=== PATIENT | male | born 1950 | race Two or more races ===

== ENCOUNTER 2021-02-09 19:12 | Inpatient (IN) | payer MEDICARE ==
[~2021-02-09] VITALS: Ht 182.9 cm; Wt 136.1 kg
[~2021-02-09 19:12] MED LIST: ACET-2605 PO; ALLO100T PO; AMIO200T5 PO; ASPI-1420 PO; ATOR10TA PO; CARV25TA2 PO; ECON15CR2 TP; ERGO500093 PO; FAMO20TA8 PO; FURO40TA5 PO; ICOS1CAP PO; INSU100V27 SQ; INSU200I4 SQ; LATA2.5D15 EACHEYE; METH-647 PO; METO2.5T2 PO; Midodrine Hcl (5MG) PO; POTA20TA83 PO; RIVA15TA PO; SILD100T PO; SPIR25TA6 PO; TRAM50TA2 PO; TRIA80OI TP
--- NOTE | 2021-02-09 19:45 | NUR ---
PATIENT [facility] C/O SOB AND FEVER. SEND BY PMD FOR FURTHER EVALUATION. PATIENT IS A/OX 4, RR EVEN AND UNLABORED, NO SIGNS OF SOB NOTED. PATIENT CONNECTED TO [address] MAN AND POX.
[2021-02-09 20:02] LABS: BASOPHILS % (AUTO) 0.2 % (0.0-2.0); EOSINOPHILS % (AUTO) 0.2 % (0.0-6.0); HEMATOCRIT 33 % (39-51); HEMOGLOBIN 10.6 g/dL (13.5-17.5); LYMPHOCYTES # (AUTO) 0.5 K/uL (0.8-4.8); LYMPHOCYTES % (AUTO) 2.7 % (20.0-44.0); MEAN CORPUSCULAR HGB CONC 32 g/dl (31.0-36.0); MEAN CORPUSCULAR VOLUME 87 fL (80-96); MONOCYTES # (AUTO) 1.9 K/uL (0.1-1.30); MONOCYTES % (AUTO) 9.1 % (2.0-12.0); NEUTROPHILS % (AUTO) 87.8 % (43.0-81.0); PLATELET COUNT (AUTO) 222 K/uL (150-450); RED BLOOD CELL COUNT(AUTO) 3.79 MIL/uL (4.5-6.0); WHITE BLOOD COUNT (AUTO) 20.5 K/uL (4.3-11.0)
--- NOTE | 2021-02-09 20:11 | NUR ---
COVID SWAB COLLECTED AND SENT TO LAB
[2021-02-09 20:17] LABS: CALCIUM, SERUM 8.7 mg/dL (8.5-10.1); CARBON DIOXIDE 26 mmol/L (21-32); CHLORIDE 96 mmol/L (98-107); CREATININE 5.2 mg/dL (0.6-1.3); GLUCOSE 247 mg/dL (74-106); POTASSIUM 4.3 mmol/L (3.5-5.1); SODIUM SERUM 134 mmol/L (136-145); UREA NITROGEN, BLOOD 35 mg/dL (7-18)
--- NOTE | 2021-02-09 20:18 | NUR ---
RAD AT BEDSIDE
[2021-02-09 20:25] LABS: ALANINE AMINOTRANSFERASE 21 U/L (12-78); ALBUMIN 2.9 g/dL (3.4-5.0); ALKALINE PHOSPHATASE 89 U/L (46-116); ASPARTATE AMINOTRANSFERASE 17 U/L (15-37); BILIRUBIN,TOTAL 1.3 mg/dL (0.2-1.0)
[2021-02-09] MEDS ORDERED: VANCOMYCIN 1 GM in IV D5W 250 ML IV ONE ×2 (20:30→22:30)
[2021-02-09] MEDS ORDERED: PIPERACILLIN /TAZOBACTAM 3.375 G in IV D5W 50 ML IV ONE (20:30)
--- NOTE | 2021-02-09 20:45 | NUR ---
PATIENT A/OX4, UNABLE TO PROVIDE URINE AT THIS TIME, MADE AWARE, OK TO START IV ABX.
[2021-02-09] MEDS ORDERED: VANCOMYCIN 1 GM VIAL ONE ×2 (20:48→22:36)
--- NOTE | 2021-02-09 20:57 | NUR ---
URINE COLLECTED AND SENT TO LAB
--- NOTE | 2021-02-09 21:25 | NUR ---
CALLED FOR REPORT. NURSE WILL CALL BACK
[2021-02-09 21:28] LABS: BAND % (MANUAL) 13 % (0.0-5.0); EOSINOPHILS % (MANUAL) 2 % (0-4); LYMPHOCYTES % (MANUAL) 1 % (16-48); MONOCYTES % (MANUAL) 7 % (0-11.0); NEUTROPHILS % (MANUAL) 77 (42-76)
[2021-02-09 21:32] LABS: BILIRUBIN,URINE MODERATE (NEGATIVE); COLOR,URINE YELLOW (YELLOW); LEUKOCYTE ESTERASE ,URINE MODERATE (NEGATIVE); NITRITE, URINE POSITIVE (NEGATIVE); PROTEIN,URINE 100 mg/dl (NEGATIVE); UGLUCOSE 100 MG/DL mg/dL (NEGATIVE)
[2021-02-09 21:37] LABS: BACTERIA,URINE 2+ /HPF (None Seen); SQUAMOUS EPITHELIAL CELL,UR 0-2 /HPF (None Seen); WBC,URINE 21-50 /HPF (0-3)
--- NOTE | 2021-02-09 21:38 | NUR ---
REPORT GIVEN TO KAYLEE PATEL
--- NOTE | 2021-02-09 21:44 | NUR ---
ADMIT NOTE RECEIVED PATIENT FROM ER, TRANSFERRED TO ROOM 119. PATIENT IS ALERT AND ORIENTED X4, ABLE TO MAKE NEEDS KNOWN. ON O2 3L VIA NASAL CANNULA, O2 SAT 98%. NO SIGNS OF SHORTNESS OF BREATH. RESPIRATIONS EVEN AND UNLABORED. DENIES ANY PAIN AT THIS TIME. IV ACCESS ON LEFT WRIST # 20 PATENT AND INTACT, NO SIGNS OF INFILTRATION. SKIN ASSESSMENT DONE, NOTED WITH BILATERAL WOUND/CELLULITIS, GROIN REDNESS, LEFT UNDERARM REDNESS AND SACRAL REDNESS. KEPT CLEAN AND DRY. ORIENTED PATIENT TO ROOM AND CALL LIGHT. BED LOCKED AND IN LOWEST POSITION. CALL LIGHT WITHIN REACH. ALL NEEDS ANTICIPATED.
--- NOTE | 2021-02-09 21:52 | NUR ---
PATIENT TRANSFERRED UNDER ACLS
[2021-02-09] MEDS ORDERED: hydrALAZINE HCL 50 MG TABLET PO PRN (22:00)
[2021-02-09] MEDS ORDERED: Z GUARD REMEDY 2 OZ OINT TP PRN (22:00)
[2021-02-09] MEDS ORDERED: ONDANSETRON HCL/PF 4 MG/2 ML VIAL IVP PRN (22:00)
[2021-02-09] MEDS ORDERED: DEXTROSE 50%-WATER 50 ML DISP.SYRIN IV PRN (22:30)
--- NOTE | 2021-02-09 23:10 | NUR ---
NOTIFIED KALYANI CHOWDHURY PATIENT'S BLOOD PRESSURE 81/44 AND HR 60, NO COMPLAINTS OF DIZZINESS OR HEADACHE. KALYANI CHOWDHURY WITH ORDER FOR 250 NS BOLUS, NOTED AND CARRIED OUT.
[2021-02-09] MEDS ORDERED: IV NS 0.9% 250 ML IV ONE (23:30)
[2021-02-10] VITALS: BP 91/46
[2021-02-10] MEDS ORDERED: MEROPENEM 500 MG in IV NS 0.9% 50 ML IV ONE
[2021-02-10] MEDS ORDERED: MEROPENEM 500 MG VIAL IV ONE
--- NOTE | 2021-02-10 00:23 | NUR ---
INFORMED KALYANI CHOWDHURY PATIENT CRITICAL LAB LACTIC ACID 2.6 WITH NO NEW ORDERS AT THIS TIME.
[2021-02-10] MEDS: IV NS 0.9% 1,000 ML IV PRN ×2 (03:41→15:55)
[2021-02-10 04:00] VITALS: BP 87/51
[2021-02-10 05:16] LABS: BASOPHILS % (AUTO) 0.1 % (0.0-2.0); EOSINOPHILS % (AUTO) 0.1 % (0.0-6.0); HEMATOCRIT 32 % (39-51); LYMPHOCYTES # (AUTO) 1.1 K/uL (0.8-4.8); LYMPHOCYTES % (AUTO) 4.6 % (20.0-44.0); MEAN CORPUSCULAR HGB CONC 31 g/dl (31.0-36.0); MEAN CORPUSCULAR VOLUME 87 fL (80-96); MONOCYTES # (AUTO) 1.7 K/uL (0.1-1.30); MONOCYTES % (AUTO) 7.2 % (2.0-12.0); NEUTROPHILS # (AUTO) 20.5 K/uL (1.8-8.9); PLATELET COUNT (AUTO) 198 K/uL (150-450); RED BLOOD CELL COUNT(AUTO) 3.69 MIL/uL (4.5-6.0); WHITE BLOOD COUNT (AUTO) 23.3 K/uL (4.3-11.0)
[2021-02-10 05:41] LABS: ALANINE AMINOTRANSFERASE 19 U/L (12-78); ALBUMIN 2.5 g/dL (3.4-5.0); ALKALINE PHOSPHATASE 89 U/L (46-116); ASPARTATE AMINOTRANSFERASE 14 U/L (15-37); BILIRUBIN,TOTAL 1.1 mg/dL (0.2-1.0); CALCIUM, SERUM 8.4 mg/dL (8.5-10.1); CARBON DIOXIDE 25 mmol/L (21-32); CHLORIDE 96 mmol/L (98-107); CREATININE 5.6 mg/dL (0.6-1.3); GLUCOSE 316 mg/dL (74-106); MAGNESIUM 1.7 mg/dL (1.8-2.4); PHOSPHORUS 5.8 mg/dL (2.5-4.9); POTASSIUM 4.7 mmol/L (3.5-5.1); SODIUM SERUM 135 mmol/L (136-145); TOTAL PROTEIN, SERUM 6.5 g/dL (6.4-8.2); UREA NITROGEN, BLOOD 43 mg/dL (7-18)
[2021-02-10 06:12] LABS: IRON, SERUM 13 ug/dl (50-175); TOTAL IRON BINDING CAPACITY 175 ug/dl (250-450)
[2021-02-10 06:15] LABS: CHOLESTEROL 108 mg/dL (<200); HDL CHOLESTEROL 36 mg/dL (40-60); LDL 52 mg/dL (0-99); TRIGLYCERIDES 107 mg/dL (30-150)
--- NOTE | 2021-02-10 07:00 | NUR ---
RN NOTE PATIENT IS ALERT AND ORIENTED X4, ABLE TO MAKE NEEDS KNOWN. ON O2 3L VIA NASAL CANNULA, O2 SAT 98%. RESPIRATIONS EVEN AND UNLABORED. IV ACCESS ON LEFT WRIST # 20 PATENT AND INTACT RUNNING NS @ 60ML/HR. NOTIFIED KALYANI CHOWDHURY BLOOD PRESSURE THIS MORNING 87/51 WITH NO NEW ORDERS AT THIS TIME, TO MONITOR ONLY. CALL LIGHT WITHIN REACH. WILL ENDORSE TO AM SHIFT.
--- NOTE | 2021-02-10 08:13 | NUR ---
TELE/RN OPENING NOTE RECEIVED PATIENT ALERT AND ORIENTED X4, ABLE TO MAKE NEEDS KNOWN. ON O2 @ 3L VIA NASAL CANNULA, O2 SAT 98%. RESPIRATIONS EVEN AND UNLABORED. IV ACCESS ON LEFT WRIST # 20 PATENT AND INTACT RUNNING NS @ 60ML/HR. PREVIOUS NURSE NOTIFIED KALYANI CHOWDHURY BLOOD PRESSURE THIS MORNING 87/51 WITH NO NEW ORDERS AT THIS TIME, TO MONITOR ONLY. CALL LIGHT WITHIN REACH. WILL CONTINUE TO MONITOR PATIENT
[2021-02-10] MEDS ORDERED: MAGN400O6 PO (08:16)
[2021-02-10] MEDS ORDERED: ACET-868 PO (08:16)
[2021-02-10] MEDS ORDERED: XEROFORM TD (08:16)
[2021-02-10] MEDS ORDERED: ASCO-495 PO (08:16)
[2021-02-10] MEDS ORDERED: MIDO2.5T PO (08:16)
[2021-02-10] MEDS ORDERED: ZINC56.713 TP (08:16)
[2021-02-10] MEDS ORDERED: TEMA7.5C12 PO (08:16)
[2021-02-10] MEDS ORDERED: ALLO100T PO (08:16)
[2021-02-10] MEDS ORDERED: ASPI-1420 PO (08:16)
[2021-02-10] MEDS ORDERED: AMIO200T5 PO (08:16)
[2021-02-10] MEDS ORDERED: BALS60OI TP (08:16)
[2021-02-10] MEDS ORDERED: ZINC1CAP3 PO (08:16)
[2021-02-10] MEDS ORDERED: LATA7.5D EACHEYE (08:16)
[2021-02-10] MEDS ORDERED: ATOR10TA PO (08:16)
[2021-02-10] MEDS ORDERED: INSU100V27 SQ (08:16)
[2021-02-10] MEDS ORDERED: ZINC220C6 PO (08:16)
[2021-02-10] MEDS ORDERED: PANT40TA2 PO (08:16)
[2021-02-10] MEDS ORDERED: ERGO500093 PO (08:16)
[2021-02-10] MEDS ORDERED: TRAM50TA2 PO (08:16)
[2021-02-10] MEDS ORDERED: CARV25TA2 PO (08:16)
[2021-02-10] MEDS ORDERED: FOLI0.8T23 PO (08:16)
[2021-02-10] MEDS ORDERED: ACET-2605 PO (08:16)
[2021-02-10] MEDS ORDERED: ASCO-352 PO (08:16)
[2021-02-10] MEDS ORDERED: POVI30LI TP (08:16)
[2021-02-10] MEDS: BLOOD SUGAR DIAGNOSTIC 1 EACH STRIP IN SCH ×4 (09:08→22:55)
[2021-02-10] MEDS: MEROPENEM 500 MG in IV NS 0.9% 50 ML IV SCH ×2 (09:11→22:06)
[2021-02-10] MEDS ORDERED: ASCORBIC ACID 250 MG TABLET PO SCH (09:30)
[2021-02-10] MEDS ORDERED: MAGNESIUM HYDROXIDE 30 ML UDC PO PRN (09:30)
[2021-02-10] MEDS ORDERED: ACETAMINOPHEN 325 MG TABLET PO PRN (09:30)
[2021-02-10] MEDS ORDERED: MIDODRINE HCL (5MG) 5 MG TABLET PO PRN (09:30)
[2021-02-10] MEDS: PANTOPRAZOLE 40 MG TABLET.DR PO SCH (09:46)
[2021-02-10] MEDS: ASPIRIN EC 81 MG TABLET.DR PO SCH (09:46)
[2021-02-10] MEDS: AMIODARONE HCL 200 MG TABLET PO SCH (09:46)
[2021-02-10] MEDS: INSULIN REGULAR, HUMAN 100 UNIT/ML 3 ML VIAL SQ PRN ×4 (09:50→23:00)
[2021-02-10] MEDS ORDERED: diphenhydrAMINE HCL 25 MG CAPSULE PO PRN (11:00)
[2021-02-10] MEDS ORDERED: diphenhydrAMINE HCL 25 MG CAPSULE PO ONE (11:00)
[2021-02-10 11:32] VITALS: BP 99/53
--- NOTE | 2021-02-10 12:00 | NUR ---
TELE/RN NOTES- VIT D FOLLOWED UP PHARMACY REGARDING VID D 50,000 UNITS, PER PHARMACIST THEY WILL SEND MEDICATION AT THE UNIT.
[2021-02-10 13:07] VITALS: BP 99/53
--- NOTE | 2021-02-10 13:09 | NUR ---
TELE/RN NOTES- VIT D CALLED AND FOLLOWED UP PHARMACY AGAIN REGARDING VIT D 50,000 UNIT. PER PHARMACY THEY WILL SEND IT.
[2021-02-10] MEDS: ERGOCALCIFEROL (VITAMIN D 2) 50,000 UNIT CAPSULE PO SCH (13:45)
[2021-02-10] MEDS: TRAMADOL HCL 50 MG TABLET PO PRN (15:54)
[2021-02-10 16:16] VITALS: BP 99/55
--- NOTE | 2021-02-10 19:35 | NUR ---
TELE/RN CLOSING NOTE PATIENT ALERT AND ORIENTED X4, ABLE TO MAKE NEEDS KNOWN. ON O2 @ 3L VIA NASAL CANNULA, O2 SAT 96%. RESPIRATIONS EVEN AND UNLABORED. IV ACCESS ON LEFT WRIST # 20 PATENT AND INTACT RUNNING NS @ 60ML/HR. PCALL LIGHT WITHIN REACH. WILL ENDORSE TO THE NEXT SHIFT FOR BREA.
--- NOTE | 2021-02-10 19:45 | NUR ---
RN NOTE PT RECEIVED IN BED. PT IS ON 3L OF O2 VIA NC SHOWING NO S/S OF RESP DISTRESS. PT IS A&OX4. PT IS V PACING IN 60S. PT HAS IV LINE ON LEFT WRIST FLUSHED, PATENT, AND INTACT. RIGHT CHEST PACEMAKER NOTED. ALL SAFETY MEASURES IMPLEMENTED. CALL LIGHT WITHIN REACH. BED ALARM ON. CALL LIGHT WITHIN REACH. WILL CONTINUE TO MONITOR THROUGHOUT THE SHIFT.
[2021-02-10 20:00] VITALS: BP 91/44
[2021-02-10] MEDS: CARVEDILOL 12.5 MG TABLET PO SCH (21:00)
[2021-02-10] MEDS: LATANOPROST EYE DROP 0.005% 2.5 ML BOTTLE EACHEYE SCH (22:00)
[2021-02-10] MEDS: ATORVASTATIN 10 MG TABLET PO SCH (22:00)
[2021-02-10] MEDS: TEMAZEPAM 7.5 MG CAPSULE PO SCH (22:04)
--- NOTE | 2021-02-10 22:55 | NUR ---
RN NOTE PT BLOOD SUGAR WAS 176. WILL ADMINISTER INSULIN PER SLIDING SCALE.
--- NOTE | 2021-02-10 23:02 | NUR ---
RN NOTE PT IS IN PAIN. SPOKE WITH DR. CARO DAS. BRENDAN SORENSON 10 Q4H PIERON. Addendum: 02/10/21 at 2304 by NEFTALI ROBLERO RN SPOKE WITH DR. CARO CHOWDHURY. NOT DR. DAS.
[2021-02-11] VITALS: BP 89/37
[2021-02-11] MEDS: HYDROCODONE/APAP 10/325MG TABLET PO PRN
[2021-02-11] MEDS ORDERED: VANCOMYCIN 500 MG VIAL ONE (00:24)
--- NOTE | 2021-02-11 00:42 | NUR ---
RN NOTE SPOKE WITH [facility]. VANCO TROUGH 15. OKAY TO ADMINISTER VANCO POST HD.
[2021-02-11] MEDS: VANCOMYCIN POST DIALYSIS 500MG IV PRN ×2 (01:20→23:03)
[2021-02-11 04:00] VITALS: BP 101/50
[2021-02-11 06:50] LABS: BASOPHILS # (AUTO) 0.1 K/uL (0.0-0.2); BASOPHILS % (AUTO) 0.5 % (0.0-2.0); EOSINOPHILS % (AUTO) 1.9 % (0.0-6.0); HEMATOCRIT 31 % (39-51); LYMPHOCYTES # (AUTO) 0.8 K/uL (0.8-4.8); LYMPHOCYTES % (AUTO) 6.4 % (20.0-44.0); MEAN CORPUSCULAR HGB CONC 32 g/dl (31.0-36.0); MEAN CORPUSCULAR VOLUME 87 fL (80-96); MONOCYTES # (AUTO) 1.2 K/uL (0.1-1.30); MONOCYTES % (AUTO) 9.1 % (2.0-12.0); NEUTROPHILS # (AUTO) 10.4 K/uL (1.8-8.9); NEUTROPHILS % (AUTO) 82.1 % (43.0-81.0); PLATELET COUNT (AUTO) 188 K/uL (150-450); RED BLOOD CELL COUNT(AUTO) 3.58 MIL/uL (4.5-6.0); WHITE BLOOD COUNT (AUTO) 12.7 K/uL (4.3-11.0)
[2021-02-11 07:03] LABS: CARBON DIOXIDE 29 mmol/L (21-32); CHLORIDE 99 mmol/L (98-107); CREATININE 4.3 mg/dL (0.6-1.3); GLUCOSE 157 mg/dL (74-106); MAGNESIUM 1.9 mg/dL (1.8-2.4); PHOSPHORUS 3.9 mg/dL (2.5-4.9); POTASSIUM 3.9 mmol/L (3.5-5.1); SODIUM SERUM 133 mmol/L (136-145); UREA NITROGEN, BLOOD 38 mg/dL (7-18)
--- NOTE | 2021-02-11 07:20 | NUR ---
RN NOTE NO CHANGES IN PT CONDITION DURING SHIFT. PT IS ON 3L OF O2 VIA NC SHOWING NO S/S OF RESP DISTRESS. PT IS A&OX4. PT IS V PACING IN 60S. PT HAS IV LINE ON LEFT WRIST FLUSHED, PATENT, AND INTACT. RIGHT CHEST PACEMAKER NOTED. ALL MEDS GIVEN ORDERED. PT KEPT CLEAN AND COMFORTABLE. ALL SAFETY MEASURES IMPLEMENTED. CALL LIGHT WITHIN REACH. BED ALARM ON. CALL LIGHT WITHIN REACH. ENDORSED TO MORNING SHIFT RN FOR BREA.
--- NOTE | 2021-02-11 07:30 | NUR ---
RN NOTES PATIENT RECEIVED IN BED ALERT AND ORIENTED X4. ON NASAL CANNULA 3 LITERS, DENIES SOB AT THIS TIME, WITH EVEN NON-LABORED BREATHING. IV ACCESS INTACT AND PATENT. SKIN WARM AND DRY TO TOUCH. PATIENT DENIES ANY PAIN OR DISCOMFORT AT THIS TIME. BILATERAL LOWER EXTREMITIES WRAPPED WITH KERLIX, WILL AWAIT FOR WOUND CARE CONSULT. SAFETY PRECAUTIONS IMPLEMENTED WITH BED LOCKED, BED ALARM ON, BILATERAL SIDE RAILS UP, BED IN THE LOWEST POSITION, AND CALL LIGHT WITHIN EASY REACH. WILL CONTINUE TO MONITOR PATIENT.
[2021-02-11 08:00] VITALS: BP 97/39
[2021-02-11] MEDS: BLOOD SUGAR DIAGNOSTIC 1 EACH STRIP IN SCH ×4 (08:14→22:10)
[2021-02-11] MEDS: PANTOPRAZOLE 40 MG TABLET.DR PO SCH (08:14)
[2021-02-11] MEDS: ASPIRIN EC 81 MG TABLET.DR PO SCH (08:59)
[2021-02-11] MEDS: ASCORBIC ACID 500 MG TABLET PO SCH (08:59)
[2021-02-11] MEDS: ZINC SULFATE 220 MG CAPSULE PO SCH (08:59)
[2021-02-11] MEDS: INSULIN REGULAR, HUMAN 100 UNIT/ML 3 ML VIAL SQ PRN ×4 (08:59→22:24)
[2021-02-11] MEDS: VIT B CMPLX 3/FA/VIT C/BIOTIN 1 TAB TABLET PO SCH (08:59)
[2021-02-11] MEDS: ALLOPURINOL 100 MG TABLET PO SCH (09:00)
[2021-02-11] MEDS ORDERED: ZINC SULFATE 220 MG CAPSULE PO SCH (09:00)
[2021-02-11] MEDS: AMIODARONE HCL 200 MG TABLET PO SCH (09:00)
[2021-02-11] MEDS: CARVEDILOL 12.5 MG TABLET PO SCH ×2 (09:00→20:05)
[2021-02-11] MEDS: MEROPENEM 500 MG in IV NS 0.9% 50 ML IV SCH (09:00)
[2021-02-11] MEDS: MIDODRINE HCL (5MG) 5 MG TABLET PO SCH ×2 (10:12→17:05)
--- NOTE | 2021-02-11 10:17 | NUR ---
WOUND CARE CONSULT: REVIEWED CHART, NURSING DOCUMENTATION AND PHOTOS WHICH INDICATE RASHES/REDNESS TO GROIN FOLDS, PERINEAL AREAS WELL LOWER EXTREMITY WOUNDS, PRESENT ON ADMISSION. DPM CONSULT CALLED TO DR GUILLAUME. RECOMMENDATIONS MADE FOR SKIN PROTECTION. DISCUSSED WITH NURSING STAFF. CURRENT MOY SCORE IS 17. MD IN AGREEMENT WITH PLAN OF CARE.
--- NOTE | 2021-02-11 11:02 | NUR ---
RN NOTES PATIENTS BLOOD PRESSURE IN THE MID 80S MD DR SAWYER AWARE, INFORMED HEMODIALYSIS NURSE WELL, DID NOT GO THRU WITH TREATMENT OF HEMODIALYSIS FOR TODAY. WILL CONTINUE TO MONITOR PATIENT.
[2021-02-11 12:00] VITALS: BP 108/71
[2021-02-11] MEDS: IV NS 0.9% 1,000 ML IV PRN (12:33)
--- NOTE | 2021-02-11 15:15 | NUR ---
RN NOTES PATIENT STATES HE IS ITCHY AND REQUESTING BENADRYL. ADMINISTERED PRN ORDERED, WILL CONTINUE TO MONITOR PATIENT.
[2021-02-11 16:00] VITALS: BP 113/53
[2021-02-11] MEDS: CLOTRIMAZOLE 1% 15 GM TUBE TP SCH (17:05)
[2021-02-11] MEDS: ACETAMINOPHEN 325 MG TABLET PO PRN (17:14)
--- NOTE | 2021-02-11 18:35 | NUR ---
STUDENT SERVICES REP NOTES PATIENT ALERT AND ORIENTED IN BED RESTING COMFORTABLY. MET ALL OF PATIENT'S NEEDS. ON NASAL CANNULA, 3 LITERS WITH NO SIGNS OF SOB NOTED, WITH EVEN NON-LABORED BREATHING. ON MANAGER FINANCIAL PLANNING. PATIENT DENIES ANY PAIN OR DISCOMFORT. BILATERAL LOWER EXTREMITIES DRESSING INTACT AND CHANGE. SAFETY PRECAUTIONS IMPLEMENTED WITH BED LOCKED, BILATERAL SIDE RAILS UP, BED IN THE LOWEST POSITION, AND CALL LIGHT WITHIN EASY REACH. WILL ENDORSE PLAN OF CARE TO UPCOMING RN.
--- NOTE | 2021-02-11 19:20 | NUR ---
RN NOTE RECEIVED PATIENT IN BED RESTING ALERT ORIENTED X4 VERBALLY RESPONSIVE ON 3L OXYGEN VIA NASAL CANNULA O2:97% IV SITE IS ON LEFT WRIST INTACT PATENT AND RIGHT UPPER CHEST PERM CATH FOR HD, ON IV HYDRATION NS 09% 60CC/HR SAFETY MEASURE IMPLEMENT BED IN LOW POSITION AND LOCKED CALL LIGHT WITHIN REACH CONTINUE TO MONITOR
[2021-02-11 20:00] VITALS: BP 101/56
[2021-02-11] MEDS ORDERED: CEFEPIME 1 GM in IV D5W 50 ML IV SCH (20:00)
--- NOTE | 2021-02-11 20:30 | NUR ---
RN NOTE PATIENT START DIALYSIS ON HIS ROOM CONTINUE TO MONITOR.
[2021-02-11] MEDS: ATORVASTATIN 10 MG TABLET PO SCH (22:03)
[2021-02-11] MEDS: TEMAZEPAM 7.5 MG CAPSULE PO SCH (22:04)
[2021-02-11] MEDS: LATANOPROST EYE DROP 0.005% 2.5 ML BOTTLE EACHEYE SCH (22:04)
--- NOTE | 2021-02-11 22:57 | NUR ---
RN NOTE DIALYSIS DONE 2LITER FLUID OUT PUT CONTINUE TO MONITOR
[2021-02-12] VITALS: BP 101/45
[2021-02-12] MEDS: MIDODRINE HCL (5MG) 5 MG TABLET PO SCH ×3 (01:35→18:12)
[2021-02-12 04:00] VITALS: BP 101/45
--- NOTE | 2021-02-12 06:46 | NUR ---
RN NOTE PATIENT REMAINS ON ALERT ORIENTED X4 VERBALLY RESPONSIVE ON 3L OXYGEN VIA NASAL CANNULA O2;99% NO SOB NOT ACUTE DISTRESS NOTED IV SITE IS ON LEFT WRIST ON IV HYDRATION NS 60CC/HR ALL DUE MEDS GIVEN MD ORDERED KEPT CLEAN AND DRY ALL THE TIME,TREATMENT FOR BILATERAL WOUND DONE,ALL NEEDS MET ENDORSE NEXT COMING SHIFT FOR CONTINUATION OF CARE.
[2021-02-12 07:18] LABS: BASOPHILS # (AUTO) 0.1 K/uL (0.0-0.2); BASOPHILS % (AUTO) 0.5 % (0.0-2.0); EOSINOPHILS % (AUTO) 3.1 % (0.0-6.0); HEMATOCRIT 31 % (39-51); HEMOGLOBIN 9.9 g/dL (13.5-17.5); LYMPHOCYTES # (AUTO) 0.7 K/uL (0.8-4.8); LYMPHOCYTES % (AUTO) 6.9 % (20.0-44.0); MEAN CORPUSCULAR HGB CONC 32 g/dl (31.0-36.0); MEAN CORPUSCULAR VOLUME 88 fL (80-96); MONOCYTES # (AUTO) 1.2 K/uL (0.1-1.30); MONOCYTES % (AUTO) 11.2 % (2.0-12.0); NEUTROPHILS # (AUTO) 8.2 K/uL (1.8-8.9); NEUTROPHILS % (AUTO) 78.3 % (43.0-81.0); PLATELET COUNT (AUTO) 182 K/uL (150-450); WHITE BLOOD COUNT (AUTO) 10.5 K/uL (4.3-11.0)
--- NOTE | 2021-02-12 07:20 | NUR ---
CLEANING ASSOCIATE OPENING NOTES PATIENT ALERT AND ORIENTED X3-4, ON CHAIR RESTING COMFORTABLY. PATIENT ON ON NASAL CANNULA, 3 LITERS WITH NO SIGNS OF SOB NOTED, WITH EVEN NON-LABORED BREATHING. ON POST PARTUM NURSE. PATIENT DENIES ANY PAIN OR DISCOMFORT. BILATERAL LOWER EXTREMITIES DRESSING, INTACT AND DRY. SAFETY PRECAUTIONS IMPLEMENTED WITH BED LOCKED, BILATERAL SIDE RAILS UP, BED IN THE LOWEST POSITION, AND CALL LIGHT WITHIN EASY REACH. WILL CONTINUE TO MONITOR PATIENT FOR CONTINUITY OF CARE.
[2021-02-12] MEDS: BLOOD SUGAR DIAGNOSTIC 1 EACH STRIP IN SCH ×4 (07:30→22:55)
[2021-02-12 07:45] LABS: ALANINE AMINOTRANSFERASE 30 U/L (12-78); ALBUMIN 2.3 g/dL (3.4-5.0); ALKALINE PHOSPHATASE 81 U/L (46-116); ASPARTATE AMINOTRANSFERASE 35 U/L (15-37); CALCIUM, SERUM 7.7 mg/dL (8.5-10.1); CARBON DIOXIDE 23 mmol/L (21-32); CHLORIDE 100 mmol/L (98-107); CREATININE 3.9 mg/dL (0.6-1.3); GLUCOSE 222 mg/dL (74-106); PHOSPHORUS 2.8 mg/dL (2.5-4.9); POTASSIUM 4.1 mmol/L (3.5-5.1); SODIUM SERUM 133 mmol/L (136-145); TOTAL PROTEIN, SERUM 6.3 g/dL (6.4-8.2); UREA NITROGEN, BLOOD 38 mg/dL (7-18)
[2021-02-12 08:00] VITALS: BP 100/43
[2021-02-12] MEDS: ASCORBIC ACID 500 MG TABLET PO SCH (08:41)
[2021-02-12] MEDS: ASPIRIN EC 81 MG TABLET.DR PO SCH (08:42)
[2021-02-12] MEDS: PANTOPRAZOLE 40 MG TABLET.DR PO SCH (08:43)
[2021-02-12] MEDS: VIT B CMPLX 3/FA/VIT C/BIOTIN 1 TAB TABLET PO SCH (08:43)
[2021-02-12] MEDS: ALLOPURINOL 100 MG TABLET PO SCH (08:43)
[2021-02-12] MEDS: ZINC SULFATE 220 MG CAPSULE PO SCH (08:43)
[2021-02-12] MEDS: CARVEDILOL 12.5 MG TABLET PO SCH ×2 (09:00→22:02)
[2021-02-12] MEDS: AMIODARONE HCL 200 MG TABLET PO SCH (09:00)
--- NOTE | 2021-02-12 11:50 | NUR ---
RN NOTE PATIENT ASKED FOR ASSISTANCE TO GO TO THE BATHROOM. NOTED WOUND ON THE BUTTOCKS BUT PATIENT REFUSED TO HAVE PICTURE TAKEN AT THIS TIME, BUT AGREED TO PUT MEPILEX. WILL CONTINUE TO FOLLOW UP. NOTIFIED.
[2021-02-12 12:00] VITALS: BP 111/55
[2021-02-12] MEDS: CLOTRIMAZOLE 1% 15 GM TUBE TP SCH ×2 (12:02→18:20)
[2021-02-12] MEDS: INSULIN REGULAR, HUMAN 100 UNIT/ML 3 ML VIAL SQ PRN ×2 (12:05→18:19)
[2021-02-12] MEDS: IV NS 0.9% 1,000 ML IV PRN (15:37)
[2021-02-12 16:00] VITALS: BP 111/54
--- NOTE | 2021-02-12 17:10 | NUR ---
RN NOTE PICTURE TAKEN OF PATIENT'S BUTTOCKS AND ATTACHED TO CHART. PATIENT WENT BACK TO CHAIR. WILL CONTINUE TO MONITOR PATIENT.
--- NOTE | 2021-02-12 19:00 | NUR ---
MEDIA CLERK CLOSING NOTES PATIENT ALERT AND ORIENTED X3-4, ON CHAIR RESTING COMFORTABLY. PATIENT ON ON NASAL CANNULA, 3 LITERS WITH NO SIGNS OF SOB NOTED, WITH EVEN NON-LABORED BREATHING. ON MENSWEAR SALESPERSON. PATIENT DENIES ANY PAIN OR DISCOMFORT. BILATERAL LOWER EXTREMITIES DRESSING, INTACT AND DRY. SAFETY PRECAUTIONS IMPLEMENTED WITH BED LOCKED, BILATERAL SIDE RAILS UP, BED IN THE LOWEST POSITION, AND CALL LIGHT WITHIN EASY REACH. WILL ENDORSE TO LINING IRONER FOR CONTINUITY OF CARE.
--- NOTE | 2021-02-12 19:45 | NUR ---
RN OPENING NOTE PATIENT ALERT AND ORIENTED X3-4, IN BED RESTING COMFORTABLY. PATIENT ON NASAL CANNULA, 3 LITERS WITH NO SIGNS OF SOB NOTED, WITH EVEN NON-LABORED BREATHING. ON PULPER OPERATOR SR 70'S. PATIENT DENIES ANY PAIN OR DISCOMFORT AT THIS TIME. (L) WRIST 20 G FLUSHED AND PATENT. (R) CHEST PERMACATH DRESSING CLEAN AND DRY. BILATERAL LOWER EXTREMITIES DRESSING, INTACT AND DRY. SAFETY PRECAUTIONS IMPLEMENTED: BED LOCKED, SIDE RAILS UP X2, BED IN THE LOWEST POSITION, AND CALL LIGHT WITHIN EASY REACH. NO ACUTE DISTRESS NOTED AT THIS TIME
[2021-02-12 20:00] VITALS: BP 101/43
--- NOTE | 2021-02-12 22:00 | NUR ---
RN NOTE POC GLUCOSE FINGERSTICK TEST COMPLETED, LEVEL OF 174 mg/ dL NOTED. 3 UNITS REGULAR INSULIN TO BE ADMINISTERED PER SLIDING SCALE.
[2021-02-12] MEDS: ATORVASTATIN 10 MG TABLET PO SCH (22:01)
[2021-02-12] MEDS: TEMAZEPAM 7.5 MG CAPSULE PO SCH (22:01)
[2021-02-12] MEDS: LATANOPROST EYE DROP 0.005% 2.5 ML BOTTLE EACHEYE SCH (22:08)
[2021-02-12] MEDS: *INSULIN REGULAR(HUMULIN R)HUM 100 UNIT/ML VIAL SQ PRN (23:00)
[2021-02-12] MEDS: ACETAMINOPHEN 325 MG TABLET PO PRN (23:33)
--- NOTE | 2021-02-12 23:33 | NUR ---
RN NOTE PT. COMPLAINS OF PAIN 3/10 IN BLE WOUNDS. TYLENOL 650 MG PRN DOSE GIVEN
[2021-02-13] VITALS: BP 116/42
[2021-02-13] MEDS: MIDODRINE HCL (5MG) 5 MG TABLET PO SCH ×3 (01:40→16:39)
[2021-02-13 04:00] VITALS: BP 98/43
--- NOTE | 2021-02-13 06:40 | NUR ---
RN CLOSING NOTE PATIENT ALERT AND ORIENTED X3-4, IN CHAIR SITTING COMFORTABLY AND WATCHING TV. PATIENT ON NASAL CANNULA, 3 LITERS WITH NO SIGNS OF SOB NOTED, WITH EVEN NON-LABORED BREATHING. ON BUCKRAM SEWER SR 70'S. PATIENT DENIES ANY PAIN OR DISCOMFORT AT THIS TIME. (L) WRIST 20 G FLUSHED AND PATENT, RUNNING NS AT 60 ML/HR. (R) CHEST PERMACATH DRESSING CLEAN AND DRY. BILATERAL LOWER EXTREMITIES DRESSING CLEAN DRY AND INTACT. ALL ORDERS FOLLOWED THROUGHOUT SHIFT. PT TREATED WITH PRN DOSE OF ACETAMINOPHEN FOR PAIN LEVEL 3/10. PT. ENCOURAGED TO PARTICIPATE IN SELF CARE ACTIVITIES, STAND BY ASSISTANCE WHEN AMBULATING TO RESTROOM. PT. KEPT CLEAN AND DRY. SAFETY PRECAUTIONS IMPLEMENTED: BED LOCKED IN LOWEST POSITION, SIDE RAILS UP X2, CALL LIGHT WITHIN EASY REACH. NO ACUTE DISTRESS NOTED AT THIS TIME. WILL ENDORSE CONTINUITY OF CARE TO MORNING SHIFT RN
[2021-02-13 07:15] LABS: BASOPHILS # (AUTO) 0.1 K/uL (0.0-0.2); BASOPHILS % (AUTO) 1.3 % (0.0-2.0); EOSINOPHILS % (AUTO) 4.9 % (0.0-6.0); HEMATOCRIT 30 % (39-51); HEMOGLOBIN 9.8 g/dL (13.5-17.5); LYMPHOCYTES # (AUTO) 0.9 K/uL (0.8-4.8); LYMPHOCYTES % (AUTO) 9.5 % (20.0-44.0); MEAN CORPUSCULAR HGB CONC 32 g/dl (31.0-36.0); MEAN CORPUSCULAR VOLUME 88 fL (80-96); MONOCYTES # (AUTO) 1.1 K/uL (0.1-1.30); NEUTROPHILS # (AUTO) 7.3 K/uL (1.8-8.9); NEUTROPHILS % (AUTO) 73.3 % (43.0-81.0); PLATELET COUNT (AUTO) 184 K/uL (150-450); RED BLOOD CELL COUNT(AUTO) 3.48 MIL/uL (4.5-6.0); WHITE BLOOD COUNT (AUTO) 9.9 K/uL (4.3-11.0)
--- NOTE | 2021-02-13 07:36 | NUR ---
RN OPENING NOTE PT AWAKE IN BED RESTING. A/O X3 AND VIETNAMESE SPEAKING. NO COMPLAINT OF PAIN OR NAUSEA PRESENT. ON 3L NC WITH NO SOB OR RESPIRATORY DISTRESS PRESENT. ON MASS COMMUNICATIONS PROFESSOR. PACEMAKER PRESENT ON L CW. EDEMA PRESENT ON BLE. SELF AMBULATORY WITH BATHROOM PRIVILEGES. WOUNDS PRESENT ON BLE AND SACRAL AREA, WOUND CARE ORDERED AND TO BE GIVEN. R CW PERMACATH PRESENT FOR HD. IV PRESENT ON L WRIST 20G WITH IV FLUIDS RUNNING. LABS AND ORDERS REVIEWED. SAFETY MEASURES IN PLACE. SIDE RAILS RAISED. BED LOWERED. CALL LIGHT WITHIN REACH. WILL CONTINUE TO MONITOR.
[2021-02-13 08:00] VITALS: BP 105/45
--- NOTE | 2021-02-13 08:11 | NUR ---
WOUND CARE CONSULT: PT SEEN FOR SACRAL DEEP TISSUE INJURY IN EVOLUTION WHICH WAS PRESENT ON ADMISSION PER SENDING FACILITY. RECOMMENDATIONS MADE FOR WOUND CARE AND SKIN PROTECTION. DISCUSSED WITH NURSING STAFF AND FISH MACHINE FEEDER. SURGICAL CONSULT CALLED TO DR KOHANZADEH. SHAIKH IN AGREEMENT WITH PLAN OF CARE. PT FOLLOWED BY PIGMENT PROCESSOR FOR LOWER EXTREMITY WOUNDS. Addendum: 02/13/21 at 0813 by GUANAKITO NIX WNDNU Amended: Links added.
[2021-02-13 08:12] LABS: ALANINE AMINOTRANSFERASE 30 U/L (12-78); ALBUMIN 2.3 g/dL (3.4-5.0); ALKALINE PHOSPHATASE 87 U/L (46-116); ASPARTATE AMINOTRANSFERASE 29 U/L (15-37); BILIRUBIN,TOTAL 1.1 mg/dL (0.2-1.0); CARBON DIOXIDE 22 mmol/L (21-32); CHLORIDE 99 mmol/L (98-107); CREATININE 4.4 mg/dL (0.6-1.3); GLUCOSE 172 mg/dL (74-106); MAGNESIUM 1.8 mg/dL (1.8-2.4); PHOSPHORUS 3.7 mg/dL (2.5-4.9); POTASSIUM 3.8 mmol/L (3.5-5.1); SODIUM SERUM 135 mmol/L (136-145); TOTAL PROTEIN, SERUM 6.2 g/dL (6.4-8.2); UREA NITROGEN, BLOOD 53 mg/dL (7-18)
[2021-02-13] MEDS: PANTOPRAZOLE 40 MG TABLET.DR PO SCH (08:45)
[2021-02-13] MEDS: BLOOD SUGAR DIAGNOSTIC 1 EACH STRIP IN SCH ×4 (08:45→21:47)
[2021-02-13] MEDS: ASPIRIN EC 81 MG TABLET.DR PO SCH (08:45)
[2021-02-13] MEDS: VIT B CMPLX 3/FA/VIT C/BIOTIN 1 TAB TABLET PO SCH (08:46)
[2021-02-13] MEDS: CARVEDILOL 12.5 MG TABLET PO SCH ×2 (08:46→21:39)
[2021-02-13] MEDS: AMIODARONE HCL 200 MG TABLET PO SCH (08:46)
[2021-02-13] MEDS: ZINC SULFATE 220 MG CAPSULE PO SCH (08:47)
[2021-02-13] MEDS: ALLOPURINOL 100 MG TABLET PO SCH (08:47)
[2021-02-13] MEDS: ASCORBIC ACID 500 MG TABLET PO SCH (08:47)
[2021-02-13] MEDS: CLOTRIMAZOLE 1% 15 GM TUBE TP SCH ×2 (08:48→16:39)
[2021-02-13] MEDS: INSULIN REGULAR, HUMAN 100 UNIT/ML 3 ML VIAL SQ PRN ×3 (09:15→17:02)
[2021-02-13 12:00] VITALS: BP 102/42
[2021-02-13] MEDS ORDERED: ALBUMIN 25% 25 GM in PREMIX 1 EA IV PRN (13:00)
[2021-02-13 16:00] VITALS: BP 112/47
--- NOTE | 2021-02-13 19:35 | NUR ---
RN CLOSING NOTE PT ASLEEP IN BED. AROUSES TO LIGHT TOUCH. A/O X3 AND SERBIAN SPEAKING. NO COMPLAINT OF PAIN OR NAUSEA PRESENT. ON 3L NC WITH NO SOB OR RESPIRATORY DISTRESS PRESENT. ON HOUSEHOLD REFRIGERATOR MECHANIC. PACEMAKER PRESENT ON L CW. EDEMA PRESENT ON BLE. SELF AMBULATORY WITH BATHROOM PRIVILEGES. WALKER ASSIST. WOUNDS PRESENT ON BLE AND SACRAL AREA, WOUND CARE ORDERED AND GIVEN. R CW PERMACATH PRESENT FOR HD. IV PRESENT ON L WRIST 20G. FLUSHES WELL. ROUTINE MEDS GIVEN. LABS AND ORDERS REVIEWED. SAFETY MEASURES IN PLACE. SIDE RAILS RAISED. BED LOWERED. CALL LIGHT WITHIN REACH. REPORT GIVEN TO NIGHT NURSE FOR BREA.
--- NOTE | 2021-02-13 19:48 | NUR ---
RN OPENING NOTE PT AWAKE IN BED RESTING. A/O X3 AND KHMER SPEAKING. NO COMPLAINT OF PAIN OR NAUSEA PRESENT. ON 3L NC WITH NO SOB OR RESPIRATORY DISTRESS PRESENT. ON ELECTROLESS PLATER. PACEMAKER PRESENT ON L CW A/V PACING. EDEMA PRESENT ON BLE. SELF AMBULATORY WITH BATHROOM PRIVILEGES. WOUNDS PRESENT ON BLE AND SACRAL AREA, WOUND CARE ORDERED AND TO BE GIVEN. R CW PERMACATH PRESENT FOR HD. IV PRESENT ON L WRIST 20G WITH IV FLUIDS RUNNING 60ML/HR . LABS AND ORDERS REVIEWED. SAFETY MEASURES IN PLACE. SIDE RAILS RAISED. BED LOWERED. CALL LIGHT WITHIN REACH. NO ACUTE DISTRESS NOTED AT THIS TIME
[2021-02-13 20:00] VITALS: BP 108/42
[2021-02-13] MEDS: TEMAZEPAM 7.5 MG CAPSULE PO SCH (21:38)
[2021-02-13] MEDS: LATANOPROST EYE DROP 0.005% 2.5 ML BOTTLE EACHEYE SCH (21:38)
[2021-02-13] MEDS: ATORVASTATIN 10 MG TABLET PO SCH (21:38)
[2021-02-13] MEDS: *INSULIN REGULAR(HUMULIN R)HUM 100 UNIT/ML VIAL SQ PRN (21:53)
--- NOTE | 2021-02-13 22:00 | NUR ---
RN NOTE POC GLUCOSE FINGERSTICK TEST COMPLETED, LEVEL OF 184 mg/ dL NOTED. 3 UNITS REGULAR INSULIN TO BE ADMINISTERED PER SLIDING SCALE.
[2021-02-14] VITALS (8 sets, daily range): BP systolic 95–114; BP diastolic 36–47
[2021-02-14] MEDS: MIDODRINE HCL (5MG) 5 MG TABLET PO SCH ×4 (01:42→17:16)
[2021-02-14] MEDS: IV NS 0.9% 1,000 ML IV PRN (04:59)
--- NOTE | 2021-02-14 06:33 | NUR ---
RN CLOSING NOTE PATIENT ALERT AND ORIENTED X3-4, SITTING IN CHAIR COMFORTABLY AND WATCHING TV. PATIENT ON NASAL CANNULA, 3 LITERS WITH NO SIGNS OF SOB NOTED, WITH EVEN NON-LABORED BREATHING. ON NEWSPAPER STUFFER A/V PACING. PATIENT DENIES ANY PAIN OR DISCOMFORT AT THIS TIME. (L) WRIST 20 G FLUSHED AND PATENT, RUNNING NS AT 60 ML/HR. PT NPO AFTER MIDNIGHT PENDING PROCEDURE TODAY, CONSENTS IN CHART. (R) CHEST PERMACATH DRESSING CLEAN AND DRY. BILATERAL LOWER EXTREMITIES DRESSING CLEAN DRY AND INTACT. ALL ORDERS FOLLOWED THROUGHOUT SHIFT. WOUND CARE COMPLETED ORDERED. PT. ENCOURAGED TO PARTICIPATE IN SELF CARE ACTIVITIES, STAND BY ASSISTANCE WITH WALKER WHEN AMBULATING TO RESTROOM. PT. KEPT CLEAN AND DRY. SAFETY PRECAUTIONS IMPLEMENTED: BED LOCKED IN LOWEST POSITION, SIDE RAILS UP X2, CALL LIGHT WITHIN EASY REACH. NO ACUTE DISTRESS NOTED AT THIS TIME. WILL ENDORSE CONTINUITY OF CARE TO MORNING SHIFT RN
[2021-02-14] MEDS: PANTOPRAZOLE 40 MG TABLET.DR PO SCH ×2 (07:30→10:14)
[2021-02-14] MEDS: INSULIN REGULAR, HUMAN 100 UNIT/ML 3 ML VIAL SQ PRN (07:45)
[2021-02-14] MEDS: BLOOD SUGAR DIAGNOSTIC 1 EACH STRIP IN SCH ×4 (07:46→21:25)
[2021-02-14 07:55] LABS: BASOPHILS # (AUTO) 0.1 K/uL (0.0-0.2); BASOPHILS % (AUTO) 1.2 % (0.0-2.0); EOSINOPHILS % (AUTO) 1.9 % (0.0-6.0); HEMATOCRIT 31 % (39-51); HEMOGLOBIN 9.8 g/dL (13.5-17.5); LYMPHOCYTES # (AUTO) 0.6 K/uL (0.8-4.8); LYMPHOCYTES % (AUTO) 5.5 % (20.0-44.0); MEAN CORPUSCULAR HGB CONC 32 g/dl (31.0-36.0); MEAN CORPUSCULAR VOLUME 87 fL (80-96); MONOCYTES # (AUTO) 1.2 K/uL (0.1-1.30); MONOCYTES % (AUTO) 10.8 % (2.0-12.0); NEUTROPHILS # (AUTO) 9.3 K/uL (1.8-8.9); NEUTROPHILS % (AUTO) 80.6 % (43.0-81.0); PLATELET COUNT (AUTO) 181 K/uL (150-450); RED BLOOD CELL COUNT(AUTO) 3.52 MIL/uL (4.5-6.0); WHITE BLOOD COUNT (AUTO) 11.5 K/uL (4.3-11.0)
--- NOTE | 2021-02-14 08:00 | NUR ---
tele bottomer operator: nephro f/u seen by dr. MENDOZA with new orders. orders acknowledged. pt remains npo, pt to have removal of tunnelled catheter and placement of temporary hd cath today. pt aware, consents in chart. will continue to monitor.l
[2021-02-14 08:13] LABS: ALANINE AMINOTRANSFERASE 36 U/L (12-78); ALBUMIN 2.3 g/dL (3.4-5.0); ALKALINE PHOSPHATASE 100 U/L (46-116); ASPARTATE AMINOTRANSFERASE 43 U/L (15-37); CALCIUM, SERUM 8.4 mg/dL (8.5-10.1); CARBON DIOXIDE 22 mmol/L (21-32); CHLORIDE 97 mmol/L (98-107); CREATININE 3.4 mg/dL (0.6-1.3); GLUCOSE 190 mg/dL (74-106); MAGNESIUM 2.3 mg/dL (1.8-2.4); PHOSPHORUS 3.6 mg/dL (2.5-4.9); POTASSIUM 4.3 mmol/L (3.5-5.1); SODIUM SERUM 131 mmol/L (136-145); TOTAL PROTEIN, SERUM 6.6 g/dL (6.4-8.2); UREA NITROGEN, BLOOD 48 mg/dL (7-18)
[2021-02-14] MEDS: ASPIRIN EC 81 MG TABLET.DR PO SCH (08:32)
[2021-02-14] MEDS: AMIODARONE HCL 200 MG TABLET PO SCH (08:32)
[2021-02-14] MEDS: ASCORBIC ACID 500 MG TABLET PO SCH ×2 (08:33→10:14)
[2021-02-14] MEDS: VIT B CMPLX 3/FA/VIT C/BIOTIN 1 TAB TABLET PO SCH ×2 (08:33→10:13)
[2021-02-14] MEDS: ZINC SULFATE 220 MG CAPSULE PO SCH ×2 (08:33→10:13)
[2021-02-14] MEDS: CARVEDILOL 12.5 MG TABLET PO SCH ×2 (08:33→21:00)
[2021-02-14] MEDS: ALLOPURINOL 100 MG TABLET PO SCH ×2 (08:33→10:14)
[2021-02-14] MEDS: CLOTRIMAZOLE 1% 15 GM TUBE TP SCH ×2 (08:33→17:00)
--- NOTE | 2021-02-14 09:29 | NUR ---
tele cattle producers: notes f/u made to o.r., spoke to kelton and informed me that pt is scheduled at 1630 and may eat breakfast by 1030, then npo. pt made aware. diet ordered and called dietary dept to deliver the food, spoke to nayla.
[2021-02-14 09:52] LABS: EOSINOPHILS % (MANUAL) 1 % (0-4); LYMPHOCYTES % (MANUAL) 7 % (16-48); MONOCYTES % (MANUAL) 9 % (0-11.0); NEUTROPHILS % (MANUAL) 83 (42-76)
--- NOTE | 2021-02-14 11:00 | NUR ---
tele greenhouse staff: notes pt accidently dislodged his iv with no bleeding noted. attempted to insert iv x2, but unsuccessful. cn aware and will order a midline. rn concrete block plant supervisor notified.
--- NOTE | 2021-02-14 13:45 | NUR ---
tele instructional systems designer: notes picc line nurse inserted midline to right upper arm, gauge #18, opal. well. pt remains npo since 1029. instructed to call for assistance. will continue to monitor.
[2021-02-14] MEDS ORDERED: ANESTHESIA TRAY IN PYXIS 1 EA TRAY MC ONE ×2 (14:11→18:26)
[2021-02-14] MEDS ORDERED: BUPIVACAINE MPF 0.5% W/EPI INJ 30 ML VIAL ONE (14:11)
[2021-02-14] MEDS ORDERED: LIDOCAINE 1% INJ 50 ML MDV IJ ONE (14:12)
--- NOTE | 2021-02-14 15:00 | NUR ---
tele graduate school dean: notes pt remains npo. no c/o pain or any discomfort. instructed to call for assistance. will continue to monitor.
--- NOTE | 2021-02-14 16:30 | NUR ---
tele drill foreman: notes f/u made to o.r. and informed me that dr. tapia just arrived. pt made aware.
--- NOTE | 2021-02-14 17:15 | NUR ---
tele sports recruiter: notes pt was picked up by o.r. team via bed at this time. tele removed. will continue to monitor.
[2021-02-14] MEDS ORDERED: HEPARIN SODIUM, PORCINE 1,000 UNIT/ML VIAL ONE (17:36)
--- NOTE | 2021-02-14 18:45 | NUR ---
tele business integration analyst: notes received pt from recovery room with dx: s/p removal right IJ tunnelled cath and placement of right IJ temporary cath to right ij. dressing in place. vss, afebrile. placed pt back on tele. needs attended. assisted back to chair per pt's request. late dinner served. instructed to call for assistance.
--- NOTE | 2021-02-14 19:00 | NUR ---
RN NOTE RECEIVED PATIENT IN BED, AO X 4, IN NO S/SX OF ACUTE DISTRESS AT THIS TIME. BREATHING EVEN AND UNLABORED, SATURATION AT 97% ON 3L VIA NC, AV PACING ON THE MONITOR, HR IS 60. NOTED YUN MIDLINE, BOTH HUBS PATENT AND FLUSHING WELL, NO S/S OF INFECTION. WOUND DRESSING AT SACRUM AND B LEGS/FOOT DRY AND INTACT. SAFETY MEASURES IMPLEMENTED. PATIENT BED ALARM IS ON. HEAD OF BED ELEVATED. BED IS LOCKED, IN LOWEST POSITION AND SIDE RAILS UP. CALL LIGHT WITHIN REACH OF THE PATIENT. WILL CONTINUE TO MONITOR AND REASSESS FOR ANY CHANGES.
[2021-02-14] MEDS ORDERED: VANCOMYCIN 1 GM in IV D5W 250 ML IV ONE (20:00)
--- NOTE | 2021-02-14 20:00 | NUR ---
RN NOTE NOTED VANCOMYCIN SCHEDULED FOR 1999 POST HD, HOWEVER, HD NOT DONE TODAY, PER HD RN SCHEDULE DFOR TOMORROW 02/15. PHARMACY NOTIFIED, WAS TOLD TO NON ADMINISTER VANCOMYCIN 1G.
[2021-02-14] MEDS: ATORVASTATIN 10 MG TABLET PO SCH (21:17)
[2021-02-14] MEDS: LATANOPROST EYE DROP 0.005% 2.5 ML BOTTLE EACHEYE SCH (21:17)
[2021-02-14] MEDS: TEMAZEPAM 7.5 MG CAPSULE PO SCH (21:18)
[2021-02-14] MEDS: *INSULIN REGULAR(HUMULIN R)HUM 100 UNIT/ML VIAL SQ PRN (21:30)
--- NOTE | 2021-02-14 22:00 | NUR ---
RN NOTE UNABLE TO SCAN INSULIN FOR HS, AC BEING SELECTED BY DEFAULT. SLIDING SCALE FOR HS ADMINISTERED MANUALLY, PHARMACEUTICAL ASSISTANTJORGE JOLLEY AND MARIO PATEL WITNESS.
[2021-02-15] VITALS: BP 100/40
[2021-02-15] MEDS: MIDODRINE HCL (5MG) 5 MG TABLET PO SCH ×3 (00:57→16:58)
[2021-02-15 04:00] VITALS: BP 102/42
--- NOTE | 2021-02-15 04:39 | NUR ---
RN NOTES 0420 ASHLEY FROM LAB CALLED FOR BLOOD CULTURE BOTTLE #1 RESULT OF GRAM POSITIVE COCCI IN CLUSTERS; PATIENT ON VANCOMYCIN ON HD DAYS. NESHA VERMA RN MADE AWARE AND NOTIFIED
[2021-02-15] MEDS ORDERED: VANCOMYCIN POST DIALYSIS 500MG IV PRN (06:00)
--- NOTE | 2021-02-15 06:50 | NUR ---
RN NOTE NOTED IV FLUID OF NS AT 60 ML/HR ON EMAR, HOWEVER, VERIFIED ORDER FR DR CHOWDHURY TO CONSUME TOTAL OF [address] MOYER WAS NOTIFIED, ORDERS RECEIVED TO STOP IV FLUID. CHAMBER WALKER SAMREEN MADE AWARE.
--- NOTE | 2021-02-15 07:30 | NUR ---
SPINNING BATH PERSON AM NOTE RECEIVED PATIENT IN BED, AO X 4, IN NO S/SX OF ACUTE DISTRESS AT THIS TIME. BREATHING EVEN AND UNLABORED, SATURATION AT 98% ON 3L VIA NC, AV PACING ON THE MONITOR, HR IS 60. WITH YUN MIDLINE FLUSHES WELL. SITE CLEAR. TEMP HD CATH WITH CDI DRESSING. WOUND DRESSING AT SACRUM AND B LEGS/FOOT DRY AND INTACT. SAFETY MEASURES IMPLEMENTED. PATIENT BED ALARM IS ON. HEAD OF BED ELEVATED. BED IS LOCKED, IN LOWEST POSITION AND SIDE RAILS UP. CALL LIGHT WITHIN REACH OF THE PATIENT. WILL CONTINUE TO MONITOR AND REASSESS FOR ANY CHANGES.
[2021-02-15 07:50] LABS: BASOPHILS # (AUTO) 0.1 K/uL (0.0-0.2); BASOPHILS % (AUTO) 0.5 % (0.0-2.0); EOSINOPHILS % (AUTO) 1.1 % (0.0-6.0); HEMATOCRIT 28 % (39-51); LYMPHOCYTES # (AUTO) 0.7 K/uL (0.8-4.8); LYMPHOCYTES % (AUTO) 6.2 % (20.0-44.0); MEAN CORPUSCULAR HGB CONC 33 g/dl (31.0-36.0); MEAN CORPUSCULAR VOLUME 87 fL (80-96); MONOCYTES % (AUTO) 9.4 % (2.0-12.0); NEUTROPHILS # (AUTO) 8.9 K/uL (1.8-8.9); NEUTROPHILS % (AUTO) 82.8 % (43.0-81.0); PLATELET COUNT (AUTO) 177 K/uL (150-450); RED BLOOD CELL COUNT(AUTO) 3.17 MIL/uL (4.5-6.0); WHITE BLOOD COUNT (AUTO) 10.7 K/uL (4.3-11.0)
[2021-02-15 08:00] VITALS: BP 100/42
[2021-02-15] MEDS: BLOOD SUGAR DIAGNOSTIC 1 EACH STRIP IN SCH ×4 (08:02→22:33)
[2021-02-15] MEDS: PANTOPRAZOLE 40 MG TABLET.DR PO SCH (08:10)
[2021-02-15] MEDS: ASPIRIN EC 81 MG TABLET.DR PO SCH (08:10)
[2021-02-15] MEDS: AMIODARONE HCL 200 MG TABLET PO SCH (08:11)
[2021-02-15] MEDS: ZINC SULFATE 220 MG CAPSULE PO SCH (08:11)
[2021-02-15 08:12] LABS: CALCIUM, SERUM 8.5 mg/dL (8.5-10.1); CARBON DIOXIDE 28 mmol/L (21-32); CHLORIDE 97 mmol/L (98-107); CREATININE 4.4 mg/dL (0.6-1.3); GLUCOSE 196 mg/dL (74-106); POTASSIUM 4.3 mmol/L (3.5-5.1); SODIUM SERUM 135 mmol/L (136-145); UREA NITROGEN, BLOOD 61 mg/dL (7-18)
[2021-02-15] MEDS: ALLOPURINOL 100 MG TABLET PO SCH (08:12)
[2021-02-15] MEDS: ASCORBIC ACID 500 MG TABLET PO SCH (08:12)
[2021-02-15] MEDS: VIT B CMPLX 3/FA/VIT C/BIOTIN 1 TAB TABLET PO SCH (08:12)
[2021-02-15] MEDS: CARVEDILOL 12.5 MG TABLET PO SCH ×2 (08:12→21:16)
[2021-02-15] MEDS: CLOTRIMAZOLE 1% 15 GM TUBE TP SCH ×2 (08:13→17:02)
[2021-02-15] MEDS: INSULIN REGULAR, HUMAN 100 UNIT/ML 3 ML VIAL SQ PRN ×4 (08:30→22:55)
--- NOTE | 2021-02-15 09:30 | NUR ---
RN NOTES DUE MEDS GIVEN
[2021-02-15 12:00] VITALS: BP 105/42
[2021-02-15 16:00] VITALS: BP 96/35
[2021-02-15] MEDS: ALBUMIN 25% 25 GM in PREMIX 1 EA IV PRN (16:58)
[2021-02-15] MEDS ORDERED: VANCOMYCIN 1 GM in IV D5W 250 ML IV ONE (18:00)
--- NOTE | 2021-02-15 18:45 | NUR ---
CONSTRUCTION FIELD ENGINEER CLOSING NOTE PT IN BED, AO X 4, IN NO S/SX OF ACUTE DISTRESS AT THIS TIME. BREATHING EVEN AND UNLABORED, SATURATION AT 95% ON 3L VIA NC, AV PACING ON THE MONITOR, HR IS 60. WITH YUN MIDLINE FLUSHES WELL. SITE CLEAR. TEMP HD CATH WITH CDI DRESSING. WOUND DRESSING AT SACRUM AND B LEGS/FOOT DRY AND INTACT. SAFETY MEASURES IMPLEMENTED. HEAD OF BED ELEVATED. BED IS LOCKED, IN LOWEST POSITION AND SIDE RAILS UP. CALL LIGHT WITHIN REACH OF THE PATIENT. ALL NEEDS MET. ASSISTED IN ALL NEEDS. HD DONE TODAY WITH 2L OUTPUT. PATIENT TRANSFERRED TO ROOM 307. REPORT GIVEN TO CASANDRA PATEL.
--- NOTE | 2021-02-15 19:00 | NUR ---
RN NOTES: RECEIVED LYING ON BED, HE WAS JUST TRANSFERRED FROM [facility] TO [id number] AT 1850. A/OX4, ON O2 AT 3L/MIN VIA NC ON TELE MONITOR -AV PACING WITH ICD , USING URINAL AT BED SIDE TO KEEP O2 >90%, RIJ TUNNELED CATH FOR HD, HE JUST HAD HD IN [facility], OUTPUT WAS 2 LITERS,FALL,SAFETY AND ASPIRATION PRECAUTION OBSERVED, NO SOB OR SIGN OF RESPIRATORY DISTRESS, YUN-ML/ WITH IVF ON KVO,ORIENTED TO UNIT AND STAFF.
[2021-02-15 20:00] VITALS: BP 95/48
--- NOTE | 2021-02-15 20:49 | NUR ---
RN NOTES: AT 1999 CALLED TO SEE THE PATIENT, HE COMPLAINED OF PAIN ON THE SACRAL AREA, PRESSURE ULCER DRESSING WAS SOILED AND NEEDS TO BE CHANGE, EXPLAINED TO PATIENT HE AGREED, DRESSING CHANGE, HE HAD SLIGHT SOB, NASAL CANNULA CHANGE TO SHORTER ONE, SPO2 [id number]% WITH O2 AT 3-4L/MIN. BLE OFF LOADED AND KEPT ELEVATED.
--- NOTE | 2021-02-15 21:09 | NUR ---
RN NOTES: CEHCKING PATIENT AT FREQUENT INSTERVAL HE IS TELLING HE HAS SOB, SPO2 CHECKED AND STAYED AT HIS BED SIDE AND OBSERVED SPO2-94-95%, HE LOOKS RELAX WHEN RN STAYED WITH HIM THEN EXPLAINED TO HIM THAT SPO2 IS WITHIN RANGE, INSTRUCT TO NOTIFY IS HE IS NOT FEELING WELL. CN AWARE.
[2021-02-15] MEDS: ATORVASTATIN 10 MG TABLET PO SCH (22:03)
[2021-02-15] MEDS: TEMAZEPAM 7.5 MG CAPSULE PO SCH (22:04)
[2021-02-15] MEDS: LATANOPROST EYE DROP 0.005% 2.5 ML BOTTLE EACHEYE SCH (22:33)
--- NOTE | 2021-02-15 22:55 | NUR ---
RN NOTES: DESPITE EXPLANATION AT AROUND 2200 HE INSIST TO SIT DOWN IN THE CHAIR,HE SAID HE WILL FEEL MORE BETTER IF HE SITS. -PUT IN THE CHAIR FOR 20 MINUTES THEN HE REQUEST TO GO BACK TO BED. -ASSISTED BY 3 NURSES -BLOOD SUGAR CHECKED AT 2200, 195, INSULIN GIVEN PER SCALE WILL CONTINUE TO MONITOR FOR SIGN OF HYPER/HYPOGLYCEMIA.
[2021-02-16] VITALS: BP 90/40
--- NOTE | 2021-02-16 00:03 | NUR ---
RN NOTES: -AROUND 2344 HE COMPLAINED HE FELT SHORTNESS OF BREATH, SPO2 CHECKED-94% WITH O2 AT 3L/MIN VIA NC, DR. MOYER SURGERY AID NOTIFIED, PATIENT REQUEST FOR NEBULIZATION,WITH NEW ORDER:ALBUTEROL Q 6H PRN FOR SOB. -CALLED RT, SPOKE WITH BLAYNE, REQUEST TO GIVE FIRST DOSE OF ALBUTEROL PRN. -EXPLAINED TO PATIENT DOCTOR WAS NOTIFIED AND WE GOT THE ORDER, WE WILL WAIT FOR RT TO COME AND GIVE NEBULIZATION.
--- NOTE | 2021-02-16 00:18 | NUR ---
RN NOTES: -RT-MARQUITA CAME AND GAVE NEBULIZATION
[2021-02-16] MEDS: ALBUTEROL FS 2.5 MG/0.5 ML VIAL.NEB NEB PRN ×3 (00:22→13:57)
[2021-02-16] MEDS: MIDODRINE HCL (5MG) 5 MG TABLET PO SCH ×3 (01:43→17:36)
--- NOTE | 2021-02-16 01:59 | NUR ---
RN NOTES: -AFTER NEBULIZATION, HE FEEL MORE BETTER AND RELAX, HE WAS ABLE TO SLEEP AT SHORT INTERVALS, LATEST BP 90/40. MIDODRINE GIVEN(ROUTINE DOSE). SPO2-95%, NO LABORED BREATHING, NO SOB RR-17. -KEPT COMFORTABLE IN BED, ASLEEP.KEPT CALL LIGHT WITHIN EASY REACH.
[2021-02-16 04:00] VITALS: BP 105/57
[2021-02-16 05:55] LABS: BASOPHILS % (AUTO) 0.2 % (0.0-2.0); EOSINOPHILS % (AUTO) 0.3 % (0.0-6.0); HEMATOCRIT 26 % (39-51); HEMOGLOBIN 8.4 g/dL (13.5-17.5); LYMPHOCYTES # (AUTO) 0.8 K/uL (0.8-4.8); LYMPHOCYTES % (AUTO) 4.2 % (20.0-44.0); MEAN CORPUSCULAR HGB CONC 32 g/dl (31.0-36.0); MEAN CORPUSCULAR VOLUME 88 fL (80-96); MONOCYTES # (AUTO) 1.6 K/uL (0.1-1.30); MONOCYTES % (AUTO) 8.5 % (2.0-12.0); NEUTROPHILS # (AUTO) 16.1 K/uL (1.8-8.9); NEUTROPHILS % (AUTO) 86.8 % (43.0-81.0); PLATELET COUNT (AUTO) 188 K/uL (150-450); RED BLOOD CELL COUNT(AUTO) 2.98 MIL/uL (4.5-6.0); WHITE BLOOD COUNT (AUTO) 18.6 K/uL (4.3-11.0)
--- NOTE | 2021-02-16 05:58 | NUR ---
RN NOTES: DRESSING DONE ON BILATERAL LOWER EXTREMITY WITH CELLULITIS, AFTER DRESSING DONE, KEEP BOTH LOWER EXTREMITY ELEVATED, THEN HE REQUEST FOR HIS NEBULIZATION, -BLAYNE NOTIFIED, AFTER 10 MINUTES SHE CAME AND GAVE NEBULIZATION, PATIENT REQUEST TO SIT ON THE BED AND ASK PERMISSION TO ALLOW HIM TO DANGLE HIS LEGS ON THE SIDE OF THE BED, HE SAID "I FEEL MORE COMFORTABLE AND ABLE TO BREATH WELL, I WILL NOT GET UP AND GO TO CHAIR" RN EXPLAINED TO HIM HIS SAFETY IS OUR PRIORITY. -KEPT CALL LIGHT WITHIN EASY REACH. -NEBULIZATION IS ON GOING.
[2021-02-16 06:18] LABS: ALANINE AMINOTRANSFERASE 27 U/L (12-78); ALBUMIN 2.4 g/dL (3.4-5.0); ALKALINE PHOSPHATASE 95 U/L (46-116); ASPARTATE AMINOTRANSFERASE 24 U/L (15-37); BILIRUBIN,TOTAL 2.8 mg/dL (0.2-1.0); CALCIUM, SERUM 8.2 mg/dL (8.5-10.1); CARBON DIOXIDE 26 mmol/L (21-32); CHLORIDE 97 mmol/L (98-107); CREATININE 4.1 mg/dL (0.6-1.3); GLUCOSE 226 mg/dL (74-106); MAGNESIUM 1.9 mg/dL (1.8-2.4); PHOSPHORUS 4.2 mg/dL (2.5-4.9); POTASSIUM 4.2 mmol/L (3.5-5.1); SODIUM SERUM 134 mmol/L (136-145); UREA NITROGEN, BLOOD 47 mg/dL (7-18)
--- NOTE | 2021-02-16 07:00 | NUR ---
EQUINE BREEDER OPENING NOTES RECEIVED PATIENT IN BED, ALERT AND ORIENTED X 4. NO SIGNS OR SYMPTOMS OF DISTRESS NOTED AT THIS TIME. BREATHING EVEN AND UNLABORED. ON 3L VIA NC, AV PACING ON THE MONITOR WITH HR 68. WITH [employer]LINE INTACT FLUSHING WELL. TEMP HD CATH WITH CDI DRESSING. SAFETY MEASURES IMPLEMENTED WITH BED LOCKED AT LOW POSITION AND SIDE RAILS UP X2. WILL CONTINUE TO MONITOR THROUGHOUT SHIFT.
--- NOTE | 2021-02-16 07:22 | NUR ---
RN NOTES: LYING COMFORTABLY IN BED, NO SOB, SPO2-96%, YUN-ML REMAINS INTACT, BLOOD TEST DONE IN THE MORNING, POST NEBULIZATION HE FEELS BETTER. ENDORSED FOR CONTINUITY OF CARE. Addendum: 02/16/21 at 0725 by TIFFANIE MIGUEL RN ADDED NOTES: BLOOD SUGAR CHECK, 2O2, ENDORSED INSULIN TO BE GIVEN, HE WANTS IT LATER.
[2021-02-16 08:00] VITALS: BP_SYST 98; BP_DIAS 51; BP_DIAS 57
[2021-02-16] MEDS: INSULIN REGULAR, HUMAN 100 UNIT/ML 3 ML VIAL SQ PRN ×3 (08:19→17:42)
[2021-02-16] MEDS: BLOOD SUGAR DIAGNOSTIC 1 EACH STRIP IN SCH ×4 (08:21→22:15)
[2021-02-16] MEDS: ZINC SULFATE 220 MG CAPSULE PO SCH (08:33)
[2021-02-16] MEDS: PANTOPRAZOLE 40 MG TABLET.DR PO SCH (08:33)
[2021-02-16] MEDS: VIT B CMPLX 3/FA/VIT C/BIOTIN 1 TAB TABLET PO SCH (08:33)
[2021-02-16] MEDS: CARVEDILOL 12.5 MG TABLET PO SCH ×2 (08:34→21:00)
[2021-02-16] MEDS: ASCORBIC ACID 500 MG TABLET PO SCH (08:35)
[2021-02-16] MEDS: ASPIRIN EC 81 MG TABLET.DR PO SCH (08:35)
[2021-02-16] MEDS: ALLOPURINOL 100 MG TABLET PO SCH (08:37)
[2021-02-16] MEDS: AMIODARONE HCL 200 MG TABLET PO SCH (08:38)
[2021-02-16] MEDS: CLOTRIMAZOLE 1% 15 GM TUBE TP SCH ×2 (09:00→17:00)
[2021-02-16] MEDS: CEFEPIME 1 GM in IV D5W 50 ML IV SCH (14:20)
[2021-02-16 16:00] VITALS: BP 100/46
--- NOTE | 2021-02-16 19:30 | NUR ---
RN OPENING NOTE PATIENT IN BED, EYSE CLOSED. EASILY AROUSED. PATIENT IS ABLE TO MAKE NEEDS KNOWN. PATIENT CURRENTLY ON 4 L OF O2 SUPPLEMENTATION. BREATHING EVEN AND UNLABORED. PATIENT HAS A [employer] MIDLINE, PATENT AND INTACT. TELE MONITOR READS V PACING 60 BPM. BLE DRESSING PRESENT. SAFETY MEASURES IN PLACE: BED LOCKED AND IN LOWEST POSITION, CALL LIGHT WITHIN REACH, SIDE RAILS UP, BED ALARM ON. WILL MONITOR PATIENT CLOSELY.
--- NOTE | 2021-02-16 19:44 | NUR ---
UNIFORM MAKER CLOSING NOTES PATIENT IN BED, ALERT AND ORIENTED X 4. NO SIGNS OR SYMPTOMS OF DISTRESS NOTED AT THIS TIME. BREATHING EVEN AND UNLABORED. ON 3L VIA NC, AV PACING ON THE MONITOR WITH HR 68. WITH YUN MIDLINE INTACT FLUSHING WELL. ALL NEEDS MET THROUGHOUT SHIFT. SAFETY MEASURES IMPLEMENTED WITH BED LOCKED AT LOW POSITION AND SIDE RAILS UP X2. WILL ENDORSE CONTINUITY OF CARE TO ONCOMING SHIFT.
[2021-02-16 20:00] VITALS: BP 99/43
--- NOTE | 2021-02-16 21:30 | NUR ---
RN NOTE PATIENT'S BP 99/43, RECHECKED NOW IT WAS 91/44. NOTIFIED DR. MOYER OF LOW BP, PATIENT ALSO HAS MIDODRINE Q8HR. NO NEW ORDERS. WILL MONITOR PATIENT FOR ANY HYPOTENSIVE SYMPTOMS.
[2021-02-16] MEDS: ATORVASTATIN 10 MG TABLET PO SCH (22:15)
[2021-02-16] MEDS: TEMAZEPAM 7.5 MG CAPSULE PO SCH (22:15)
[2021-02-16] MEDS: ACETAMINOPHEN 325 MG TABLET PO PRN (22:15)
[2021-02-16] MEDS: LATANOPROST EYE DROP 0.005% 2.5 ML BOTTLE EACHEYE SCH (22:15)
--- NOTE | 2021-02-16 22:30 | NUR ---
RN NOTE BS 228 MG/DL, PATIENT GIVE 4 UNITS FOR COVERAGE.
[2021-02-16] MEDS: *INSULIN REGULAR(HUMULIN R)HUM 100 UNIT/ML VIAL SQ PRN (22:32)
[2021-02-17] VITALS: BP 82/36
--- NOTE | 2021-02-17 00:30 | NUR ---
RN NOTE PATIENT'S BP 82/36. PATIENT IS ASYMPTOMATIC. CHARGE NURSE AWARE. WILL GIVE MIDODRINE AND RECHECK. HR 60, PATIENT A/O X 4.
[2021-02-17] MEDS: ALBUTEROL FS 2.5 MG/0.5 ML VIAL.NEB NEB PRN ×2 (00:52→18:22)
[2021-02-17] MEDS: MIDODRINE HCL (5MG) 5 MG TABLET PO SCH ×3 (00:58→17:45)
--- NOTE | 2021-02-17 01:45 | NUR ---
RN NOTE PATIENT'S BP HAS NOT GONE UP, 88/42 IS THE BP AFTER RECHECKING. CHARGE NURSE AWARE. RECOMMEND TO MONITOR PATIENT FOR ANY HYPOTENSIVE SYMPTOMS, MD IS ALREADY AWARE AND HIS BASELINE IS ALSO LOW BP.
[2021-02-17 04:00] VITALS: BP 93/48
[2021-02-17] MEDS: BLOOD SUGAR DIAGNOSTIC 1 EACH STRIP IN SCH ×4 (06:46→22:18)
[2021-02-17] MEDS: INSULIN REGULAR, HUMAN 100 UNIT/ML 3 ML VIAL SQ PRN ×3 (06:46→17:40)
--- NOTE | 2021-02-17 07:36 | NUR ---
RN CLOSING NOTE PATIENT SITTING AT THE EDGE OF THE BED, PATIENT NOT IN ANY APPARENT DISTRESS. BREATHING EVEN AND UNLABORED. SAFETY MEASURES IMPLEMENTED. WOUND CARE RENDERED. ALL NEEDS MET AND ATTENDED. ALL ORDERS CARRIED OUT. ENDORSED TO DAY SHIFT NURSE FOR BREA. Addendum: 02/17/21 at 0740 by ARTUR PADILLA RN BS 170 MG/DL. 4 UNITS GIVEN FOR COVERAGE.
[2021-02-17 07:53] LABS: BASOPHILS # (AUTO) 0.1 K/uL (0.0-0.2); BASOPHILS % (AUTO) 0.4 % (0.0-2.0); EOSINOPHILS % (AUTO) 0.6 % (0.0-6.0); HEMATOCRIT 25 % (39-51); LYMPHOCYTES # (AUTO) 0.9 K/uL (0.8-4.8); MEAN CORPUSCULAR HGB CONC 32 g/dl (31.0-36.0); MEAN CORPUSCULAR VOLUME 88 fL (80-96); MONOCYTES # (AUTO) 1.1 K/uL (0.1-1.30); MONOCYTES % (AUTO) 6.2 % (2.0-12.0); NEUTROPHILS # (AUTO) 15.9 K/uL (1.8-8.9); NEUTROPHILS % (AUTO) 87.8 % (43.0-81.0); PLATELET COUNT (AUTO) 209 K/uL (150-450); RED BLOOD CELL COUNT(AUTO) 2.85 MIL/uL (4.5-6.0); WHITE BLOOD COUNT (AUTO) 18.1 K/uL (4.3-11.0)
[2021-02-17 08:00] VITALS: BP 100/46
[2021-02-17 08:08] LABS: ALANINE AMINOTRANSFERASE 30 U/L (12-78); ALBUMIN 2.3 g/dL (3.4-5.0); ALKALINE PHOSPHATASE 99 U/L (46-116); ASPARTATE AMINOTRANSFERASE 29 U/L (15-37); CALCIUM, SERUM 8.2 mg/dL (8.5-10.1); CARBON DIOXIDE 24 mmol/L (21-32); CHLORIDE 96 mmol/L (98-107); CREATININE 5.1 mg/dL (0.6-1.3); GLUCOSE 159 mg/dL (74-106); MAGNESIUM 1.9 mg/dL (1.8-2.4); PHOSPHORUS 4.5 mg/dL (2.5-4.9); POTASSIUM 4.2 mmol/L (3.5-5.1); SODIUM SERUM 133 mmol/L (136-145); UREA NITROGEN, BLOOD 63 mg/dL (7-18)
[2021-02-17] MEDS: PANTOPRAZOLE 40 MG TABLET.DR PO SCH (08:35)
[2021-02-17] MEDS: ALLOPURINOL 100 MG TABLET PO SCH (08:36)
[2021-02-17] MEDS: VIT B CMPLX 3/FA/VIT C/BIOTIN 1 TAB TABLET PO SCH (08:36)
[2021-02-17] MEDS: ERGOCALCIFEROL (VITAMIN D 2) 50,000 UNIT CAPSULE PO SCH (08:36)
[2021-02-17] MEDS: ZINC SULFATE 220 MG CAPSULE PO SCH (08:36)
[2021-02-17] MEDS: ASCORBIC ACID 500 MG TABLET PO SCH (08:36)
[2021-02-17] MEDS: ASPIRIN EC 81 MG TABLET.DR PO SCH (08:36)
[2021-02-17] MEDS: CARVEDILOL 12.5 MG TABLET PO SCH ×2 (08:39→19:53)
[2021-02-17] MEDS: AMIODARONE HCL 200 MG TABLET PO SCH (08:40)
[2021-02-17] MEDS: CLOTRIMAZOLE 1% 15 GM TUBE TP SCH ×2 (08:41→17:25)
[2021-02-17] MEDS: CEFEPIME 1 GM in IV D5W 50 ML IV SCH (14:20)
[2021-02-17 16:00] VITALS: BP 100/46
[2021-02-17] MEDS: EPOETIN ALFA-EPBX 10,000 UNIT/ML VIAL SQ SCH (18:41)
--- NOTE | 2021-02-17 19:07 | NUR ---
MS RN CLOSING NOTES PATIENT CURRENTLY LYING IN BED, RECEIVING DIALYSIS. A/O X4. ON 3L OXYGEN VIA NASAL CANNULA - NO SOB NOTED. NO DISTRESS/DISCOMFORT NOTED. BSC AT BEDSIDE. BLOOD PRESSURE MAINTAINED AT BASELINE THROUGHOUT SHIFT. IV ACCESS TO RIGHT UPPER ARM - MIDLINE - INTACT AND PATENT. RIGHT IJ HD CATH NOTED - DRESSING TO BE CHANGED BY DIALYSIS NURSE. SACRAL DRESSING CHANGED - PATIENT DID NOT WANT BLE DRESSINGS CHANGED UNTIL AFTER DIALYSIS - WILL ENDORSE TO RECORDING CLERK RN. SAFETY MEASURES IN PLACE. CALL LIGHT WITHIN REACH. WILL ENDORSE TO RECORDING CLERK NURSE FOR BREA.
--- NOTE | 2021-02-17 19:43 | NUR ---
RN MED SURGE NOTE; VANCOMYCIN TO BE GIVEN AFTER HD PATIENT IN BED, ALERT AND ORIENTED X 4. NO SIGNS OR SYMPTOMS OF DISTRESS NOTED AT THIS TIME. CURRENTLY RECIEVING DIALYSIS TREATMENT. PHARMACY CALLED AND REVIEWED THAT TROUGH WAS CHECKED YESTERDAY WITH LEVEL OF 15, DID NOT KNOW PATIENT RECIEVING DIALYSIS TONIGHT. STATE THAT PATIENT SHOULD GET VANCOMYCIN IVPB FOR ADMINISTRATION AFER DIALYSIS. BREATHING EVEN AND UNLABORED. ON 4L VIA NC, MED SURGE PATIENT STATUS. YUN MIDLINE INTACT FLUSHING NO S/S OF COMPLICATIONS. SAFETY MEASURES IN PLACE, BED DOWN LOCKED AT LOW POSITION AND SIDE RAILS UP X2. WILL CONT TO MONITOR.
[2021-02-17 19:57] VITALS: BP 90/47
[2021-02-17] MEDS: ATORVASTATIN 10 MG TABLET PO SCH (22:18)
[2021-02-17] MEDS: TEMAZEPAM 7.5 MG CAPSULE PO SCH (22:19)
[2021-02-17] MEDS: *INSULIN REGULAR(HUMULIN R)HUM 100 UNIT/ML VIAL SQ PRN (22:25)
[2021-02-17] MEDS: LATANOPROST EYE DROP 0.005% 2.5 ML BOTTLE EACHEYE SCH (22:28)
[2021-02-17] MEDS: VANCOMYCIN POST DIALYSIS 500MG IV PRN (22:29)
[2021-02-18] MEDS: MIDODRINE HCL (5MG) 5 MG TABLET PO SCH ×3 (00:41→17:32)
--- NOTE | 2021-02-18 06:04 | NUR ---
lab called critical; blood culture has gram positive coccyi in clustders. construction project engineer md not notified will endorse to am shift to follow up with rounding md during the day.
[2021-02-18 06:22] LABS: BASOPHILS # (AUTO) 0.2 K/uL (0.0-0.2); BASOPHILS % (AUTO) 1.4 % (0.0-2.0); EOSINOPHILS % (AUTO) 0.8 % (0.0-6.0); HEMATOCRIT 27 % (39-51); HEMOGLOBIN 8.5 g/dL (13.5-17.5); LYMPHOCYTES # (AUTO) 0.7 K/uL (0.8-4.8); LYMPHOCYTES % (AUTO) 4.6 % (20.0-44.0); MEAN CORPUSCULAR HGB CONC 32 g/dl (31.0-36.0); MEAN CORPUSCULAR VOLUME 88 fL (80-96); MONOCYTES % (AUTO) 6.3 % (2.0-12.0); NEUTROPHILS # (AUTO) 13.1 K/uL (1.8-8.9); NEUTROPHILS % (AUTO) 86.9 % (43.0-81.0); PLATELET COUNT (AUTO) 210 K/uL (150-450); RED BLOOD CELL COUNT(AUTO) 3.04 MIL/uL (4.5-6.0); WHITE BLOOD COUNT (AUTO) 15.1 K/uL (4.3-11.0)
[2021-02-18] MEDS: BLOOD SUGAR DIAGNOSTIC 1 EACH STRIP IN SCH ×4 (06:38→22:10)
[2021-02-18] MEDS: INSULIN REGULAR, HUMAN 100 UNIT/ML 3 ML VIAL SQ PRN ×3 (06:39→17:37)
[2021-02-18 06:43] LABS: ALANINE AMINOTRANSFERASE 53 U/L (12-78); ALBUMIN 2.3 g/dL (3.4-5.0); ALKALINE PHOSPHATASE 107 U/L (46-116); ASPARTATE AMINOTRANSFERASE 54 U/L (15-37); BILIRUBIN,TOTAL 2.6 mg/dL (0.2-1.0); CALCIUM, SERUM 8.1 mg/dL (8.5-10.1); CARBON DIOXIDE 26 mmol/L (21-32); CHLORIDE 99 mmol/L (98-107); CREATININE 4.3 mg/dL (0.6-1.3); GLUCOSE 242 mg/dL (74-106); MAGNESIUM 1.9 mg/dL (1.8-2.4); PHOSPHORUS 3.9 mg/dL (2.5-4.9); POTASSIUM 4.4 mmol/L (3.5-5.1); SODIUM SERUM 137 mmol/L (136-145); TOTAL PROTEIN, SERUM 6.4 g/dL (6.4-8.2); UREA NITROGEN, BLOOD 49 mg/dL (7-18)
--- NOTE | 2021-02-18 07:50 | NUR ---
RN OPENING NOTE PT AWAKE IN BED RESTING. A/O X3 AND PERSIAN SPEAKING. NO COMPLAINT OF PAIN OR NAUSEA PRESENT. ON 3L NC WITH NO SOB OR RESPIRATORY DISTRESS PRESENT. NO SILVERWARE ETCHER. PACEMAKER PRESENT ON L CW. WALKER ASSIST WITH BATHROOM PRIVILEGES. WOUNDS PRESENT ON BLE AND SACRAL AREA, WOUND CARE ORDERED AND TO BE GIVEN. R IJ HDCATH PRESENT FOR HD. YUN MIDLINE PRESENT AND FLUSHES WELL. LABS AND ORDERS REVIEWED. SAFETY MEASURES IN PLACE. SIDE RAILS RAISED. BED LOWERED. CALL LIGHT WITHIN REACH. WILL CONTINUE TO MONITOR.
[2021-02-18 08:00] VITALS: BP 100/41
[2021-02-18] MEDS: AMIODARONE HCL 200 MG TABLET PO SCH (09:00)
[2021-02-18] MEDS: CARVEDILOL 12.5 MG TABLET PO SCH ×2 (09:00→21:00)
[2021-02-18] MEDS: PANTOPRAZOLE 40 MG TABLET.DR PO SCH (09:07)
[2021-02-18] MEDS: ZINC SULFATE 220 MG CAPSULE PO SCH (09:08)
[2021-02-18] MEDS: ASPIRIN EC 81 MG TABLET.DR PO SCH (09:08)
[2021-02-18] MEDS: VIT B CMPLX 3/FA/VIT C/BIOTIN 1 TAB TABLET PO SCH (09:08)
[2021-02-18] MEDS: ASCORBIC ACID 500 MG TABLET PO SCH (09:08)
[2021-02-18] MEDS: ALLOPURINOL 100 MG TABLET PO SCH (09:09)
[2021-02-18] MEDS: CLOTRIMAZOLE 1% 15 GM TUBE TP SCH ×2 (09:12→17:30)
[2021-02-18] MEDS: ALBUTEROL FS 2.5 MG/0.5 ML VIAL.NEB NEB PRN (14:09)
[2021-02-18] MEDS: PROSOURCE / PROSTAT (PYXIS) 30 ML UDC PO SCH ×2 (14:10→17:30)
[2021-02-18] MEDS: CEFEPIME 1 GM in IV D5W 50 ML IV SCH (14:10)
[2021-02-18 16:00] VITALS: BP 98/42
--- NOTE | 2021-02-18 18:18 | NUR ---
RN CLOSING NOTE PT AWAKE IN BED RESTING. A/O X3 AND GRENADIAN SPEAKING. NO COMPLAINT OF PAIN OR NAUSEA PRESENT. ON 3L NC WITH NO SOB OR RESPIRATORY DISTRESS PRESENT. NO RETAIL CENTER RECEPTIONIST. PACEMAKER PRESENT ON L CW. WALKER ASSIST WITH BATHROOM PRIVILEGES. WOUNDS PRESENT ON BLE AND SACRAL AREA, WOUND CARE ORDERED AND GIVEN. R IJ HDCATH PRESENT FOR HD. YUN MIDLINE PRESENT AND FLUSHES WELL. LABS AND ORDERS REVIEWED. SAFETY MEASURES IN PLACE. SIDE RAILS RAISED. BED LOWERED. CALL LIGHT WITHIN REACH. REPORT TO BE GIVEN TO NIGHT NURSE FOR BREA.
--- NOTE | 2021-02-18 20:06 | NUR ---
MS/TELE/RN RECEIVE PATIENT LYING IN BED AWAKE, ALERT, ORIENTED, COMFORTABLE, NO C/O PAIN, NO DISTRESS NOTED, CALL LIGHT IN REACH, FALL PRECAUTIONS PER PROTOCOL, WILL MONITOR.
[2021-02-18 20:25] VITALS: BP 99/45
[2021-02-18] MEDS: ATORVASTATIN 10 MG TABLET PO SCH (22:10)
[2021-02-18] MEDS: TEMAZEPAM 7.5 MG CAPSULE PO SCH (22:10)
[2021-02-18] MEDS: *INSULIN REGULAR(HUMULIN R)HUM 100 UNIT/ML VIAL SQ PRN (22:12)
[2021-02-18] MEDS: LATANOPROST EYE DROP 0.005% 2.5 ML BOTTLE EACHEYE SCH (22:16)
[2021-02-19] MEDS: TRAMADOL HCL 50 MG TABLET PO PRN ×2 (01:55→23:40)
[2021-02-19] MEDS: ALBUTEROL FS 2.5 MG/0.5 ML VIAL.NEB NEB PRN (01:56)
[2021-02-19] MEDS: MIDODRINE HCL (5MG) 5 MG TABLET PO SCH ×3 (01:56→17:56)
[2021-02-19 06:23] LABS: BASOPHILS # (AUTO) 0.1 K/uL (0.0-0.2); BASOPHILS % (AUTO) 0.7 % (0.0-2.0); EOSINOPHILS % (AUTO) 1.5 % (0.0-6.0); HEMATOCRIT 26 % (39-51); HEMOGLOBIN 8.4 g/dL (13.5-17.5); LYMPHOCYTES # (AUTO) 1.1 K/uL (0.8-4.8); LYMPHOCYTES % (AUTO) 8.2 % (20.0-44.0); MEAN CORPUSCULAR HGB CONC 32 g/dl (31.0-36.0); MEAN CORPUSCULAR VOLUME 88 fL (80-96); MONOCYTES # (AUTO) 1.1 K/uL (0.1-1.30); NEUTROPHILS # (AUTO) 11.2 K/uL (1.8-8.9); NEUTROPHILS % (AUTO) 81.6 % (43.0-81.0); PLATELET COUNT (AUTO) 269 K/uL (150-450); RED BLOOD CELL COUNT(AUTO) 2.94 MIL/uL (4.5-6.0); WHITE BLOOD COUNT (AUTO) 13.7 K/uL (4.3-11.0)
[2021-02-19 06:38] LABS: CALCIUM, SERUM 8.3 mg/dL (8.5-10.1); CARBON DIOXIDE 25 mmol/L (21-32); CHLORIDE 99 mmol/L (98-107); CREATININE 4.4 mg/dL (0.6-1.3); GLUCOSE 152 mg/dL (74-106); POTASSIUM 4.3 mmol/L (3.5-5.1); SODIUM SERUM 136 mmol/L (136-145); UREA NITROGEN, BLOOD 60 mg/dL (7-18)
[2021-02-19] MEDS: INSULIN REGULAR, HUMAN 100 UNIT/ML 3 ML VIAL SQ PRN ×2 (07:09→12:50)
--- NOTE | 2021-02-19 07:30 | NUR ---
RN MS NOTES PT AWAKE, ALERT AND ORIENTED, SITTING IN HIS CHAIR, EATING BREAKFAST, DENIES PAIN OR ANY DISCOMFORT, RESPIRATIONS NORMAL, CALL LIGHT WITHIN REACH, NEEDS ATTENDED.
[2021-02-19] MEDS: BLOOD SUGAR DIAGNOSTIC 1 EACH STRIP IN SCH ×4 (07:35→22:58)
--- NOTE | 2021-02-19 07:35 | NUR ---
MS/TELE/RN PATIENT IS SITTING AT BEDSIDE EATING BREAKFAST, AWAKE, ALERT, ORIENTED, COMFORTABLE, NO DISTRESS NOTED, ALL NEEDS ATTENDED AT THIS TIME, ENDORSED TO NEXT RN FOR CONTINUITY OF CARE.
[2021-02-19 08:00] VITALS: BP 95/40
[2021-02-19] MEDS: AMIODARONE HCL 200 MG TABLET PO SCH (09:00)
[2021-02-19] MEDS: CARVEDILOL 12.5 MG TABLET PO SCH ×2 (09:00→21:00)
[2021-02-19] MEDS: PANTOPRAZOLE 40 MG TABLET.DR PO SCH (09:02)
[2021-02-19] MEDS: ASPIRIN EC 81 MG TABLET.DR PO SCH (09:02)
[2021-02-19] MEDS: ALLOPURINOL 100 MG TABLET PO SCH (09:02)
[2021-02-19] MEDS: ASCORBIC ACID 500 MG TABLET PO SCH (09:02)
[2021-02-19] MEDS: VIT B CMPLX 3/FA/VIT C/BIOTIN 1 TAB TABLET PO SCH (09:02)
[2021-02-19] MEDS: CLOTRIMAZOLE 1% 15 GM TUBE TP SCH ×2 (09:02→17:36)
[2021-02-19] MEDS: ZINC SULFATE 220 MG CAPSULE PO SCH (09:02)
[2021-02-19] MEDS: PROSOURCE / PROSTAT (PYXIS) 30 ML UDC PO SCH ×2 (09:04→17:59)
[2021-02-19] MEDS: CEFEPIME 1 GM in IV D5W 50 ML IV SCH (15:06)
[2021-02-19 16:00] VITALS: BP 94/49
[2021-02-19] MEDS: EPOETIN ALFA-EPBX 10,000 UNIT/ML VIAL SQ SCH (17:50)
--- NOTE | 2021-02-19 18:30 | NUR ---
RN MS NOTES PT IN BED, DIALYSIS ONGOING, TOLERATES WELL, WOUND DRESSING DONE, PM MEDS GIVEN ORDERED, ENDORSED TO SOFTWARE DEVELOPER MID LEVEL NURSE FOR BREA.
[2021-02-19 20:00] VITALS: BP 105/47
--- NOTE | 2021-02-19 20:39 | NUR ---
MS/TELE/RN DURING INITIAL SHIFT ROUNDING, PATIENT WAS SLEEPING, APPEAR COMFORTABLE, NO SIGNS OF DISTRESS NOTED, HD IN PROGRESS, WILL MONITOR.
[2021-02-19 20:49] VITALS: BP 105/47
[2021-02-19] MEDS: VANCOMYCIN POST DIALYSIS 500MG IV PRN (22:35)
--- NOTE | 2021-02-19 22:59 | NUR ---
MS/TELE/RN ACCU CHECK BLOOD SUGAR 242, DID NOT GIVE INSULIN PATIENT WILL BE NPO AFTER MIDNIGHT FOR A PROCEDURE TOMORROW. WILL MONITOR.
[2021-02-19] MEDS: LATANOPROST EYE DROP 0.005% 2.5 ML BOTTLE EACHEYE SCH (23:34)
[2021-02-19] MEDS: ATORVASTATIN 10 MG TABLET PO SCH (23:34)
[2021-02-19] MEDS: TEMAZEPAM 7.5 MG CAPSULE PO SCH (23:34)
[2021-02-20] VITALS (14 sets, daily range): BP systolic 85–116; BP diastolic 41–56
[2021-02-20] MEDS: MIDODRINE HCL (5MG) 5 MG TABLET PO SCH ×3 (03:41→17:30)
[2021-02-20] MEDS: ALBUTEROL FS 2.5 MG/0.5 ML VIAL.NEB NEB PRN ×2 (03:49→19:54)
--- NOTE | 2021-02-20 06:20 | NUR ---
MS/TELE/RN PATIENT IS STILL SLEEPING AT THIS TIME, APPEAR COMFORTABLE, NO SIGNS OF DISTRESS NOTED, ALL NEEDS ATTENDED AT THIS TIME, WILL CONTINUE TO MONITOR.
[2021-02-20] MEDS: BLOOD SUGAR DIAGNOSTIC 1 EACH STRIP IN SCH ×4 (06:28→21:12)
[2021-02-20] MEDS: PANTOPRAZOLE 40 MG TABLET.DR PO SCH (07:30)
--- NOTE | 2021-02-20 07:30 | NUR ---
RN MS NOTES Patient seen comfortably lying in bed, breathing even and unlabored, denies any pain or discomfort at this time. Call light left within reach.
[2021-02-20] MEDS: CARVEDILOL 12.5 MG TABLET PO SCH ×2 (09:00→21:05)
[2021-02-20] MEDS: ALLOPURINOL 100 MG TABLET PO SCH (09:00)
[2021-02-20] MEDS: ZINC SULFATE 220 MG CAPSULE PO SCH (09:00)
[2021-02-20] MEDS: ASPIRIN EC 81 MG TABLET.DR PO SCH (09:00)
[2021-02-20] MEDS: PROSOURCE / PROSTAT (PYXIS) 30 ML UDC PO SCH ×2 (09:00→16:16)
[2021-02-20] MEDS: AMIODARONE HCL 200 MG TABLET PO SCH (09:00)
[2021-02-20] MEDS: VIT B CMPLX 3/FA/VIT C/BIOTIN 1 TAB TABLET PO SCH (09:00)
[2021-02-20] MEDS: ASCORBIC ACID 500 MG TABLET PO SCH (09:00)
[2021-02-20] MEDS: CLOTRIMAZOLE 1% 15 GM TUBE TP SCH ×2 (09:06→16:15)
--- NOTE | 2021-02-20 13:16 | NUR ---
RN NOTE 1245: Patient transferred from 3W to ICU for SHIRLEY. Patient A/Ox4. Consents verified. Anesthesiologist at bedside and Dr. Hall. 1254: TIme out. 1256: Started, patient sedated. 1305: Done with procedure, patient tolerated. 1315: Patient awake. No c/o discomfort.
[2021-02-20] MEDS: CEFEPIME 1 GM in IV D5W 50 ML IV SCH (16:13)
[2021-02-20] MEDS: INSULIN REGULAR, HUMAN 100 UNIT/ML 3 ML VIAL SQ PRN (17:49)
--- NOTE | 2021-02-20 18:15 | NUR ---
MS RN CLOSING NOTES Patient in bed, awake, alert, oriented, able to follow commands, can make needs known. No respiratory distress noted, no SOB. No complaints of any pain or discomfort at this time. Abdominal bowel sounds present in all quadrants. No s/s of hypo/hyperglycemia noted during shift, blood sugar checked and covered with standing order sliding scale. All needs attended, call light left within reach, will endorse to incoming shift.
--- NOTE | 2021-02-20 19:42 | NUR ---
MS RN OPENING NOTES Patient is A&Ox4. Up and sitting in chair at this time. Denies any pain or discomfort. No signs of distress. Patient is able to make needs known. Will continue to monitor.
[2021-02-20] MEDS: TEMAZEPAM 7.5 MG CAPSULE PO SCH (21:04)
[2021-02-20] MEDS: ATORVASTATIN 10 MG TABLET PO SCH (21:04)
[2021-02-20] MEDS: LATANOPROST EYE DROP 0.005% 2.5 ML BOTTLE EACHEYE SCH (21:12)
[2021-02-20] MEDS: *INSULIN REGULAR(HUMULIN R)HUM 100 UNIT/ML VIAL SQ PRN (21:22)
[2021-02-21] MEDS: MIDODRINE HCL (5MG) 5 MG TABLET PO SCH ×3 (01:07→17:52)
[2021-02-21] MEDS: HYDROCODONE/APAP 10/325MG TABLET PO PRN (01:08)
[2021-02-21] MEDS: INSULIN REGULAR, HUMAN 100 UNIT/ML 3 ML VIAL SQ PRN ×3 (06:48→17:57)
[2021-02-21] MEDS: BLOOD SUGAR DIAGNOSTIC 1 EACH STRIP IN SCH ×4 (06:49→21:39)
--- NOTE | 2021-02-21 06:52 | NUR ---
Patient is A&Ox4. VSS. Up to chair twice then back to bed -legs elevated in bed. Leg dsg c/d/i. Sacral DTI dressing changed -had minimal drainage. No ohypo or hyperglycemic reactions noted. YUN midline flushed and patent. No overnight events. Tolerating care well.
[2021-02-21] MEDS: PANTOPRAZOLE 40 MG TABLET.DR PO SCH (07:44)
--- NOTE | 2021-02-21 07:47 | NUR ---
MS/RN OPENING NOTES RECEIVED PATIENT AWAKE ALERT AND ORIENTED X3-4, SETTING ON THE CHAIR. PATIENT IS ON 5 L OXYGEN VIA NASAL CANNULA SATURATING WELL. PATIENT IN NO APPARENT RESPIRATORY DISTRESS NOTED. NO COMPLAINED OF PAIN NOTED AT THIS TIME. WILL CONTINUE TO MONITOR.
[2021-02-21 07:57] LABS: BASOPHILS # (AUTO) 0.1 K/uL (0.0-0.2); BASOPHILS % (AUTO) 1.1 % (0.0-2.0); EOSINOPHILS % (AUTO) 1.6 % (0.0-6.0); HEMATOCRIT 25 % (39-51); HEMOGLOBIN 7.7 g/dL (13.5-17.5); LYMPHOCYTES # (AUTO) 0.8 K/uL (0.8-4.8); LYMPHOCYTES % (AUTO) 6.5 % (20.0-44.0); MEAN CORPUSCULAR HGB CONC 31 g/dl (31.0-36.0); MEAN CORPUSCULAR VOLUME 92 fL (80-96); MONOCYTES % (AUTO) 8.4 % (2.0-12.0); NEUTROPHILS # (AUTO) 9.9 K/uL (1.8-8.9); NEUTROPHILS % (AUTO) 82.4 % (43.0-81.0); PLATELET COUNT (AUTO) 259 K/uL (150-450); RED BLOOD CELL COUNT(AUTO) 2.73 MIL/uL (4.5-6.0)
[2021-02-21 08:00] VITALS: BP 94/62
[2021-02-21] MEDS: ZINC SULFATE 220 MG CAPSULE PO SCH (08:32)
[2021-02-21] MEDS: ASPIRIN EC 81 MG TABLET.DR PO SCH (08:32)
[2021-02-21] MEDS: ASCORBIC ACID 500 MG TABLET PO SCH (08:32)
[2021-02-21] MEDS: VIT B CMPLX 3/FA/VIT C/BIOTIN 1 TAB TABLET PO SCH (08:33)
[2021-02-21] MEDS: ALLOPURINOL 100 MG TABLET PO SCH (08:36)
[2021-02-21] MEDS: CLOTRIMAZOLE 1% 15 GM TUBE TP SCH ×2 (08:38→16:41)
[2021-02-21] MEDS: PROSOURCE / PROSTAT (PYXIS) 30 ML UDC PO SCH ×2 (08:40→16:38)
[2021-02-21] MEDS: AMIODARONE HCL 200 MG TABLET PO SCH (08:41)
[2021-02-21] MEDS: CARVEDILOL 12.5 MG TABLET PO SCH ×2 (08:41→21:00)
[2021-02-21 08:43] LABS: CALCIUM, SERUM 8.2 mg/dL (8.5-10.1); CARBON DIOXIDE 24 mmol/L (21-32); GLUCOSE 148 mg/dL (74-106); MAGNESIUM 2.1 mg/dL (1.8-2.4); PHOSPHORUS 4.6 mg/dL (2.5-4.9); UREA NITROGEN, BLOOD 58 mg/dL (7-18)
[2021-02-21 08:48] LABS: CHLORIDE 101 mmol/L (98-107); POTASSIUM 4.4 mmol/L (3.5-5.1); SODIUM SERUM 137 mmol/L (136-145)
--- NOTE | 2021-02-21 10:00 | NUR ---
MS/RN NOTES RECHECKED BP 94/62 PULSE 98 WILL CONTINUE TO MONITOR.
[2021-02-21] MEDS ORDERED: ZINC OXIDE 30 GM TUBE TP PRN (11:30)
[2021-02-21] MEDS: CEFEPIME 1 GM in IV D5W 50 ML IV SCH (15:14)
[2021-02-21 15:59] VITALS: BP 96/50
[2021-02-21] MEDS: EPOETIN ALFA-EPBX 10,000 UNIT/ML VIAL SQ SCH (17:49)
[2021-02-21] MEDS: ACETAMINOPHEN 325 MG TABLET PO PRN (17:54)
--- NOTE | 2021-02-21 19:24 | NUR ---
MS/RN CLOSING PATIENT IS ON BED ALERT AND ORIENTED X4. PATIENT IS O 5 L OXYGEN VIA NASAL CANNULA SATURATION 94%. PATIENT IN NO APPARENT RESPIRATORY DISTRESS NOTED. NO COMPLAINED OF PAIN NOTED AT THIS TIME. SEEN AND EXAMINED BY MD WITH ORDERS MADE AND CARRIED OUT ALL DUE MEDICATIONS WAS GIVEN. IV ACCESS AT RIGHT UPPER ARM MIDLINE PATENT AND INTACT. SAFETY PRECAUTION WAS IN PLACED, BED IN LOWEST POSITION AND LOCKED X2. CALL LIGHT WITHIN REACH. WILL ENDORSED TO DISEASE CASE MANAGER FOR BREA.
[2021-02-21 20:00] VITALS: BP 95/48
[2021-02-21] MEDS ORDERED: VANCOMYCIN 1 GM in IV D5W 250 ML IV ONE (20:00)
[2021-02-21] MEDS: ATORVASTATIN 10 MG TABLET PO SCH (21:37)
[2021-02-21] MEDS: TEMAZEPAM 7.5 MG CAPSULE PO SCH (21:38)
[2021-02-21] MEDS: LATANOPROST EYE DROP 0.005% 2.5 ML BOTTLE EACHEYE SCH (21:38)
[2021-02-21] MEDS: *INSULIN REGULAR(HUMULIN R)HUM 100 UNIT/ML VIAL SQ PRN (21:42)
[2021-02-22] MEDS: ALBUTEROL FS 2.5 MG/0.5 ML VIAL.NEB NEB PRN ×2 (00:25→20:03)
[2021-02-22] MEDS ORDERED: VANCOMYCIN 1 GM VIAL ONE (00:58)
[2021-02-22] MEDS: MIDODRINE HCL (5MG) 5 MG TABLET PO SCH ×3 (01:15→17:18)
[2021-02-22 01:16] VITALS: BP 97/54
[2021-02-22] MEDS: HYDROCODONE/APAP 10/325MG TABLET PO PRN (05:23)
[2021-02-22] MEDS ORDERED: VANCOMYCIN 500 MG in IV D5W 100 ML IV PRN (06:00)
[2021-02-22] MEDS: INSULIN REGULAR, HUMAN 100 UNIT/ML 3 ML VIAL SQ PRN ×3 (06:44→17:16)
[2021-02-22] MEDS: BLOOD SUGAR DIAGNOSTIC 1 EACH STRIP IN SCH ×4 (06:45→22:48)
[2021-02-22 06:59] LABS: BASOPHILS # (AUTO) 0.1 K/uL (0.0-0.2); BASOPHILS % (AUTO) 0.9 % (0.0-2.0); EOSINOPHILS % (AUTO) 1.3 % (0.0-6.0); HEMATOCRIT 24 % (39-51); HEMOGLOBIN 7.7 g/dL (13.5-17.5); LYMPHOCYTES # (AUTO) 0.7 K/uL (0.8-4.8); MEAN CORPUSCULAR HGB CONC 32 g/dl (31.0-36.0); MEAN CORPUSCULAR VOLUME 91 fL (80-96); MONOCYTES % (AUTO) 9.5 % (2.0-12.0); NEUTROPHILS % (AUTO) 82.3 % (43.0-81.0); PLATELET COUNT (AUTO) 294 K/uL (150-450); RED BLOOD CELL COUNT(AUTO) 2.62 MIL/uL (4.5-6.0); WHITE BLOOD COUNT (AUTO) 10.9 K/uL (4.3-11.0)
[2021-02-22 07:53] LABS: CALCIUM, SERUM 8.3 mg/dL (8.5-10.1); CARBON DIOXIDE 26 mmol/L (21-32); CHLORIDE 102 mmol/L (98-107); CREATININE 3.4 mg/dL (0.6-1.3); GLUCOSE 146 mg/dL (74-106); MAGNESIUM 1.9 mg/dL (1.8-2.4); PHOSPHORUS 4.2 mg/dL (2.5-4.9); POTASSIUM 4.4 mmol/L (3.5-5.1); SODIUM SERUM 137 mmol/L (136-145); UREA NITROGEN, BLOOD 47 mg/dL (7-18)
[2021-02-22] MEDS: AMIODARONE HCL 200 MG TABLET PO SCH (08:01)
[2021-02-22] MEDS: CARVEDILOL 12.5 MG TABLET PO SCH ×2 (08:02→21:00)
[2021-02-22] MEDS: PANTOPRAZOLE 40 MG TABLET.DR PO SCH (08:03)
[2021-02-22 08:06] VITALS: BP 84/52
[2021-02-22] MEDS: ALLOPURINOL 100 MG TABLET PO SCH (08:29)
[2021-02-22] MEDS: ASCORBIC ACID 500 MG TABLET PO SCH (08:29)
[2021-02-22] MEDS: ASPIRIN EC 81 MG TABLET.DR PO SCH (08:29)
[2021-02-22] MEDS: ZINC SULFATE 220 MG CAPSULE PO SCH (08:29)
[2021-02-22] MEDS: VIT B CMPLX 3/FA/VIT C/BIOTIN 1 TAB TABLET PO SCH (08:29)
--- NOTE | 2021-02-22 08:30 | NUR ---
MS RN OPENING NOTE: PATIENT IS CURRENTLY SITTING IN CHAIR, AWAKE. A/O X4. ON 5L OXYGEN VIA NASAL CANNULA - SATURATING AT 94%. NO SOB NOTED. NO DISTRESS/DISCOMFORT NOTED. BLE DRESSINGS NOTED - CLEAN AND DRY. IV ACCESS AT RIGHT UPPER ARM - MIDLINE - PATENT AND INTACT. SAFETY PRECAUTIONS IN PLACE. CALL LIGHT WITHIN REACH. WILL CONTINUE TO MONITOR.
[2021-02-22] MEDS: CLOTRIMAZOLE 1% 15 GM TUBE TP SCH ×2 (08:39→16:14)
[2021-02-22] MEDS: PROSOURCE / PROSTAT (PYXIS) 30 ML UDC PO SCH ×2 (08:39→16:14)
[2021-02-22] MEDS ORDERED: COD LIVER OIL/ZINC OXIDE 120 GM TUBE TP SCH (09:00)
--- NOTE | 2021-02-22 14:30 | NUR ---
PRELIMINARY BLOOD CX - GRAM POSITIVE COCCI. AWARE
[2021-02-22] MEDS: CEFEPIME 1 GM in IV D5W 50 ML IV SCH (14:51)
[2021-02-22 15:56] VITALS: BP 100/59
--- NOTE | 2021-02-22 18:42 | NUR ---
MS RN CLOSING NOTE PATIENT IS CURRENTLY SITTING IN CHAIR, AWAKE. A/O X4. ON 5L OXYGEN VIA NASAL CANNULA - SATURATING AT 95%. NO SOB NOTED. NO DISTRESS/DISCOMFORT NOTED. BLE DRESSINGS AND SACRAL DRESSING - CLEAN AND DRY. IV ACCESS TO RIGHT UPPER ARM - MIDLINE - PATENT AND INTACT. SAFETY PRECAUTIONS IN PLACE. CALL LIGHT WITHIN REACH. WILL ENDORSE TO CATSHOVEL DRIVER NURSE FOR BREA.
--- NOTE | 2021-02-22 19:05 | NUR ---
MS RN OPENING NOTES: RECEIVED PATIENT SITTING IN THE CHAIR, A/O X4. NO S/S OF DISTRESS NOTED. CALL LIGHT WITHIN REACH. NO COMPLAIN OF PAIN. WALKER AT THE BEDSIDE.
[2021-02-22 20:00] VITALS: BP 100/67
[2021-02-22] MEDS: TEMAZEPAM 7.5 MG CAPSULE PO SCH (22:00)
[2021-02-22] MEDS: *INSULIN REGULAR(HUMULIN R)HUM 100 UNIT/ML VIAL SQ PRN (22:46)
[2021-02-22] MEDS: ATORVASTATIN 10 MG TABLET PO SCH (22:46)
[2021-02-22] MEDS: LATANOPROST EYE DROP 0.005% 2.5 ML BOTTLE EACHEYE SCH (22:48)
--- NOTE | 2021-02-22 23:00 | NUR ---
PATIENT STILL SITTING IN THE CHAIR. NO S/S OF DISTRESS NOTED. CALL LIGHT WITHIN REACH. URINAL AT THE BEDSIDE. ADVISED PATIENT TO LIE DOWN IN BED BUT PATIENT DECLINED, PATIENT SAID THAT HE WILL CALL IF HE'S READY TO GO TO BED.
--- NOTE | 2021-02-23 00:38 | NUR ---
PATIENT IS STILL IN THE CHAIR, FALLING ASLEEP, ASKED PATIENT IF HE WANTS TO GO TO BED, PATIENT REFUSED.
--- NOTE | 2021-02-23 00:56 | NUR ---
INSTRUCTED TERE SALDIVAR TO CHECK ON THE PATIENT PERIODICALLY AND OFFERED HELP TO GO BACK TO THE BED.
[2021-02-23] MEDS: MIDODRINE HCL (5MG) 5 MG TABLET PO SCH ×3 (01:41→17:21)
--- NOTE | 2021-02-23 02:30 | NUR ---
PRIMARY CARE COORDINATOR'S HELPED PATIENT BACK TO BED. CALL LIGHT WITHIN REACH. BED ALARM ON. BED IN LOWEST AND LOCKED POSITION.
[2021-02-23] MEDS: INSULIN REGULAR, HUMAN 100 UNIT/ML 3 ML VIAL SQ PRN ×3 (06:37→22:02)
[2021-02-23 08:00] VITALS: BP 91/40
[2021-02-23 08:02] LABS: BASOPHILS # (AUTO) 0.1 K/uL (0.0-0.2); BASOPHILS % (AUTO) 1.1 % (0.0-2.0); EOSINOPHILS % (AUTO) 2.1 % (0.0-6.0); HEMATOCRIT 26 % (39-51); HEMOGLOBIN 8.2 g/dL (13.5-17.5); LYMPHOCYTES # (AUTO) 0.6 K/uL (0.8-4.8); LYMPHOCYTES % (AUTO) 5.6 % (20.0-44.0); MEAN CORPUSCULAR HGB CONC 31 g/dl (31.0-36.0); MEAN CORPUSCULAR VOLUME 92 fL (80-96); MONOCYTES % (AUTO) 8.7 % (2.0-12.0); NEUTROPHILS # (AUTO) 9.6 K/uL (1.8-8.9); NEUTROPHILS % (AUTO) 82.5 % (43.0-81.0); PLATELET COUNT (AUTO) 311 K/uL (150-450); RED BLOOD CELL COUNT(AUTO) 2.84 MIL/uL (4.5-6.0); WHITE BLOOD COUNT (AUTO) 11.6 K/uL (4.3-11.0)
[2021-02-23 08:27] LABS: CALCIUM, SERUM 8.6 mg/dL (8.5-10.1); CARBON DIOXIDE 24 mmol/L (21-32); CHLORIDE 99 mmol/L (98-107); CREATININE 4.1 mg/dL (0.6-1.3); GLUCOSE 150 mg/dL (74-106); MAGNESIUM 1.9 mg/dL (1.8-2.4); POTASSIUM 4.3 mmol/L (3.5-5.1); SODIUM SERUM 135 mmol/L (136-145); UREA NITROGEN, BLOOD 53 mg/dL (7-18)
[2021-02-23] MEDS: ASCORBIC ACID 500 MG TABLET PO SCH (08:32)
[2021-02-23] MEDS: VIT B CMPLX 3/FA/VIT C/BIOTIN 1 TAB TABLET PO SCH (08:32)
[2021-02-23] MEDS: BLOOD SUGAR DIAGNOSTIC 1 EACH STRIP IN SCH ×4 (08:32→22:00)
[2021-02-23] MEDS: PANTOPRAZOLE 40 MG TABLET.DR PO SCH (08:32)
[2021-02-23] MEDS: ZINC SULFATE 220 MG CAPSULE PO SCH (08:33)
[2021-02-23] MEDS: ASPIRIN EC 81 MG TABLET.DR PO SCH (08:34)
[2021-02-23] MEDS: ALLOPURINOL 100 MG TABLET PO SCH (08:34)
[2021-02-23] MEDS: CARVEDILOL 12.5 MG TABLET PO SCH ×2 (08:34→21:00)
[2021-02-23] MEDS: AMIODARONE HCL 200 MG TABLET PO SCH (08:35)
[2021-02-23] MEDS: CLOTRIMAZOLE 1% 15 GM TUBE TP SCH ×2 (08:35→16:43)
[2021-02-23] MEDS: PROSOURCE / PROSTAT (PYXIS) 30 ML UDC PO SCH ×2 (08:35→16:43)
[2021-02-23] MEDS: CEFEPIME 1 GM in IV D5W 50 ML IV SCH (15:06)
[2021-02-23 16:00] VITALS: BP 93/40
[2021-02-23] MEDS: ALBUTEROL FS 2.5 MG/0.5 ML VIAL.NEB NEB PRN (18:37)
--- NOTE | 2021-02-23 19:30 | NUR ---
MS RN OPENING NOTES Patient awake, A&Ox4. Denies pain or discomfort. Sitting in chair at this time -but patient states he wants to go to bed soon. No signs of distress. On 5L O2 via NC, denies SOB. Dressings to BLE c/d/i. Will change dressings and take photographs tonight of skin issues with ongoing treatment.
[2021-02-23 20:56] VITALS: BP 91/45
--- NOTE | 2021-02-23 21:00 | NUR ---
coreg held B/P 91/45, HR 60
[2021-02-23] MEDS: ATORVASTATIN 10 MG TABLET PO SCH (21:55)
[2021-02-23] MEDS: TEMAZEPAM 7.5 MG CAPSULE PO SCH (21:55)
[2021-02-23] MEDS: HYDROCODONE/APAP 10/325MG TABLET PO PRN (21:55)
[2021-02-23] MEDS: LATANOPROST EYE DROP 0.005% 2.5 ML BOTTLE EACHEYE SCH (22:06)
--- NOTE | 2021-02-24 | NUR ---
Patient unable to stand up from chair to go to bed even with 2 person assist and walker use. It took 4 staff members to help patient back to bed. Educated patient that it will not be safe tonight to continue to transfer from bed to chair. Patient requests physical therapy eval.
[2021-02-24] MEDS: MIDODRINE HCL (5MG) 5 MG TABLET PO SCH ×3 (01:06→17:35)
[2021-02-24] MEDS: HYDROCODONE/APAP 10/325MG TABLET PO PRN ×2 (04:41→14:05)
[2021-02-24 04:48] VITALS: BP 96/43
--- NOTE | 2021-02-24 06:08 | NUR ---
MS RN CLOSING NOTES Patient is A&Ox4. VSS. Currently sitting up in bed. Leg and sacrum pain managed with PRN [place] and repositioning q1H per patient request. On 5L O2 via NC. NO SOB. YUN midline patent and flushed. Dressings to BLE and sacrum changed pictures taken and in chart. Minimal drainage of brown and red from sacral wound. No hypo or hyperglycemic reactions noted.
[2021-02-24 06:24] LABS: BASOPHILS # (AUTO) 0.1 K/uL (0.0-0.2); HEMATOCRIT 24 % (39-51); HEMOGLOBIN 7.6 g/dL (13.5-17.5); LYMPHOCYTES # (AUTO) 0.7 K/uL (0.8-4.8); LYMPHOCYTES % (AUTO) 7.2 % (20.0-44.0); MEAN CORPUSCULAR HGB CONC 32 g/dl (31.0-36.0); MEAN CORPUSCULAR VOLUME 92 fL (80-96); MONOCYTES # (AUTO) 0.9 K/uL (0.1-1.30); MONOCYTES % (AUTO) 9.3 % (2.0-12.0); NEUTROPHILS # (AUTO) 7.8 K/uL (1.8-8.9); NEUTROPHILS % (AUTO) 80.5 % (43.0-81.0); PLATELET COUNT (AUTO) 296 K/uL (150-450); RED BLOOD CELL COUNT(AUTO) 2.57 MIL/uL (4.5-6.0); WHITE BLOOD COUNT (AUTO) 9.7 K/uL (4.3-11.0)
[2021-02-24] MEDS: BLOOD SUGAR DIAGNOSTIC 1 EACH STRIP IN SCH ×4 (06:42→21:11)
[2021-02-24] MEDS: INSULIN REGULAR, HUMAN 100 UNIT/ML 3 ML VIAL SQ PRN (06:43)
[2021-02-24 07:03] LABS: CALCIUM, SERUM 8.2 mg/dL (8.5-10.1); CARBON DIOXIDE 24 mmol/L (21-32); CHLORIDE 100 mmol/L (98-107); CREATININE 4.7 mg/dL (0.6-1.3); GLUCOSE 145 mg/dL (74-106); MAGNESIUM 1.7 mg/dL (1.8-2.4); PHOSPHORUS 5.8 mg/dL (2.5-4.9); POTASSIUM 4.4 mmol/L (3.5-5.1); SODIUM SERUM 135 mmol/L (136-145); UREA NITROGEN, BLOOD 60 mg/dL (7-18)
[2021-02-24 08:00] VITALS: BP 91/37
[2021-02-24] MEDS: VIT B CMPLX 3/FA/VIT C/BIOTIN 1 TAB TABLET PO SCH (08:46)
[2021-02-24] MEDS: ALLOPURINOL 100 MG TABLET PO SCH (08:46)
[2021-02-24] MEDS: ZINC SULFATE 220 MG CAPSULE PO SCH (08:46)
[2021-02-24] MEDS: ASCORBIC ACID 500 MG TABLET PO SCH (08:46)
[2021-02-24] MEDS: AMIODARONE HCL 200 MG TABLET PO SCH (08:46)
[2021-02-24] MEDS: PROSOURCE / PROSTAT (PYXIS) 30 ML UDC PO SCH ×2 (08:47→17:35)
[2021-02-24] MEDS: PANTOPRAZOLE 40 MG TABLET.DR PO SCH (08:47)
[2021-02-24] MEDS: CARVEDILOL 12.5 MG TABLET PO SCH ×2 (08:47→20:18)
[2021-02-24] MEDS: ASPIRIN EC 81 MG TABLET.DR PO SCH (08:47)
[2021-02-24] MEDS: CLOTRIMAZOLE 1% 15 GM TUBE TP SCH ×2 (08:48→17:36)
[2021-02-24] MEDS: ERGOCALCIFEROL (VITAMIN D 2) 50,000 UNIT CAPSULE PO SCH (08:51)
--- NOTE | 2021-02-24 14:03 | NUR ---
NM: WBC SCAN WAS COMPLETED. TYECH:CHAR
[2021-02-24] MEDS: CEFEPIME 1 GM in IV D5W 50 ML IV SCH (14:05)
[2021-02-24] MEDS: EPOETIN ALFA-EPBX 10,000 UNIT/ML VIAL SQ SCH (17:36)
--- NOTE | 2021-02-24 19:42 | NUR ---
MS RN OPENING NOTES Patient is a&Ox4. Sitting in bed on laptop. Patient denies pain or discomfort at this time. Sacral dressing and BLE dressings c/d/i. No signs of distress. YUN midline flushed and patent.
[2021-02-24 20:00] VITALS: BP 91/49
[2021-02-24] MEDS: ATORVASTATIN 10 MG TABLET PO SCH (21:10)
[2021-02-24] MEDS: TEMAZEPAM 7.5 MG CAPSULE PO SCH (21:10)
[2021-02-24] MEDS: LATANOPROST EYE DROP 0.005% 2.5 ML BOTTLE EACHEYE SCH (21:10)
--- NOTE | 2021-02-24 21:20 | NUR ---
pt refuses insulin. Pt. states "2 units isn't going to do anything or make a difference. and I'm not going to eat overnight." BS 153. Educated patient on risks and benefits.
[2021-02-25] MEDS: MIDODRINE HCL (5MG) 5 MG TABLET PO SCH ×4 (01:37→18:07)
[2021-02-25 06:15] LABS: BASOPHILS # (AUTO) 0.1 K/uL (0.0-0.2); BASOPHILS % (AUTO) 0.6 % (0.0-2.0); EOSINOPHILS % (AUTO) 2.2 % (0.0-6.0); HEMATOCRIT 24 % (39-51); HEMOGLOBIN 7.8 g/dL (13.5-17.5); LYMPHOCYTES # (AUTO) 0.5 K/uL (0.8-4.8); LYMPHOCYTES % (AUTO) 5.9 % (20.0-44.0); MEAN CORPUSCULAR HGB CONC 32 g/dl (31.0-36.0); MEAN CORPUSCULAR VOLUME 93 fL (80-96); MONOCYTES # (AUTO) 0.8 K/uL (0.1-1.30); MONOCYTES % (AUTO) 8.9 % (2.0-12.0); NEUTROPHILS % (AUTO) 82.4 % (43.0-81.0); PLATELET COUNT (AUTO) 250 K/uL (150-450); RED BLOOD CELL COUNT(AUTO) 2.59 MIL/uL (4.5-6.0); WHITE BLOOD COUNT (AUTO) 8.4 K/uL (4.3-11.0)
--- NOTE | 2021-02-25 06:22 | NUR ---
Patient is A&Ox4. VSS. B/P managed with midodrine routine. YUN midline patent and flushed. No BM and no urine overnight. Patient reports only urinating once every 2 or 3 days since starting HD. Sitting up in bed and laying in bed back and forth a couple times through the night. But patient was able to get comfortable and slept well throughout the night though easy to wake. Sacrum dressing soiled , wound cleaned and dressing changed. Minimal serous, bloody output with small amount of black fluid. Daily weight 303lb. No hypo or hyperglycemic reactions. Denies SOB currently on 5L O2 via NC.
[2021-02-25] MEDS: BLOOD SUGAR DIAGNOSTIC 1 EACH STRIP IN SCH ×4 (06:42→21:47)
[2021-02-25] MEDS: INSULIN REGULAR, HUMAN 100 UNIT/ML 3 ML VIAL SQ PRN ×3 (06:45→17:59)
[2021-02-25 07:26] LABS: CALCIUM, SERUM 8.1 mg/dL (8.5-10.1); CARBON DIOXIDE 24 mmol/L (21-32); CHLORIDE 99 mmol/L (98-107); CREATININE 5.5 mg/dL (0.6-1.3); GLUCOSE 135 mg/dL (74-106); MAGNESIUM 1.8 mg/dL (1.8-2.4); PHOSPHORUS 6.8 mg/dL (2.5-4.9); POTASSIUM 4.7 mmol/L (3.5-5.1); SODIUM SERUM 135 mmol/L (136-145); UREA NITROGEN, BLOOD 64 mg/dL (7-18)
--- NOTE | 2021-02-25 07:30 | NUR ---
received pt. this am alert and oriented [id number] at bedside.bulky dressings with mod amt. serous drainage.
[2021-02-25 08:12] VITALS: BP 86/44
[2021-02-25] MEDS: PANTOPRAZOLE 40 MG TABLET.DR PO SCH (08:14)
[2021-02-25] MEDS: PROSOURCE / PROSTAT (PYXIS) 30 ML UDC PO SCH ×2 (08:15→17:00)
[2021-02-25] MEDS: VIT B CMPLX 3/FA/VIT C/BIOTIN 1 TAB TABLET PO SCH (08:15)
[2021-02-25] MEDS: ASPIRIN EC 81 MG TABLET.DR PO SCH (08:16)
[2021-02-25] MEDS: ALLOPURINOL 100 MG TABLET PO SCH (08:16)
[2021-02-25] MEDS: ASCORBIC ACID 500 MG TABLET PO SCH (08:16)
[2021-02-25] MEDS: ZINC SULFATE 220 MG CAPSULE PO SCH (08:16)
[2021-02-25] MEDS: AMIODARONE HCL 200 MG TABLET PO SCH (08:20)
[2021-02-25] MEDS: CARVEDILOL 12.5 MG TABLET PO SCH ×2 (08:21→20:25)
[2021-02-25] MEDS: CLOTRIMAZOLE 1% 15 GM TUBE TP SCH ×2 (08:38→18:09)
--- NOTE | 2021-02-25 10:30 | NUR ---
dr. carcamo in and orders given.
--- NOTE | 2021-02-25 11:30 | NUR ---
dr. carcamo aware gm.positive cocci on blood culture.
[2021-02-25 16:08] VITALS: BP 95/45
--- NOTE | 2021-02-25 16:30 | NUR ---
received orders from dr. tapia for permacath placement tomorrow.
[2021-02-25] MEDS: BUMETANIDE INJ 0.25 MG/ML VIAL IV SCH (19:00)
--- NOTE | 2021-02-25 19:10 | NUR ---
MS/RN OPENING NOTE RECEIVED PATIENT SITTING AT SIDE OF BED. PATIENT IS ALERT AND ORIENTED X 4. ABLE TO MAKE NEEDS KNOWN. DENIES PAIN AT THIS TIME. CONTINUES ON 3L O2 VIA NC WITH NO S/SX OF RESPIRATORY DISTRESS NOTED. IV ACCESS TO RIGHT UPPER ARM MIDLINE INTACT, PATENT AND SALINE LOCKED. CONTINUES ON IV ABX. PERMACATH SURGERY HELD D/T POSITIVE BLOOD CX. PATIENT AWARE. CALL LIGHT WITHIN REACH. ASPIRATION, FALL AND SAFETY PRECAUTIONS MAINTAINED. WILL CONTINUE TO MONITOR.
--- NOTE | 2021-02-25 19:10 | NUR ---
sent text do felipa carcamo fnp regarding elevated coags and copy of ekg.as well informed surg. cancelled for tomorrow,due to blood culture.call to dr. araya that surg. cancelled on02/26.he's operations label clerk for dr. tapia,supervisor laboratory contacted as well.
[2021-02-25 20:00] VITALS: BP 84/44
[2021-02-25] MEDS: SEVELAMER CARBONATE 800 MG POWD.PACK PO SCH (20:26)
[2021-02-25] MEDS: HYDROCODONE/APAP 10/325MG TABLET PO PRN (21:12)
[2021-02-25] MEDS: LATANOPROST EYE DROP 0.005% 2.5 ML BOTTLE EACHEYE SCH (21:47)
[2021-02-25] MEDS: *INSULIN REGULAR(HUMULIN R)HUM 100 UNIT/ML VIAL SQ PRN (21:53)
[2021-02-25] MEDS: ATORVASTATIN 10 MG TABLET PO SCH (22:03)
[2021-02-25] MEDS: TEMAZEPAM 7.5 MG CAPSULE PO SCH (22:03)
[2021-02-26] MEDS: MIDODRINE HCL (5MG) 5 MG TABLET PO SCH ×3 (01:28→17:59)
[2021-02-26] MEDS: HYDROCODONE/APAP 10/325MG TABLET PO PRN ×2 (03:55→23:35)
--- NOTE | 2021-02-26 04:49 | NUR ---
MS/RN NOTE RECEIVED CALL FROM LAB REGARDING POSITIVE BLOOD CULTURE FROM 02/24 GROWING GRAM POSITIVE COCCI IN CLUSTERS. NOTIFIED PANEL LAY UP WORKER MD CARY.
[2021-02-26 06:48] LABS: CALCIUM, SERUM 7.9 mg/dL (8.5-10.1); CARBON DIOXIDE 24 mmol/L (21-32); CHLORIDE 99 mmol/L (98-107); CREATININE 6.1 mg/dL (0.6-1.3); GLUCOSE 125 mg/dL (74-106); POTASSIUM 4.8 mmol/L (3.5-5.1); SODIUM SERUM 134 mmol/L (136-145); UREA NITROGEN, BLOOD 73 mg/dL (7-18)
[2021-02-26 06:51] LABS: BASOPHILS # (AUTO) 0.1 K/uL (0.0-0.2); BASOPHILS % (AUTO) 0.6 % (0.0-2.0); HEMATOCRIT 24 % (39-51); HEMOGLOBIN 7.7 g/dL (13.5-17.5); LYMPHOCYTES # (AUTO) 0.6 K/uL (0.8-4.8); LYMPHOCYTES % (AUTO) 6.8 % (20.0-44.0); MEAN CORPUSCULAR HGB CONC 32 g/dl (31.0-36.0); MEAN CORPUSCULAR VOLUME 92 fL (80-96); MONOCYTES # (AUTO) 0.8 K/uL (0.1-1.30); MONOCYTES % (AUTO) 9.4 % (2.0-12.0); NEUTROPHILS # (AUTO) 7.1 K/uL (1.8-8.9); NEUTROPHILS % (AUTO) 81.2 % (43.0-81.0); PLATELET COUNT (AUTO) 228 K/uL (150-450); RED BLOOD CELL COUNT(AUTO) 2.61 MIL/uL (4.5-6.0); WHITE BLOOD COUNT (AUTO) 8.8 K/uL (4.3-11.0)
[2021-02-26] MEDS: BLOOD SUGAR DIAGNOSTIC 1 EACH STRIP IN SCH ×4 (07:05→22:28)
[2021-02-26] MEDS: INSULIN REGULAR, HUMAN 100 UNIT/ML 3 ML VIAL SQ PRN ×4 (07:05→22:30)
[2021-02-26 07:06] LABS: MAGNESIUM 1.7 mg/dL (1.8-2.4)
[2021-02-26 08:00] VITALS: BP 87/43
[2021-02-26] MEDS: SEVELAMER CARBONATE 800 MG POWD.PACK PO SCH ×4 (08:00→17:54)
[2021-02-26] MEDS: VIT B CMPLX 3/FA/VIT C/BIOTIN 1 TAB TABLET PO SCH ×2 (08:55→09:06)
[2021-02-26] MEDS: ASPIRIN EC 81 MG TABLET.DR PO SCH ×2 (08:55→09:07)
[2021-02-26] MEDS: ASCORBIC ACID 500 MG TABLET PO SCH ×2 (08:56→09:06)
[2021-02-26] MEDS: BUMETANIDE INJ 0.25 MG/ML VIAL IV SCH ×2 (08:57→17:53)
[2021-02-26] MEDS: ZINC SULFATE 220 MG CAPSULE PO SCH (08:57)
[2021-02-26] MEDS: ALLOPURINOL 100 MG TABLET PO SCH ×2 (08:57→09:06)
[2021-02-26] MEDS: CLOTRIMAZOLE 1% 15 GM TUBE TP SCH ×2 (08:59→17:58)
[2021-02-26] MEDS: PROSOURCE / PROSTAT (PYXIS) 30 ML UDC PO SCH ×2 (09:00→17:00)
[2021-02-26] MEDS: CARVEDILOL 12.5 MG TABLET PO SCH ×2 (09:00→21:00)
[2021-02-26] MEDS: AMIODARONE HCL 200 MG TABLET PO SCH (09:00)
[2021-02-26] MEDS: PANTOPRAZOLE 40 MG TABLET.DR PO SCH (09:28)
[2021-02-26] MEDS: Magnesium 1GM/D5W 100ML PREMIX 100 ML IV SCH ×2 (15:33→16:57)
[2021-02-26 16:00] VITALS: BP 101/43
[2021-02-26] MEDS: EPOETIN ALFA-EPBX 10,000 UNIT/ML VIAL SQ SCH (17:54)
--- NOTE | 2021-02-26 18:00 | NUR ---
GIVEN MG REPLACEMENT IV.
[2021-02-26] MEDS: TRAMADOL HCL 50 MG TABLET PO PRN (19:32)
--- NOTE | 2021-02-26 19:55 | NUR ---
MS RN Opening Notes Patient was last seen awake in bed resting. Patient's alert and oriented x4. Patient's stable on room air. Patient has a YUN midline. Patient's in no acute distress at this time. Safety measures in place: Bed locked, bed alarm on, side rails upx3, and call light within reach of the patient. Will continue to monitor the patient.
[2021-02-26 20:00] VITALS: BP 106/41
[2021-02-26] MEDS ORDERED: VANCOMYCIN 500 MG in IV D5W 100ml IV ONE (21:00)
[2021-02-26] MEDS: ATORVASTATIN 10 MG TABLET PO SCH (21:28)
[2021-02-26] MEDS: TEMAZEPAM 7.5 MG CAPSULE PO SCH (21:29)
[2021-02-26] MEDS: LATANOPROST EYE DROP 0.005% 2.5 ML BOTTLE EACHEYE SCH (21:45)
[2021-02-26] MEDS: *INSULIN REGULAR(HUMULIN R)HUM 100 UNIT/ML VIAL SQ PRN (22:34)
--- NOTE | 2021-02-26 22:57 | NUR ---
MS RN Notes Patient's blood sugar at 2226 was 151 mg/dL. Patient was given insulin as ordered. Hand off report was given to Nurse Epstein. Endorsed care to nurse.
--- NOTE | 2021-02-26 23:00 | NUR ---
RN BREA NOTE JAEL PATEL TRANSFERRED CARE AT THIS TIME. PATIENT ON RA SATTING 93%. WILL MONITOR PATIENT CLOSELY.
[2021-02-27] MEDS: MIDODRINE HCL (5MG) 5 MG TABLET PO SCH ×3 (01:48→16:38)
[2021-02-27] MEDS: ALBUTEROL FS 2.5 MG/0.5 ML VIAL.NEB NEB PRN (05:55)
[2021-02-27] MEDS ORDERED: VANCOMYCIN 500 MG in IV D5W 100 ML IV PRN (06:00)
[2021-02-27] MEDS: INSULIN REGULAR, HUMAN 100 UNIT/ML 3 ML VIAL SQ PRN ×2 (06:15→18:10)
[2021-02-27] MEDS: BLOOD SUGAR DIAGNOSTIC 1 EACH STRIP IN SCH ×4 (06:41→21:11)
[2021-02-27 07:12] LABS: BASOPHILS # (AUTO) 0.1 K/uL (0.0-0.2); BASOPHILS % (AUTO) 0.8 % (0.0-2.0); EOSINOPHILS % (AUTO) 2.2 % (0.0-6.0); HEMATOCRIT 24 % (39-51); HEMOGLOBIN 7.9 g/dL (13.5-17.5); LYMPHOCYTES # (AUTO) 0.6 K/uL (0.8-4.8); LYMPHOCYTES % (AUTO) 6.1 % (20.0-44.0); MEAN CORPUSCULAR HGB CONC 33 g/dl (31.0-36.0); MEAN CORPUSCULAR VOLUME 93 fL (80-96); MONOCYTES # (AUTO) 0.9 K/uL (0.1-1.30); MONOCYTES % (AUTO) 9.1 % (2.0-12.0); NEUTROPHILS # (AUTO) 8.2 K/uL (1.8-8.9); NEUTROPHILS % (AUTO) 81.8 % (43.0-81.0); PLATELET COUNT (AUTO) 229 K/uL (150-450); WHITE BLOOD COUNT (AUTO) 10.1 K/uL (4.3-11.0)
--- NOTE | 2021-02-27 07:31 | NUR ---
RN CLOSING NOTE PATIENT SITTING AT THE EDGE OF THE BED, NOT IN ANY APPARENT DISTRESS. LAB CALLED TO REPORT BLOOD CX ARE POSITIVE FOR GRAM POSITIVE COCCI AND CLUSTERS. WOUND CARE RENDERED. BS 173 4 UNITS GIVEN. ENDORSED TO DAY SHIFT NURSE FOR BREA.
--- NOTE | 2021-02-27 07:36 | NUR ---
MS RN OPENING NOTES RECEIVED PT IN BED, SITTING AT BEDSIDE. PT IS AOx4. BREATHING IS EVEN AND UNLABORED. NO S/SX OF RESPIRATORY DISTRESS. PT IS ON NASAL CANNULA AT 4L/MIN AND TOLERATING WELL. NO SOB NOTED. IV ACCESS IS YUN MIDLINE #18. IV IS INTACT, PATENT, AND FLUSHING WELL. SAFETY MEASURES IN PLACE: BED IN LOWEST, LOCKED POSITION, BRAKES ON, SIDERAILS UP x2. WILL CONTINUE TO MONITOR.
[2021-02-27 07:48] LABS: ALANINE AMINOTRANSFERASE 19 U/L (12-78); ALBUMIN 2.2 g/dL (3.4-5.0); ALKALINE PHOSPHATASE 89 U/L (46-116); ASPARTATE AMINOTRANSFERASE 14 U/L (15-37); BILIRUBIN,TOTAL 1.4 mg/dL (0.2-1.0); CALCIUM, SERUM 7.8 mg/dL (8.5-10.1); CARBON DIOXIDE 22 mmol/L (21-32); CHLORIDE 96 mmol/L (98-107); GLUCOSE 183 mg/dL (74-106); PHOSPHORUS 7.2 mg/dL (2.5-4.9); POTASSIUM 5.3 mmol/L (3.5-5.1); SODIUM SERUM 132 mmol/L (136-145); UREA NITROGEN, BLOOD 75 mg/dL (7-18)
[2021-02-27 08:00] VITALS: BP 111/43
[2021-02-27] MEDS: VIT B CMPLX 3/FA/VIT C/BIOTIN 1 TAB TABLET PO SCH (08:39)
[2021-02-27] MEDS: ASPIRIN EC 81 MG TABLET.DR PO SCH (08:39)
[2021-02-27] MEDS: BUMETANIDE INJ 0.25 MG/ML VIAL IV SCH ×2 (08:39→16:33)
[2021-02-27] MEDS: PANTOPRAZOLE 40 MG TABLET.DR PO SCH (08:39)
[2021-02-27] MEDS: ZINC SULFATE 220 MG CAPSULE PO SCH (08:40)
[2021-02-27] MEDS: ASCORBIC ACID 500 MG TABLET PO SCH (08:40)
[2021-02-27] MEDS: ALLOPURINOL 100 MG TABLET PO SCH (08:40)
[2021-02-27] MEDS: CARVEDILOL 12.5 MG TABLET PO SCH ×2 (08:41→23:04)
[2021-02-27] MEDS: AMIODARONE HCL 200 MG TABLET PO SCH (08:41)
[2021-02-27] MEDS: SEVELAMER CARBONATE 800 MG POWD.PACK PO SCH ×3 (08:42→18:07)
[2021-02-27] MEDS: PROSOURCE / PROSTAT (PYXIS) 30 ML UDC PO SCH ×2 (08:59→16:34)
[2021-02-27] MEDS: CLOTRIMAZOLE 1% 15 GM TUBE TP SCH ×2 (08:59→17:38)
[2021-02-27] MEDS: TRAMADOL HCL 50 MG TABLET PO PRN (11:39)
--- NOTE | 2021-02-27 12:00 | NUR ---
RN NOTES BILATERAL HEELS OFFLOADED AND FLOATED W/ PILLOWS WHEN IN BED; EXPLAINED IMPORTANCE OF OFFLOADING HEELS TO PATIENT BUT PATIENT IS A/OX4 AND EXPRESSED INDEPENDENCE W/ BED MOBILITY. ASSISTED W/ BED MOBILITY TOLERATED BY PATIENT.
[2021-02-27] MEDS: HYDROCODONE/APAP 10/325MG TABLET PO PRN ×2 (12:44→16:45)
[2021-02-27] MEDS ORDERED: SODIUM POLYSTYRENE SULFONATE 15 G/60 ML BOTTLE PO ONE (13:00)
[2021-02-27] MEDS: MORPHINE SULFATE INJ 4 MG/ML DISP.SYRIN IV PRN ×2 (14:33→21:21)
[2021-02-27] MEDS: DAPTOMYCIN 500 MG in IV NS 0.9% 50 ML IV SCH (14:40)
--- NOTE | 2021-02-27 15:16 | NUR ---
RN NOTES PATIENT WAS SEEN BY DR. ROMERO W/ ORDERS NOTED: WOUND CARE CONSULT FOR HEEL WOUND PER MD.
[2021-02-27 16:00] VITALS: BP 106/50
--- NOTE | 2021-02-27 18:45 | NUR ---
MS RN OPENING NOTES PT IN BED, SITTING AT BEDSIDE. PT IS AOx4. BREATHING IS EVEN AND UNLABORED. NO S/SX OF RESPIRATORY DISTRESS. PT IS ON NASAL CANNULA AT 4L/MIN AND TOLERATING WELL. NO SOB NOTED. IV ACCESS IS YUN MIDLINE #18. IV IS INTACT, PATENT, AND FLUSHING WELL. ALL NEEDS MET. PT KEPT CLEAN AND DRY. SAFETY MEASURES IN PLACE: BED IN LOWEST, LOCKED POSITION, BRAKES ON, SIDERAILS UP x2. WILL ENDORSE TO ONCOMING SHIFT.
--- NOTE | 2021-02-27 19:30 | NUR ---
RN NOTE RECEIVED PATIENT SITTING AT EDGE OF BED. A/OX4. ON OXYGEN 4L/MIN VIA NASAL CANNULA. RESPIRATIONS ARE EVEN AND UNLABORED. PATIENT STATES HE DOES NOT LIKE WEARING O2 WHILE SITTING BUT WILL USE IT WHEN LAYING IN BED. NO S/S SOB NOTED. C/O PAIN IN RIGHT ANKLE/ FOOT. IN NO APPARENT DISTRESS. IV ACCESS IN YUN MIDLINE PATENT AND SALINE LOCKED. BED IS LOW AND LOCKED, HOB ELEVATED IN SEMI FOWLERS, SIDE RAILS UPX2, CALL LIGHT WITHIN REACH. WILL CONTINUE TO MONITOR THROUGHOUT SHIFT.
[2021-02-27 20:00] VITALS: BP 135/55
[2021-02-27] MEDS: LATANOPROST EYE DROP 0.005% 2.5 ML BOTTLE EACHEYE SCH (21:11)
[2021-02-27] MEDS: *INSULIN REGULAR(HUMULIN R)HUM 100 UNIT/ML VIAL SQ PRN (21:19)
[2021-02-27] MEDS ORDERED: ATORVASTATIN 10 MG TABLET PO SCH (22:00)
[2021-02-27] MEDS: TEMAZEPAM 7.5 MG CAPSULE PO SCH (22:00)
[2021-02-28] MEDS: MIDODRINE HCL (5MG) 5 MG TABLET PO SCH ×3 (02:10→16:37)
[2021-02-28] MEDS: BLOOD SUGAR DIAGNOSTIC 1 EACH STRIP IN SCH ×4 (06:21→22:49)
--- NOTE | 2021-02-28 06:47 | NUR ---
RN NOTE PATIENT RESTING IN BED. A/OX4. ON OXYGEN 4L/MIN VIA NASAL CANNULA. NO RESP DISTRESS. MANAGED PAIN WITH MORPHINE 4MG. NO DISTRESS.YUN MIDLINE . BED REMAINS LOW AND LOCKED, HOB ELEVATED IN SEMI FOWLERS, SIDE RAILS UPX2, CALL LIGHT WITHIN REACH. WILL ENDORSE TO ONCOMING SHIFT.
[2021-02-28 07:14] LABS: BASOPHILS # (AUTO) 0.1 K/uL (0.0-0.2); BASOPHILS % (AUTO) 0.6 % (0.0-2.0); EOSINOPHILS % (AUTO) 2.7 % (0.0-6.0); HEMATOCRIT 23 % (39-51); HEMOGLOBIN 7.4 g/dL (13.5-17.5); LYMPHOCYTES # (AUTO) 0.7 K/uL (0.8-4.8); LYMPHOCYTES % (AUTO) 8.2 % (20.0-44.0); MEAN CORPUSCULAR HGB CONC 32 g/dl (31.0-36.0); MEAN CORPUSCULAR VOLUME 93 fL (80-96); MONOCYTES % (AUTO) 10.6 % (2.0-12.0); NEUTROPHILS # (AUTO) 7.1 K/uL (1.8-8.9); NEUTROPHILS % (AUTO) 77.9 % (43.0-81.0); PLATELET COUNT (AUTO) 223 K/uL (150-450); RED BLOOD CELL COUNT(AUTO) 2.49 MIL/uL (4.5-6.0); WHITE BLOOD COUNT (AUTO) 9.1 K/uL (4.3-11.0)
--- NOTE | 2021-02-28 07:35 | NUR ---
MS RN OPENING NOTES RECEIVED PT IN BED, RESTING WITH EYES CLOSED, AWAKENS TO VERBAL STIMULI. PT IS AOx4. BREATHING IS EVEN AND UNLABORED. NO S/SX OF RESPIRATORY DISTRESS. PT IS ON NASAL CANNULA AT 4L/MIN AND TOLERATING WELL. NO SOB NOTED. IV ACCESS IS YUN MIDLINE #18. IV IS INTACT, PATENT, AND FLUSHING WELL. SAFETY MEASURES IN PLACE: BED IN LOWEST, LOCKED POSITION, BRAKES ON, SIDERAILS UP x2. WILL CONTINUE TO MONITOR.
[2021-02-28 07:38] LABS: ALANINE AMINOTRANSFERASE 19 U/L (12-78); ALBUMIN 2.2 g/dL (3.4-5.0); ALKALINE PHOSPHATASE 73 U/L (46-116); ASPARTATE AMINOTRANSFERASE 18 U/L (15-37); BILIRUBIN,TOTAL 1.3 mg/dL (0.2-1.0); CALCIUM, SERUM 8.1 mg/dL (8.5-10.1); CARBON DIOXIDE 23 mmol/L (21-32); CHLORIDE 97 mmol/L (98-107); CREATININE 7.4 mg/dL (0.6-1.3); GLUCOSE 115 mg/dL (74-106); MAGNESIUM 2.1 mg/dL (1.8-2.4); POTASSIUM 4.6 mmol/L (3.5-5.1); SODIUM SERUM 135 mmol/L (136-145); TOTAL PROTEIN, SERUM 6.7 g/dL (6.4-8.2)
--- NOTE | 2021-02-28 07:53 | NUR ---
RN NOTES PATIENT SEEN BY WOUND CARE NURSE GUANAKITO FOR CONSULT; WILL INFORM DR. GUILLAUME AND ARCHANA LEAL.
--- NOTE | 2021-02-28 07:58 | NUR ---
WOUND CARE CONSULT: PT SEEN FOR RT HEEL OPEN BLISTER WITH PEELING SKIN AND SURROUNDING SCARRING. DR GUILLAUME NOTIFIED. RECOMMENDATIONS MADE FOR SKIN PROTECTION. DISCUSSED WITH NURSING STAFF. PT FOLLOWED BY SURGICAL TEAM FOR SACRAL DEEP TISSUE INJURY IN EVOLUTION. IN AGREEMENT WITH PLAN OF CARE. Addendum: 02/28/21 at 0759 by GUANAKITO NIX WNLIAMU Amended: Links added. Addendum: 02/28/21 at 0841 by GUANAKITO NIX WNLIAMU ORDERS UPDATED FOR SACRAL WOUND. DISCUSSED WITH EVELYNE LEAL CURRENTLY ON CASE.
[2021-02-28] MEDS: ALLOPURINOL 100 MG TABLET PO SCH (08:07)
[2021-02-28] MEDS: ASPIRIN EC 81 MG TABLET.DR PO SCH (08:07)
[2021-02-28] MEDS: ZINC SULFATE 220 MG CAPSULE PO SCH (08:07)
[2021-02-28] MEDS: VIT B CMPLX 3/FA/VIT C/BIOTIN 1 TAB TABLET PO SCH (08:07)
[2021-02-28] MEDS: BUMETANIDE INJ 0.25 MG/ML VIAL IV SCH ×2 (08:07→16:36)
[2021-02-28] MEDS: PANTOPRAZOLE 40 MG TABLET.DR PO SCH (08:07)
[2021-02-28] MEDS: ASCORBIC ACID 500 MG TABLET PO SCH (08:07)
[2021-02-28] MEDS: SEVELAMER CARBONATE 800 MG POWD.PACK PO SCH ×3 (08:07→17:27)
[2021-02-28] MEDS: AMIODARONE HCL 200 MG TABLET PO SCH (08:08)
[2021-02-28] MEDS: CARVEDILOL 12.5 MG TABLET PO SCH ×2 (08:09→21:00)
[2021-02-28 08:21] VITALS: BP 100/40
[2021-02-28] MEDS: PROSOURCE / PROSTAT (PYXIS) 30 ML UDC PO SCH ×2 (08:23→16:36)
[2021-02-28] MEDS: CLOTRIMAZOLE 1% 15 GM TUBE TP SCH ×2 (08:24→17:11)
[2021-02-28] MEDS: MORPHINE SULFATE INJ 4 MG/ML DISP.SYRIN IV PRN ×3 (08:26→16:23)
[2021-02-28 09:14] LABS: PHOSPHORUS 8.5 mg/dL (2.5-4.9); UREA NITROGEN, BLOOD 80 mg/dL (7-18)
[2021-02-28] MEDS: INSULIN REGULAR, HUMAN 100 UNIT/ML 3 ML VIAL SQ PRN ×2 (12:25→19:18)
--- NOTE | 2021-02-28 13:45 | NUR ---
RN NOTES PATIENT WAS SEEN BY DR. GUILLAUME FOR RIGHT HEEL WOUND CONSULT. ASSISTED MD W/ WOUND TX AND PHOTO OF SKIN ISSUE WAS TAKEN AND PLACED IN CHART. UNABLE TO COMPLETELY VISUALIZE IN PHOTO DUE TO ANGLE; MD AWARE AND IS OKAY W/ OBTAINED IMAGE.
[2021-02-28 15:59] VITALS: BP 105/46
[2021-02-28] MEDS: DAKINS QUARTER STRENGTH (0.125%) 480 ML BOTTLE TOP SCH (16:27)
[2021-02-28] MEDS: EPOETIN ALFA-EPBX 10,000 UNIT/ML VIAL SQ SCH (16:37)
--- NOTE | 2021-02-28 17:57 | NUR ---
MS RN CLOSING NOTES PT IN BED, RESTING WITH EYES OPEN. PT IS AOx4. BREATHING IS EVEN AND UNLABORED. NO S/SX OF RESPIRATORY DISTRESS. PT IS ON NASAL CANNULA AT 4L/MIN AND TOLERATING WELL. NO SOB NOTED. IV ACCESS IS YUN MIDLINE #18. IV IS INTACT, PATENT, AND FLUSHING WELL. TREATED PATIENT'S PAIN. ALL NEEDS MET. PT KEPT CLEAN AND DRY. SAFETY MEASURES IN PLACE: BED IN LOWEST, LOCKED POSITION, BRAKES ON, SIDERAILS UP x2. WILL ENDORSE TO ONCOMING SHIFT.
--- NOTE | 2021-02-28 19:34 | NUR ---
MS RN OPENING NOTES: RECEIVED PATIENT AWAKE IN BED , BBED IN LOW POSITION, CALL LIGHTS WITHIN REACH, NO COMPLAIN OF PAIN AND DISCOMFORT AT THIS TIME, WITH YUN MIDLINE, ON NASAL CANULA AT 4LPM, NO SOB WAS OBSERVED, HEMO DIALYSIS CATH WAS REMOVED DUE TO SUSPECTED MRSA SOURCE, WILL BE PLACE WITH TUNNELED CATH ONCE ORDER WAS CLEAR, IN CONTINENT USING URINAL, PATIENT KEPT CLEAN AND DRY, WILL CONTINUE TO MONITOR.
[2021-02-28 20:00] VITALS: BP 103/63
--- NOTE | 2021-02-28 21:36 | NUR ---
RN NOTES: BP- 103/63 P-61 MEDICATION FOR HYPERTENSION NOT GIVEN.
[2021-02-28] MEDS: TEMAZEPAM 7.5 MG CAPSULE PO SCH (22:21)
[2021-02-28] MEDS: LATANOPROST EYE DROP 0.005% 2.5 ML BOTTLE EACHEYE SCH (22:22)
[2021-02-28] MEDS: *INSULIN REGULAR(HUMULIN R)HUM 100 UNIT/ML VIAL SQ PRN ×2 (22:42→22:46)
[2021-03-01] MEDS: MIDODRINE HCL (5MG) 5 MG TABLET PO SCH ×3 (01:44→17:59)
[2021-03-01] MEDS: ALBUTEROL FS 2.5 MG/0.5 ML VIAL.NEB NEB PRN (04:50)
[2021-03-01] MEDS: MORPHINE SULFATE INJ 4 MG/ML DISP.SYRIN IV PRN ×3 (05:48→22:23)
[2021-03-01] MEDS: INSULIN REGULAR, HUMAN 100 UNIT/ML 3 ML VIAL SQ PRN ×3 (06:29→17:40)
[2021-03-01] MEDS: BLOOD SUGAR DIAGNOSTIC 1 EACH STRIP IN SCH ×4 (06:30→22:58)
[2021-03-01 06:38] LABS: BASOPHILS # (AUTO) 0.1 K/uL (0.0-0.2); BASOPHILS % (AUTO) 1.2 % (0.0-2.0); HEMATOCRIT 25 % (39-51); LYMPHOCYTES # (AUTO) 0.5 K/uL (0.8-4.8); LYMPHOCYTES % (AUTO) 4.7 % (20.0-44.0); MEAN CORPUSCULAR HGB CONC 32 g/dl (31.0-36.0); MEAN CORPUSCULAR VOLUME 94 fL (80-96); MONOCYTES % (AUTO) 8.7 % (2.0-12.0); NEUTROPHILS # (AUTO) 9.7 K/uL (1.8-8.9); NEUTROPHILS % (AUTO) 83.4 % (43.0-81.0); PLATELET COUNT (AUTO) 265 K/uL (150-450); RED BLOOD CELL COUNT(AUTO) 2.65 MIL/uL (4.5-6.0); WHITE BLOOD COUNT (AUTO) 11.6 K/uL (4.3-11.0)
--- NOTE | 2021-03-01 06:56 | NUR ---
MS CLOSING NOTES PATIENT AWAKE IN BED, BED IN LOW POSITION, CALL LIGHTS WITHIN REACH, NO COMPLAIN OF PAIN AND DISCOMFORT AT THIS TIME,ON O2 INHALATION AT 3LPM NO SOB NOTED, SACRAL WOUND KEPT CLEAN AND DRY, COVERED AND KEPT CLEAN, PLACED IN BE COMFORTABLY, ALL NEEDS MET, ENDORSE TO INCOMING SHIFT.
[2021-03-01 07:12] LABS: ALANINE AMINOTRANSFERASE 16 U/L (12-78); ALBUMIN 2.3 g/dL (3.4-5.0); ALKALINE PHOSPHATASE 75 U/L (46-116); ASPARTATE AMINOTRANSFERASE 21 U/L (15-37); BILIRUBIN,TOTAL 1.3 mg/dL (0.2-1.0); CALCIUM, SERUM 8.2 mg/dL (8.5-10.1); CARBON DIOXIDE 20 mmol/L (21-32); CHLORIDE 95 mmol/L (98-107); GLUCOSE 141 mg/dL (74-106); MAGNESIUM 2.1 mg/dL (1.8-2.4); POTASSIUM 5.3 mmol/L (3.5-5.1); SODIUM SERUM 134 mmol/L (136-145); TOTAL PROTEIN, SERUM 7.3 g/dL (6.4-8.2)
[2021-03-01 07:16] LABS: CREATININE 8.1 mg/dL (0.6-1.3); PHOSPHORUS 9.5 mg/dL (2.5-4.9); UREA NITROGEN, BLOOD 83 mg/dL (7-18)
--- NOTE | 2021-03-01 07:20 | NUR ---
nasal cannula oxygen flow decreased from 3 lpm to 2 lpm oxygen flow due to 96% saturation. Addendum: 03/01/21 at 0721 by BINH ABBOTT RT Amended: Links added.
--- NOTE | 2021-03-01 07:30 | NUR ---
MS RN OPENING NOTES RECEIVED PT SITTING ON BED, AWAKE. PT IS AOx4. BREATHING IS EVEN AND UNLABORED. NO S/SX OF RESPIRATORY DISTRESS NOTED. PT IS ON NASAL CANNULA AT 2L/MIN AND TOLERATING WELL. NO SOB NOTED. IV ACCESS IS YUN MIDLINE #18. IV IS INTACT, PATENT, AND FLUSHES WELL. SAFETY MEASURES IN PLACE: BED IN LOWEST, LOCKED POSITION, BRAKES ON, SIDE RAILS UP x2, CALL LIGHT WITHIN EASY REACH. WILL CONTINUE TO MONITOR ACCORDINGLY.
[2021-03-01] MEDS: SEVELAMER CARBONATE 800 MG POWD.PACK PO SCH ×3 (07:49→17:37)
[2021-03-01] MEDS: PANTOPRAZOLE 40 MG TABLET.DR PO SCH (07:49)
[2021-03-01 08:00] VITALS: BP_SYST 94; BP_DIAS 52; BP_DIAS 62
[2021-03-01 08:09] LABS: CREATINE KINASE, TOTAL 122 U/L (39-308)
[2021-03-01] MEDS: CLOTRIMAZOLE 1% 15 GM TUBE TP SCH ×2 (08:47→17:57)
[2021-03-01] MEDS: VIT B CMPLX 3/FA/VIT C/BIOTIN 1 TAB TABLET PO SCH (08:47)
[2021-03-01] MEDS: DAKINS QUARTER STRENGTH (0.125%) 480 ML BOTTLE TOP SCH (08:47)
[2021-03-01] MEDS: ASPIRIN EC 81 MG TABLET.DR PO SCH (08:47)
[2021-03-01] MEDS: ALLOPURINOL 100 MG TABLET PO SCH (08:48)
[2021-03-01] MEDS: AMIODARONE HCL 200 MG TABLET PO SCH (08:48)
[2021-03-01] MEDS: ZINC SULFATE 220 MG CAPSULE PO SCH (08:48)
[2021-03-01] MEDS: ASCORBIC ACID 500 MG TABLET PO SCH (08:48)
[2021-03-01] MEDS: BUMETANIDE INJ 0.25 MG/ML VIAL IV SCH ×2 (08:48→17:38)
[2021-03-01] MEDS: CARVEDILOL 12.5 MG TABLET PO SCH ×2 (08:49→21:00)
[2021-03-01] MEDS: PROSOURCE / PROSTAT (PYXIS) 30 ML UDC PO SCH ×2 (08:50→17:37)
--- NOTE | 2021-03-01 11:33 | NUR ---
RN NOTES RECEIVED A PHONE CALL FROM GENARO OF LAB, RELAYING BLOOD CULTURE RESUTL OF GRAM (+) COCCI IN CLUSTER. KALYANI BUCKLEY NP MADE AWARE.
--- NOTE | 2021-03-01 12:00 | NUR ---
RN NOTES BLOOD SUGAR CHECKED, RESULT 162, REGULAR INSULIN GIVEN ORDERED.
--- NOTE | 2021-03-01 12:35 | NUR ---
RN NOTES NON TUNNELED HD CATHETER INSERTION DONE C/O KALYANI BUCKLEY, DR. ROMERO MADE AWARE.
[2021-03-01] MEDS: DAPTOMYCIN 500 MG in IV NS 0.9% 50 ML IV SCH (14:27)
[2021-03-01 16:00] VITALS: BP 105/56
[2021-03-01 16:10] VITALS: BP 105/46
[2021-03-01] MEDS: ACETAMINOPHEN 325 MG TABLET PO PRN (17:58)
--- NOTE | 2021-03-01 18:25 | NUR ---
MS RN CLOSING NOTES PT IN BED, AWAKE. PT IS AOx4. BREATHING IS EVEN AND UNLABORED. NO S/SX OF RESPIRATORY DISTRESS NOTED. PT IS ON NASAL CANNULA AT 2L/MIN AND TOLERATING WELL. NO SOB NOTED. IV ACCESS IS YUN MIDLINE #18. IV IS INTACT, PATENT, AND FLUSHES WELL. SAFETY MEASURES IN PLACE: BED IN LOWEST, LOCKED POSITION, BRAKES ON, SIDE RAILS UP x2, CALL LIGHT WITHIN EASY REACH. ALL NEEDS ATTENDED, WILL ENDORSED TO ONCOMING SHIFT FOR BREA.
--- NOTE | 2021-03-01 19:58 | NUR ---
MS RN NOTES: RECEIVED PATIENT SLEEP IN BED COMFORTABLY, BED IN LOW POSITION, CALL LIGHTS WITHIN REACH, NO COMPLAIN OF PAIN DISCOMFORT AT THIS TIME, PATIENT WITH NONE TUNNEL HD CATH AT RIGHT GROIN FOR DIALYSIS TODAY, WITH IV LINE AT YUN SL PATIENT KEPT CLEAN AND DRY, ALL NEEDS MET, WILL CONTINUE TO MONITOR.
[2021-03-01 20:00] VITALS: BP 106/53
[2021-03-01] MEDS: TEMAZEPAM 7.5 MG CAPSULE PO SCH (22:23)
[2021-03-01] MEDS: LATANOPROST EYE DROP 0.005% 2.5 ML BOTTLE EACHEYE SCH (22:24)
--- NOTE | 2021-03-01 22:45 | NUR ---
RN NOTES: STARTED HEMODIALYSIS AT 2245 VIA RT GROIN NONE TUNNELED CATH, NO CHANGES HAS BEEN OBSERVED V/S REMAINS STABLE, WILL CONTINUE TO MONITOR.
[2021-03-01] MEDS ORDERED: ALBUMIN 25% 12.5 GM/50 ML BOTTLE IV ONE (23:30)
[2021-03-02] MEDS: MIDODRINE HCL (5MG) 5 MG TABLET PO SCH ×3 (01:50→16:48)
--- NOTE | 2021-03-02 06:30 | NUR ---
ms rn closing notes: Patient awake in bed , bed in low position, call lights within reach, no complain of pain and discomfort at this time, dialysis done [id number] output, on 3lpm via nasal cannula no sob noted, patient kept clean and dry all needs met, endorse to incoming shift.
[2021-03-02 06:51] LABS: BASOPHILS # (AUTO) 0.1 K/uL (0.0-0.2); BASOPHILS % (AUTO) 1.2 % (0.0-2.0); HEMATOCRIT 24 % (39-51); HEMOGLOBIN 7.7 g/dL (13.5-17.5); LYMPHOCYTES # (AUTO) 0.7 K/uL (0.8-4.8); LYMPHOCYTES % (AUTO) 7.2 % (20.0-44.0); MEAN CORPUSCULAR HGB CONC 33 g/dl (31.0-36.0); MEAN CORPUSCULAR VOLUME 93 fL (80-96); MONOCYTES % (AUTO) 10.3 % (2.0-12.0); NEUTROPHILS # (AUTO) 7.4 K/uL (1.8-8.9); NEUTROPHILS % (AUTO) 79.3 % (43.0-81.0); PLATELET COUNT (AUTO) 250 K/uL (150-450); RED BLOOD CELL COUNT(AUTO) 2.53 MIL/uL (4.5-6.0); WHITE BLOOD COUNT (AUTO) 9.4 K/uL (4.3-11.0)
[2021-03-02] MEDS: SEVELAMER CARBONATE 800 MG POWD.PACK PO SCH ×3 (07:23→17:23)
[2021-03-02] MEDS: PANTOPRAZOLE 40 MG TABLET.DR PO SCH (07:24)
--- NOTE | 2021-03-02 07:30 | NUR ---
MS RN OPENING NOTES RECEIVED PT SITTING ON BED, AWAKE. PT IS AOx4. BREATHING IS EVEN AND UNLABORED. NO S/SX OF RESPIRATORY DISTRESS NOTED. PT IS ON NASAL CANNULA AT 2L/MIN AND TOLERATING WELL. NO SOB NOTED. IV ACCESS IS YUN MIDLINE #18. IV IS INTACT, PATENT, AND FLUSHES WELL. HD CATHETER ON RIGHT FEMORAL AREA NOTED. SAFETY MEASURES IN PLACE: BED IN LOWEST, LOCKED POSITION, BRAKES ON, SIDE RAILS UP x2, CALL LIGHT WITHIN EASY REACH. WILL CONTINUE TO MONITOR ACCORDINGLY.
[2021-03-02] MEDS: BLOOD SUGAR DIAGNOSTIC 1 EACH STRIP IN SCH ×4 (07:45→21:41)
[2021-03-02 08:00] VITALS: BP 93/50
[2021-03-02] MEDS: BUMETANIDE INJ 0.25 MG/ML VIAL IV SCH ×2 (08:34→16:47)
[2021-03-02] MEDS: PROSOURCE / PROSTAT (PYXIS) 30 ML UDC PO SCH ×2 (08:35→16:47)
[2021-03-02] MEDS: AMIODARONE HCL 200 MG TABLET PO SCH (08:35)
[2021-03-02] MEDS: ASCORBIC ACID 500 MG TABLET PO SCH (08:35)
[2021-03-02] MEDS: ASPIRIN EC 81 MG TABLET.DR PO SCH (08:35)
[2021-03-02] MEDS: ZINC SULFATE 220 MG CAPSULE PO SCH (08:35)
[2021-03-02] MEDS: CARVEDILOL 12.5 MG TABLET PO SCH ×2 (08:36→20:43)
[2021-03-02] MEDS: VIT B CMPLX 3/FA/VIT C/BIOTIN 1 TAB TABLET PO SCH (08:36)
[2021-03-02] MEDS: ALLOPURINOL 100 MG TABLET PO SCH (08:36)
[2021-03-02] MEDS: DAKINS QUARTER STRENGTH (0.125%) 480 ML BOTTLE TOP SCH (08:40)
[2021-03-02] MEDS: CLOTRIMAZOLE 1% 15 GM TUBE TP SCH ×2 (08:40→17:23)
[2021-03-02] MEDS: MORPHINE SULFATE INJ 4 MG/ML DISP.SYRIN IV PRN ×2 (09:35→19:00)
[2021-03-02] MEDS: INSULIN REGULAR, HUMAN 100 UNIT/ML 3 ML VIAL SQ PRN ×2 (11:10→17:12)
--- NOTE | 2021-03-02 12:00 | NUR ---
RN NOTES BLOOD SUGAR CHECKED, 149 MG/DL, REGUALR INSULIN GIVEN ORDERED.
--- NOTE | 2021-03-02 13:00 | NUR ---
RN NOTES DIALYSIS ORDERED FOR TODAY, INFORMED [facility]. ACKNOWLEDGED.
[2021-03-02] MEDS ORDERED: MISCELLANEOUS MED 1 EA EA XX ONE (13:30)
[2021-03-02 16:00] VITALS: BP 97/50
--- NOTE | 2021-03-02 17:32 | NUR ---
RN NOTES BLOOD SUGAR CHECKED, 168 MG/DL, REGULAR INSULIN GIVEN ORDERED.
--- NOTE | 2021-03-02 18:13 | NUR ---
MS RN CLOSING NOTES PT SITTING ON BED, AWAKE. PT IS AOx4. BREATHING IS EVEN AND UNLABORED. NO S/SX OF RESPIRATORY DISTRESS NOTED. PT IS ON NASAL CANNULA AT 2L/MIN AND TOLERATING WELL. NO SOB NOTED. IV ACCESS IS YUN MIDLINE #18. IV IS INTACT, PATENT, AND FLUSHES WELL. HD CATHETER ON RIGHT FEMORAL AREA NOTED. WOUND CARE DONE ORDERED. SAFETY MEASURES IN PLACE: BED IN LOWEST, LOCKED POSITION, BRAKES ON, SIDE RAILS UP x2, CALL LIGHT WITHIN EASY REACH. ALL NEEDS ATTENDED AND MET. WILL ENDORSE TO ONCOMING NURSE FOR BREA.
--- NOTE | 2021-03-02 19:36 | NUR ---
MS RN OPENING NOTE RECEIVED PT SITTING ON BED, AWAKE. A/O x4. NO SOB OR S/S OF RESPIRATORY DISTRESS NOTED. PT IS ON 2LPM O2 VIA NC AND TOLERATING WELL. IV ACCESS IN YUN MIDLINE #18, INTACT AND PATENT. HD CATHETER NOTED IN RIGHT FEMORAL AREA. SAFETY PRECAUTIONS MAINTAINED. BED IN LOWEST LOCKED POSITION, HOB ELEVATED, SIDE RAILS UP X2. CALL LIGHT AND TABLE WITHIN REACH. WILL CONTINUE WITH PLAN OF CARE.
[2021-03-02] MEDS: LATANOPROST EYE DROP 0.005% 2.5 ML BOTTLE EACHEYE SCH (21:27)
[2021-03-02] MEDS: TEMAZEPAM 7.5 MG CAPSULE PO SCH (21:33)
[2021-03-03] MEDS: MIDODRINE HCL (5MG) 5 MG TABLET PO SCH ×3 (01:39→17:11)
[2021-03-03] MEDS: MORPHINE SULFATE INJ 4 MG/ML DISP.SYRIN IV PRN ×3 (02:54→18:09)
--- NOTE | 2021-03-03 02:54 | NUR ---
RN PAIN PT C/O ACHING PAIN IN BILATERAL LOWER LEGS, RATED 9/10 ON PAIN SCALE. VSS. PER PT REQUEST, ADMINISTERED MORPHINE 4MG IV Q6H PRN FOR PAIN. WILL REASSESS PT IN 30 MINS AND CONTINUE TO MONITOR PT.
[2021-03-03 06:10] LABS: BASOPHILS # (AUTO) 0.1 K/uL (0.0-0.2); BASOPHILS % (AUTO) 1.1 % (0.0-2.0); EOSINOPHILS % (AUTO) 2.3 % (0.0-6.0); HEMATOCRIT 23 % (39-51); HEMOGLOBIN 7.3 g/dL (13.5-17.5); LYMPHOCYTES # (AUTO) 0.5 K/uL (0.8-4.8); LYMPHOCYTES % (AUTO) 6.5 % (20.0-44.0); MEAN CORPUSCULAR HGB CONC 32 g/dl (31.0-36.0); MEAN CORPUSCULAR VOLUME 94 fL (80-96); MONOCYTES # (AUTO) 1.1 K/uL (0.1-1.30); MONOCYTES % (AUTO) 12.8 % (2.0-12.0); NEUTROPHILS # (AUTO) 6.5 K/uL (1.8-8.9); NEUTROPHILS % (AUTO) 77.3 % (43.0-81.0); PLATELET COUNT (AUTO) 242 K/uL (150-450); RED BLOOD CELL COUNT(AUTO) 2.42 MIL/uL (4.5-6.0); WHITE BLOOD COUNT (AUTO) 8.4 K/uL (4.3-11.0)
[2021-03-03] MEDS: BLOOD SUGAR DIAGNOSTIC 1 EACH STRIP IN SCH ×4 (06:30→22:13)
--- NOTE | 2021-03-03 06:31 | NUR ---
MS RN CLOSING NOTE PT IS IN BED WITH EYES CLOSED, AROUSABLE TO STIMULATION. A/O x4. NO SOB OR S/S OF RESPIRATORY DISTRESS NOTED. PT IS ON 2LPM O2 VIA NC AND TOLERATING WELL. IV ACCESS IS INTACT, PATENT, AND FLUSHING WELL. HD CATHETER NOTED IN RIGHT FEMORAL AREA. ALL NEEDS HAVE BEEN MET. PAIN MANAGEMENT AND WOUND CARE ADMINISTERED PER ORDER. SAFETY PRECAUTIONS MAINTAINED AT ALL TIMES. BED IN LOWEST LOCKED POSITION, HOB ELEVATED, SIDE RAILS UP X2. CALL LIGHT AND TABLE WITHIN REACH. WILL ENDORSE TO ONCOMING NURSE FOR BREA
[2021-03-03 06:36] LABS: ALANINE AMINOTRANSFERASE 18 U/L (12-78); ALBUMIN 2.3 g/dL (3.4-5.0); ALKALINE PHOSPHATASE 65 U/L (46-116); ASPARTATE AMINOTRANSFERASE 14 U/L (15-37); BILIRUBIN,TOTAL 1.2 mg/dL (0.2-1.0); CALCIUM, SERUM 8.2 mg/dL (8.5-10.1); CARBON DIOXIDE 26 mmol/L (21-32); CHLORIDE 98 mmol/L (98-107); CREATININE 6.7 mg/dL (0.6-1.3); GLUCOSE 129 mg/dL (74-106); MAGNESIUM 1.9 mg/dL (1.8-2.4); PHOSPHORUS 7.1 mg/dL (2.5-4.9); POTASSIUM 4.3 mmol/L (3.5-5.1); SODIUM SERUM 137 mmol/L (136-145); UREA NITROGEN, BLOOD 66 mg/dL (7-18)
[2021-03-03] MEDS: PANTOPRAZOLE 40 MG TABLET.DR PO SCH (07:30)
--- NOTE | 2021-03-03 07:49 | NUR ---
RN OPENING NOTE PT AWAKE IN BED RESTING. A/O X3 AND AZERI SPEAKING. NO COMPLAINT OF PAIN OR NAUSEA PRESENT. ON 3L NC WITH NO SOB OR RESPIRATORY DISTRESS PRESENT. 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 PACEMAKER PRESENT ON L CW. WALKER ASSIST WITH BATHROOM PRIVILEGES. WOUNDS PRESENT ON BLE AND SACRAL AREA, WOUND CARE ORDERED AND TO BE GIVEN. HD CATH PRESENT ON R GROIN FOR HD. NEPHRO TO F/U FOR HD NEEDS. YUN MIDLINE PRESENT AND FLUSHES WELL. LABS AND ORDERS REVIEWED. SAFETY MEASURES IN PLACE. SIDE RAILS RAISED. BED LOWERED. CALL LIGHT WITHIN REACH. WILL CONTINUE TO MONITOR.
[2021-03-03 08:00] VITALS: BP 121/56
[2021-03-03] MEDS: ALBUTEROL FS 2.5 MG/0.5 ML VIAL.NEB NEB PRN (08:10)
[2021-03-03] MEDS: ASPIRIN EC 81 MG TABLET.DR PO SCH (09:24)
[2021-03-03] MEDS: SEVELAMER CARBONATE 800 MG POWD.PACK PO SCH ×3 (09:24→17:11)
[2021-03-03] MEDS: VIT B CMPLX 3/FA/VIT C/BIOTIN 1 TAB TABLET PO SCH (09:24)
[2021-03-03] MEDS: CARVEDILOL 12.5 MG TABLET PO SCH ×2 (09:24→21:00)
[2021-03-03] MEDS: AMIODARONE HCL 200 MG TABLET PO SCH (09:24)
[2021-03-03] MEDS: BUMETANIDE INJ 0.25 MG/ML VIAL IV SCH ×2 (09:24→16:07)
[2021-03-03] MEDS: ALLOPURINOL 100 MG TABLET PO SCH (09:25)
[2021-03-03] MEDS: ASCORBIC ACID 500 MG TABLET PO SCH (09:25)
[2021-03-03] MEDS: PROSOURCE / PROSTAT (PYXIS) 30 ML UDC PO SCH ×2 (09:25→16:08)
[2021-03-03] MEDS: ERGOCALCIFEROL (VITAMIN D 2) 50,000 UNIT CAPSULE PO SCH (09:25)
[2021-03-03] MEDS: ZINC SULFATE 220 MG CAPSULE PO SCH (09:25)
[2021-03-03] MEDS: DAKINS QUARTER STRENGTH (0.125%) 480 ML BOTTLE TOP SCH (09:32)
[2021-03-03] MEDS: CLOTRIMAZOLE 1% 15 GM TUBE TP SCH ×2 (09:32→17:26)
[2021-03-03] MEDS: CEFTAROLINE IV SCH ×2 (11:24→20:43)
[2021-03-03] MEDS: D5W IV SCH ×2 (11:24→20:43)
[2021-03-03] MEDS: NEPRO VAN 237 ML CAN PO SCH (13:15)
[2021-03-03] MEDS: DAPTOMYCIN 500 MG in IV NS 0.9% 50 ML IV SCH (15:25)
[2021-03-03 16:00] VITALS: BP 112/56
[2021-03-03] MEDS: EPOETIN ALFA-EPBX 10,000 UNIT/ML VIAL SQ SCH (17:14)
[2021-03-03] MEDS: INSULIN REGULAR, HUMAN 100 UNIT/ML 3 ML VIAL SQ PRN ×2 (17:19→22:19)
--- NOTE | 2021-03-03 18:37 | NUR ---
RN CLOSING NOTE PT AWAKE IN BED RESTING. A/O X3 AND BELIZEAN SPEAKING. NO COMPLAINT OF PAIN OR NAUSEA PRESENT. ON 3L NC WITH NO SOB OR RESPIRATORY DISTRESS PRESENT. NO CHAINSTITCH HEMMER. PACEMAKER PRESENT ON L CW. WALKER ASSIST WITH COMMODE AT BEDSIDE. WOUNDS PRESENT ON BLE AND SACRAL AREA, WOUND CARE ORDERED AND GIVEN. R GROIN HDCATH PRESENT FOR HD. 2L REMOVED BY HD TODAY. YUN MIDLINE PRESENT AND FLUSHES WELL. ROUTINE MEDS GIVEN. LABS AND ORDERS REVIEWED. SAFETY MEASURES IN PLACE. SIDE RAILS RAISED. BED LOWERED. CALL LIGHT WITHIN REACH. REPORT TO BE GIVEN TO NIGHT NURSE FOR BREA.
--- NOTE | 2021-03-03 19:57 | NUR ---
MS RN OPENING NOTES PATIENT RESTING IN BED, ALERT/ ORIENTED X 4, PT ABLE TO MAKE NEEDS KNOWN. NO COMPLAINTS OF PAIN AT THIS TIME. PATIENT STABLE ON 3 L OF OXYGEN VIA NC, NO S/S OF DISTRESS OR SOB NOTED, BREATHING EVEN AND UNLABORED. RIGHT UPPER ARM MIDLINE INTACT AND FLUSHING WELL, SALINE LOCKED. RIGHT GROIN HD CATH INTACT. ASSISTED PATIENT WITH REPOSITION, RIGHT LATERAL, PT STATES HE HAS NO OTHER NEEDS AT THIS TIME. SAFETY MEASURES IN PLACE: CALL LIGHT WITHIN REACH, BED LOCKED IN LOW POSITION, SIDE RAILS UP X 2, BED ALARM ON. WILL CONTINUE TO MONITOR PATIENT
[2021-03-03 20:00] VITALS: BP 92/74
[2021-03-03] MEDS: TEMAZEPAM 7.5 MG CAPSULE PO SCH (21:57)
[2021-03-03] MEDS: LATANOPROST EYE DROP 0.005% 2.5 ML BOTTLE EACHEYE SCH (22:17)
[2021-03-04] MEDS: ALBUTEROL FS 2.5 MG/0.5 ML VIAL.NEB NEB PRN ×2 (00:07→23:13)
[2021-03-04] MEDS: MIDODRINE HCL (5MG) 5 MG TABLET PO SCH ×3 (00:41→18:54)
[2021-03-04] MEDS: MORPHINE SULFATE INJ 4 MG/ML DISP.SYRIN IV PRN ×2 (05:16→21:33)
[2021-03-04 06:50] LABS: BASOPHILS # (AUTO) 0.1 K/uL (0.0-0.2); BASOPHILS % (AUTO) 0.9 % (0.0-2.0); EOSINOPHILS % (AUTO) 2.9 % (0.0-6.0); HEMATOCRIT 23 % (39-51); HEMOGLOBIN 7.3 g/dL (13.5-17.5); LYMPHOCYTES # (AUTO) 0.7 K/uL (0.8-4.8); LYMPHOCYTES % (AUTO) 8.3 % (20.0-44.0); MEAN CORPUSCULAR HGB CONC 31 g/dl (31.0-36.0); MEAN CORPUSCULAR VOLUME 95 fL (80-96); MONOCYTES % (AUTO) 11.9 % (2.0-12.0); NEUTROPHILS # (AUTO) 6.5 K/uL (1.8-8.9); PLATELET COUNT (AUTO) 264 K/uL (150-450); RED BLOOD CELL COUNT(AUTO) 2.43 MIL/uL (4.5-6.0); WHITE BLOOD COUNT (AUTO) 8.5 K/uL (4.3-11.0)
[2021-03-04 07:42] LABS: ALANINE AMINOTRANSFERASE 14 U/L (12-78); ALBUMIN 2.3 g/dL (3.4-5.0); ALKALINE PHOSPHATASE 66 U/L (46-116); ASPARTATE AMINOTRANSFERASE 15 U/L (15-37); BILIRUBIN,TOTAL 1.2 mg/dL (0.2-1.0); CALCIUM, SERUM 8.1 mg/dL (8.5-10.1); CARBON DIOXIDE 27 mmol/L (21-32); CHLORIDE 99 mmol/L (98-107); CREATININE 5.3 mg/dL (0.6-1.3); GLUCOSE 106 mg/dL (74-106); MAGNESIUM 1.8 mg/dL (1.8-2.4); PHOSPHORUS 5.3 mg/dL (2.5-4.9); POTASSIUM 3.6 mmol/L (3.5-5.1); SODIUM SERUM 137 mmol/L (136-145); UREA NITROGEN, BLOOD 43 mg/dL (7-18)
[2021-03-04] MEDS: BLOOD SUGAR DIAGNOSTIC 1 EACH STRIP IN SCH ×4 (07:56→22:55)
[2021-03-04 08:00] VITALS: BP 95/68
--- NOTE | 2021-03-04 08:02 | NUR ---
MS RN CLOSING NOTES PATIENT SITTING ON SIDE OF BED, NO S/S OF DISTRESS OR SOB NOTED, BREATHING EVEN AND UNLABORED. MEDICATIONS GIVEN ORDERED, PT NEEDS MET THROUGHOUT SHIFT. BILATERAL LEG WOUND CARE DONE. SAFETY MEASURES IN PLACE: CALL LIGHT WITHIN REACH, BED LOCKED IN LOW POSITION, BED ALARM ON, SIDE RAILS UP X 2. ENDORSED TO DAY SHIFT NURSE FOR CONTINUITY OF CARE
[2021-03-04] MEDS: NEPRO VAN 237 ML CAN PO SCH (09:00)
[2021-03-04] MEDS: CARVEDILOL 12.5 MG TABLET PO SCH ×2 (09:00→21:00)
[2021-03-04] MEDS: AMIODARONE HCL 200 MG TABLET PO SCH (09:00)
[2021-03-04] MEDS: SEVELAMER CARBONATE 800 MG POWD.PACK PO SCH ×3 (09:33→18:54)
[2021-03-04] MEDS: ASPIRIN EC 81 MG TABLET.DR PO SCH (09:33)
[2021-03-04] MEDS: VIT B CMPLX 3/FA/VIT C/BIOTIN 1 TAB TABLET PO SCH (09:33)
[2021-03-04] MEDS: BUMETANIDE INJ 0.25 MG/ML VIAL IV SCH ×2 (09:33→18:56)
[2021-03-04] MEDS: ALLOPURINOL 100 MG TABLET PO SCH (09:34)
[2021-03-04] MEDS: ZINC SULFATE 220 MG CAPSULE PO SCH (09:34)
[2021-03-04] MEDS: ASCORBIC ACID 500 MG TABLET PO SCH (09:34)
[2021-03-04] MEDS: PANTOPRAZOLE 40 MG TABLET.DR PO SCH (09:39)
[2021-03-04] MEDS: D5W IV SCH ×2 (09:40→21:01)
[2021-03-04] MEDS: CEFTAROLINE IV SCH ×2 (09:40→21:01)
[2021-03-04] MEDS: PROSOURCE / PROSTAT (PYXIS) 30 ML UDC PO SCH ×2 (10:00→17:00)
[2021-03-04] MEDS: DAKINS QUARTER STRENGTH (0.125%) 480 ML BOTTLE TOP SCH (10:00)
[2021-03-04] MEDS: CLOTRIMAZOLE 1% 15 GM TUBE TP SCH ×2 (10:01→17:00)
[2021-03-04] MEDS: INSULIN REGULAR, HUMAN 100 UNIT/ML 3 ML VIAL SQ PRN ×2 (13:34→18:53)
[2021-03-04] MEDS: HYDROCODONE/APAP 10/325MG TABLET PO PRN (14:43)
[2021-03-04 16:00] VITALS: BP 100/41
--- NOTE | 2021-03-04 18:00 | NUR ---
DEBRIDEMENT OF SACRAL AREA BY ELVIS,MEDICATED WITH NORCO AT END OF PROCEDURE.
--- NOTE | 2021-03-04 19:43 | NUR ---
MS RN OPENING NOTES PATIENT LAYING IN BED, ALERT/ORIENTED X 4, PT ABLE TO MAKE NEEDS KNOWN. PT DENIES PAIN AT THIS TIME. PT STABLE ON 3L OF OXYGEN VIA NC, NO S/S OF DISTRESS OR SOB NOTED, BREATHING EVEN AND UNLABORED. YUN MIDLINE INTACT AND FLUSHING WELL. RIGHT GROIN HD CATH INTACT. PT STATES HE HAS NO NEEDS AT THIS TIME. SAFETY MEASURES IN PLACE: BED LOCKED IN LOW POSITION, SIDE RAILS UP X 2, CALL LIGHT WITHIN REACH, BED ALARM ON. WILL CONTINUE TO MONITOR PATIENT
[2021-03-04 20:00] VITALS: BP 101/46
[2021-03-04] MEDS: TEMAZEPAM 7.5 MG CAPSULE PO SCH (22:55)
[2021-03-04] MEDS: LATANOPROST EYE DROP 0.005% 2.5 ML BOTTLE EACHEYE SCH (22:55)
[2021-03-04] MEDS: *INSULIN REGULAR(HUMULIN R)HUM 100 UNIT/ML VIAL SQ PRN (23:22)
[2021-03-05] MEDS: MIDODRINE HCL (5MG) 5 MG TABLET PO SCH ×3 (00:58→18:38)
[2021-03-05] MEDS: ALBUTEROL FS 2.5 MG/0.5 ML VIAL.NEB NEB PRN (07:09)
--- NOTE | 2021-03-05 07:30 | NUR ---
MS RN CLOSING NOTE PT SITTING ON SIDE OF BED, PT ON 3 LPM OF OXYGEN VIA NASAL CANNULA, NO S/S OF DISTRESS OR SOB NOTED, BREATHING EVEN AND UNLABORED. PT COMPLAINING OF 9/10 PAIN, VITAL SIGNS WNL, MORPHINE 4 MG IV GIVEN ORDERED. ENDORSED TO DAY SHIFT NURSE FOR CONTINUITY OF CARE
[2021-03-05 08:00] VITALS: BP 92/40
--- NOTE | 2021-03-05 08:00 | NUR ---
RECEIVED PT. IN AM ALERT AND ORIENTED X4.NO ACUTE DISTRESS.VS STABLE
[2021-03-05] MEDS: BLOOD SUGAR DIAGNOSTIC 1 EACH STRIP IN SCH ×4 (08:13→21:56)
[2021-03-05] MEDS: AMIODARONE HCL 200 MG TABLET PO SCH (09:00)
[2021-03-05] MEDS: CARVEDILOL 12.5 MG TABLET PO SCH ×2 (09:00→21:00)
[2021-03-05] MEDS: BUMETANIDE INJ 0.25 MG/ML VIAL IV SCH ×2 (09:00→17:00)
[2021-03-05] MEDS: ASCORBIC ACID 500 MG TABLET PO SCH (09:29)
[2021-03-05] MEDS: ZINC SULFATE 220 MG CAPSULE PO SCH (09:29)
[2021-03-05] MEDS: SEVELAMER CARBONATE 800 MG POWD.PACK PO SCH ×3 (09:29→18:38)
[2021-03-05] MEDS: ALLOPURINOL 100 MG TABLET PO SCH (09:29)
[2021-03-05] MEDS: VIT B CMPLX 3/FA/VIT C/BIOTIN 1 TAB TABLET PO SCH (09:29)
[2021-03-05] MEDS: PANTOPRAZOLE 40 MG TABLET.DR PO SCH (09:29)
[2021-03-05] MEDS: ASPIRIN EC 81 MG TABLET.DR PO SCH (09:29)
[2021-03-05] MEDS: D5W IV SCH ×2 (09:30→21:56)
[2021-03-05] MEDS: CEFTAROLINE IV SCH ×2 (09:30→21:56)
[2021-03-05] MEDS: NEPRO VAN 237 ML CAN PO SCH (09:32)
[2021-03-05] MEDS: PROSOURCE / PROSTAT (PYXIS) 30 ML UDC PO SCH ×2 (09:32→18:38)
[2021-03-05] MEDS: CLOTRIMAZOLE 1% 15 GM TUBE TP SCH ×2 (11:30→17:00)
[2021-03-05] MEDS: DAKINS QUARTER STRENGTH (0.125%) 480 ML BOTTLE TOP SCH (11:30)
[2021-03-05] MEDS ORDERED: LIDOCAINE 1%-EPI 1:100,000 50 ML VIAL IJ ONE (13:30)
[2021-03-05] MEDS ORDERED: SILVER NITRATE APPLICATOR 1 EA BOX TP ONE (13:30)
[2021-03-05] MEDS: INSULIN REGULAR, HUMAN 100 UNIT/ML 3 ML VIAL SQ PRN ×2 (13:43→18:58)
[2021-03-05] MEDS: DAPTOMYCIN 500 MG in IV NS 0.9% 50 ML IV SCH (15:45)
[2021-03-05 16:00] VITALS: BP 98/50
--- NOTE | 2021-03-05 17:00 | NUR ---
ASSISTANT DIRECTOR OF PUBLIC WORKS HERE AND TO DIALYZE FOR 3 HRS.PT. APPEARS TO BE IN GOOD SPIRITS.
--- NOTE | 2021-03-05 18:00 | NUR ---
NO C/OF PAIN,MED COMPLIANT.DIALYSIS IN PROGRESS.
[2021-03-05] MEDS: EPOETIN ALFA-EPBX 10,000 UNIT/ML VIAL SQ SCH (18:42)
--- NOTE | 2021-03-05 19:15 | NUR ---
MS/RN OPENING NOTE RECEIVED PATIENT RESTING IN BED. CURRENTLY RECEIVING DIALYSIS. PATIENT IS ALERT AND ORIENTED X 4. ABLE TO MAKE NEEDS KNOWN. DENIES PAIN AT THIS TIME. CONTINUES ON 3L VIA NC WITH NO S/SX OF RESPIRATORY DISTRESS NOTED. IV ACCESS TO RIGHT UPPER ARM MIDLINE INTACT, PATENT AND SALINE LOCKED. CONTINUES ON IV ABX. RIGHT GROIN HD CATH IN PLACE. DRESSINGS TO BLE AND SACRUM CLEAN, DRY AND INTACT. CALL LIGHT WITHIN REACH. ASPIRATION FALL AND SAFETY PRECAUTIONS MAINTAINED. WILL CONTINUE TO MONITOR.
[2021-03-05 20:09] VITALS: BP 108/56
--- NOTE | 2021-03-05 21:00 | NUR ---
MS/RN NOTE PATIENT FINISHED DIALYSIS. 3.5L REMOVED. WILL CONTINUE TO MONITOR.
[2021-03-05] MEDS: MORPHINE SULFATE INJ 4 MG/ML DISP.SYRIN IV PRN (21:23)
--- NOTE | 2021-03-05 21:30 | NUR ---
MS/RN NOTE PATIENT REQUESTING MORPHINE PRIOR TO WOUND DRESSING CHANGES. CURRENT BP 108/58. MORPHINE ADMINISTERED WITH PENDING EFFECT.
[2021-03-05] MEDS: LATANOPROST EYE DROP 0.005% 2.5 ML BOTTLE EACHEYE SCH (21:56)
[2021-03-05] MEDS: TEMAZEPAM 7.5 MG CAPSULE PO SCH (21:58)
--- NOTE | 2021-03-05 22:00 | NUR ---
MS/RN NOTE CHANGED DRESSINGS TO BLE AND SACRUM THIS SHIFT. CONTINUES WITH BLE EDEMA. ENCOURAGED PATIENT TO TURN AND REPOSITION TOLERATED. WILL CONTINUE TO MONITOR.
[2021-03-05] MEDS: *INSULIN REGULAR(HUMULIN R)HUM 100 UNIT/ML VIAL SQ PRN (22:07)
[2021-03-06] MEDS: MIDODRINE HCL (5MG) 5 MG TABLET PO SCH ×3 (01:49→17:09)
--- NOTE | 2021-03-06 06:15 | NUR ---
MS/RN CLOSING NOTE PATIENT CURRENTLY RESTING IN BED. ALERT AND ORIENTED X 4. ABLE TO MAKE NEEDS KNOWN. DENIES PAIN AT THIS TIME. CONTINUES ON 3L VIA NC WITH NO S/SX OF RESPIRATORY DISTRESS NOTED. IV ACCESS TO RIGHT UPPER ARM MIDLINE INTACT, PATENT AND SALINE LOCKED. CONTINUES ON IV ABX. RIGHT GROIN HD CATH IN PLACE. DRESSINGS TO BLE AND SACRUM CLEAN, DRY AND INTACT. CALL LIGHT WITHIN REACH. ASPIRATION FALL AND SAFETY PRECAUTIONS MAINTAINED. WILL ENDORSE PLAN OF CARE TO ONCOMING SHIFT.
[2021-03-06] MEDS: BLOOD SUGAR DIAGNOSTIC 1 EACH STRIP IN SCH ×4 (06:23→21:54)
[2021-03-06] MEDS: INSULIN REGULAR, HUMAN 100 UNIT/ML 3 ML VIAL SQ PRN ×3 (06:28→22:04)
[2021-03-06 08:00] VITALS: BP 99/41
[2021-03-06] MEDS: NEPRO VAN 237 ML CAN PO SCH (09:00)
[2021-03-06] MEDS: D5W IV SCH ×2 (10:00→21:23)
[2021-03-06] MEDS: CEFTAROLINE IV SCH ×2 (10:00→21:23)
[2021-03-06] MEDS: ALLOPURINOL 100 MG TABLET PO SCH (10:00)
[2021-03-06] MEDS: BUMETANIDE INJ 0.25 MG/ML VIAL IV SCH ×2 (10:01→17:08)
[2021-03-06] MEDS: PANTOPRAZOLE 40 MG TABLET.DR PO SCH (10:01)
[2021-03-06] MEDS: ASPIRIN EC 81 MG TABLET.DR PO SCH (10:01)
[2021-03-06] MEDS: ASCORBIC ACID 500 MG TABLET PO SCH (10:01)
[2021-03-06] MEDS: SEVELAMER CARBONATE 800 MG POWD.PACK PO SCH ×3 (11:04→17:08)
[2021-03-06] MEDS: AMIODARONE HCL 200 MG TABLET PO SCH (11:06)
[2021-03-06] MEDS: CARVEDILOL 12.5 MG TABLET PO SCH ×2 (11:06→21:00)
[2021-03-06] MEDS: VIT B CMPLX 3/FA/VIT C/BIOTIN 1 TAB TABLET PO SCH (11:07)
[2021-03-06] MEDS: ZINC SULFATE 220 MG CAPSULE PO SCH (11:07)
[2021-03-06] MEDS: PROSOURCE / PROSTAT (PYXIS) 30 ML UDC PO SCH ×2 (11:08→17:10)
[2021-03-06] MEDS: CLOTRIMAZOLE 1% 15 GM TUBE TP SCH ×2 (11:13→17:10)
[2021-03-06] MEDS: DAKINS QUARTER STRENGTH (0.125%) 480 ML BOTTLE TOP SCH (11:13)
[2021-03-06] MEDS: MORPHINE SULFATE INJ 4 MG/ML DISP.SYRIN IV PRN ×2 (14:52→21:47)
[2021-03-06 16:00] VITALS: BP 113/54
--- NOTE | 2021-03-06 19:00 | NUR ---
MS RN CLOSING NOTE RECEIVED PATIENT RESTING IN BED. CURRENTLY RECEIVING DIALYSIS. PATIENT IS ALERT AND ORIENTED X 4. ABLE TO MAKE NEEDS KNOWN. DENIES PAIN AT THIS TIME. CONTINUES ON 3L VIA NC WITH NO S/SX OF RESPIRATORY DISTRESS NOTED. IV ACCESS TO RIGHT UPPER ARM MIDLINE INTACT, PATENT AND SALINE LOCKED. CONTINUES ON IV ABX. RIGHT GROIN HD CATH IN PLACE. DRESSINGS TO BLE AND SACRUM CLEAN, DRY AND INTACT. CALL LIGHT WITHIN REACH. ASPIRATION FALL AND SAFETY PRECAUTIONS MAINTAINED. WILL ENDORSE TO NEXT SHIFT FOR CONTINUITY OF CARE.
[2021-03-06 20:00] VITALS: BP_SYST 100; BP_DIAS 47; BP_DIAS 48
--- NOTE | 2021-03-06 20:01 | NUR ---
MS RN OPENING NOTES RECEIVED PT SITTING IN BED. PT IS AOx4. NO S/SX OF RESPIRATORY DISTRESS NOTED. PT IS ON 3 L/MIN NASAL CANNULA AND TOLERATING WELL. NO SOB NOTED. IV ACCESS IN YUN MIDLINE AND R FEMORAL GROIN HD CATHETER. IV ACCESS IS PATENT, FLUSHING WELL, INTACT, SALINE LOCKED. SAFETY PRECAUTIONS IN PLACE: BED IN LOWEST, LOCKED POSITION, BRAKES ON, SIDERAILS UP x2. CALL LIGHT AND TABLE WITHIN REACH. WILL CONTINUE TO MONITOR.
[2021-03-06] MEDS: TEMAZEPAM 7.5 MG CAPSULE PO SCH (21:23)
[2021-03-06] MEDS: LATANOPROST EYE DROP 0.005% 2.5 ML BOTTLE EACHEYE SCH (21:24)
--- NOTE | 2021-03-06 21:47 | NUR ---
PT STATED PAIN WAS 8/10. ADMINISTERED MORPHINE PER MD ORDER.
[2021-03-07] MEDS: MIDODRINE HCL (5MG) 5 MG TABLET PO SCH ×3 (00:48→18:27)
--- NOTE | 2021-03-07 05:59 | NUR ---
MS RN CLOSING NOTES PT SLEEPING IN BED, AWAKENS TO VERBAL STIMULI. PT IS AOx4. NO S/SX OF RESPIRATORY DISTRESS NOTED. PT IS ON 3 L/MIN NASAL CANNULA AND TOLERATING WELL. NO SOB NOTED. IV ACCESS IN YUN MIDLINE AND R FEMORAL GROIN HD CATHETER. IV ACCESS IS PATENT, FLUSHING WELL, INTACT, SALINE LOCKED. PAIN TREATED DURING SHIFT. ALL NEEDS MET. PT KEPT CLEAN AND DRY. SAFETY PRECAUTIONS IN PLACE: BED IN LOWEST, LOCKED POSITION, BRAKES ON, SIDERAILS UP x2. CALL LIGHT AND TABLE WITHIN REACH. WILL ENDORSE TO ONCOMING SHIFT.
[2021-03-07] MEDS: BLOOD SUGAR DIAGNOSTIC 1 EACH STRIP IN SCH ×4 (06:42→21:32)
[2021-03-07] MEDS: INSULIN REGULAR, HUMAN 100 UNIT/ML 3 ML VIAL SQ PRN ×2 (06:43→12:33)
--- NOTE | 2021-03-07 07:12 | NUR ---
MS RN OPENING NOTE RECEIVED PATIENT ON BED AWAKE. PATIENT IS ALERT AND ORIENTED X 4 AND ABLE TO MAKE NEEDS KNOWN. PATIENT IS ON OXYGEN AT 3LPM VIA NASAL CANULA WITH NO SIGNS OF RESPIRATORY DISTRESS. PATIENT WITH IV ACCESS ON LEFT CHEST WALL PACEMAKER, WITH RIGHT UPPER ARM MIDLINE ON SALINE LOCK, PATENT AND INTACT. WITH RIGHT GROIN CATHETER FOR HD ACCESS. WITH NON PITTING EDEMA ON BOTH LOWER EXTREMITIES, WITH WOUND DRESSING DRY AN INTACT. COMFOT MEASURES PROVIDED. SAFETY PRECAUTIONS IN PLACE WITH BED IN LOWEST, LOCKED POSITION, BRAKES ON, SIDE RAILS UPx2. CALL LIGHT AND TABLE WITHIN REACH AT ALL TIMES. WILL CONTINUE TO MONITOR PATIENT.
[2021-03-07 08:10] VITALS: BP 96/40
[2021-03-07 08:24] LABS: ALANINE AMINOTRANSFERASE 11 U/L (12-78); ALBUMIN 2.1 g/dL (3.4-5.0); ALKALINE PHOSPHATASE 64 U/L (46-116); ASPARTATE AMINOTRANSFERASE 10 U/L (15-37); CALCIUM, SERUM 8.1 mg/dL (8.5-10.1); CARBON DIOXIDE 24 mmol/L (21-32); CHLORIDE 99 mmol/L (98-107); CREATININE 5.7 mg/dL (0.6-1.3); GLUCOSE 135 mg/dL (74-106); PHOSPHORUS 5.1 mg/dL (2.5-4.9); POTASSIUM 3.5 mmol/L (3.5-5.1); SODIUM SERUM 137 mmol/L (136-145); TOTAL PROTEIN, SERUM 6.8 g/dL (6.4-8.2); UREA NITROGEN, BLOOD 49 mg/dL (7-18)
[2021-03-07] MEDS: ASCORBIC ACID 500 MG TABLET PO SCH (08:37)
[2021-03-07] MEDS: SEVELAMER CARBONATE 800 MG POWD.PACK PO SCH ×3 (08:37→18:24)
[2021-03-07] MEDS: ZINC SULFATE 220 MG CAPSULE PO SCH (08:37)
[2021-03-07] MEDS: ALLOPURINOL 100 MG TABLET PO SCH (08:37)
[2021-03-07] MEDS: PANTOPRAZOLE 40 MG TABLET.DR PO SCH (08:38)
[2021-03-07] MEDS: ASPIRIN EC 81 MG TABLET.DR PO SCH (08:38)
[2021-03-07] MEDS: VIT B CMPLX 3/FA/VIT C/BIOTIN 1 TAB TABLET PO SCH (08:38)
[2021-03-07] MEDS: BUMETANIDE INJ 0.25 MG/ML VIAL IV SCH ×2 (08:38→18:22)
[2021-03-07] MEDS: D5W IV SCH ×2 (09:48→21:00)
[2021-03-07] MEDS: AMIODARONE HCL 200 MG TABLET PO SCH (09:48)
[2021-03-07] MEDS: CEFTAROLINE IV SCH ×2 (09:48→21:00)
[2021-03-07] MEDS: NEPRO VAN 237 ML CAN PO SCH (09:49)
[2021-03-07] MEDS: CARVEDILOL 12.5 MG TABLET PO SCH ×2 (09:49→20:35)
[2021-03-07] MEDS: PROSOURCE / PROSTAT (PYXIS) 30 ML UDC PO SCH ×2 (11:44→18:22)
[2021-03-07] MEDS: DAKINS QUARTER STRENGTH (0.125%) 480 ML BOTTLE TOP SCH (12:29)
[2021-03-07] MEDS: CLOTRIMAZOLE 1% 15 GM TUBE TP SCH ×2 (12:29→18:23)
[2021-03-07] MEDS: ALBUMIN 25% 25 GM in PREMIX 1 EA IV PRN (13:53)
[2021-03-07 15:59] LABS: BASOPHILS # (AUTO) 0.1 K/uL (0.0-0.2); BASOPHILS % (AUTO) 0.7 % (0.0-2.0); EOSINOPHILS % (AUTO) 2.4 % (0.0-6.0); HEMATOCRIT 25 % (39-51); HEMOGLOBIN 7.8 g/dL (13.5-17.5); LYMPHOCYTES # (AUTO) 0.6 K/uL (0.8-4.8); LYMPHOCYTES % (AUTO) 5.5 % (20.0-44.0); MEAN CORPUSCULAR HGB CONC 31 g/dl (31.0-36.0); MEAN CORPUSCULAR VOLUME 96 fL (80-96); MONOCYTES # (AUTO) 1.1 K/uL (0.1-1.30); NEUTROPHILS # (AUTO) 8.5 K/uL (1.8-8.9); NEUTROPHILS % (AUTO) 81.4 % (43.0-81.0); PLATELET COUNT (AUTO) 254 K/uL (150-450); RED BLOOD CELL COUNT(AUTO) 2.59 MIL/uL (4.5-6.0); WHITE BLOOD COUNT (AUTO) 10.5 K/uL (4.3-11.0)
[2021-03-07 16:08] VITALS: BP 107/54
[2021-03-07 17:47] LABS: LYMPHOCYTES % (MANUAL) 6 % (16-48); MONOCYTES % (MANUAL) 3 % (0-11.0); NEUTROPHILS % (MANUAL) 91 (42-76)
[2021-03-07] MEDS: MORPHINE SULFATE INJ 4 MG/ML DISP.SYRIN IV PRN (18:10)
[2021-03-07] MEDS: DAPTOMYCIN 500 MG in IV NS 0.9% 50 ML IV SCH (18:22)
[2021-03-07] MEDS: EPOETIN ALFA-EPBX 10,000 UNIT/ML VIAL SQ SCH (18:59)
--- NOTE | 2021-03-07 19:00 | NUR ---
MS RN CLOSING NOTE PATIENT ON BED AWAKE. PATIENT IS ALERT AND ORIENTED X 4 AND ABLE TO MAKE NEEDS KNOWN. PATIENT IS ON OXYGEN AT 3LPM VIA NASAL CANULA WITH NO SIGNS OF RESPIRATORY DISTRESS. PATIENT WITH IV ACCESS ON LEFT CHEST WALL PACEMAKER, WITH RIGHT UPPER ARM MIDLINE ON SALINE LOCK, PATENT AND INTACT. WITH RIGHT GROIN CATHETER FOR HD ACCESS. WITH NON PITTING EDEMA ON BOTH LOWER EXTREMITIES, WITH WOUND DRESSING DRY AN INTACT. COMFORT MEASURES PROVIDED. SAFETY PRECAUTIONS IN PLACE WITH BED IN LOWEST, LOCKED POSITION, BRAKES ON, SIDE RAILS UPx2. CALL LIGHT AND TABLE WITHIN REACH AT ALL TIMES. WILL ENDORSE TO NEXT SHIFT FOR CONTINUITY OF CARE.
--- NOTE | 2021-03-07 19:41 | NUR ---
MS RN OPENING NOTE RECEIVED PT AWAKE IN BED. A/O X4, ABLE TO MAKE NEEDS KNOWN. PATIENT IS ON O2 AT 3LPM VIA NC TOLERATING WELL. NO SOB OR S/S OF RESPIRATORY DISTRESS NOTED. PT NOTED WITH LEFT CHEST WALL PACEMAKER. IV ACCESS IN RIGHT UPPER ARM MIDLINE SALINE LOCKED, INTACT AND PATNET. PT NOTED WITH RIGHT GROIN CATHETER FOR HD ACCESS. PT HAS NON PITTING EDEMA ON BLE WITH WOUND DRESSING DRY AND INTACT. SAFETY PRECAUTIONS MAINTAINED. BED IN LOWEST LOCKED POSITION, HOB ELEVATED, SIDE RAILS UP X2. CALL LIGHT AND TABLE WITHIN REACH. WILL CONTINUE WITH PLAN OF CARE.
[2021-03-07 20:00] VITALS: BP 96/47
[2021-03-07] MEDS: TEMAZEPAM 7.5 MG CAPSULE PO SCH (21:19)
[2021-03-07] MEDS: LATANOPROST EYE DROP 0.005% 2.5 ML BOTTLE EACHEYE SCH (21:29)
[2021-03-07] MEDS: *INSULIN REGULAR(HUMULIN R)HUM 100 UNIT/ML VIAL SQ PRN (21:37)
[2021-03-08] MEDS: ALBUTEROL FS 2.5 MG/0.5 ML VIAL.NEB NEB PRN (00:04)
[2021-03-08] MEDS: MIDODRINE HCL (5MG) 5 MG TABLET PO SCH ×3 (01:18→18:47)
--- NOTE | 2021-03-08 06:21 | NUR ---
MS RN CLOSING NOTE PT IS IN BED WITH EYES CLOSED, AROUSABLE TO STIMULATION. A/O X4, ABLE TO MAKE NEEDS KNOWN. PATIENT IS ON O2 AT 3LPM VIA NC TOLERATING WELL. NO SOB OR S/S OF RESPIRATORY DISTRESS NOTED. PT NOTED WITH LEFT CHEST WALL PACEMAKER. IV ACCESS IN RIGHT UPPER ARM MIDLINE SALINE LOCKED, INTACT AND PATENT. PT NOTED WITH RIGHT GROIN CATHETER FOR HD ACCESS. PT HAS NON PITTING EDEMA ON BLE WITH WOUND DRESSING DRY AND INTACT. ALL NEEDS HAVE BEEN MET. SAFETY PRECAUTIONS MAINTAINED AT ALL TIMES. BED IN LOWEST LOCKED POSITION, HOB ELEVATED, SIDE RAILS UP X2. CALL LIGHT AND TABLE WITHIN REACH. WILL ENDORSE TO ONCOMING NURSE FOR BREA.
[2021-03-08] MEDS: BLOOD SUGAR DIAGNOSTIC 1 EACH STRIP IN SCH ×4 (06:37→21:11)
--- NOTE | 2021-03-08 07:45 | NUR ---
MS RN OPENING NOTE RECEIVED PATIENT AWAKE IN BED. A/O X4. ON 3L OXYGEN VIA NASAL CANNULA - TOLERATING WELL. NO SOB NOTED. NO DISTRESS/DISCOMFORT NOTED. PATIENT HAS LEFT CHEST WALL PACEMAKER. IV ACCESS TO RIGHT UPPER ARM MIDLINE - SALINE LOCKED. RIGHT GROIN CATHETER FOR HD ACCESS NOTED. BLE WOUND DRESSINGS DRY AND INTACT. SAFETY PRECAUTIONS IN PLACE. CALL LIGHT WITHIN REACH. WILL CONTINUE TO MONITOR.
[2021-03-08 08:00] VITALS: BP 102/43
[2021-03-08] MEDS: ZINC SULFATE 220 MG CAPSULE PO SCH (08:13)
[2021-03-08] MEDS: SEVELAMER CARBONATE 800 MG POWD.PACK PO SCH ×3 (08:13→18:46)
[2021-03-08] MEDS: ALLOPURINOL 100 MG TABLET PO SCH (08:13)
[2021-03-08] MEDS: ASPIRIN EC 81 MG TABLET.DR PO SCH (08:13)
[2021-03-08] MEDS: BUMETANIDE INJ 0.25 MG/ML VIAL IV SCH (08:13)
[2021-03-08] MEDS: ASCORBIC ACID 500 MG TABLET PO SCH (08:14)
[2021-03-08] MEDS: PANTOPRAZOLE 40 MG TABLET.DR PO SCH (08:14)
[2021-03-08] MEDS: MORPHINE SULFATE INJ 4 MG/ML DISP.SYRIN IV PRN ×2 (08:14→17:25)
[2021-03-08] MEDS: DAKINS QUARTER STRENGTH (0.125%) 480 ML BOTTLE TOP SCH (08:17)
[2021-03-08] MEDS: CLOTRIMAZOLE 1% 15 GM TUBE TP SCH ×2 (08:17→16:07)
[2021-03-08] MEDS: AMIODARONE HCL 200 MG TABLET PO SCH (08:26)
[2021-03-08] MEDS: NEPRO VAN 237 ML CAN PO SCH (08:27)
[2021-03-08] MEDS: CARVEDILOL 12.5 MG TABLET PO SCH ×2 (08:27→21:00)
[2021-03-08] MEDS: VIT B CMPLX 3/FA/VIT C/BIOTIN 1 TAB TABLET PO SCH (08:27)
[2021-03-08] MEDS: PROSOURCE / PROSTAT (PYXIS) 30 ML UDC PO SCH ×2 (08:33→16:07)
[2021-03-08] MEDS: D5W IV SCH ×2 (08:52→21:11)
[2021-03-08] MEDS: CEFTAROLINE IV SCH ×2 (08:52→21:11)
[2021-03-08] MEDS: INSULIN REGULAR, HUMAN 100 UNIT/ML 3 ML VIAL SQ PRN ×2 (11:53→17:24)
[2021-03-08 16:00] VITALS: BP 100/60
--- NOTE | 2021-03-08 19:20 | NUR ---
MS RN CLOSING NOTE PATIENT CURRENTLY SITING AT EDGE OF BED, AWAKE. A/O X4. ON 3L OXYGEN VIA NASAL CANNULA - TOLERATING WELL. NO SOB NOTED. NO DISTRESS/DISCOMFORT NOTED. PATIENT HAS LEFT CHEST WALL PACEMAKER. IV ACCESS TO RIGHT UPPER ARM MIDLINE - SALINE LOCKED. RIGHT GROIN CATHETER FOR HD ACCESS NOTED. STATUS POST HD TODAY - 2LITERS OUT. BLE WOUND DRESSINGS DRY AND INTACT. SACRAL DRESSING DRY AND INTACT. SAFETY PRECAUTIONS IN PLACE. CALL LIGHT WITHIN REACH. WILL ENDORSE TO NIGHTSHIFT NURSE FOR BREA.
--- NOTE | 2021-03-08 19:45 | NUR ---
MS RN OPENING NOTES RECEIVED PT SITTING AT EDGE OF BED. PT IS AOx4. NO S/SX OF RESPIRATORY DISTRESS NOTED. PT IS ON 3 L/MIN NASAL CANNULA AND TOLERATING WELL. NO SOB NOTED. IV ACCESS IN YUN MIDLINE AND R FEMORAL GROIN HD CATHETER. IV ACCESS IS PATENT, FLUSHING WELL, INTACT, SALINE LOCKED. SAFETY PRECAUTIONS IN PLACE: BED IN LOWEST, LOCKED POSITION, BRAKES ON, SIDERAILS UP x2. CALL LIGHT AND TABLE WITHIN REACH. WILL CONTINUE TO MONITOR.
[2021-03-08 20:00] VITALS: BP_SYST 104; BP_SYST 109; BP_DIAS 37; BP_DIAS 48
[2021-03-08] MEDS: LATANOPROST EYE DROP 0.005% 2.5 ML BOTTLE EACHEYE SCH (21:12)
[2021-03-08] MEDS: TEMAZEPAM 7.5 MG CAPSULE PO SCH (21:13)
[2021-03-08] MEDS: *INSULIN REGULAR(HUMULIN R)HUM 100 UNIT/ML VIAL SQ PRN (21:22)
[2021-03-09] MEDS: MIDODRINE HCL (5MG) 5 MG TABLET PO SCH ×3 (01:22→17:13)
--- NOTE | 2021-03-09 06:40 | NUR ---
MS RN CLOSING NOTES PT LAYING IN BED, WITH EYES OPEN. PT IS AOx4. NO S/SX OF RESPIRATORY DISTRESS NOTED. PT IS ON 3 L/MIN NASAL CANNULA AND TOLERATING WELL. NO SOB NOTED. IV ACCESS IN YUN MIDLINE AND R FEMORAL GROIN HD CATHETER. IV ACCESS IS PATENT, FLUSHING WELL, INTACT, SALINE LOCKED. NO COMPLAINTS OF PAIN THROUGHOUT SHIFT. ALL NEEDS MET. PT KEPT CLEAN AND DRY. SAFETY PRECAUTIONS IN PLACE: BED IN LOWEST, LOCKED POSITION, BRAKES ON, SIDERAILS UP x2. CALL LIGHT AND TABLE WITHIN REACH. WILL ENDORSE TO ONCOMING SHIFT FOR BREA.
[2021-03-09] MEDS: BLOOD SUGAR DIAGNOSTIC 1 EACH STRIP IN SCH ×4 (06:50→21:49)
[2021-03-09] MEDS: INSULIN REGULAR, HUMAN 100 UNIT/ML 3 ML VIAL SQ PRN ×3 (06:50→16:54)
[2021-03-09] MEDS: SEVELAMER CARBONATE 800 MG POWD.PACK PO SCH ×3 (08:16→17:13)
[2021-03-09] MEDS: ALLOPURINOL 100 MG TABLET PO SCH (08:17)
[2021-03-09] MEDS: PANTOPRAZOLE 40 MG TABLET.DR PO SCH (08:17)
[2021-03-09] MEDS: ASCORBIC ACID 500 MG TABLET PO SCH (08:17)
[2021-03-09] MEDS: ASPIRIN EC 81 MG TABLET.DR PO SCH (08:17)
[2021-03-09] MEDS: ZINC SULFATE 220 MG CAPSULE PO SCH (08:17)
[2021-03-09] MEDS: VIT B CMPLX 3/FA/VIT C/BIOTIN 1 TAB TABLET PO SCH (08:17)
[2021-03-09] MEDS: AMIODARONE HCL 200 MG TABLET PO SCH (08:26)
[2021-03-09] MEDS: NEPRO VAN 237 ML CAN PO SCH (08:26)
[2021-03-09] MEDS: PROSOURCE / PROSTAT (PYXIS) 30 ML UDC PO SCH ×2 (08:26→16:41)
[2021-03-09] MEDS: CARVEDILOL 12.5 MG TABLET PO SCH ×2 (08:27→20:11)
[2021-03-09] MEDS: DAKINS QUARTER STRENGTH (0.125%) 480 ML BOTTLE TOP SCH (08:28)
[2021-03-09] MEDS: CLOTRIMAZOLE 1% 15 GM TUBE TP SCH ×2 (08:28→16:41)
[2021-03-09] MEDS: D5W IV SCH ×2 (09:10→20:47)
[2021-03-09] MEDS: CEFTAROLINE IV SCH ×2 (09:10→20:47)
[2021-03-09] MEDS: DAPTOMYCIN 500 MG in IV NS 0.9% 50 ML IV SCH (14:54)
[2021-03-09] MEDS: MORPHINE SULFATE INJ 4 MG/ML DISP.SYRIN IV PRN (17:43)
--- NOTE | 2021-03-09 18:34 | NUR ---
MS RN CLOSING NOTE PATIENT CURRENTLY LYING IN BED, AWAKE, WATCHING TV. A/O X4. ON 4L OXYGEN VIA NASAL CANNULA - TOLERATING WELL. NO SOB NOTED. NO DISTRESS/DISCOMFORT NOTED. PATIENT HAS LEFT CHEST WALL PACEMAKER. IV ACCESS TO RIGHT UPPER ARM MIDLINE - SALINE LOCKED. RIGHT GROIN CATHETER FOR HD ACCESS REMOVED TODAY. BLE WOUND DRESSINGS CHANGED - DRY AND INTACT. SACRAL DRESSING CHANGED - DRY AND INTACT. SAFETY PRECAUTIONS IN PLACE. CALL LIGHT WITHIN REACH. WILL ENDORSE TO NIGHTSHIFT NURSE FOR BREA.
--- NOTE | 2021-03-09 19:20 | NUR ---
MS RN OPENING NOTE RECEIVED PT RESTING IN BED, LAYING ON HIS L-SIDE. A/OX4, ABLE TO VERBALIZE ALL NEEDS. HE DENIES ANY PAIN OR DISCOMFORT AT THIS TIME. RESPIRATIONS EVEN AND UNLABORED. ON O2 @3LPM VIA NC. IV SITE YUN MIDLINE INTACT, PATENT, FLUSHES WELL. R-FEMORAL NON-TUNNELED CATH REMOVED BY TODAY, AND FOR PLACEMENT OF TUNNELED CATH NEXT WEEK. PT IS AWARE. NO ACUTE DISTRESS NOTED. SAFETY MEASURES IN PLACE, BED IN LOWEST LOCKED POSITION, S/R UP X2, CALL LIGHT AND TABLE WITHIN EASY REACH. WILL CONTINUE TO MONITOR.
[2021-03-09 20:06] VITALS: BP 97/46
--- NOTE | 2021-03-09 21:50 | NUR ---
BS 124
[2021-03-09] MEDS: TEMAZEPAM 7.5 MG CAPSULE PO SCH (22:00)
[2021-03-09] MEDS: LATANOPROST EYE DROP 0.005% 2.5 ML BOTTLE EACHEYE SCH (22:31)
[2021-03-10] MEDS: MORPHINE SULFATE INJ 4 MG/ML DISP.SYRIN IV PRN ×2 (01:23→17:41)
[2021-03-10] MEDS: MIDODRINE HCL (5MG) 5 MG TABLET PO SCH ×3 (01:24→17:40)
[2021-03-10] MEDS: BLOOD SUGAR DIAGNOSTIC 1 EACH STRIP IN SCH ×4 (06:45→22:21)
--- NOTE | 2021-03-10 07:10 | NUR ---
MS RN CLOSING NOTES PT RESTING IN BED, EASILY AROUSABLE TO STIMULI, DENIES ANY PAIN OR DISCOMFORT. USES O2@3LPM VIA NC. RESPIRATIONS EVEN AND UNLABORED. DENIES SOB AT THIS TIME. PT IN NO ACUTE DISTRESS. ENDORSED TO NEXT SHIFT NURSE.
[2021-03-10 07:17] LABS: ALANINE AMINOTRANSFERASE 12 U/L (12-78); ALBUMIN 2.3 g/dL (3.4-5.0); ALKALINE PHOSPHATASE 65 U/L (46-116); ASPARTATE AMINOTRANSFERASE 11 U/L (15-37); BILIRUBIN,TOTAL 1.1 mg/dL (0.2-1.0); CALCIUM, SERUM 8.3 mg/dL (8.5-10.1); CARBON DIOXIDE 27 mmol/L (21-32); CHLORIDE 98 mmol/L (98-107); CREATININE 5.5 mg/dL (0.6-1.3); GLUCOSE 115 mg/dL (74-106); PHOSPHORUS 3.7 mg/dL (2.5-4.9); POTASSIUM 3.7 mmol/L (3.5-5.1); SODIUM SERUM 136 mmol/L (136-145); TOTAL PROTEIN, SERUM 7.1 g/dL (6.4-8.2); UREA NITROGEN, BLOOD 36 mg/dL (7-18)
--- NOTE | 2021-03-10 07:20 | NUR ---
MS RN OPENING NOTE RECEIVED PATIENT ON BED AWAKE SITTING ON THE BED. PATIENT IS ALERT AND ORIENTED X 4 AND ABLE TO MAKE NEEDS KNOWN. PATIENT IS ON OXYGEN AT 3LPM VIA NASAL CANULA WITH NO SIGNS OF RESPIRATORY DISTRESS. PATIENT WITH IV ACCESS ON LEFT CHEST WALL PACEMAKER, WITH RIGHT UPPER ARM MIDLINE ON SALINE LOCK, PATENT AND INTACT. WITH NON PITTING EDEMA ON BOTH LOWER EXTREMITIES, WITH WOUND DRESSING DRY AN INTACT. COMFORT MEASURES PROVIDED. ENCOURAGED TO TURN SISE TO SIDE WHEN ON BED TO OFFLOAD PRESSURE ON THE SACRUM. SAFETY PRECAUTIONS IN PLACE WITH BED IN LOWEST, LOCKED POSITION, BRAKES ON, SIDE RAILS UPx2. CALL LIGHT AND TABLE WITHIN REACH AT ALL TIMES. WILL CONTINUE TO MONITOR PATIENT.
[2021-03-10 08:00] VITALS: BP 107/46
[2021-03-10] MEDS: PANTOPRAZOLE 40 MG TABLET.DR PO SCH (08:11)
[2021-03-10] MEDS: SEVELAMER CARBONATE 800 MG POWD.PACK PO SCH ×3 (08:11→17:39)
[2021-03-10] MEDS: PROSOURCE / PROSTAT (PYXIS) 30 ML UDC PO SCH ×2 (09:31→17:00)
[2021-03-10] MEDS: AMIODARONE HCL 200 MG TABLET PO SCH (09:32)
[2021-03-10] MEDS: ASCORBIC ACID 500 MG TABLET PO SCH (09:32)
[2021-03-10] MEDS: ALLOPURINOL 100 MG TABLET PO SCH (09:32)
[2021-03-10] MEDS: VIT B CMPLX 3/FA/VIT C/BIOTIN 1 TAB TABLET PO SCH (09:33)
[2021-03-10] MEDS: ZINC SULFATE 220 MG CAPSULE PO SCH (09:33)
[2021-03-10] MEDS: CARVEDILOL 12.5 MG TABLET PO SCH ×2 (09:33→20:23)
[2021-03-10] MEDS: ASPIRIN EC 81 MG TABLET.DR PO SCH (09:34)
[2021-03-10] MEDS: ERGOCALCIFEROL (VITAMIN D 2) 50,000 UNIT CAPSULE PO SCH (09:34)
[2021-03-10] MEDS: NEPRO VAN 237 ML CAN PO SCH (09:41)
[2021-03-10] MEDS: CEFTAROLINE IV SCH ×2 (09:41→20:20)
[2021-03-10] MEDS: D5W IV SCH ×2 (09:41→20:20)
[2021-03-10] MEDS: CLOTRIMAZOLE 1% 15 GM TUBE TP SCH ×2 (09:42→17:41)
[2021-03-10] MEDS: DAKINS QUARTER STRENGTH (0.125%) 480 ML BOTTLE TOP SCH (09:42)
--- NOTE | 2021-03-10 12:01 | NUR ---
MS RN NOTE BS 147 MG/DL
[2021-03-10] MEDS: INSULIN REGULAR, HUMAN 100 UNIT/ML 3 ML VIAL SQ PRN ×2 (12:50→18:02)
--- NOTE | 2021-03-10 13:00 | NUR ---
MS RN NOTE PATIENT SEEN BY DR. CARR WITH NO NEW ORDER
--- NOTE | 2021-03-10 14:20 | NUR ---
MS RN NOTE PATIENT SEEN BY DR. ROMERO WITH NO NEW ORDER AT THIS TIME.
[2021-03-10 16:00] VITALS: BP 107/54
[2021-03-10 16:51] LABS: HEMOGLOBIN 8.2 g/dL (13.5-17.5)
[2021-03-10] MEDS: EPOETIN ALFA-EPBX 10,000 UNIT/ML VIAL SQ SCH (17:46)
--- NOTE | 2021-03-10 19:00 | NUR ---
MS RN CLOSING NOTE RECEIVED PATIENT ON BED AWAKE SITTING ON THE BED. PATIENT IS ALERT AND ORIENTED X 4 AND ABLE TO MAKE NEEDS KNOWN. PATIENT IS ON OXYGEN AT 3LPM VIA NASAL CANULA WITH NO SIGNS OF RESPIRATORY DISTRESS. PATIENT WITH IV ACCESS ON LEFT CHEST WALL PACEMAKER, WITH RIGHT UPPER ARM MIDLINE ON SALINE LOCK, PATENT AND INTACT. WITH NON PITTING EDEMA ON BOTH LOWER EXTREMITIES, WITH WOUND DRESSING DRY AN INTACT. COMFORT MEASURES PROVIDED. ENCOURAGED TO TURN SISE TO SIDE WHEN ON BED TO OFFLOAD PRESSURE ON THE SACRUM. SAFETY PRECAUTIONS IN PLACE WITH BED IN LOWEST, LOCKED POSITION, BRAKES ON, SIDE RAILS UPx2. CALL LIGHT AND TABLE WITHIN REACH AT ALL TIMES. WILL ENDORSE PATIENT FOR CONTINUITY OF CARE.
--- NOTE | 2021-03-10 19:46 | NUR ---
MS RN OPENING NOTE RECEIVED PT AWAKE AND SITTING ON BED. A/O X4, ABLE TO MAKE NEEDS KNOWN. PATIENT IS ON O2 AT 3LPM VIA NC TOLERATING WELL. NO SOB OR S/S OF RESPIRATORY DISTRESS NOTED. PT NOTED WITH LEFT CHEST WALL PACEMAKER. IV ACCESS IN RIGHT UPPER ARM MIDLINE SALINE LOCKED, INTACT AND PATENT. PT HAS NON PITTING EDEMA ON BLE WITH WOUND DRESSING DRY AND INTACT. SAFETY PRECAUTIONS MAINTAINED. BED IN LOWEST LOCKED POSITION, HOB ELEVATED, SIDE RAILS UP X2. CALL LIGHT AND TABLE WITHIN REACH. WILL CONTINUE WITH PLAN OF CARE.
[2021-03-10] MEDS: TEMAZEPAM 7.5 MG CAPSULE PO SCH (21:17)
[2021-03-10] MEDS: *INSULIN REGULAR(HUMULIN R)HUM 100 UNIT/ML VIAL SQ PRN (22:30)
[2021-03-10] MEDS: LATANOPROST EYE DROP 0.005% 2.5 ML BOTTLE EACHEYE SCH (22:45)
[2021-03-11] MEDS: MIDODRINE HCL (5MG) 5 MG TABLET PO SCH ×3 (01:06→16:57)
--- NOTE | 2021-03-11 06:06 | NUR ---
MS RN CLOSING NOTE PT IS IN BED WITH EYES CLOSED, AROUSABLE TO STIMULATION. A/O X4. PT IS ON O2 AT 3LPM VIA NC TOLERATING WELL. NO SOB OR S/S OF RESPIRATORY DISTRESS NOTED. PT NOTED WITH LEFT CHEST WALL PACEMAKER. IV ACCESS IS INTACT, PATENT, AND FLUSHING WELL. PT HAS NON PITTING EDEMA ON BLE WITH WOUND DRESSING C/D/I. ALL NEEDS HAVE BEEN MET. SAFETY PRECAUTIONS MAINTAINED AT ALL TIMES. BED IN LOWEST LOCKED POSITION, HOB ELEVATED, SIDE RAILS UP X2. CALL LIGHT AND TABLE WITHIN REACH. WILL ENDORSE TO ONCOMING NURSE FOR BREA.
[2021-03-11] MEDS: BLOOD SUGAR DIAGNOSTIC 1 EACH STRIP IN SCH ×4 (06:33→21:43)
[2021-03-11 06:57] LABS: CALCIUM, SERUM 8.6 mg/dL (8.5-10.1); CARBON DIOXIDE 29 mmol/L (21-32); CHLORIDE 96 mmol/L (98-107); CREATININE 6.2 mg/dL (0.6-1.3); GLUCOSE 130 mg/dL (74-106); PHOSPHORUS 4.2 mg/dL (2.5-4.9); POTASSIUM 3.7 mmol/L (3.5-5.1); SODIUM SERUM 134 mmol/L (136-145); UREA NITROGEN, BLOOD 47 mg/dL (7-18)
--- NOTE | 2021-03-11 07:50 | NUR ---
RN OPENING NOTES Patient seen comfortably lying in bed, AO X 4, denies any pain or discomfort at this time, no SOB, breathing even and unlabored, no apparent distress noted. Call light left within reach, safety measures maintained, brakes locked, side rails up X2, will monitor closely for any changes.
[2021-03-11 08:30] VITALS: BP 102/53
[2021-03-11] MEDS ORDERED: SILVER NITRATE APPLICATOR 1 EA BOX TP ONE (08:30)
[2021-03-11] MEDS ORDERED: LIDOCAINE HCL/PF 1% 30 ML VIAL MC ONE (08:30)
[2021-03-11] MEDS: PROSOURCE / PROSTAT (PYXIS) 30 ML UDC PO SCH ×2 (08:36→16:57)
[2021-03-11] MEDS: ALLOPURINOL 100 MG TABLET PO SCH (08:36)
[2021-03-11] MEDS: ZINC SULFATE 220 MG CAPSULE PO SCH (08:36)
[2021-03-11] MEDS: ASPIRIN EC 81 MG TABLET.DR PO SCH (08:36)
[2021-03-11] MEDS: SEVELAMER CARBONATE 800 MG POWD.PACK PO SCH ×3 (08:36→17:07)
[2021-03-11] MEDS: ASCORBIC ACID 500 MG TABLET PO SCH (08:36)
[2021-03-11] MEDS: PANTOPRAZOLE 40 MG TABLET.DR PO SCH (08:37)
[2021-03-11] MEDS: VIT B CMPLX 3/FA/VIT C/BIOTIN 1 TAB TABLET PO SCH (08:37)
[2021-03-11] MEDS: MORPHINE SULFATE INJ 4 MG/ML DISP.SYRIN IV PRN (08:38)
[2021-03-11] MEDS: AMIODARONE HCL 200 MG TABLET PO SCH (08:39)
[2021-03-11] MEDS: NEPRO VAN 237 ML CAN PO SCH (08:46)
[2021-03-11] MEDS: CARVEDILOL 12.5 MG TABLET PO SCH ×2 (09:00→21:43)
[2021-03-11] MEDS: D5W IV SCH ×2 (09:12→21:07)
[2021-03-11] MEDS: CEFTAROLINE IV SCH ×2 (09:12→21:07)
[2021-03-11] MEDS: DAKINS QUARTER STRENGTH (0.125%) 480 ML BOTTLE TOP SCH (09:19)
[2021-03-11] MEDS: CLOTRIMAZOLE 1% 15 GM TUBE TP SCH ×2 (09:27→16:58)
--- NOTE | 2021-03-11 09:40 | NUR ---
Received an order from Dr. Little that patient will have tunneled catheter placement tomorrow, patient needs to be NPO after midnight except medications, and do BMP in am 03/12/21. Consents obtained and signed by patient, verbalized understanding and gratitude.
--- NOTE | 2021-03-11 10:50 | NUR ---
Patient S/P debridement of sacrum extending to bilateral buttocks, procedure done at bedside, patient had pain medication prior to debridement, tolerated well, no excessive bleeding at site, no unusual odor, no unusual discharge, will monitor closely for any changes.
[2021-03-11] MEDS: INSULIN REGULAR, HUMAN 100 UNIT/ML 3 ML VIAL SQ PRN ×2 (11:25→17:07)
[2021-03-11] MEDS: DAPTOMYCIN 500 MG in IV NS 0.9% 50 ML IV SCH (15:18)
[2021-03-11 16:05] VITALS: BP 100/45
--- NOTE | 2021-03-11 18:42 | NUR ---
Patient seen lying in bed, on oxygen via nasal cannula at 3LPM, tolerating well, no SOB, breathing even and unlabored, no apparent distress noted. Skin warm to touch, no pallor or cyanosis noted. No s/s of pacemaker malfunction, no dizziness, no headache. Due medications given per MD order, tolerating well. Pain medications given when non pharmacological interventions ineffective. No s/s of hypo/hyperglycemia, insulin given per sliding scale tolerated well. All needs attended, kept clean and dry, call light left within reach, safety measures maintained, brakes locked, side rails up X2, will endorse to next shift for continuity of care.
--- NOTE | 2021-03-11 19:35 | NUR ---
JOSE SOUNDLY ASLEEP, PROVIDED QUIET ENVIRONMENT, TO CONTINUE
[2021-03-11 20:00] VITALS: BP 100/56
--- NOTE | 2021-03-11 21:00 | NUR ---
MSRN AWAKENED, V/S STABLE, DUE MEDS ADMINISTERED. BS WAS 125. NO COVERAGE. DECLINED SNACKS.
[2021-03-11] MEDS: LATANOPROST EYE DROP 0.005% 2.5 ML BOTTLE EACHEYE SCH (21:43)
[2021-03-11] MEDS: TEMAZEPAM 7.5 MG CAPSULE PO SCH (22:08)
--- NOTE | 2021-03-11 23:32 | NUR ---
MSRN'' SLEEPING EASILY AROUSABLE. NO NEEDS MADE, CONVERSANT. STATED HAVEN'T HAD HD FOR AWHILE. AWARE NEED FOR PERMACATH PLACEMENT BY DR. PARK IN AM. CONSENTED.
[2021-03-12] MEDS: ALLOPURINOL 100 MG TABLET PO SCH ×2 (03:02→09:48)
[2021-03-12] MEDS: MIDODRINE HCL (5MG) 5 MG TABLET PO SCH ×3 (03:08→17:09)
[2021-03-12] MEDS: HYDROCODONE/APAP 10/325MG TABLET PO PRN ×2 (05:12→19:49)
[2021-03-12] MEDS: ALBUTEROL FS 2.5 MG/0.5 ML VIAL.NEB NEB PRN (06:17)
--- NOTE | 2021-03-12 06:30 | NUR ---
MSRN REQUESTED FOR BREATHING TREATMENT PRIOR TO GOING FOR SURGERY. ANXIOUS TO GO FOR PERM CATH TODAY. BLOOD SUGAR 151, NO COVERAGE AT THIS TIME HAS BEEN NPO.
[2021-03-12 06:58] LABS: BASOPHILS # (AUTO) 0.1 K/uL (0.0-0.2); BASOPHILS % (AUTO) 1.3 % (0.0-2.0); EOSINOPHILS % (AUTO) 4.2 % (0.0-6.0); HEMATOCRIT 23 % (39-51); HEMOGLOBIN 7.5 g/dL (13.5-17.5); LYMPHOCYTES # (AUTO) 0.6 K/uL (0.8-4.8); LYMPHOCYTES % (AUTO) 6.2 % (20.0-44.0); MEAN CORPUSCULAR HGB CONC 33 g/dl (31.0-36.0); MEAN CORPUSCULAR VOLUME 97 fL (80-96); MONOCYTES % (AUTO) 11.4 % (2.0-12.0); NEUTROPHILS # (AUTO) 6.9 K/uL (1.8-8.9); NEUTROPHILS % (AUTO) 76.9 % (43.0-81.0); PLATELET COUNT (AUTO) 186 K/uL (150-450); RED BLOOD CELL COUNT(AUTO) 2.37 MIL/uL (4.5-6.0); WHITE BLOOD COUNT (AUTO) 8.9 K/uL (4.3-11.0)
[2021-03-12 07:19] LABS: CALCIUM, SERUM 8.5 mg/dL (8.5-10.1); CARBON DIOXIDE 24 mmol/L (21-32); CHLORIDE 95 mmol/L (98-107); GLUCOSE 134 mg/dL (74-106); POTASSIUM 4.1 mmol/L (3.5-5.1); SODIUM SERUM 132 mmol/L (136-145); UREA NITROGEN, BLOOD 54 mg/dL (7-18)
--- NOTE | 2021-03-12 07:30 | NUR ---
RN MS NOTES PT PICKED UP BY O.R. STAFF VIA BED FOR HD CATH PLACEMENT, LEFT IN STABLE CONDITION.
[2021-03-12] MEDS ORDERED: FENTANYL PF 100MCG/2ML AMPUL ONE (07:37)
[2021-03-12] MEDS: CARVEDILOL 12.5 MG TABLET PO SCH ×2 (09:00→20:20)
[2021-03-12] MEDS: BLOOD SUGAR DIAGNOSTIC 1 EACH STRIP IN SCH ×4 (09:06→22:06)
[2021-03-12 09:20] VITALS: BP 95/39
--- NOTE | 2021-03-12 09:20 | NUR ---
Patient came back at 9:18am, stable condition, S/P tunneled catheter placement on right IJ, dressings intact, no s/s of bleeding at this time, patient denies any pain or discomfort, vitals as follows: BP95/39 PR60 RR18 T97.8 0295-96% with oxygen via nasal cannula at 3LPM, call light left within reach, safety precautions maintained, will monitor closely for any changes.
[2021-03-12] MEDS: ASCORBIC ACID 500 MG TABLET PO SCH (09:48)
[2021-03-12] MEDS: PANTOPRAZOLE 40 MG TABLET.DR PO SCH (09:48)
[2021-03-12] MEDS: ASPIRIN EC 81 MG TABLET.DR PO SCH (09:48)
[2021-03-12] MEDS: SEVELAMER CARBONATE 800 MG POWD.PACK PO SCH ×3 (09:48→17:10)
[2021-03-12] MEDS: VIT B CMPLX 3/FA/VIT C/BIOTIN 1 TAB TABLET PO SCH (09:48)
[2021-03-12] MEDS: CEFTAROLINE IV SCH (09:49)
[2021-03-12] MEDS: PROSOURCE / PROSTAT (PYXIS) 30 ML UDC PO SCH ×2 (09:49→17:10)
[2021-03-12] MEDS: D5W IV SCH (09:49)
[2021-03-12 09:50] VITALS: BP 95/39
[2021-03-12] MEDS: NEPRO VAN 237 ML CAN PO SCH (09:50)
[2021-03-12] MEDS: AMIODARONE HCL 200 MG TABLET PO SCH (09:50)
[2021-03-12] MEDS: ZINC SULFATE 220 MG CAPSULE PO SCH (10:06)
[2021-03-12] MEDS: CLOTRIMAZOLE 1% 15 GM TUBE TP SCH ×2 (10:37→17:11)
[2021-03-12] MEDS: DAKINS QUARTER STRENGTH (0.125%) 480 ML BOTTLE TOP SCH (10:37)
[2021-03-12] MEDS: INSULIN REGULAR, HUMAN 100 UNIT/ML 3 ML VIAL SQ PRN (11:28)
[2021-03-12] MEDS ORDERED: CEFT600V IV (11:46)
[2021-03-12] MEDS ORDERED: DAPT500V2 IV (11:46)
[2021-03-12] MEDS ORDERED: SODI473S8 TOP (11:46)
[2021-03-12] MEDS: ALBUMIN 25% 25 GM in PREMIX 1 EA IV PRN (12:47)
[2021-03-12 16:00] VITALS: BP 94/48
[2021-03-12] MEDS: EPOETIN ALFA-EPBX 10,000 UNIT/ML VIAL SQ SCH (17:10)
--- NOTE | 2021-03-12 18:41 | NUR ---
Patient for discharge today at 8pm, preferred to sign discharge paper works and inventory lists prior to leaving. No apparent distress noted at this time. Report given to [facility] and [facility] [phone] spoke to Cierra PATEL. All due medications given per MD order, no s/s of hypo/hyperglycemia, insulin given per sliding scale. Patient also had hemodialysis session today, with 4Liters output, tolerated hemodialysis session well, no headache, no dizziness. Respirations even and unlabored, no SOB, on oxygen via nasal cannula at 3LPM. Safety precautions maintained, brakes locked, side rails up X2, will endprse to next shift for continuity of care.
--- NOTE | 2021-03-12 20:00 | NUR ---
Patient A&Ox4. VSS. No signs of distress. Helped to lay sidelying R side. sacrum dressing changed. All belongings accounted for. Medicated for pain to BLE and sacrum. Will follow up for effect. ETA for d/c is now 2100 per [facility].
[2021-03-12 20:20] VITALS: BP 107/53
--- NOTE | 2021-03-12 20:50 | NUR ---
Called [facility] transport. Stated they would be be here in 30 minutes or less. Unable to give ABX d/t infusion time over an hour. will pass on in report to SNF nurse.
[2021-03-12] MEDS: LATANOPROST EYE DROP 0.005% 2.5 ML BOTTLE EACHEYE SCH (22:09)
[2021-03-12] MEDS: *INSULIN REGULAR(HUMULIN R)HUM 100 UNIT/ML VIAL SQ PRN (22:09)
--- NOTE | 2021-03-12 22:32 | NUR ---
[facility] ambulance accompanied by 2 [employer] here to parts picker patient. VS B/P 96/46, HR 60, O2 sat 96% on O2 3L via NC. Temp 97.5, RR 19. Called Cierra PATEL at [facility] updated that BS was 190 and 3 units regular insulin given as well as juice for the ride over. Also RN made aware that B/P was a little low but is baseline for pt and that he has midodrine q8h. [facility] in [facility] condition A&Ox4 at 2230.
[2021-03-13] MEDS ORDERED: FERROUS SULFATE (325 MG) 325 MG/TAB TABLET PO SCH (09:00)
== END 2021-03-12 22:40 | DRG 264 ==
LOC: ER 19:16 → TELE1 21:22 → TELE 02-15 18:47 → MED 02-17 14:44 → ICU 02-20 12:35 → MED 02-20 13:45
PROVIDERS: ADMIT Nurse Practitioner Acute Care; ATTEND Nurse Practitioner Acute Care
PROC: 5A1D70Z Performance of Urinary Filtration, Intermittent, Less than 6 Hours Per Day (ICD-10-PCS; 2021-02-10)
PROC: 0JBQ0ZZ Excision of Right Foot Subcutaneous Tissue and Fascia, Open Approach (ICD-10-PCS; principal; 2021-02-13)
PROC: 0JBN0ZZ Excision of Right Lower Leg Subcutaneous Tissue and Fascia, Open Approach (ICD-10-PCS; 2021-02-13)
PROC: 0JBP0ZZ Excision of Left Lower Leg Subcutaneous Tissue and Fascia, Open Approach (ICD-10-PCS; 2021-02-13)
PROC: 05H533Z Insertion of Infusion Device into Right Subclavian Vein, Percutaneous Approach (ICD-10-PCS; 2021-02-14)
PROC: B546ZZA Ultrasonography of Right Subclavian Vein, Guidance (ICD-10-PCS; 2021-02-14)
PROC: 05PY33Z Removal of Infusion Device from Upper Vein, Percutaneous Approach (ICD-10-PCS; 2021-02-14)
PROC: 02HV33Z Insertion of Infusion Device into Superior Vena Cava, Percutaneous Approach (ICD-10-PCS; 2021-02-14)
PROC: B518YZA Fluoroscopy of Superior Vena Cava using Other Contrast, Guidance (ICD-10-PCS; 2021-02-14)
PROC: 0JBQ0ZZ Excision of Right Foot Subcutaneous Tissue and Fascia, Open Approach (ICD-10-PCS; 2021-02-24)
PROC: 0JBN0ZZ Excision of Right Lower Leg Subcutaneous Tissue and Fascia, Open Approach (ICD-10-PCS; 2021-02-24)
PROC: 0JBP0ZZ Excision of Left Lower Leg Subcutaneous Tissue and Fascia, Open Approach (ICD-10-PCS; 2021-02-24)
PROC: 06HY33Z Insertion of Infusion Device into Lower Vein, Percutaneous Approach (ICD-10-PCS; 2021-03-01)
PROC: 0KBP0ZZ Excision of Left Hip Muscle, Open Approach (ICD-10-PCS; 2021-03-04)
PROC: 0KBN0ZZ Excision of Right Hip Muscle, Open Approach (ICD-10-PCS; 2021-03-04)
PROC: 0KBP0ZZ Excision of Left Hip Muscle, Open Approach (ICD-10-PCS; 2021-03-11)
PROC: 0KBN0ZZ Excision of Right Hip Muscle, Open Approach (ICD-10-PCS; 2021-03-11)
PROC: 02HV33Z Insertion of Infusion Device into Superior Vena Cava, Percutaneous Approach (ICD-10-PCS; 2021-03-12)
PROC: B518YZA Fluoroscopy of Superior Vena Cava using Other Contrast, Guidance (ICD-10-PCS; 2021-03-12)
DX: T80.211A Bloodstream infection due to central venous catheter, initial encounter (principal); A41.02 Sepsis due to Methicillin resistant Staphylococcus aureus; I50.43 Acute on chronic combined systolic (congestive) and diastolic (congestive) heart failure; N18.6 End stage renal disease; L89.154 Pressure ulcer of sacral region, stage 4; I21.A1 Myocardial infarction type 2; J18.9 Pneumonia, unspecified organism; S42.92XA Fracture of left shoulder girdle, part unspecified, initial encounter for closed fracture; I13.2 Hypertensive heart and chronic kidney disease with heart failure and with stage 5 chronic kidney disease, or end stage renal disease; N39.0 Urinary tract infection, site not specified; E87.1 Hypo-osmolality and hyponatremia; I42.9 Cardiomyopathy, unspecified; E66.2 Morbid (severe) obesity with alveolar hypoventilation; E87.2 Acidosis; L03.116 Cellulitis of left lower limb; Z68.41 Body mass index [BMI] 40.0-44.9, adult; L03.115 Cellulitis of right lower limb; I87.313 Chronic venous hypertension (idiopathic) with ulcer of bilateral lower extremity; L97.828 Non-pressure chronic ulcer of other part of left lower leg with other specified severity; L97.818 Non-pressure chronic ulcer of other part of right lower leg with other specified severity; D68.9 Coagulation defect, unspecified; B95.2 Enterococcus as the cause of diseases classified elsewhere; D63.1 Anemia in chronic kidney disease; Z88.2 Allergy status to sulfonamides; Z95.810 Presence of automatic (implantable) cardiac defibrillator; Z99.2 Dependence on renal dialysis; E87.5 Hyperkalemia; G20 Parkinson's disease; I25.10 Atherosclerotic heart disease of native coronary artery without angina pectoris; E80.6 Other disorders of bilirubin metabolism; E11.51 Type 2 diabetes mellitus with diabetic peripheral angiopathy without gangrene; M10.9 Gout, unspecified; I87.2 Venous insufficiency (chronic) (peripheral); D50.9 Iron deficiency anemia, unspecified; L89.156 Pressure-induced deep tissue damage of sacral region; Z20.822 Contact with and (suspected) exposure to COVID-19; Y83.8 Other surgical procedures as the cause of abnormal reaction of the patient, or of later complication, without mention of misadventure at the time of the procedure; Y92.129 Unspecified place in nursing home as the place of occurrence of the external cause; T17.990A Other foreign object in respiratory tract, part unspecified in causing asphyxiation, initial encounter; E83.9 Disorder of mineral metabolism, unspecified; M50.322 Other cervical disc degeneration at C5-C6 level; M51.36 Other intervertebral disc degeneration, lumbar region; Z79.4 Long term (current) use of insulin; M48.14 Ankylosing hyperostosis [Forestier], thoracic region; E11.22 Type 2 diabetes mellitus with diabetic chronic kidney disease; E27.8 Other specified disorders of adrenal gland
CPT/HCPCS: 36410; 36415; 71045-TC; 72125-TC; 72128-TC; 72131-TC; 73030-TC; 78807-TC; 80048-TC; 80053-TC; 80061-TC; 80076-TC; 80202-TC; 81001; 82550-TC; 82962-TC; 83540-TC; 83605-TC; 83735-TC; 83880; 84100-TC; 84443-TC; 84484-TC; 85025-TC; 85027-TC; 85610-TC; 85730-TC; 86704; 87040-TC; 87070-TC; 87075-TC; 87081-TC; 87086-TC; 87186-TC; 87340; 90935-TC; 93307-TC; 93312-TC; 94799-TC; 97110-TC; 97112-TC; 97530-TC; A4216; A6253; A6403; A9570; C1750; C1757; C1769; C1894; C9803; G0378; J0692; J0878; J0885; J1644; J1815; J2001; J2185; J2270; J2405; J2543; J2704; J3010; J3370; J3475; J3490; J7030; J7050; J7060; P9047; Q0163; U0003

== ENCOUNTER 2021-03-18 08:27 | Inpatient (IN) | payer MEDICARE ==
[~2021-03-18] VITALS: Ht 182.9 cm; Wt 112.0 kg
[2021-03-18] VITALS (12 sets, daily range): BP systolic 97–119; BP diastolic 48–63
[~2021-03-18 08:27] MED LIST changes: +ASCO-495 PO; +CEFT600V IV; +DAPT500V2 IV; -ECON15CR2 TP; +FOLI0.8T23 PO; -METH-647 PO; +MIDO2.5T PO; -Midodrine Hcl (5MG) PO; -POTA20TA83 PO; -SILD100T PO; +SODI473S8 TOP; -SPIR25TA6 PO; +ZINC56.713 TP
--- NOTE | 2021-03-18 08:46 | NUR ---
[id number], FROM SNF FOR ALTERED MENTAL STATUS AND DESATURATION X1 DAY ON IV ABX AT THE FACILITY. OXYGEN SATURATION LEVEL IN ROOM AIR IS AT 82%. RESPIRATION REGULAR. DENIES PAIN. THE PATIENT IS PLACED ON OXYGEN AT 15L/MIN VIA NON-REBREATHER MASK AND SATURATION IMPORVED TO 95%. THE PATIENT IS ALERT AND ORIENTED X2. THE PATIENT VERBALLY RESPONSIVE. DENIES PAIN. ATTACHED TO THE MONITOR. WILL CONTINUE TO MONITOR.
--- NOTE | 2021-03-18 08:59 | NUR ---
URINE COLLECTED AND SENT TO LAB
[2021-03-18] MEDS ORDERED: IV LR 1000 ML 1,000 ML BAG IV ONE (09:00)
[2021-03-18] MEDS ORDERED: TDAP [DIPH/PERTUSSIS/TET] 0.5 ML VIAL IM ONE (09:00)
--- NOTE | 2021-03-18 09:08 | NUR ---
Started LAC G 20, blood specimen collected and sent to the lab. The line is saline locked. The patient tolerated IV insertion well.
[2021-03-18 09:14] LABS: BASOPHILS # (AUTO) 0.1 K/uL (0.0-0.2); BASOPHILS % (AUTO) 1.1 % (0.0-2.0); EOSINOPHILS % (AUTO) 0.8 % (0.0-6.0); HEMATOCRIT 31 % (39-51); HEMOGLOBIN 9.3 g/dL (13.5-17.5); LYMPHOCYTES # (AUTO) 0.7 K/uL (0.8-4.8); LYMPHOCYTES % (AUTO) 5.1 % (20.0-44.0); MEAN CORPUSCULAR HGB CONC 30 g/dl (31.0-36.0); MEAN CORPUSCULAR VOLUME 99 fL (80-96); MONOCYTES # (AUTO) 1.2 K/uL (0.1-1.30); MONOCYTES % (AUTO) 9.3 % (2.0-12.0); NEUTROPHILS # (AUTO) 10.7 K/uL (1.8-8.9); NEUTROPHILS % (AUTO) 83.7 % (43.0-81.0); PLATELET COUNT (AUTO) 266 K/uL (150-450); RED BLOOD CELL COUNT(AUTO) 3.09 MIL/uL (4.5-6.0); WHITE BLOOD COUNT (AUTO) 12.8 K/uL (4.3-11.0)
[2021-03-18 09:20] LABS: CALCIUM, SERUM 8.7 mg/dL (8.5-10.1); CARBON DIOXIDE 28 mmol/L (21-32); CHLORIDE 101 mmol/L (98-107); CREATININE 6.1 mg/dL (0.6-1.3); GLUCOSE 168 mg/dL (74-106); SODIUM SERUM 140 mmol/L (136-145); UREA NITROGEN, BLOOD 50 mg/dL (7-18)
[2021-03-18 09:20] LABS: BILIRUBIN,URINE MODERATE (NEGATIVE); COLOR,URINE DARK YELLOW (YELLOW); LEUKOCYTE ESTERASE ,URINE Small (NEGATIVE); NITRITE, URINE Negative (NEGATIVE); PROTEIN,URINE 100 mg/dl (NEGATIVE); UGLUCOSE 100 MG/DL mg/dL (NEGATIVE); UROBILINOGEN,URINE 0.2 EU/dL (0.2)
--- NOTE | 2021-03-18 09:22 | NUR ---
COVID SWAB DONE AND SENT TO THE LAB
--- NOTE | 2021-03-18 09:26 | NUR ---
RT AT THE BEDSIDE FOR ABG THE PATIENT REMAILS ON OXYGEN AT 15L/MIN VIA NON-REBREATHER MASK AND SATURATION IS AT 99%
[2021-03-18 09:30] LABS: ABG BASE EXCESS -2.3 mmol/L; ABG OXYGEN SATURATION 94.8 % (92.0-98.5); ABG PCO2 55.9 mmHg (35.0-45.0); ABG PH 7.268 (7.350-7.450); ABG PO2 89.6 mmHg (75.0-100.0); AaDO2 567.5 mmHg; COHb 0.9 % (0.5-1.5); MetHb 0.3 % (0.0-1.5); O2Hb 93.7 % (94.0-97.0); SITE, ABG Right Radial; VENT MODE, BG NRB
[2021-03-18] MEDS ORDERED: MEROPENEM 500 MG in IV NS 0.9% 50 ML IV ONE (09:30)
[2021-03-18] MEDS ORDERED: DAPTOMYCIN 500 MG in IV NS 0.9% 50 ML IV SCH (09:30)
[2021-03-18 09:33] LABS: ALANINE AMINOTRANSFERASE 8 U/L (12-78); ALBUMIN 2.3 g/dL (3.4-5.0); ALKALINE PHOSPHATASE 78 U/L (46-116); ASPARTATE AMINOTRANSFERASE 13 U/L (15-37); BILIRUBIN,DIRECT 0.7 mg/dL (0.0-0.2); BILIRUBIN,TOTAL 0.9 mg/dL (0.2-1.0); TOTAL PROTEIN, SERUM 7.5 g/dL (6.4-8.2)
[2021-03-18 09:44] LABS: RBC,URINE NONE SEEN /HPF (0-2)
[2021-03-18 09:45] LABS: BACTERIA,URINE Few /HPF (None Seen); SQUAMOUS EPITHELIAL CELL,UR Few /HPF (None Seen); URINE AMORPHOUS URATE Moderate /HPF (None Seen)
[2021-03-18] MEDS ORDERED: ALBU2.5V38 IH (09:45)
[2021-03-18] MEDS ORDERED: ASPI-1169 PO (09:45)
[2021-03-18] MEDS ORDERED: DAPT500V2 IV (09:45)
[2021-03-18] MEDS ORDERED: CEFT400V IV (09:45)
[2021-03-18] MEDS ORDERED: ZINC220C6 PO (09:45)
[2021-03-18] MEDS ORDERED: ACET-868 PO (09:45)
[2021-03-18] MEDS ORDERED: AMMO226L TP (09:45)
[2021-03-18] MEDS ORDERED: HYDR-4303 PO (09:45)
[2021-03-18] MEDS ORDERED: CLOT15CR5 TP (09:45)
[2021-03-18] MEDS ORDERED: COLL30OI TP (09:45)
--- NOTE | 2021-03-18 10:24 | NUR ---
THE PATIENT IS ON BIPAP STARTED ON RT PER ER MD ORDER.
--- NOTE | 2021-03-18 10:25 | NUR ---
[facility] CALLED AWAITING HOSPITALIST CALL BACK.
--- NOTE | 2021-03-18 11:06 | NUR ---
MD JAEL SHAIKH.
--- NOTE | 2021-03-18 11:07 | NUR ---
RADIOLOGY NOTIFIED TO PAGE IR.
--- NOTE | 2021-03-18 11:57 | NUR ---
REPORT GIVEN TO NURSE HEREDIA
--- NOTE | 2021-03-18 12:00 | NUR ---
THE PATIENT IS TAKEN TO CT
--- NOTE | 2021-03-18 12:10 | NUR ---
THE PATIENT IS TAKENT O ROOM 262 PER ACLS POLICY
[2021-03-18 12:23] LABS: ABG BASE EXCESS -1.9 mmol/L; ABG OXYGEN SATURATION 97.3 % (92.0-98.5); ABG PCO2 58.6 mmHg (35.0-45.0); ABG PO2 113.2 mmHg (75.0-100.0); AaDO2 541.2 mmHg; COHb 0.8 % (0.5-1.5); MetHb 0.4 % (0.0-1.5); O2Hb 96.1 % (94.0-97.0); SITE, ABG Right Radial; VENT MODE, BG BIPAP 20/5
--- NOTE | 2021-03-18 12:30 | NUR ---
ICU/RN PT FROM ER.WITH SOB AND ALOC.PLACED ON HIGH FLOW O2.60L-FIO2-60%,SAT O2-95.OPEN EYES ON PAIN STIMULATION.CONFUSED.IV-HL.RIGHT UPPER CHEST HD CATH.ANURIC, ON HD.OBESE.BILATERAL LOWER LEGS HAS WOUNDS-PVD.SACRAL AREA DTI WOUND.SCROTUM WOUNDS.PHOTO TAKEN .LABS REVIEW.CONTINUE MONITORING.
[2021-03-18] MEDS ORDERED: MAGNESIUM HYDROXIDE 30 ML UDC PO PRN (13:00)
[2021-03-18] MEDS ORDERED: ACETAMINOPHEN 325 MG TABLET PO PRN (13:00)
[2021-03-18] MEDS ORDERED: ONDANSETRON HCL/PF 4 MG/2 ML VIAL IVP PRN (13:00)
[2021-03-18] MEDS ORDERED: ZOLPIDEM TARTRATE 5 MG TABLET PO PRN (13:00)
[2021-03-18] MEDS ORDERED: MAG HYDROX/AL HYDROX/SIMETH 30 ML UDC PO PRN (13:00)
[2021-03-18] MEDS ORDERED: EPOETIN ALFA (10,000 UNIT) 10,000 UNIT/ML VIAL IV SCH (14:30)
[2021-03-18 15:25] LABS: ABG OXYGEN SATURATION 99.1 % (92.0-98.5); ABG PCO2 38.4 mmHg (35.0-45.0); ABG PH 7.374 (7.350-7.450); ABG PO2 145.3 mmHg (75.0-100.0); AaDO2 276.4 mmHg; COHb 0.7 % (0.5-1.5); MetHb 0.3 % (0.0-1.5); O2Hb 98.1 % (94.0-97.0); SITE, ABG Left Radial; VENT MODE, BG hfnc 60l 65%
[2021-03-18] MEDS ORDERED: *INSULIN REGULAR(HUMULIN R)HUM 100 UNIT/ML VIAL SQ PRN (16:00)
[2021-03-18] MEDS ORDERED: DEXTROSE 50%-WATER 50 ML DISP.SYRIN IV PRN (16:00)
[2021-03-18] MEDS ORDERED: INSULIN REGULAR, HUMAN 100 UNIT/ML 3 ML VIAL SQ PRN (16:00)
[2021-03-18] MEDS: CARVEDILOL 12.5 MG TABLET PO SCH (16:57)
[2021-03-18] MEDS: FAMOTIDINE (20 MG) 20 MG TABLET PO SCH (16:57)
[2021-03-18] MEDS: SEVELAMER CARBONATE 800 MG TABLET PO SCH (16:58)
[2021-03-18] MEDS ORDERED: Medication Not On Formulary EA (Icosapent Ethyl (Vascepa) 2 GM) PO SCH (17:00)
[2021-03-18] MEDS: BLOOD SUGAR DIAGNOSTIC 1 EACH STRIP VI SCH ×2 (17:03→22:30)
--- NOTE | 2021-03-18 17:30 | NUR ---
RN NOTE WOUND DRESSING DONE. PT IS HIFLO 60L 60% ABG DONE. INSULIN NOT GIVEN, BS IS 145. PT IS NPO W/ NO FLUIDS. PT IS LETHARGIC.
--- NOTE | 2021-03-18 19:20 | NUR ---
RN NOTE PT IS HIFLO 60L 60% PT SPO2 IS 97%. PT IS LETHARGIC. SR ON THE MONITOR. NO OTHER CHANGE IN CONDITION. PT ENDORSED TO SMOKING TOBACCO CUTTER OPERATOR FOR BREA. SBAR GIVEN. CHARTS RED. PT IN STABLE CONDITION.
--- NOTE | 2021-03-18 19:50 | NUR ---
RN NOTES RECEIVED PATIENT ASLEEP ON BED. ON ISOLATION PRECAUTION STRICTLY OBSERVED FOR PENDING PCR RESULT. PATIENT ON HIFLOW O2 60 LPM NC AND FIO2 60% V PACING ON MONITOR HR 60 NO ACUTE RESPIRATORY DISTRESS IV SITE ON LAC G 20 YUN MIDLINE INTACT AND PATENT. DIALYSIS STARTED. PATIENT IS AFEBRILE. ON BILATERAL WRIST RESTRAINT FOR SAFETY. PATIENT IS CLEAN AND DRY. WILL CLOSELY MONITOR.
--- NOTE | 2021-03-18 20:03 | NUR ---
RECEIVED PT ON HFNC 60L, FIO2 60%. PT TOLERATING SETTINGS. O2 SAT 95%. CONTINUE TO MONITOR. Addendum: 03/18/21 at 2004 by JANNA GUZMAN RT Amended: Links added.
[2021-03-18] MEDS ORDERED: CEFTAROLINE FOSAMIL ACETATE IV SCH (21:00)
[2021-03-18] MEDS: MIDODRINE HCL (5MG) 5 MG TABLET PO SCH (21:00)
[2021-03-18] MEDS: LATANOPROST EYE DROP 0.005% 2.5 ML BOTTLE EACHEYE SCH (21:38)
[2021-03-18] MEDS: CLOTRIMAZOLE/BETAMETASONE DIPROPIONATE 15 GM TUBE TP SCH (21:39)
[2021-03-18] MEDS: ATORVASTATIN 10 MG TABLET PO SCH (21:42)
--- NOTE | 2021-03-18 23:00 | NUR ---
RN NOTES DIALYSIS FINISHED REMOVED 3LITERS OF FLUID PER HD NURSE. VSS. WILL GIVE ALL DUE IV MEDS. WILL CONTINUE TO MONITOR.
[2021-03-18] MEDS: D5W IV SCH (23:12)
[2021-03-18] MEDS: CEFTAROLINE IV SCH (23:12)
[2021-03-19] VITALS (36 sets, daily range): BP systolic 91–143; BP diastolic 43–85
--- NOTE | 2021-03-19 00:06 | NUR ---
CANNOT TOLERATE CPT AT THIS TIME.
--- NOTE | 2021-03-19 02:00 | NUR ---
RN NOTES BEDBATH DONE AND TOLERATED WELL SR/SB AND V PACING ON MONITOR. HIFLOW 02 CONTINUE. VSS. WOUND DRESSING CHANGED. TURNED AND REPOSITIONED. REDUCED PRESSURE TO BONY PROMINENCE AREA.
[2021-03-19 04:37] LABS: BASOPHILS # (AUTO) 0.1 K/uL (0.0-0.2); BASOPHILS % (AUTO) 0.7 % (0.0-2.0); EOSINOPHILS % (AUTO) 1.1 % (0.0-6.0); HEMATOCRIT 27 % (39-51); HEMOGLOBIN 8.4 g/dL (13.5-17.5); LYMPHOCYTES # (AUTO) 0.7 K/uL (0.8-4.8); LYMPHOCYTES % (AUTO) 4.9 % (20.0-44.0); MEAN CORPUSCULAR HGB CONC 31 g/dl (31.0-36.0); MEAN CORPUSCULAR VOLUME 99 fL (80-96); MONOCYTES # (AUTO) 1.1 K/uL (0.1-1.30); MONOCYTES % (AUTO) 8.5 % (2.0-12.0); NEUTROPHILS # (AUTO) 11.4 K/uL (1.8-8.9); NEUTROPHILS % (AUTO) 84.8 % (43.0-81.0); PLATELET COUNT (AUTO) 244 K/uL (150-450); RED BLOOD CELL COUNT(AUTO) 2.71 MIL/uL (4.5-6.0); WHITE BLOOD COUNT (AUTO) 13.4 K/uL (4.3-11.0)
[2021-03-19 04:56] LABS: ALANINE AMINOTRANSFERASE 9 U/L (12-78); ALBUMIN 2.1 g/dL (3.4-5.0); ALKALINE PHOSPHATASE 67 U/L (46-116); ASPARTATE AMINOTRANSFERASE 14 U/L (15-37); BILIRUBIN,TOTAL 0.9 mg/dL (0.2-1.0); CALCIUM, SERUM 8.4 mg/dL (8.5-10.1); CARBON DIOXIDE 29 mmol/L (21-32); CHLORIDE 102 mmol/L (98-107); CREATININE 5.5 mg/dL (0.6-1.3); GLUCOSE 123 mg/dL (74-106); MAGNESIUM 2.1 mg/dL (1.8-2.4); PHOSPHORUS 5.5 mg/dL (2.5-4.9); POTASSIUM 3.9 mmol/L (3.5-5.1); SODIUM SERUM 141 mmol/L (136-145); TOTAL PROTEIN, SERUM 6.9 g/dL (6.4-8.2); UREA NITROGEN, BLOOD 46 mg/dL (7-18)
[2021-03-19 05:00] LABS: CHOLESTEROL 125 mg/dL (<200); HDL CHOLESTEROL 25 mg/dL (40-60); LDL 70 mg/dL (0-99); TRIGLYCERIDES 119 mg/dL (30-150)
[2021-03-19] MEDS: MIDODRINE HCL (5MG) 5 MG TABLET PO SCH ×3 (05:00→22:32)
[2021-03-19] MEDS ORDERED: MORPHINE SULFATE INJ 2 MG/ML DISP.SYRIN IV ONE (06:00)
--- NOTE | 2021-03-19 06:01 | NUR ---
RN NOTES PATIENT IS MOANING AND SCREAMING FOR SACRAL WOUND PAIN. INFORMED ROVING WEIGHT GAUGER DR. ZAYDA GALLARDO WITH NEW ORDER OF MORPHINE 1 MG IVP ONETIME AND LET HIM KNOW IF SBP DROPS BELOW 90 MMHG. NOTED AND CARRIED OUT ORDER.
--- NOTE | 2021-03-19 07:27 | NUR ---
WOUND CARE CONSULT: REVIEWED CHART, NURSING DOCUMENTATION AND PHOTOS WHICH INDICATE MULTIPLE WOUNDS, PRESENT ON ADMISSION. DR BROOKE AND DR GUILLAUME TO BE CONSULTED FOR SURGICAL AND DPM CONSULTS THIS AM. RECOMMENDATIONS MADE FOR SKIN PROTECTION. DISCUSSED WITH NURSING STAFF AND COMPLAINT SUPERVISOR. [facility] IS ON ORDER. MD IN AGREEMENT WITH PLAN OF CARE.
[2021-03-19] MEDS: SEVELAMER CARBONATE 800 MG TABLET PO SCH ×3 (08:00→17:12)
--- NOTE | 2021-03-19 08:00 | NUR ---
rn notes received patient on isolation r/o covid, patient on FIO2-50flow, fio2-60%. patient a/ox3 with confusion, total care with lots of wounds, patient npo except meds. patient bp meds held because of low bp 105/56.p-60. checked circulation bilateral wrist soft restrain, side rails up x3. iv access on right ac mid line intact. will follow up.
[2021-03-19] MEDS: BLOOD SUGAR DIAGNOSTIC 1 EACH STRIP VI SCH ×2 (08:52→12:38)
[2021-03-19] MEDS: ALLOPURINOL 100 MG TABLET PO SCH (08:53)
[2021-03-19] MEDS: ASPIRIN 81 MG TAB.CHEW PO SCH (08:53)
[2021-03-19] MEDS: FAMOTIDINE (20 MG) 20 MG TABLET PO SCH ×2 (08:53→17:12)
[2021-03-19] MEDS: AMIODARONE HCL 200 MG TABLET PO SCH (08:53)
[2021-03-19] MEDS: RIVAROXABAN 15 MG TABLET PO SCH (08:56)
[2021-03-19] MEDS ORDERED: ASCORBIC ACID 250 MG TABLET PO SCH (09:00)
[2021-03-19] MEDS ORDERED: INSULIN GLARGINE, 100 UNIT/ML CARTRIDGE SQ SCH (09:00)
[2021-03-19] MEDS: CARVEDILOL 12.5 MG TABLET PO SCH ×2 (09:00→17:00)
[2021-03-19] MEDS: THERAHONEY GEL 1.5 OZ TUBE TP SCH (09:08)
[2021-03-19] MEDS: CLOTRIMAZOLE/BETAMETASONE DIPROPIONATE 15 GM TUBE TP SCH ×2 (09:09→22:43)
[2021-03-19 09:11] LABS: ABG BASE EXCESS -0.5 mmol/L; ABG OXYGEN SATURATION 94.9 % (92.0-98.5); ABG PCO2 53.1 mmHg (35.0-45.0); ABG PO2 84.2 mmHg (75.0-100.0); AaDO2 285.2 mmHg; COHb 0.7 % (0.5-1.5); MetHb 0.2 % (0.0-1.5); SITE, ABG Right Radial; VENT MODE, BG high flow 50 flow/60%fio2
[2021-03-19] MEDS: ZINC SULFATE 220 MG CAPSULE PO SCH (09:15)
[2021-03-19] MEDS: DAKINS QUARTER STRENGTH (0.125%) 480 ML BOTTLE TOP SCH (09:15)
--- NOTE | 2021-03-19 09:20 | NUR ---
decreased fio2 from 60% 50% per dr. lazaro Addendum: 03/19/21 at 0921 by BINH ABBOTT RT Amended: Links added.
[2021-03-19] MEDS: D5W IV SCH ×2 (09:43→22:25)
[2021-03-19] MEDS: CEFTAROLINE IV SCH ×2 (09:43→22:25)
--- NOTE | 2021-03-19 10:26 | NUR ---
INFORMED RN STELLA THORACENTESIS ON HOLD DUE TO ELEVATED INR, MUST BE CORRECTED PRIOR TO PROCEDURE. RN TO ORDER NEW LABS
[2021-03-19] MEDS: METOLAZONE 2.5 MG TABLET PO SCH (12:46)
[2021-03-19] MEDS: VIT B CMPLX 3/FA/VIT C/BIOTIN 1 TAB TABLET PO SCH (13:10)
--- NOTE | 2021-03-19 13:16 | NUR ---
RN NOTES BS-145 MG/DL. PATIENT NPO SLIDING SCALE, DUE MEDICATION ADMINISTERED, HELD BP MEDICATION. ASSIST TURN AND REPOSTION Q 2 HR. THORACENTESIS NOT GOING TO BE DONE BECAUSE OF INR STILL HIGH, 3.O4. WILL FOLLOW UP.
[2021-03-19] MEDS ORDERED: DEXTROSE 50%-WATER 50 ML DISP.SYRIN IV PRN (13:30)
[2021-03-19] MEDS ORDERED: MEROPENEM 500 MG in IV NS 0.9% 50 ML IV SCH (16:00)
[2021-03-19] MEDS ORDERED: NS 0.9% IV SCH (16:30)
[2021-03-19] MEDS ORDERED: DAPTOMYCIN IV SCH (16:30)
[2021-03-19] MEDS: MEROPENEM 500 MG in IV NS 0.9% 50 ML IV SCH ×2 (17:11→22:31)
[2021-03-19] MEDS: BLOOD SUGAR DIAGNOSTIC 1 EACH STRIP IN SCH (17:12)
--- NOTE | 2021-03-19 18:30 | NUR ---
rn notes bs-127mg/fl, due medication administered,patient NPO except meds. infusing Tko @10ml/hr on right mid line intact. assist turn and reposition q 2 hr. patient total care. pm care done. rechecked restrain bilateral wrist q2 hr. endorsed oncoming nurse follow plan of care .
[2021-03-19] MEDS ORDERED: SILVER NITRATE APPLICATOR 1 EA BOX TP SCH (19:00)
[2021-03-19] MEDS ORDERED: LIDOCAINE 1%-EPI 1:100,000 50 ML VIAL IJ ONE (19:00)
--- NOTE | 2021-03-19 19:30 | NUR ---
RN NOTES RECEIVED PATIENT [id number] ON BED. STRICTLY ON DROPLET PRECAUTION FOR PENDING PCR RESULT. PATIENT ON HI FLOW O2 50 LPM NC AND FIO2 50% V PACING ON MONITOR HR 60 NO ACUTE RESPIRATORY DISTRESS IV SITE ON LAC G 20 YUN MIDLINE INTACT AND PATENT. RCW HD CATH WITH CLEAN DRESSING. AFEBRILE. ON BILATERAL WRIST RESTRAINT FOR SAFETY MEASURES DUE TO EPISODE OF PULLING LINES. CHANGED PATIENT ISOFLEX BED TO BARIMAXX BED DUE TO MULTIPLE ULCERS. KEPT PATIENT CLEAN AND DRY AND COMFORTABLE IN BED. WILL CLOSELY MONITOR.
--- NOTE | 2021-03-19 19:56 | NUR ---
PT IS ASLEEP, CPT NOT YET DONE . RN HECTOR NOTIFIED
[2021-03-19] MEDS: ATORVASTATIN 10 MG TABLET PO SCH (22:32)
[2021-03-19] MEDS: LATANOPROST EYE DROP 0.005% 2.5 ML BOTTLE EACHEYE SCH (22:42)
[2021-03-19] MEDS: ACETYLCYSTEINE 10% SOLN 400 MG/4 ML VIAL NEB SCH (23:20)
--- NOTE | 2021-03-19 23:21 | NUR ---
BREATHING TX NOT GIVEN DUE TO PENDING COVID TEST RESULT. JORGE SHELTON NOTIFIED
[2021-03-20] VITALS (69 sets, daily range): BP systolic 82–128; BP diastolic 40–77
[2021-03-20] MEDS: BLOOD SUGAR DIAGNOSTIC 1 EACH STRIP IN SCH ×4 (02:17→17:10)
--- NOTE | 2021-03-20 03:58 | NUR ---
PERFORMED CPT, JORGE SHELTON NOTIFIED
[2021-03-20 04:28] LABS: BASOPHILS # (AUTO) 0.1 K/uL (0.0-0.2); BASOPHILS % (AUTO) 0.9 % (0.0-2.0); EOSINOPHILS % (AUTO) 0.9 % (0.0-6.0); HEMATOCRIT 28 % (39-51); HEMOGLOBIN 8.8 g/dL (13.5-17.5); LYMPHOCYTES # (AUTO) 0.5 K/uL (0.8-4.8); LYMPHOCYTES % (AUTO) 3.6 % (20.0-44.0); MEAN CORPUSCULAR HGB CONC 32 g/dl (31.0-36.0); MEAN CORPUSCULAR VOLUME 98 fL (80-96); MONOCYTES # (AUTO) 1.3 K/uL (0.1-1.30); MONOCYTES % (AUTO) 8.7 % (2.0-12.0); NEUTROPHILS # (AUTO) 13.2 K/uL (1.8-8.9); NEUTROPHILS % (AUTO) 85.9 % (43.0-81.0); PLATELET COUNT (AUTO) 261 K/uL (150-450); RED BLOOD CELL COUNT(AUTO) 2.82 MIL/uL (4.5-6.0); WHITE BLOOD COUNT (AUTO) 15.4 K/uL (4.3-11.0)
[2021-03-20 04:44] LABS: CALCIUM, SERUM 8.2 mg/dL (8.5-10.1); CARBON DIOXIDE 25 mmol/L (21-32); CHLORIDE 102 mmol/L (98-107); CREATININE 6.6 mg/dL (0.6-1.3); GLUCOSE 153 mg/dL (74-106); POTASSIUM 4.2 mmol/L (3.5-5.1); SODIUM SERUM 141 mmol/L (136-145); UREA NITROGEN, BLOOD 58 mg/dL (7-18)
[2021-03-20] MEDS: MIDODRINE HCL (5MG) 5 MG TABLET PO SCH ×3 (06:19→21:00)
--- NOTE | 2021-03-20 07:20 | NUR ---
RN NOTES NO CHANEGS OF CONDITION. CONSENT FOR SERIAL DEBRIDEMENT OF SACRUM DONE SPOKE TO [place]. VERIFIED BY JUAN PABLO PATEL.
[2021-03-20] MEDS: ACETYLCYSTEINE 10% SOLN 400 MG/4 ML VIAL NEB SCH ×3 (07:51→23:31)
[2021-03-20] MEDS: SEVELAMER CARBONATE 800 MG TABLET PO SCH ×3 (08:00→17:10)
--- NOTE | 2021-03-20 08:00 | NUR ---
RN NOTES RECEIVED PATIENT ON HF 50/, . NO ACUTE RESPIRATORY DISTRESS, VSS, PATIENT CONFUSED, NPO EXCEPT MEDS, BUT UNABLE TO ADMINISTER BECAUSE OF ASPIRATION PRECAUTION. PATIENT ON BARIATRIC BED, ASSIST TURN AND REPOSTION Q 2 HR. DRESSING CHANGED ON BILATERAL LOWER EXTREMITIES, AND SACRAL. PATIENT SCHEDULED SACRAL WOUND DEBRIDEMENT TODAY. IV ACCESS ON RIGHT MIDLINE INTACT. CALL LIGHT WITHIN TO REACH, SIDE RAILS UPX4, RESTRAIN CIRCULATION CHECKED Q 2 HR WILL FOLLOW UP. BECAUSE OF INR LEVEL STILL HIGH , UNABLE TO DONE THORACENTESIS PER RADIOLOGIST.
[2021-03-20] MEDS: MEROPENEM 500 MG in IV NS 0.9% 50 ML IV SCH ×2 (08:21→22:05)
[2021-03-20] MEDS: ALLOPURINOL 100 MG TABLET PO SCH (08:22)
[2021-03-20] MEDS: ZINC SULFATE 220 MG CAPSULE PO SCH (08:22)
[2021-03-20] MEDS: FAMOTIDINE (20 MG) 20 MG TABLET PO SCH ×2 (08:22→17:00)
[2021-03-20] MEDS: AMIODARONE HCL 200 MG TABLET PO SCH (08:23)
[2021-03-20] MEDS: CLOTRIMAZOLE/BETAMETASONE DIPROPIONATE 15 GM TUBE TP SCH ×2 (08:25→22:05)
[2021-03-20] MEDS: DAKINS QUARTER STRENGTH (0.125%) 480 ML BOTTLE TOP SCH (08:25)
[2021-03-20] MEDS: THERAHONEY GEL 1.5 OZ TUBE TP SCH (08:26)
[2021-03-20] MEDS: VIT B CMPLX 3/FA/VIT C/BIOTIN 1 TAB TABLET PO SCH (08:32)
[2021-03-20] MEDS: ASCORBIC ACID 500 MG TABLET PO SCH (08:33)
[2021-03-20] MEDS: CARVEDILOL 12.5 MG TABLET PO SCH ×2 (08:33→17:00)
[2021-03-20] MEDS ORDERED: NS 0.9% IV SCH (09:00)
[2021-03-20] MEDS ORDERED: DAPTOMYCIN IV SCH (09:00)
[2021-03-20] MEDS ORDERED: DAPTOMYCIN 500 MG in IV NS 0.9% 50 ML IV SCH (09:00)
[2021-03-20] MEDS ORDERED: DAPTOMYCIN 500 MG/VIAL VIAL IV SCH (09:00)
--- NOTE | 2021-03-20 09:00 | NUR ---
RN NOTES SEEN PATIENT VIA HOSPITALIST Dr GRULLON, AND NEW ORDER IS ABG, ORDER TAKEN AND YA OUT.
[2021-03-20 09:44] LABS: ABG BASE EXCESS -5.5 mmol/L; ABG OXYGEN SATURATION 92.6 % (92.0-98.5); ABG PCO2 45.9 mmHg (35.0-45.0); ABG PH 7.279 (7.350-7.450); AaDO2 224.9 mmHg; COHb 0.4 % (0.5-1.5); MetHb 0.2 % (0.0-1.5); SITE, ABG Right Radial; VENT MODE, BG HFNC 50%
[2021-03-20] MEDS: D5W IV SCH (09:48)
[2021-03-20] MEDS: CEFTAROLINE IV SCH (09:48)
[2021-03-20] MEDS: RIVAROXABAN 15 MG TABLET PO SCH (09:49)
[2021-03-20] MEDS: ASPIRIN 81 MG TAB.CHEW PO SCH (09:49)
--- NOTE | 2021-03-20 09:56 | NUR ---
RN NOTES PER ABG RESULT PATIENT ACIDOTIC, AND GET ORDER TO PUT BIPAP PER Dr VALENTINE ORDER. WILL FOLLOW UP.
[2021-03-20 11:30] LABS: ABG BASE EXCESS -1.3 mmol/L; ABG OXYGEN SATURATION 96.1 % (92.0-98.5); ABG PCO2 46.5 mmHg (35.0-45.0); ABG PO2 93.3 mmHg (75.0-100.0); AaDO2 210.9 mmHg; COHb 0.7 % (0.5-1.5); MetHb 0.1 % (0.0-1.5); O2Hb 95.3 % (94.0-97.0); SITE, ABG Right Radial; VENT MODE, BG BIPAP 20/5
--- NOTE | 2021-03-20 12:45 | NUR ---
RN NOTES PATIENT GETTING HD AT THIS TIME VSS, HOLD DUE MEDICATION BECAUSE ON BIPAP. WILL FOLLOW UP.
--- NOTE | 2021-03-20 13:20 | NUR ---
RN NOTES PATIENT BP 95/50, P-60, DECREASING BP ADMINISTERED ALBUMIN 200 ML VIA HD NURSE. WILL FOLLOW UP.
[2021-03-20] MEDS: ALBUMIN 25% 25 GM in PREMIX 1 EA IV PRN (13:35)
--- NOTE | 2021-03-20 14:39 | NUR ---
RN notes HD finished at this time output was 1000 ml.
--- NOTE | 2021-03-20 17:10 | NUR ---
rn notes BS-109 mg/dl , due medication arable to administer because of bipap. patient aspiration precaution.
--- NOTE | 2021-03-20 18:38 | NUR ---
rn notes bipap 35% flow, no acute respiratory distress, pm care done, assist turn and reposition q 2 hr. endorsed oncoming nurse follow plan of care. rechecked wrist restrain circulation per protocol.
--- NOTE | 2021-03-20 19:47 | NUR ---
CHIEF VENDOR QUALITY OPENING NOTE RECEIVED PATIENT ON BIPAP 50L NO ACUTE RESPIRATORY DISTRESS, VSS, PATIENT CONFUSED, NPO EXCEPT MEDS, BUT UNABLE TO ADMINISTER BECAUSE OF ASPIRATION PRECAUTION. PATIENT ON BARIATRIC BED, ASSIST TURN AND REPOSTION Q 2 HR. DRESSING CHANGED ON BILATERAL LOWER EXTREMITIES, AND SACRAL. PATIENT SCHEDULED SACRAL WOUND DEBRIDEMENT TODAY. IV ACCESS ON RIGHT MIDLINE INTACT. CALL LIGHT WITHIN TO REACH, SIDE RAILS UPX4, RESTRAIN CIRCULATION CHECKED Q 2 HR WILL FOLLOW UP. BECAUSE OF INR LEVEL STILL HIGH , UNABLE TO DONE THORACENTESIS PER RADIOLOGIST. Addendum: 03/20/21 at 2247 by ADELINA CORREIA RN BIPAP FIO2 35% RATE 20. (L) AC #20 FLUSHED AND PATENT WITH CLEAN AND DRY DRESSING. SAFETY MEASURES IMPLEMENTED: BED LOCKED IN LOWEST POSITION, BED ALARM ON, CALL LIGHT WITHIN REACH, SIDE RAILS UP X3. NO ACUTE DISTRESS NOTED AT THIS TIME.
--- NOTE | 2021-03-20 21:00 | NUR ---
PBX REPAIRER NOTE PROAMATINE AND LIPITOR PO BOTH HELD PT. IS CURRENTLY NPO PER MD ORDERS AND VERY LETHARGIC, POSSIBLE RISK OF ASPIRATION. CHARGE NURSE AWARE. WILL ENDORSE TO MORNING SHIFT RN.
[2021-03-20] MEDS: ATORVASTATIN 10 MG TABLET PO SCH (22:00)
[2021-03-20] MEDS: LATANOPROST EYE DROP 0.005% 2.5 ML BOTTLE EACHEYE SCH (22:06)
[2021-03-21] VITALS (24 sets, daily range): BP systolic 97–130; BP diastolic 40–75
[2021-03-21] MEDS: INSULIN REGULAR, HUMAN 100 UNIT/ML 3 ML VIAL SQ PRN ×2 (00:01→05:56)
[2021-03-21] MEDS: BLOOD SUGAR DIAGNOSTIC 1 EACH STRIP IN SCH ×4 (00:01→17:34)
--- NOTE | 2021-03-21 00:02 | NUR ---
WHEEL TUNER NOTE POC GLUCOSE TAKEN, BLOOD SUGAR LEVEL OF 104 MG/DL. NO INSULIN COVERAGE PER SLIDING SCALE
[2021-03-21 04:34] LABS: BASOPHILS % (AUTO) 0.2 % (0.0-2.0); HEMATOCRIT 25 % (39-51); HEMOGLOBIN 7.8 g/dL (13.5-17.5); LYMPHOCYTES # (AUTO) 0.6 K/uL (0.8-4.8); LYMPHOCYTES % (AUTO) 4.6 % (20.0-44.0); MEAN CORPUSCULAR HGB CONC 32 g/dl (31.0-36.0); MEAN CORPUSCULAR VOLUME 98 fL (80-96); MONOCYTES # (AUTO) 1.1 K/uL (0.1-1.30); NEUTROPHILS # (AUTO) 10.5 K/uL (1.8-8.9); NEUTROPHILS % (AUTO) 85.2 % (43.0-81.0); PLATELET COUNT (AUTO) 240 K/uL (150-450); RED BLOOD CELL COUNT(AUTO) 2.55 MIL/uL (4.5-6.0); WHITE BLOOD COUNT (AUTO) 12.4 K/uL (4.3-11.0)
[2021-03-21] MEDS: MIDODRINE HCL (5MG) 5 MG TABLET PO SCH ×3 (05:00→21:35)
[2021-03-21 05:03] LABS: ALANINE AMINOTRANSFERASE 9 U/L (12-78); ALBUMIN 2.1 g/dL (3.4-5.0); ALKALINE PHOSPHATASE 68 U/L (46-116); ASPARTATE AMINOTRANSFERASE 15 U/L (15-37); CARBON DIOXIDE 26 mmol/L (21-32); CHLORIDE 106 mmol/L (98-107); CREATININE 5.2 mg/dL (0.6-1.3); GLUCOSE 111 mg/dL (74-106); MAGNESIUM 2.1 mg/dL (1.8-2.4); PHOSPHORUS 4.5 mg/dL (2.5-4.9); POTASSIUM 3.9 mmol/L (3.5-5.1); SODIUM SERUM 146 mmol/L (136-145); TOTAL PROTEIN, SERUM 6.2 g/dL (6.4-8.2); UREA NITROGEN, BLOOD 44 mg/dL (7-18)
--- NOTE | 2021-03-21 05:56 | NUR ---
FUEL MANAGER NOTE POC GLUCOSE TAKEN, BLOOD SUGAR LEVEL OF 99 MG/DL. NO INSULIN COVERAGE PER SLIDING SCALE
--- NOTE | 2021-03-21 06:44 | NUR ---
CHIROPRACTIC DOCTOR CLOSING NOTE PATIENT REMAINS ON BIPAP RATE 20 FIO2 35% WITH NO S/S OF SOB OR RESPIRATORY DISTRESS NOTED, VSS, PATIENT REMAINS CONFUSED AND LETHARGIC, A/O X1. PT. NPO AND ORAL MEDS HELD R/T TO POSSIBLE ASPIRATION RISK. PATIENT ON BARIATRIC BED, MAX ASSIST TURN AND REPOSTION Q 2 HR COMPLETED THROUGH SHIFT. WOUND CARE COMPLETED ORDERED. PT. KEPT CLEAN AND DRY AND ALL ORDERS AND NEEDS MET. PATIENT SCHEDULED FOR SACRAL WOUND DEBRIDEMENT TODAY, CONSENT IN PT. CHART. IV ACCESS ON (R) UA MIDLINE FLUSHED, PATENT WITH CLEAN AND DRY DRESSING.(L) AC #20 FLUSHED AND PATENT WITH CLEAN AND DRY DRESSING. SOFT BILATERAL WRIST RESTRAINT CIRCULATION CHECKED PER PROTOCOL. SAFETY MEASURES IMPLEMENTED: BED LOCKED IN LOWEST POSITION, BED ALARM ON, CALL LIGHT WITHIN REACH, SIDE RAILS UP X3. NO ACUTE DISTRESS NOTED AT THIS TIME. WILL ENDORSE TO MORNING SHIFT RN
[2021-03-21] MEDS: ACETYLCYSTEINE 10% SOLN 400 MG/4 ML VIAL NEB SCH ×3 (07:31→23:31)
--- NOTE | 2021-03-21 07:38 | NUR ---
RN NOTE PATIENT IS IN BED WITH HOB AT SEMI FOWLERS POSITION. PATIENT HAS BIPAP APPLIED WITH NO SIGNS OF LABORED BREATHING. PATIENT IS AOX1. LAC 20 AND YUN MIDLINE ARE PATENT AND INTACT. BED IS LOCKED IN THE LOWEST POSITION, 3 GUARD RAILS RAISED, CALL HUGHES WITHIN REACH, AND ALL HOSPITAL SAFETY PRECAUTIONS ARE BEING FOLLOWED. WILL CONTINUE TO MONITOR THROUGHOUT SHIFT.
[2021-03-21] MEDS: SEVELAMER CARBONATE 800 MG TABLET PO SCH ×3 (08:00→17:34)
[2021-03-21] MEDS: ALLOPURINOL 100 MG TABLET PO SCH (08:39)
[2021-03-21] MEDS: VIT B CMPLX 3/FA/VIT C/BIOTIN 1 TAB TABLET PO SCH (08:39)
[2021-03-21] MEDS: MEROPENEM 500 MG in IV NS 0.9% 50 ML IV SCH ×2 (08:39→21:35)
[2021-03-21] MEDS: ZINC SULFATE 220 MG CAPSULE PO SCH (08:40)
[2021-03-21] MEDS: ASCORBIC ACID 500 MG TABLET PO SCH (08:40)
[2021-03-21] MEDS: DAKINS QUARTER STRENGTH (0.125%) 480 ML BOTTLE TOP SCH (08:40)
[2021-03-21] MEDS: ASPIRIN 81 MG TAB.CHEW PO SCH (08:40)
[2021-03-21] MEDS: FAMOTIDINE (20 MG) 20 MG TABLET PO SCH ×2 (08:40→16:34)
[2021-03-21] MEDS: THERAHONEY GEL 1.5 OZ TUBE TP SCH (08:40)
[2021-03-21] MEDS: CLOTRIMAZOLE/BETAMETASONE DIPROPIONATE 15 GM TUBE TP SCH ×2 (08:40→21:34)
[2021-03-21] MEDS: AMIODARONE HCL 200 MG TABLET PO SCH (08:44)
[2021-03-21] MEDS: RIVAROXABAN 15 MG TABLET PO SCH (08:44)
[2021-03-21 08:45] LABS: ABG OXYGEN SATURATION 94.4 % (92.0-98.5); ABG PCO2 41.3 mmHg (35.0-45.0); ABG PH 7.397 (7.350-7.450); ABG PO2 79.2 mmHg (75.0-100.0); AaDO2 122.3 mmHg; COHb 1.2 % (0.5-1.5); MetHb 0.3 % (0.0-1.5); SITE, ABG Right Radial
[2021-03-21] MEDS: CARVEDILOL 12.5 MG TABLET PO SCH ×2 (08:45→16:29)
[2021-03-21] MEDS: METOLAZONE 2.5 MG TABLET PO SCH (12:19)
--- NOTE | 2021-03-21 18:51 | NUR ---
RN NOTE PATIENT IS IN BED WITH HOB AT SEMI FOWLERS POSITION. PATIENT HAS BIPAP APPLIED WITH NO SIGNS OF LABORED BREATHING. PATIENT IS AOX1. LAC 20 AND YUN MIDLINE ARE PATENT AND INTACT. BED IS LOCKED IN THE LOWEST POSITION, 3 GUARD RAILS RAISED, CALL HUGHES WITHIN REACH, AND ALL HOSPITAL SAFETY PRECAUTIONS ARE BEING FOLLOWED. PATIENT REMAINED STABLE THROUGHOUT SHIFT. WILL ENDORSE TO BOX PRESS OPERATOR RN.
--- NOTE | 2021-03-21 19:45 | NUR ---
DISABILITY EXAMINER OPENING NOTE RECEIVED PATIENT ON BIPAP RATE 20 FIO2 35% WITH NO S/S OF SOB OR RESPIRATORY DISTRESS NOTED, VSS, PATIENT CONFUSED AND LETHARGIC, A/O X1-2. PT. NPO EXCEPT MEDS. PATIENT ON BARIATRIC BED. IV ACCESS NOTED ON (R) UA MIDLINE FLUSHED, PATENT WITH CLEAN AND DRY DRESSING. (L) AC #20 FLUSHED AND PATENT WITH CLEAN AND DRY DRESSING. SOFT BILATERAL WRIST RESTRAINTS DISCONTINUED. SAFETY MEASURES IMPLEMENTED: BED LOCKED IN LOWEST POSITION, BED ALARM ON, CALL LIGHT WITHIN REACH, SIDE RAILS UP X3. NO ACUTE DISTRESS NOTED AT THIS TIME.
[2021-03-21] MEDS: ATORVASTATIN 10 MG TABLET PO SCH (21:34)
[2021-03-21] MEDS: LATANOPROST EYE DROP 0.005% 2.5 ML BOTTLE EACHEYE SCH (21:34)
[2021-03-22] VITALS (51 sets, daily range): BP systolic 87–134; BP diastolic 35–73
[2021-03-22] MEDS: INSULIN REGULAR, HUMAN 100 UNIT/ML 3 ML VIAL SQ PRN ×5 (00:14→23:05)
[2021-03-22] MEDS: BLOOD SUGAR DIAGNOSTIC 1 EACH STRIP IN SCH ×5 (00:14→21:46)
--- NOTE | 2021-03-22 00:15 | NUR ---
WELDER 2ND SHIFT NOTE POC GLUCOSE TAKEN, BLOOD SUGAR LEVEL OF 108 MG/DL. NO INSULIN COVERAGE PER SLIDING SCALE
[2021-03-22] MEDS: MIDODRINE HCL (5MG) 5 MG TABLET PO SCH ×3 (04:38→20:52)
--- NOTE | 2021-03-22 05:29 | NUR ---
PLANT UTILITY PERSON NOTE POC GLUCOSE TAKEN, BLOOD SUGAR LEVEL OF 128 MG/DL. NO INSULIN COVERAGE PER SLIDING SCALE
--- NOTE | 2021-03-22 06:33 | NUR ---
TASSEL MAKING MACHINE OPERATOR NOTE REPORT GIVEN TO ANDREA PATEL FOR BREA. PT. A/O X2. ON BIPAP RATE 20 FIO2 35%, NO RESP. DISTRESS OR SOB NOTED. IV ACCESS ON (L) AC AND (R) UA MILDINE BOTH PATENT AND INTACT, WITH CLEAN AND DRY DRESSING. NO BOWEL MOVEMENT. WOUND CARE COMPLETED ORDERED. PT KEPT CLEAN AN DRY THROUGHOUT SHIFT. ALL NEEDS AND ORDERS MET. SOFT BILATERAL WRIST RESTRAINTS ON WITH CIRCULATION ASSESSED PER PROTOCOL. SAFETY MEASURES IMPLEMENTED: BED LOCKED IN LOWEST POSITION, CALL LIGHT WITHIN REACH, SIDE RAILS UP X3.
--- NOTE | 2021-03-22 07:30 | NUR ---
SENIOR QUALITY CONTROL INSPECTOR OPENING NOTE PT IN BED SEMIFOWLERS ON BIPAP 20/5, RATE 20, FIO2 35%, TOLERATING WELL, SPO2 95%, NO S/S OF RESP DISTRESS OR SOB. PT BEDSIDE TELE V-PACING HR 60s. PT HAS BILAT SOFT WRIST RESTRAINTS D/T PULLING OFF OF BIPAP AND OTHER TUBING, BILAT CMS INTACT. PT A/Ox2, PERIODS OF CONFUSION. PT HAS LAC #20 AND YUN MIDLINE, BOTH SL, FLUSHED AND PATENT, WITH NO S/S OF INFECTION OR INFILTRATION. PT SACRAL WOUND, PERINEAL AND SCROTAL WOUNDS, AND BLE ULCERS NOTED, WILL CARE FOR ORDERED. ALL PT SAFETY PRECAUTIONS IN PLACE, WILL CONT TO MONITOR
[2021-03-22] MEDS: ALBUTEROL FS 2.5 MG/3 ML VIAL.NEB IH PRN ×2 (07:35→15:06)
[2021-03-22] MEDS: ACETYLCYSTEINE 10% SOLN 400 MG/4 ML VIAL NEB SCH ×3 (07:35→23:53)
--- NOTE | 2021-03-22 08:00 | NUR ---
RN NOTE PT TAKEN OFF OF BIPAP, PLACED ON NC 3L, SPO2 92-93%, NO S/S OF RESP DISTRESS OR SOB. PT RESTRAINTS REMOVED, PT REMINDED TO NOT TAKE OFF OXYGEN AND ANY OTHER MEDICAL TUBING/DEVICES. PT A/Ox2, MY WORK STATION IS RIGHT OUTSIDE PT ROOM TO MONITOR CLOSELY
--- NOTE | 2021-03-22 08:15 | NUR ---
RN BEDSIDE SWALLOW EVAL PASSED Addendum: 03/22/21 at 1050 by ALEJO ROLLINS RN GAG AND COUGH REFLEX PRESENT
[2021-03-22 08:42] LABS: ABG BASE EXCESS 1.4 mmol/L; ABG OXYGEN SATURATION 89.2 % (92.0-98.5); ABG PCO2 42.1 mmHg (35.0-45.0); ABG PH 7.411 (7.350-7.450); ABG PO2 61.6 mmHg (75.0-100.0); AaDO2 117.3 mmHg; COHb 0.8 % (0.5-1.5); MetHb 0.2 % (0.0-1.5); O2Hb 88.3 % (94.0-97.0); SITE, ABG Right Radial; VENT MODE, BG 3LPM NC
--- NOTE | 2021-03-22 09:00 | NUR ---
RN NOTE PER DR CALL, RESCUE AND NOCTURNAL BIPAP, PT OK ON NC. ALSO, NO NEED FOR PT/INR TODAY, PT WILL NOT RECEIVE THORACENTESIS TODAY
[2021-03-22] MEDS: MEROPENEM 500 MG in IV NS 0.9% 50 ML IV SCH ×2 (09:05→20:47)
[2021-03-22] MEDS: DAPTOMYCIN 800 MG in IV NS 0.9% 50 ML IV SCH (09:05)
[2021-03-22] MEDS: SEVELAMER CARBONATE 800 MG TABLET PO SCH (09:05)
[2021-03-22] MEDS: ASPIRIN 81 MG TAB.CHEW PO SCH (09:05)
[2021-03-22] MEDS: FAMOTIDINE (20 MG) 20 MG TABLET PO SCH ×2 (09:07→17:22)
[2021-03-22] MEDS: VIT B CMPLX 3/FA/VIT C/BIOTIN 1 TAB TABLET PO SCH (09:07)
[2021-03-22] MEDS: CARVEDILOL 12.5 MG TABLET PO SCH ×2 (09:07→17:25)
[2021-03-22] MEDS: ASCORBIC ACID 500 MG TABLET PO SCH (09:07)
[2021-03-22] MEDS: ALLOPURINOL 100 MG TABLET PO SCH (09:07)
[2021-03-22] MEDS: ZINC SULFATE 220 MG CAPSULE PO SCH (09:08)
[2021-03-22] MEDS: AMIODARONE HCL 200 MG TABLET PO SCH (09:08)
[2021-03-22] MEDS: DAKINS QUARTER STRENGTH (0.125%) 480 ML BOTTLE TOP SCH (09:08)
[2021-03-22] MEDS: CLOTRIMAZOLE/BETAMETASONE DIPROPIONATE 15 GM TUBE TP SCH ×2 (09:08→20:54)
[2021-03-22] MEDS: THERAHONEY GEL 1.5 OZ TUBE TP SCH (09:08)
[2021-03-22] MEDS: RIVAROXABAN 15 MG TABLET PO SCH (09:10)
--- NOTE | 2021-03-22 09:20 | NUR ---
CALLED JORGE RYDER, AND INFORMED HIM ABOUT HIGH INR, FOR THORACENTESIS , JORGE RYDER WILL FOLLOW UP W ,
[2021-03-22 10:08] LABS: BASOPHILS # (AUTO) 0.1 K/uL (0.0-0.2); BASOPHILS % (AUTO) 0.6 % (0.0-2.0); EOSINOPHILS % (AUTO) 1.8 % (0.0-6.0); HEMATOCRIT 28 % (39-51); HEMOGLOBIN 8.5 g/dL (13.5-17.5); LYMPHOCYTES # (AUTO) 0.6 K/uL (0.8-4.8); LYMPHOCYTES % (AUTO) 4.2 % (20.0-44.0); MEAN CORPUSCULAR HGB CONC 31 g/dl (31.0-36.0); MEAN CORPUSCULAR VOLUME 98 fL (80-96); MONOCYTES # (AUTO) 1.3 K/uL (0.1-1.30); MONOCYTES % (AUTO) 9.8 % (2.0-12.0); NEUTROPHILS # (AUTO) 11.4 K/uL (1.8-8.9); NEUTROPHILS % (AUTO) 83.6 % (43.0-81.0); PLATELET COUNT (AUTO) 288 K/uL (150-450); RED BLOOD CELL COUNT(AUTO) 2.81 MIL/uL (4.5-6.0); WHITE BLOOD COUNT (AUTO) 13.7 K/uL (4.3-11.0)
[2021-03-22 10:22] LABS: CALCIUM, SERUM 8.3 mg/dL (8.5-10.1); CARBON DIOXIDE 25 mmol/L (21-32); CHLORIDE 107 mmol/L (98-107); CREATININE 6.6 mg/dL (0.6-1.3); GLUCOSE 143 mg/dL (74-106); MAGNESIUM 2.3 mg/dL (1.8-2.4); PHOSPHORUS 4.8 mg/dL (2.5-4.9); POTASSIUM 4.3 mmol/L (3.5-5.1); SODIUM SERUM 145 mmol/L (136-145); UREA NITROGEN, BLOOD 64 mg/dL (7-18)
--- NOTE | 2021-03-22 11:49 | NUR ---
RT Pt received on BiPAP and was taken off and placed on 3L nasal cannula per Dr. Maldonado orders. ABG done and results reported to Dr. Maldonado. Pt is now transitioned to BiPAP for nocturnal use and rescue PRN. No SOB or respiratory distress noted at this time.
[2021-03-22] MEDS: TRAMADOL HCL 50 MG TABLET PO PRN (12:34)
[2021-03-22] MEDS: SEVELAMER CARBONATE 800 MG POWD.PACK NG SCH ×2 (13:08→17:22)
--- NOTE | 2021-03-22 13:45 | NUR ---
RN NOTE PER CASE MANAGEMENT TITA, NO BEDS AVAILABLE IN [facility] PER PT REQUEST. PT A/Ox2 W PERIODS OF CONFUSION
--- NOTE | 2021-03-22 16:20 | NUR ---
RN NOTE PT TOLERATED HD WELL. 3L REMOVED. PT VITALS BP 100/53, HR 60, SPO2 92% 3L NC, RR 15. PT STABLE
--- NOTE | 2021-03-22 19:00 | NUR ---
AIRCRAFT MACHINIST HELPER CLOSING NOTE PT STABLE ON NC 3L, SPO2 92-95%, NO RESP DISTRESS OR SOB. PT A/Ox2 WITH PERIODS OF CONFUSION, MORE CONFUSION AFTER HD. NO OTHER CHANGES TO PT DURING SHIFT. ALL PT SAFETY PRECAUTIONS IN PLACE, RESTRAINTS WERE REMOVED AT 0800 TODAY AND STAYED OFF ENTIRE SHIFT. BREA ENDORSED TO LAUNDRY ROOM ATTENDANT NURSE
--- NOTE | 2021-03-22 20:00 | NUR ---
RN opening notes Received patient resting comfortably in bed with no distress noted. On 3 lpm via nasal cannula tolerating well. No physical manifestation of pain or discomfort. Vital signs wnl. Will continue to monitor.
[2021-03-22] MEDS: ATORVASTATIN 10 MG TABLET PO SCH (20:48)
[2021-03-22] MEDS: LATANOPROST EYE DROP 0.005% 2.5 ML BOTTLE EACHEYE SCH (20:54)
[2021-03-23] VITALS (57 sets, daily range): BP systolic 90–129; BP diastolic 40–70
[2021-03-23] MEDS: MIDODRINE HCL (5MG) 5 MG TABLET PO SCH ×3 (05:16→21:41)
[2021-03-23 05:56] LABS: CALCIUM, SERUM 7.9 mg/dL (8.5-10.1); CARBON DIOXIDE 28 mmol/L (21-32); CHLORIDE 103 mmol/L (98-107); GLUCOSE 148 mg/dL (74-106); POTASSIUM 4.3 mmol/L (3.5-5.1); SODIUM SERUM 139 mmol/L (136-145); UREA NITROGEN, BLOOD 43 mg/dL (7-18)
[2021-03-23 05:58] LABS: BASOPHILS # (AUTO) 0.1 K/uL (0.0-0.2); BASOPHILS % (AUTO) 0.4 % (0.0-2.0); EOSINOPHILS % (AUTO) 1.8 % (0.0-6.0); HEMATOCRIT 28 % (39-51); HEMOGLOBIN 8.3 g/dL (13.5-17.5); LYMPHOCYTES # (AUTO) 0.7 K/uL (0.8-4.8); LYMPHOCYTES % (AUTO) 5.1 % (20.0-44.0); MEAN CORPUSCULAR HGB CONC 29 g/dl (31.0-36.0); MEAN CORPUSCULAR VOLUME 104 fL (80-96); MONOCYTES # (AUTO) 1.5 K/uL (0.1-1.30); NEUTROPHILS # (AUTO) 11.3 K/uL (1.8-8.9); NEUTROPHILS % (AUTO) 81.7 % (43.0-81.0); PLATELET COUNT (AUTO) 249 K/uL (150-450); RED BLOOD CELL COUNT(AUTO) 2.71 MIL/uL (4.5-6.0); WHITE BLOOD COUNT (AUTO) 13.9 K/uL (4.3-11.0)
[2021-03-23 06:01] LABS: CREATINE KINASE, TOTAL 21 U/L (39-308)
[2021-03-23] MEDS: BLOOD SUGAR DIAGNOSTIC 1 EACH STRIP IN SCH ×3 (06:04→17:55)
[2021-03-23] MEDS: INSULIN REGULAR, HUMAN 100 UNIT/ML 3 ML VIAL SQ PRN ×3 (06:07→17:56)
--- NOTE | 2021-03-23 06:12 | NUR ---
RN closing notes No significant change of condition. Vital signs remains wnl. No physical manifestation of pain or discomfort. Tolerated BIPAP only for 2 hours and back to 3lpm via nasal cannula. Alert but very confused. Bilateral hand soft wrist restraints in place, removed every two hours for hygiene, repositioning and circulation. Kept clean and dry. Will endorse to next shift for continuity of care.
[2021-03-23] MEDS: ACETYLCYSTEINE 10% SOLN 400 MG/4 ML VIAL NEB SCH ×3 (07:23→23:33)
--- NOTE | 2021-03-23 07:30 | NUR ---
MANAGER WORK OPENING NOTE PT IN BED SEMIFOWLERS SLEEPING, BREATHING NC 3L SPO2 95%, NO S/S OF RESP DISTRESS OR SOB. PT BEDSIDE TELE V-PACING, HR 60. PT HAS BILAT SOFT WRIST RESTRAINTS D/T PULLING OFF OF BIPAP AND OTHER TUBING OVER NIGHT, PER REPORT PT ONLY TOLERATED 2HR ON NOCTURNAL BIPAP, BILAT CMS INTACT. PT HAS LAC #20 AND YUN MIDLINE, BOTH SL, FLUSHED AND PATENT, WITH NO S/S OF INFECTION OR INFILTRATION. PT SACRAL WOUND, PERINEAL AND SCROTAL WOUNDS, AND BLE ULCERS NOTED, WILL CARE FOR ORDERED. ALL PT SAFETY PRECAUTIONS IN PLACE, WILL CONT TO MONITOR
--- NOTE | 2021-03-23 08:00 | NUR ---
RN NOTE PT SLIGHTLY MORE ALTERED NOW THAN THIS TIME YESTERDAY. PT A/Ox2 WITH PERIODS OF CONFUSION. Addendum: 03/23/21 at 0958 by ALEJO ROLLINS RN PT AROUSABLE TO NAME, JUST MORE DIFFICULTY STAYING AWAKE
[2021-03-23] MEDS: ZINC SULFATE 220 MG CAPSULE PO SCH (08:51)
[2021-03-23] MEDS: ASPIRIN 81 MG TAB.CHEW PO SCH (08:51)
[2021-03-23] MEDS: AMIODARONE HCL 200 MG TABLET PO SCH (08:51)
[2021-03-23] MEDS: FAMOTIDINE (20 MG) 20 MG TABLET PO SCH ×2 (08:51→17:00)
[2021-03-23] MEDS: ASCORBIC ACID 500 MG TABLET PO SCH (08:51)
[2021-03-23] MEDS: SEVELAMER CARBONATE 800 MG POWD.PACK NG SCH ×3 (08:51→17:58)
[2021-03-23] MEDS: MEROPENEM 500 MG in IV NS 0.9% 50 ML IV SCH ×2 (08:51→21:25)
[2021-03-23] MEDS: ALLOPURINOL 100 MG TABLET PO SCH (08:51)
[2021-03-23] MEDS: VIT B CMPLX 3/FA/VIT C/BIOTIN 1 TAB TABLET PO SCH (08:51)
[2021-03-23] MEDS: CLOTRIMAZOLE/BETAMETASONE DIPROPIONATE 15 GM TUBE TP SCH ×2 (08:53→21:41)
[2021-03-23] MEDS: RIVAROXABAN 15 MG TABLET PO SCH (08:53)
[2021-03-23] MEDS: DAKINS QUARTER STRENGTH (0.125%) 480 ML BOTTLE TOP SCH (08:53)
[2021-03-23] MEDS: THERAHONEY GEL 1.5 OZ TUBE TP SCH (08:54)
--- NOTE | 2021-03-23 09:30 | NUR ---
RN NOTE PT MORE LETHARGIC TODAY, DR CALLES AND DR CALL BOTH AWARE
[2021-03-23] MEDS: CARVEDILOL 12.5 MG TABLET PO SCH ×2 (09:36→17:00)
--- NOTE | 2021-03-23 17:59 | NUR ---
RN NOTE PT UNABLE TO TOAKE PO MEDS D/T ALTERED MENTAL STATUS. HIGH ASPIRATION RISK
--- NOTE | 2021-03-23 18:45 | NUR ---
REPLENISHMENT ANALYST CLOSING NOTES PT REMAINS CONFUSED, A/Ox1 AND LETHARGIC, ABG CO2 WNL. BILAT SOFT WRIST RESTRAINTS STILL ON, BILAT CMS INTACT. PT HIGH ASPIRATION RISK D/T ALTERED MENTAL STATUS. NO OTHER CHANGES TO PT DURING SHIFT, ALL PT SAFETY PRECAUTIONS IN PLACE. WILL ENDORSE BREA TO ONCOMING NURSE
--- NOTE | 2021-03-23 19:45 | NUR ---
ICU/INFORMATION TECHNOLOGY DIRECTOR RECIEVED REPORT FROM DAY SHIFT NURSE. SEE FLOWSHEET FOR ASSESSMENT, THERE ARE SKIN ISSUES THAT ARE ADDRESSED ON THE FLOWSHEET, ALONG WITH INTERVENTIONS TO EACH. THERE IS NO IV'S WHICH NEEDS TO BE ADDRESSED. PT ASST WITH TURNING AND REPOSITIONS. WILL CONTINUE TO MONITOR THIS PT.
--- NOTE | 2021-03-23 20:45 | NUR ---
ICU/SECRETARY BOOK KEEPER UPON MY ASSESSMENT, PT FOUND WITH NASAL BRIDGE SKIN BREAK DOWN FROM BIPAP.THIS WAS ADDRESSED ON THE FLOWSHEET ALONG WITH AN INTERVENTION. WILL CONTINUE TO MONITOR THIS PT.
[2021-03-23] MEDS: ATORVASTATIN 10 MG TABLET PO SCH (21:40)
[2021-03-23] MEDS: LATANOPROST EYE DROP 0.005% 2.5 ML BOTTLE EACHEYE SCH (21:41)
--- NOTE | 2021-03-23 22:30 | NUR ---
ICU/LOG SNAKER PT WAS GIVEN ORAL CARE ALONG WITH PM CARE. SOME WOUND PICTURES WERE DONE AT THIS TIME. PT TURNED AND REPOSITIONED FOR COMFORT AND CARE. WILL CONTINUE TO MONITOR THIS PT.
[2021-03-24] VITALS (46 sets, daily range): BP systolic 81–140; BP diastolic 40–74
[2021-03-24] MEDS: BLOOD SUGAR DIAGNOSTIC 1 EACH STRIP IN SCH ×5 (00:07→23:41)
[2021-03-24] MEDS: INSULIN REGULAR, HUMAN 100 UNIT/ML 3 ML VIAL SQ PRN ×2 (00:10→12:15)
--- NOTE | 2021-03-24 00:30 | NUR ---
ICU/PRINCIPAL CYBER ENGINEER PT WAS PLACED ON BIPAP AFTER CPT WAS DONE ON THIS PT WHILE HE WAS ON 3 LITERS N/C. BIPAP CURRENT SETTINGS ARE 20/5, RATE 20, FIO2 35%. WILL CONTINUE TO MONITOR THIS PT.
--- NOTE | 2021-03-24 01:42 | NUR ---
RT pt received on 3lnc. cpt performed. placed on noc bipap per md order. continue to monitor
--- NOTE | 2021-03-24 03:30 | NUR ---
ICU/ORNAMENT SETTER PT WAS GIVEN ORAL CARE ALONG WITH AM CARE. THE LAST OF THE WOUND PICTURES WERE DONE AT THIS TIME. PT TURNED AND REPOSITIONED FOR COMFORT AND CARE. WILL CONTINUE TO MONITOR THIS PT.
[2021-03-24 04:23] LABS: BASOPHILS # (AUTO) 0.1 K/uL (0.0-0.2); BASOPHILS % (AUTO) 1.2 % (0.0-2.0); EOSINOPHILS % (AUTO) 2.7 % (0.0-6.0); HEMATOCRIT 26 % (39-51); HEMOGLOBIN 8.1 g/dL (13.5-17.5); LYMPHOCYTES # (AUTO) 0.7 K/uL (0.8-4.8); LYMPHOCYTES % (AUTO) 6.6 % (20.0-44.0); MEAN CORPUSCULAR HGB CONC 31 g/dl (31.0-36.0); MEAN CORPUSCULAR VOLUME 97 fL (80-96); MONOCYTES # (AUTO) 1.3 K/uL (0.1-1.30); MONOCYTES % (AUTO) 11.2 % (2.0-12.0); NEUTROPHILS # (AUTO) 8.8 K/uL (1.8-8.9); NEUTROPHILS % (AUTO) 78.3 % (43.0-81.0); PLATELET COUNT (AUTO) 248 K/uL (150-450); RED BLOOD CELL COUNT(AUTO) 2.66 MIL/uL (4.5-6.0); WHITE BLOOD COUNT (AUTO) 11.3 K/uL (4.3-11.0)
[2021-03-24 04:35] LABS: CALCIUM, SERUM 8.2 mg/dL (8.5-10.1); CARBON DIOXIDE 28 mmol/L (21-32); CHLORIDE 105 mmol/L (98-107); CREATININE 6.6 mg/dL (0.6-1.3); GLUCOSE 131 mg/dL (74-106); MAGNESIUM 2.2 mg/dL (1.8-2.4); PHOSPHORUS 5.3 mg/dL (2.5-4.9); POTASSIUM 4.2 mmol/L (3.5-5.1); SODIUM SERUM 145 mmol/L (136-145); UREA NITROGEN, BLOOD 59 mg/dL (7-18)
[2021-03-24] MEDS: MIDODRINE HCL (5MG) 5 MG TABLET PO SCH ×3 (04:49→23:23)
--- NOTE | 2021-03-24 07:30 | NUR ---
ALIGNMENT TECHNICIAN OPENING NOTE PT IN BED SEMIFOWLERS SLEEPING, A/Ox2-3 WITH PERIODS OF CUNFUSION, MORE EASILY AROUSABLE THAN YESTERDAY. PT BREATHING NC 3L SPO2 93-94%, NO S/S OF RESP DISTRESS OR SOB. PT BEDSIDE TELE V-PACING, HR 60. PT HAS BILAT SOFT WRIST RESTRAINTS D/T PULLING OFF OF BIPAP AND OTHER TUBING OVER NIGHT, PER REPORT PT TOLERATED 5.5 HR ON NOCTURNAL BIPAP, BILAT CMS INTACT. PT HAS LFA #20 AND YUN MIDLINE, BOTH SL, FLUSHED AND PATENT, WITH NO S/S OF INFECTION OR INFILTRATION. PT SACRAL WOUND, PERINEAL AND SCROTAL WOUNDS, AND BLE ULCERS NOTED, WILL CARE FOR ORDERED. ALL PT SAFETY PRECAUTIONS IN PLACE, WILL CONT TO MONITOR
[2021-03-24] MEDS: ALBUTEROL FS 2.5 MG/3 ML VIAL.NEB IH PRN ×2 (07:32→23:42)
[2021-03-24] MEDS: ACETYLCYSTEINE 10% SOLN 400 MG/4 ML VIAL NEB SCH ×3 (07:32→23:42)
[2021-03-24] MEDS: ALLOPURINOL 100 MG TABLET PO SCH (08:40)
[2021-03-24] MEDS: ZINC SULFATE 220 MG CAPSULE PO SCH (08:40)
[2021-03-24] MEDS: AMIODARONE HCL 200 MG TABLET PO SCH (08:41)
[2021-03-24] MEDS: ASPIRIN 81 MG TAB.CHEW PO SCH (08:42)
[2021-03-24] MEDS: ASCORBIC ACID 500 MG TABLET PO SCH (08:42)
[2021-03-24] MEDS: TRAMADOL HCL 50 MG TABLET PO PRN (08:42)
[2021-03-24] MEDS: VIT B CMPLX 3/FA/VIT C/BIOTIN 1 TAB TABLET PO SCH (08:42)
[2021-03-24] MEDS: DAPTOMYCIN 800 MG in IV NS 0.9% 50 ML IV SCH (08:43)
[2021-03-24] MEDS: MEROPENEM 500 MG in IV NS 0.9% 50 ML IV SCH ×2 (08:43→21:57)
[2021-03-24] MEDS: FAMOTIDINE (20 MG) 20 MG TABLET PO SCH ×2 (08:43→17:00)
[2021-03-24] MEDS: CARVEDILOL 12.5 MG TABLET PO SCH ×2 (08:43→17:00)
[2021-03-24] MEDS: THERAHONEY GEL 1.5 OZ TUBE TP SCH (08:45)
[2021-03-24] MEDS: CLOTRIMAZOLE/BETAMETASONE DIPROPIONATE 15 GM TUBE TP SCH ×2 (08:45→23:23)
[2021-03-24] MEDS: DAKINS QUARTER STRENGTH (0.125%) 480 ML BOTTLE TOP SCH (08:45)
[2021-03-24] MEDS: RIVAROXABAN 15 MG TABLET PO SCH (08:52)
[2021-03-24] MEDS: SEVELAMER CARBONATE 800 MG POWD.PACK NG SCH ×3 (08:53→18:00)
--- NOTE | 2021-03-24 09:00 | NUR ---
RN NOTE PT ABLE TO TAKE PO MEDS CRUSHED WITH PUDDING, NECTAR THICKENED LIQUIDS WELL. ST SWALLOW EVAL CONDUCTED
[2021-03-24] MEDS: PROSOURCE / PROSTAT (PYXIS) 30 ML UDC GT SCH ×3 (10:30→17:00)
--- NOTE | 2021-03-24 12:00 | NUR ---
RN NOTE PT INCREASED DROWSINESS/LETHARGY, UNABLE TO GIVE PO MEDS. PLACED ON BIPAP. MONITORING CLOSELY
[2021-03-24] MEDS: ERGOCALCIFEROL (VITAMIN D 2) 50,000 UNIT CAPSULE PO SCH (13:00)
[2021-03-24] MEDS: METOLAZONE 2.5 MG TABLET PO SCH (13:00)
[2021-03-24 14:15] LABS: ABG BASE EXCESS 0.6 mmol/L; ABG OXYGEN SATURATION 94.2 % (92.0-98.5); ABG PCO2 50.7 mmHg (35.0-45.0); ABG PH 7.339 (7.350-7.450); ABG PO2 80.9 mmHg (75.0-100.0); AaDO2 87.9 mmHg; COHb 1.2 % (0.5-1.5); MetHb 0.2 % (0.0-1.5); O2Hb 92.9 % (94.0-97.0); SITE, ABG Left Radial; VENT MODE, BG NASAL CANNULA
--- NOTE | 2021-03-24 16:00 | NUR ---
RN NOTE: PER DR CALL, CONT BIPAP AT CURRENT SETTINGS UNTIL TOMORROW
[2021-03-24 16:12] LABS: ABG BASE EXCESS 0.3 mmol/L; ABG OXYGEN SATURATION 96.4 % (92.0-98.5); ABG PCO2 40.5 mmHg (35.0-45.0); ABG PH 7.408 (7.350-7.450); AaDO2 112.5 mmHg; COHb 0.6 % (0.5-1.5); O2Hb 95.5 % (94.0-97.0); SITE, ABG Right Radial
[2021-03-24 16:13] LABS: MetHb 0.3 % (0.0-1.5); VENT MODE, BG BIPAP 20/5
--- NOTE | 2021-03-24 17:30 | NUR ---
RN NOTE PT UNABLE TO TAKE 1700/1800 PO MEDS D/T LETHARGY; HIGH ASPIRATION RISK. PT ON BIPAP UNTIL TOMORROW
--- NOTE | 2021-03-24 18:56 | NUR ---
FOUNTAIN SERVER CLOSING NOTE PT ON BIPAP 20/5, RATE 20, FIO2 35%, TOLERATING WELL, SPO2 98%, NO S/S OF RESP DISTRESS OR SOB. PT STILL ALTERED AND LETHARGIC. PER DR CALL, PT WILL REMAIN ON BIPAP UNTIL TOMORROW. RESTRAINTS NOT CURRENTLY ON PT PT HAS NOT BEEN PULLING OFF BIPAP OR MEDICAL TUBING/LINES. PT IS NPO EXCEPT MEDS, ALTHOUGH TOO LETHAGIC TO TAKE PO MEDS. NO OTHER CHANGES TO PT, ALL SAFETY PRECAUTIONS IN PLACE, WILL ENDORSE BREA TO ONCOMING NURSE
--- NOTE | 2021-03-24 20:00 | NUR ---
RT NOTE LATE ENTRY: Pt rec'd on Bipap on noted settings as charted. mepilex in place and no scarring or redness noted, Pt shows no signs of resp distress or sob. Bipap plugged into red outlet. Alarms are set and audible. Ambu bag bedside. Will continue to monitor closely. Addendum: 03/25/21 at 0648 by SHAHEED ARORA RT Amended: Links added.
--- NOTE | 2021-03-24 22:45 | NUR ---
ICU/TRAINING PROGRAM MANAGER MEDICATION GIVEN LATE DUE TO PT WAS GETTING HD. THEY WERE ABLE TO PULL OFF 3 LITERS FROM THIS PT.
[2021-03-24] MEDS: ATORVASTATIN 10 MG TABLET PO SCH (23:22)
[2021-03-24] MEDS: LATANOPROST EYE DROP 0.005% 2.5 ML BOTTLE EACHEYE SCH (23:24)
[2021-03-25] VITALS (26 sets, daily range): BP systolic 86–114; BP diastolic 36–50
[2021-03-25] MEDS: TRAMADOL HCL 50 MG TABLET PO PRN (01:44)
--- NOTE | 2021-03-25 01:45 | NUR ---
ICU/VARIETY SAW OPERATOR PAIN PILL GIVEN BEFORE BATH, DUE TO VERY LARGE WOUND DRESSING THAT HAS TO BE DONE. PAIN RATED 7/10. WILL MONITOR THIS PT
[2021-03-25] MEDS: MIDODRINE HCL (5MG) 5 MG TABLET PO SCH ×3 (04:04→21:30)
[2021-03-25 04:35] LABS: BASOPHILS # (AUTO) 0.1 K/uL (0.0-0.2); BASOPHILS % (AUTO) 0.9 % (0.0-2.0); EOSINOPHILS % (AUTO) 3.8 % (0.0-6.0); HEMATOCRIT 26 % (39-51); LYMPHOCYTES # (AUTO) 0.7 K/uL (0.8-4.8); LYMPHOCYTES % (AUTO) 5.9 % (20.0-44.0); MEAN CORPUSCULAR HGB CONC 31 g/dl (31.0-36.0); MEAN CORPUSCULAR VOLUME 97 fL (80-96); MONOCYTES # (AUTO) 1.1 K/uL (0.1-1.30); MONOCYTES % (AUTO) 9.7 % (2.0-12.0); NEUTROPHILS % (AUTO) 79.7 % (43.0-81.0); PLATELET COUNT (AUTO) 256 K/uL (150-450); RED BLOOD CELL COUNT(AUTO) 2.64 MIL/uL (4.5-6.0); WHITE BLOOD COUNT (AUTO) 11.3 K/uL (4.3-11.0)
[2021-03-25 05:03] LABS: CALCIUM, SERUM 7.9 mg/dL (8.5-10.1); CARBON DIOXIDE 29 mmol/L (21-32); CHLORIDE 103 mmol/L (98-107); CREATININE 4.9 mg/dL (0.6-1.3); GLUCOSE 112 mg/dL (74-106); POTASSIUM 3.9 mmol/L (3.5-5.1); SODIUM SERUM 142 mmol/L (136-145); UREA NITROGEN, BLOOD 38 mg/dL (7-18)
[2021-03-25] MEDS: BLOOD SUGAR DIAGNOSTIC 1 EACH STRIP IN SCH ×4 (06:13→23:38)
--- NOTE | 2021-03-25 06:30 | NUR ---
ICU/RECORDS MANAGEMENT ASSISTANT PT TOOK OFF BIPAP THEN PALCED ON NON REBREATHER MASK. WILL CLOSELY MONITOR THIS PT AND HIS SATURATION.
--- NOTE | 2021-03-25 07:30 | NUR ---
ICU/RN PT IS ON BI-PAP.SAT O2-100%.V/S STABLE,AFEBRILE.NO PAIN REPORTED AT THIS TIME.IV-HL.ANURIC ON HD .RIGHT CHEST HD CATH.HAS PVD.BILATERAI LOWER LEGS WOUNDS AND LOWER BACK WOUND COVERED WITH DRY CLEAN DRESSING.LABS REVIEW. PT HAS LEFT CHEST PACEMAKER,HR-60 BPM V-PACING.
[2021-03-25] MEDS: ACETYLCYSTEINE 10% SOLN 400 MG/4 ML VIAL NEB SCH ×3 (07:55→23:13)
--- NOTE | 2021-03-25 08:17 | NUR ---
RT PATIENT REMOVED FROM NOC BIPAP AND PLACED ON 2L N/C. PATIENT AWAKE AND RESPONSIVE. NO SOB NOTED
[2021-03-25] MEDS: ASCORBIC ACID 500 MG TABLET PO SCH (08:30)
[2021-03-25] MEDS: FAMOTIDINE (20 MG) 20 MG TABLET PO SCH ×2 (08:30→17:33)
[2021-03-25] MEDS: ASPIRIN 81 MG TAB.CHEW PO SCH (08:30)
[2021-03-25] MEDS: SEVELAMER CARBONATE 800 MG POWD.PACK NG SCH ×3 (08:30→17:33)
[2021-03-25] MEDS: AMIODARONE HCL 200 MG TABLET PO SCH (08:30)
[2021-03-25] MEDS: ALLOPURINOL 100 MG TABLET PO SCH (08:30)
[2021-03-25] MEDS: PROSOURCE / PROSTAT (PYXIS) 30 ML UDC GT SCH ×3 (08:31→17:34)
[2021-03-25] MEDS: CLOTRIMAZOLE/BETAMETASONE DIPROPIONATE 15 GM TUBE TP SCH ×2 (08:33→21:31)
[2021-03-25] MEDS: THERAHONEY GEL 1.5 OZ TUBE TP SCH (08:33)
[2021-03-25] MEDS: DAKINS QUARTER STRENGTH (0.125%) 480 ML BOTTLE TOP SCH (08:34)
[2021-03-25] MEDS: MEROPENEM 500 MG in IV NS 0.9% 50 ML IV SCH ×2 (09:00→21:29)
--- NOTE | 2021-03-25 09:00 | NUR ---
ICU/RN PT PLACED ON 2L N/C ,SAT O2-95-96%.PASS SWALLOW EVAL,OK TO GIVE PURRED FOOD AND LIQUIDS WITH THIKENER. DUE MEDS ARE GIVEN ORDERED.PT EATS 50% FROM HIS MEAL TRAY.
[2021-03-25] MEDS: ERGOCALCIFEROL (VITAMIN D 2) 50,000 UNIT CAPSULE PO SCH (09:10)
[2021-03-25] MEDS: ZINC SULFATE 220 MG CAPSULE PO SCH (09:10)
[2021-03-25] MEDS: VIT B CMPLX 3/FA/VIT C/BIOTIN 1 TAB TABLET PO SCH (09:10)
[2021-03-25] MEDS: RIVAROXABAN 15 MG TABLET PO SCH (09:12)
[2021-03-25] MEDS: CARVEDILOL 12.5 MG TABLET PO SCH ×2 (09:42→17:00)
--- NOTE | 2021-03-25 18:00 | NUR ---
ICU/RN PM CARE PROVIDED.WOUND DRESSING DONE ORDERED.DUE MEDS ARE GIVEN .PT EATS 75% FROM HIS MEAL TRAY.V/S STABLE,AFEBRILE.NO PAIN REPORTED AT THIS TIME.BS-112.CONTINUE MONITORING
--- NOTE | 2021-03-25 19:51 | NUR ---
RT NOTE PATIENT IS AWAKE AND ORIENTED ON 2LPM NASAL CANNULA. NO RESPIRATORY DISTRESS AT THIS TIME. SPO2 AT 95% ON 2LPM. PATIENT SAYS HE WILL TRY THE BIPAP LATER AT NIGHT. WILL CONTINUE TO MONITOR PATIENT AT THIS TIME.
--- NOTE | 2021-03-25 20:00 | NUR ---
Received patient A/OX3 in no acute distress.VS stable.With O2 2L NC changed to Bipap by RT per patient request.Bipap settings 20/5,rate 20,FIO2 35% saturation 95%-98%. V-paced.YUN and JUNIOR midline intact.RU chest HD cath intact.Safety precaution maintained. Call light at bedside.
[2021-03-25] MEDS: ATORVASTATIN 10 MG TABLET PO SCH (21:30)
[2021-03-25] MEDS: LATANOPROST EYE DROP 0.005% 2.5 ML BOTTLE EACHEYE SCH (21:30)
--- NOTE | 2021-03-25 21:44 | NUR ---
RT NOTE PATIENT REMOVED BIPAP. PATIENT IS CURRENTLY REFUSING TO WEAR BIPAP AT THIS TIME. PATIENT IS AWAKE ON 2LPM N/C. PRIMARY NURSE IS AWARE. WILL CONTINUE TO MONITOR PATIENT.
[2021-03-26] VITALS (39 sets, daily range): BP systolic 76–127; BP diastolic 36–57
[2021-03-26 04:48] LABS: BASOPHILS # (AUTO) 0.1 K/uL (0.0-0.2); BASOPHILS % (AUTO) 1.1 % (0.0-2.0); EOSINOPHILS % (AUTO) 4.3 % (0.0-6.0); HEMATOCRIT 26 % (39-51); HEMOGLOBIN 8.3 g/dL (13.5-17.5); LYMPHOCYTES # (AUTO) 0.7 K/uL (0.8-4.8); LYMPHOCYTES % (AUTO) 7.1 % (20.0-44.0); MEAN CORPUSCULAR HGB CONC 32 g/dl (31.0-36.0); MEAN CORPUSCULAR VOLUME 98 fL (80-96); MONOCYTES # (AUTO) 1.3 K/uL (0.1-1.30); MONOCYTES % (AUTO) 12.2 % (2.0-12.0); NEUTROPHILS # (AUTO) 7.8 K/uL (1.8-8.9); NEUTROPHILS % (AUTO) 75.3 % (43.0-81.0); PLATELET COUNT (AUTO) 255 K/uL (150-450); RED BLOOD CELL COUNT(AUTO) 2.69 MIL/uL (4.5-6.0); WHITE BLOOD COUNT (AUTO) 10.4 K/uL (4.3-11.0)
[2021-03-26 05:14] LABS: ALANINE AMINOTRANSFERASE 12 U/L (12-78); ALBUMIN 1.8 g/dL (3.4-5.0); ALKALINE PHOSPHATASE 78 U/L (46-116); ASPARTATE AMINOTRANSFERASE 39 U/L (15-37); BILIRUBIN,TOTAL 1.3 mg/dL (0.2-1.0); CALCIUM, SERUM 7.8 mg/dL (8.5-10.1); CARBON DIOXIDE 28 mmol/L (21-32); CHLORIDE 103 mmol/L (98-107); CREATININE 6.1 mg/dL (0.6-1.3); GLUCOSE 102 mg/dL (74-106); MAGNESIUM 2.1 mg/dL (1.8-2.4); PHOSPHORUS 4.9 mg/dL (2.5-4.9); POTASSIUM 4.8 mmol/L (3.5-5.1); SODIUM SERUM 142 mmol/L (136-145); TOTAL PROTEIN, SERUM 6.3 g/dL (6.4-8.2); UREA NITROGEN, BLOOD 51 mg/dL (7-18)
[2021-03-26] MEDS: BLOOD SUGAR DIAGNOSTIC 1 EACH STRIP IN SCH ×4 (05:40→23:44)
[2021-03-26] MEDS: MIDODRINE HCL (5MG) 5 MG TABLET PO SCH ×3 (05:40→21:07)
--- NOTE | 2021-03-26 06:20 | NUR ---
Patient resting in no acute distress.VS remains stable.Placed on O2 NC most of the night and well tolerated.Denies pain or SOB.AM care done.Wound care done.Maintained on special bed Gurjit LON 2.Turned and repositioned.No significant changes noted during the night.No bm noted.Needs met.
--- NOTE | 2021-03-26 07:30 | NUR ---
COMMERCIAL OR INSTITUTIONAL CLEANER OPENING NOTE PT IN BED SEMIFOWLERS, A/Ox3 AND DENIES PAIN. PT BREATHING NC 3L SPO2 97%, NO S/S OF RESP DISTRESS OR SOB. PT BEDSIDE TELE V-PACING, HR 60. PT HAS LFA #20, JUNIOR MIDLINE AND YUN MIDLINE, ALL SL, FLUSHED AND PATENT, WITH NO S/S OF INFECTION OR INFILTRATION. PT SACRAL WOUND, PERINEAL AND SCROTAL WOUNDS, AND BLE ULCERS NOTED, WILL CARE FOR ORDERED. ALL PT SAFETY PRECAUTIONS IN PLACE, WILL CONT TO MONITOR.
[2021-03-26] MEDS: ACETYLCYSTEINE 10% SOLN 400 MG/4 ML VIAL NEB SCH ×3 (07:46→23:31)
[2021-03-26] MEDS: SEVELAMER CARBONATE 800 MG POWD.PACK NG SCH ×3 (08:06→17:29)
[2021-03-26] MEDS: PROSOURCE / PROSTAT (PYXIS) 30 ML UDC GT SCH ×3 (08:34→17:28)
[2021-03-26] MEDS: VIT B CMPLX 3/FA/VIT C/BIOTIN 1 TAB TABLET PO SCH (08:35)
[2021-03-26] MEDS: ZINC SULFATE 220 MG CAPSULE PO SCH (08:35)
[2021-03-26] MEDS: ASCORBIC ACID 500 MG TABLET PO SCH (08:35)
[2021-03-26] MEDS: ASPIRIN 81 MG TAB.CHEW PO SCH (08:35)
[2021-03-26] MEDS: MEROPENEM 500 MG in IV NS 0.9% 50 ML IV SCH ×2 (08:35→21:06)
[2021-03-26] MEDS: ALLOPURINOL 100 MG TABLET PO SCH (08:35)
[2021-03-26] MEDS: FAMOTIDINE (20 MG) 20 MG TABLET PO SCH ×2 (08:35→17:29)
[2021-03-26] MEDS: AMIODARONE HCL 200 MG TABLET PO SCH (08:38)
[2021-03-26] MEDS: RIVAROXABAN 15 MG TABLET PO SCH (08:43)
[2021-03-26] MEDS: CLOTRIMAZOLE/BETAMETASONE DIPROPIONATE 15 GM TUBE TP SCH ×2 (08:59→21:07)
[2021-03-26] MEDS: DAKINS QUARTER STRENGTH (0.125%) 480 ML BOTTLE TOP SCH (08:59)
[2021-03-26] MEDS: THERAHONEY GEL 1.5 OZ TUBE TP SCH (08:59)
[2021-03-26] MEDS: CARVEDILOL 12.5 MG TABLET PO SCH ×2 (08:59→17:00)
[2021-03-26] MEDS: DAPTOMYCIN 800 MG in IV NS 0.9% 50 ML IV SCH (09:25)
[2021-03-26] MEDS: METOLAZONE 2.5 MG TABLET PO SCH (12:39)
[2021-03-26] MEDS: ALBUMIN 25% 25 GM in PREMIX 1 EA IV PRN (17:12)
--- NOTE | 2021-03-26 18:20 | NUR ---
RN NOTE PT CURRENTLY BEING DIALYZED, CONSISTENT LOW BP'S, ALBUMIN GIVEN PER ORDER. UF TURNED OFF, BLOOD STILL BEING PROCESSED, DR ROMERO NOTIFIED. PT ASYMPTOMATIC. WILL CONT TO MONITOR
--- NOTE | 2021-03-26 19:30 | NUR ---
MARKET RISK SPECIALIST NOTE PT STILL ON HD, BP STILL LOW. DR ROMERO AWARE. ALL PT SAFETY PRECAUTIONS IN PLACE. PT SEEMS MORE CONFUSED NOW DURING HD, A/Ox1-2 PERIODS OF CONFUSION. PT ON NC 2L, SPO2 94%, NO SOB OR SRESP DISTRESS. ALL PT SAFETY PRECAUTIONS IN PLACE, BREA ENDORSED TO TRAUMA MANAGER RN
--- NOTE | 2021-03-26 20:00 | NUR ---
Received patient A/OX2-3 with periods of confusion.S/P HD 500ml out per HD RN. No acute distress noted.V-paced 60.Respiration even and unlabored.Saturation 85% on 2L NC.Safety precaution implemented.Call light at bedside.
[2021-03-26] MEDS: ATORVASTATIN 10 MG TABLET PO SCH (21:07)
[2021-03-26] MEDS: LATANOPROST EYE DROP 0.005% 2.5 ML BOTTLE EACHEYE SCH (21:07)
--- NOTE | 2021-03-26 22:01 | NUR ---
PT PLACED ON NOC BIPAP. NOTICED SCAB ON THE BRIDGE OF THE NOSE. NO RESPIRATORY DISTRESS NOTED AT THIS TIME. JORGE CHOE NOTIFIED. WILL CONTINUE TO MONITOR PT T/O SHIFT.
--- NOTE | 2021-03-26 22:36 | NUR ---
PT REMOVED BIPAP AND REFUSED TO PLACE BIPAP BACK AT THIS TIME. PLACED PT ON 2L NC. JORGE CHOE AWARE.
--- NOTE | 2021-03-26 23:31 | NUR ---
PT PLACED BACK ON BIPAP. BREATHING TX GIVEN . NO ADVERSE REACTION NOTED. NO RESPIRATORY DISTRESS NOTED AT THIS TIME . JORGE HOLLOWAY.
--- NOTE | 2021-03-26 23:35 | NUR ---
SWIMMING INSTRUCTOR NOTES 2201 Patient awake alert and oriented x3.VS stable.BIPAP applied. 2236 patient removed BIPAP and refused to be applied despite explanation. 2331 Patient awake alert oriented to self only otherwise confused and combative. BIPAP reapplied by RT Margarita.Bilateral soft wrist restraints applied for safety.No acute distress noted.
[2021-03-27] VITALS (34 sets, daily range): BP systolic 88–115; BP diastolic 30–63
[2021-03-27 04:18] LABS: BASOPHILS # (AUTO) 0.1 K/uL (0.0-0.2); BASOPHILS % (AUTO) 0.8 % (0.0-2.0); EOSINOPHILS % (AUTO) 4.9 % (0.0-6.0); HEMATOCRIT 25 % (39-51); HEMOGLOBIN 7.8 g/dL (13.5-17.5); LYMPHOCYTES # (AUTO) 0.6 K/uL (0.8-4.8); LYMPHOCYTES % (AUTO) 5.4 % (20.0-44.0); MEAN CORPUSCULAR HGB CONC 32 g/dl (31.0-36.0); MEAN CORPUSCULAR VOLUME 98 fL (80-96); MONOCYTES # (AUTO) 1.2 K/uL (0.1-1.30); MONOCYTES % (AUTO) 11.5 % (2.0-12.0); NEUTROPHILS # (AUTO) 7.9 K/uL (1.8-8.9); NEUTROPHILS % (AUTO) 77.4 % (43.0-81.0); PLATELET COUNT (AUTO) 243 K/uL (150-450); WHITE BLOOD COUNT (AUTO) 10.3 K/uL (4.3-11.0)
[2021-03-27 04:44] LABS: ALANINE AMINOTRANSFERASE 10 U/L (12-78); ALKALINE PHOSPHATASE 83 U/L (46-116); ASPARTATE AMINOTRANSFERASE 18 U/L (15-37); BILIRUBIN,TOTAL 1.3 mg/dL (0.2-1.0); CALCIUM, SERUM 7.8 mg/dL (8.5-10.1); CARBON DIOXIDE 30 mmol/L (21-32); CHLORIDE 104 mmol/L (98-107); CREATININE 4.5 mg/dL (0.6-1.3); GLUCOSE 106 mg/dL (74-106); PHOSPHORUS 3.5 mg/dL (2.5-4.9); SODIUM SERUM 143 mmol/L (136-145); TOTAL PROTEIN, SERUM 6.1 g/dL (6.4-8.2); UREA NITROGEN, BLOOD 34 mg/dL (7-18)
[2021-03-27] MEDS: MIDODRINE HCL (5MG) 5 MG TABLET PO SCH ×3 (05:17→21:08)
[2021-03-27] MEDS: BLOOD SUGAR DIAGNOSTIC 1 EACH STRIP IN SCH ×3 (05:17→17:55)
--- NOTE | 2021-03-27 05:22 | NUR ---
TOOK OFF BIPAP AT THIS TIME, PLACED PT ON 2L NC. NO RESPIRATORY DISTRESS NOTED AT THIS TIME. JORGE CHOE NOTIFIED.
--- NOTE | 2021-03-27 05:55 | NUR ---
Patient awake more compliant with treatment post BIPAP.Verbalized wants more oxygen increased O2 to 3L NC SPO2 100%Repositioned to comfort high fowlers. Bilateral soft wrist restraints off.VS stable.AM care rendered.All due meds given. No acute distress noted.
--- NOTE | 2021-03-27 07:00 | NUR ---
RN NOTES RECEIVED PT ON BED, ALERT / CONFUSED , ON 3L O2 N/C , O2 SAT WNL, NO DISTRESS NOTED, ON TELE V PACING HR IN 60'S , LEFT UPPER ARM MIDLINE SITE CLEAN,DRY AND INTACT, SR UP x3, CALL LIGHT WITHIN EASY REACH,BED LOCKED AND IN LOWEST POSITION, CONTINUE TO MONITOR .
[2021-03-27] MEDS: ACETYLCYSTEINE 10% SOLN 400 MG/4 ML VIAL NEB SCH ×3 (07:52→23:31)
[2021-03-27] MEDS: VIT B CMPLX 3/FA/VIT C/BIOTIN 1 TAB TABLET PO SCH (08:13)
[2021-03-27] MEDS: ASCORBIC ACID 500 MG TABLET PO SCH (08:13)
[2021-03-27] MEDS: FAMOTIDINE (20 MG) 20 MG TABLET PO SCH ×2 (08:13→16:23)
[2021-03-27] MEDS: CARVEDILOL 12.5 MG TABLET PO SCH ×2 (08:14→16:23)
[2021-03-27] MEDS: AMIODARONE HCL 200 MG TABLET PO SCH (08:15)
[2021-03-27] MEDS: ASPIRIN 81 MG TAB.CHEW PO SCH (08:15)
[2021-03-27] MEDS: SEVELAMER CARBONATE 800 MG POWD.PACK NG SCH ×3 (08:15→17:50)
[2021-03-27] MEDS: ZINC SULFATE 220 MG CAPSULE PO SCH (08:15)
[2021-03-27] MEDS: ALLOPURINOL 100 MG TABLET PO SCH (08:15)
[2021-03-27] MEDS: MEROPENEM 500 MG in IV NS 0.9% 50 ML IV SCH ×2 (08:18→20:48)
[2021-03-27] MEDS: PROSOURCE / PROSTAT (PYXIS) 30 ML UDC GT SCH ×3 (08:18→16:22)
[2021-03-27] MEDS: RIVAROXABAN 15 MG TABLET PO SCH (08:18)
[2021-03-27] MEDS: Z GUARD REMEDY 2 OZ OINT TP PRN (08:19)
[2021-03-27] MEDS: DAKINS QUARTER STRENGTH (0.125%) 480 ML BOTTLE TOP SCH (08:21)
[2021-03-27] MEDS: THERAHONEY GEL 1.5 OZ TUBE TP SCH (08:21)
[2021-03-27] MEDS: CLOTRIMAZOLE/BETAMETASONE DIPROPIONATE 15 GM TUBE TP SCH ×2 (08:21→21:05)
[2021-03-27] MEDS: INSULIN REGULAR, HUMAN 100 UNIT/ML 3 ML VIAL SQ PRN ×2 (11:55→18:00)
--- NOTE | 2021-03-27 12:00 | NUR ---
RN NOTES NO DISTRESS NOTED , CONTINUE TO MONITOR .
--- NOTE | 2021-03-27 17:00 | NUR ---
RN NOTES PT RECEIVED FROM ICU. PT STABLE AND ON 3 L OF O2. PT WILL HAVE DIALYSIS 03/28.
--- NOTE | 2021-03-27 17:15 | NUR ---
RN NOTES PT TRANSFERRED TO ROOM 102 , KAYLEE STATUS , WITH ALL HIS BELONGINGS VIA ACLS PROTOCOL IN STABLE CONDITION . REPORT GIVEN TO RN FOR CONTINUITY OF CARE .
--- NOTE | 2021-03-27 19:36 | NUR ---
TELE-TD/DISPATCHER TOW TRUCK ATTEMPTED TO FEED PT. TOOK A FEW BITES SUCCESSFULLY BUT STATES HE IS NOT HUNGRY AT THIS TIME.
[2021-03-27] MEDS: LATANOPROST EYE DROP 0.005% 2.5 ML BOTTLE EACHEYE SCH (21:05)
[2021-03-27] MEDS: ATORVASTATIN 10 MG TABLET PO SCH (21:08)
--- NOTE | 2021-03-27 23:32 | NUR ---
PT PLACED ON NOC BIPAP, NO RESPIRATORY DISTRESS NOTED AT THIS TIME. JORGE MARTIN NOTIFIED .
[2021-03-28] VITALS: BP 106/48
[2021-03-28] MEDS: BLOOD SUGAR DIAGNOSTIC 1 EACH STRIP IN SCH ×4 (01:18→18:12)
[2021-03-28 04:00] VITALS: BP 106/46
[2021-03-28] MEDS: MIDODRINE HCL (5MG) 5 MG TABLET PO SCH ×3 (05:35→22:08)
[2021-03-28 06:46] LABS: BASOPHILS # (AUTO) 0.1 K/uL (0.0-0.2); BASOPHILS % (AUTO) 1.1 % (0.0-2.0); EOSINOPHILS % (AUTO) 4.6 % (0.0-6.0); HEMATOCRIT 26 % (39-51); LYMPHOCYTES # (AUTO) 0.6 K/uL (0.8-4.8); LYMPHOCYTES % (AUTO) 5.4 % (20.0-44.0); MEAN CORPUSCULAR HGB CONC 31 g/dl (31.0-36.0); MEAN CORPUSCULAR VOLUME 99 fL (80-96); MONOCYTES # (AUTO) 1.2 K/uL (0.1-1.30); MONOCYTES % (AUTO) 10.8 % (2.0-12.0); NEUTROPHILS # (AUTO) 8.8 K/uL (1.8-8.9); NEUTROPHILS % (AUTO) 78.1 % (43.0-81.0); PLATELET COUNT (AUTO) 256 K/uL (150-450); RED BLOOD CELL COUNT(AUTO) 2.63 MIL/uL (4.5-6.0); WHITE BLOOD COUNT (AUTO) 11.2 K/uL (4.3-11.0)
[2021-03-28 07:13] LABS: ALANINE AMINOTRANSFERASE 14 U/L (12-78); ALKALINE PHOSPHATASE 85 U/L (46-116); ASPARTATE AMINOTRANSFERASE 36 U/L (15-37); BILIRUBIN,TOTAL 1.4 mg/dL (0.2-1.0); CALCIUM, SERUM 7.9 mg/dL (8.5-10.1); CARBON DIOXIDE 31 mmol/L (21-32); CHLORIDE 103 mmol/L (98-107); CREATININE 5.8 mg/dL (0.6-1.3); GLUCOSE 97 mg/dL (74-106); MAGNESIUM 2.1 mg/dL (1.8-2.4); PHOSPHORUS 4.1 mg/dL (2.5-4.9); SODIUM SERUM 139 mmol/L (136-145); UREA NITROGEN, BLOOD 47 mg/dL (7-18)
[2021-03-28] MEDS: ACETYLCYSTEINE 10% SOLN 400 MG/4 ML VIAL NEB SCH ×3 (07:39→23:10)
--- NOTE | 2021-03-28 07:42 | NUR ---
KAYLEE RN NOTE PATIENT IN BED ALERT WITH CONFUSION, ON 2L NC NO SOB NOTED AT THIS TIME, ON TELE MONITOR SR HR 60, JUNIOR MID LINE AND LT FA INTACT AND FLUSHED WELL , PLAN OF CARE DISCUSSED WITH PATIENT , BED IN LOWEST AND LOCKED POSITION , CALL LIGHT WITHIN REACH
[2021-03-28 08:00] VITALS: BP 106/42
[2021-03-28] MEDS: ASPIRIN 81 MG TAB.CHEW PO SCH (08:07)
[2021-03-28] MEDS: ASCORBIC ACID 500 MG TABLET PO SCH (08:07)
[2021-03-28] MEDS: VIT B CMPLX 3/FA/VIT C/BIOTIN 1 TAB TABLET PO SCH (08:08)
[2021-03-28] MEDS: SEVELAMER CARBONATE 800 MG POWD.PACK NG SCH ×3 (08:08→18:00)
[2021-03-28] MEDS: ZINC SULFATE 220 MG CAPSULE PO SCH (08:08)
[2021-03-28] MEDS: FAMOTIDINE (20 MG) 20 MG TABLET PO SCH ×2 (08:08→16:28)
[2021-03-28] MEDS: ALLOPURINOL 100 MG TABLET PO SCH (08:08)
[2021-03-28] MEDS: AMIODARONE HCL 200 MG TABLET PO SCH (08:09)
[2021-03-28] MEDS: CARVEDILOL 12.5 MG TABLET PO SCH ×2 (08:09→16:26)
[2021-03-28] MEDS: RIVAROXABAN 15 MG TABLET PO SCH (08:10)
[2021-03-28] MEDS: PROSOURCE / PROSTAT (PYXIS) 30 ML UDC GT SCH ×3 (08:11→16:26)
[2021-03-28] MEDS: MEROPENEM 500 MG in IV NS 0.9% 50 ML IV SCH ×2 (08:17→21:57)
[2021-03-28] MEDS: DAKINS QUARTER STRENGTH (0.125%) 480 ML BOTTLE TOP SCH (08:20)
[2021-03-28] MEDS: CLOTRIMAZOLE/BETAMETASONE DIPROPIONATE 15 GM TUBE TP SCH ×2 (08:20→22:07)
[2021-03-28] MEDS: THERAHONEY GEL 1.5 OZ TUBE TP SCH (08:20)
--- NOTE | 2021-03-28 08:21 | NUR ---
KAYLEE RN NOTE ST AT BEDSIDE, ABLE TO EAT PUREE DIET WITH COUGH
[2021-03-28] MEDS: DAPTOMYCIN 800 MG in IV NS 0.9% 50 ML IV SCH (09:40)
--- NOTE | 2021-03-28 11:00 | NUR ---
maurice rn note rounds made , all needs attended, not in distress
--- NOTE | 2021-03-28 11:21 | NUR ---
maurice dominic josé luis on hd at this time, all needs attended , will cont to monitor
[2021-03-28 12:00] VITALS: BP 113/51
[2021-03-28] MEDS: METOLAZONE 2.5 MG TABLET PO SCH (13:00)
--- NOTE | 2021-03-28 13:00 | NUR ---
maurice rn note Zaroxolyn hold patient on hd also Renagel not alible pharmacist notified
--- NOTE | 2021-03-28 13:51 | NUR ---
maurice rn note hd completed 1l of fluids out ,bp 110/47
--- NOTE | 2021-03-28 14:14 | NUR ---
television service engineer note called to snf spoke with mansoor rn report given , called to audrey aware that patient is going to snf
[2021-03-28] MEDS: ACETAMINOPHEN 325 MG TABLET PO PRN (15:08)
--- NOTE | 2021-03-28 16:00 | NUR ---
tele rnn note hd completed 1l of fluids removed bp 110/47
[2021-03-28 16:19] VITALS: BP 95/37
--- NOTE | 2021-03-28 16:45 | NUR ---
telesales advisor note patient stated that dont feel good, feels nausea Zofran given as ordered also bp 95/37, called to dr wilcox stated still ok to d]c to snf
--- NOTE | 2021-03-28 18:00 | NUR ---
FISH TENDER NOTE CALLED TO DR SAWYER NOTIFIED THAT BP 90/[address] SAWYER STILL OK TO DISCHARGE TO SNF
--- NOTE | 2021-03-28 18:51 | NUR ---
KICK PLATE INSTALLER NOTE AMBULANCE AT BEDSIDE UNABLE TO TAKE PATIENT DUE TO START TO HAVE SLIGHT SOB AND GURNEY DONT FEET , WILL CALL HYSTER DRIVER , AND WILL INFORM SE SAWYER
[2021-03-28 20:00] VITALS: BP 89/37
[2021-03-28] MEDS: ATORVASTATIN 10 MG TABLET PO SCH (22:01)
[2021-03-28] MEDS: LATANOPROST EYE DROP 0.005% 2.5 ML BOTTLE EACHEYE SCH (22:01)
[2021-03-29] VITALS: BP 107/47
[2021-03-29 04:00] VITALS: BP 98/44
[2021-03-29] MEDS: MIDODRINE HCL (5MG) 5 MG TABLET PO SCH ×3 (05:23→21:07)
[2021-03-29] MEDS: INSULIN REGULAR, HUMAN 100 UNIT/ML 3 ML VIAL SQ PRN ×4 (05:59→17:35)
[2021-03-29] MEDS: BLOOD SUGAR DIAGNOSTIC 1 EACH STRIP IN SCH ×4 (05:59→17:35)
--- NOTE | 2021-03-29 07:16 | NUR ---
RN NOTE PATIENT IS IN BED WITH HOB AT SEMI FOWLERS POSITION. PATIENT IS ON BIPAP. PATIENT IS AOX1. JUNIOR MIDLINE IS PATENT AND INTACT. BED IS LOCKED IN THE LOWEST POSITION, 3 GUARD RAILS RAISED, CALL HUGHES WITHIN REACH AND ALL HOSPITAL SAFETY PRECAUTIONS ARE BEING FOLLOWED. WILL CONTINUE TO MONITOR THROUGHOUT SHIFT.
[2021-03-29] MEDS: ACETYLCYSTEINE 10% SOLN 400 MG/4 ML VIAL NEB SCH ×2 (07:35→15:35)
[2021-03-29 08:00] VITALS: BP 105/38
[2021-03-29] MEDS: FAMOTIDINE (20 MG) 20 MG TABLET PO SCH ×2 (08:44→16:12)
[2021-03-29] MEDS: ASCORBIC ACID 500 MG TABLET PO SCH (08:44)
[2021-03-29] MEDS: ALLOPURINOL 100 MG TABLET PO SCH (08:44)
[2021-03-29] MEDS: SEVELAMER CARBONATE 800 MG POWD.PACK NG SCH ×3 (08:44→17:35)
[2021-03-29] MEDS: VIT B CMPLX 3/FA/VIT C/BIOTIN 1 TAB TABLET PO SCH (08:44)
[2021-03-29] MEDS: ASPIRIN 81 MG TAB.CHEW PO SCH (08:44)
[2021-03-29] MEDS: RIVAROXABAN 15 MG TABLET PO SCH (08:46)
[2021-03-29] MEDS: CARVEDILOL 12.5 MG TABLET PO SCH ×2 (08:47→16:11)
[2021-03-29] MEDS: AMIODARONE HCL 200 MG TABLET PO SCH (08:47)
[2021-03-29] MEDS: ZINC SULFATE 220 MG CAPSULE PO SCH (08:48)
[2021-03-29] MEDS: CLOTRIMAZOLE/BETAMETASONE DIPROPIONATE 15 GM TUBE TP SCH ×2 (08:49→21:08)
[2021-03-29] MEDS: THERAHONEY GEL 1.5 OZ TUBE TP SCH (08:49)
[2021-03-29] MEDS: MEROPENEM 500 MG in IV NS 0.9% 50 ML IV SCH ×2 (08:49→20:36)
[2021-03-29] MEDS: PROSOURCE / PROSTAT (PYXIS) 30 ML UDC GT SCH ×3 (08:49→16:12)
[2021-03-29] MEDS: DAKINS QUARTER STRENGTH (0.125%) 480 ML BOTTLE TOP SCH (08:49)
[2021-03-29 16:00] VITALS: BP 99/43
--- NOTE | 2021-03-29 18:41 | NUR ---
RN NOTE PATIENT IS IN BED WITH HOB AT SEMI FOWLERS POSITION. PATIENT IS ON 2L NC WITH NO SIGNS OF LABORED BREATHING. PATIENT IS AOX1. JUNIOR MIDLINE IS PATENT AND INTACT. BED IS LOCKED IN THE LOWEST POSITION, 3 GUARD RAILS RAISED, CALL HUGHES WITHIN REACH AND ALL HOSPITAL SAFETY PRECAUTIONS ARE BEING FOLLOWED. ALL DUE MEDS GIVEN AND PATIENT REMAINED STABLE THROUGHOUT SHIFT. WILL ENDORSE TO APPLICATION SYSTEMS ADMINISTRATOR RN.
--- NOTE | 2021-03-29 19:05 | NUR ---
RN NOTES: RECEIVED AWAKE ON BED, A/OX1,WITH PERIODS OF CONFUSION, CONVERSANT, ABLE TO MAKE NEEDS KNOWN, ORIENTED TO UNIT AND STAFF, ON O2 AT 2L/MIN,JUNIOR-ML, RIGHT CHEST--HD PORT, ORIENTED TO UNIT AND STAFF, FALL,SAFETY AND ASPIRATION PRECAUTION OBSERVED, STABLE, NO SIGN OF RESPIRATORY DEPRESSION.
[2021-03-29 20:00] VITALS: BP 100/43
[2021-03-29] MEDS: ATORVASTATIN 10 MG TABLET PO SCH (21:20)
[2021-03-29] MEDS: LATANOPROST EYE DROP 0.005% 2.5 ML BOTTLE EACHEYE SCH (21:20)
--- NOTE | 2021-03-29 21:54 | NUR ---
RT NOTE PLACED PT ON NOC BIPAP AT THIS TIME. MEPILEX APPLIED TO FACE. A SMALL DRY SCAB NOTED ON BRIDGE OF NOSE PRIOR TO PLACEMENT. BIPAP PLUGGED TO RED OUTLET. ALARMS ON AND AUDIBLE. NO RESPIRATORY DISTRESS NOTED. CHARGE NURSE TITUS AND RN TIFFANIE NOTIFIED.
--- NOTE | 2021-03-29 22:13 | NUR ---
RN NOTES: -PATIENT VERBALIZED HE WANTS TO SLEEP, DUE MEDICATION GIVEN.. -RT CAME AND PUT ON HIS BIPAP. -KEPT CALL LIGHT WITHIN EASY REACH.
--- NOTE | 2021-03-29 23:36 | NUR ---
RN NOTES: -KEEP ON CLOSE WATCH, AWAKE IN BETWEEN TRYING TO REMOVE HIS BPAP EXPLAINED TO HIM HE NEEDS IT FOR SLEEPING.
[2021-03-30] VITALS: BP 110/47
[2021-03-30] MEDS: BLOOD SUGAR DIAGNOSTIC 1 EACH STRIP IN SCH ×4 (00:05→18:10)
--- NOTE | 2021-03-30 00:07 | NUR ---
RN NOTES: BLOOD SUGAR CHECKED-119, NO INSULIN PER SCALE.WILL CONTINUE TO MONITOR FOR SIGN OF HYPER/HYPOGLYCEMIA.
[2021-03-30] MEDS: INSULIN REGULAR, HUMAN 100 UNIT/ML 3 ML VIAL SQ PRN ×4 (00:09→17:31)
[2021-03-30] MEDS: ACETYLCYSTEINE 10% SOLN 400 MG/4 ML VIAL NEB SCH ×4 (00:25→22:57)
--- NOTE | 2021-03-30 03:30 | NUR ---
RN NOTES: -SPONGE BATH RENDERED, DRESSING DONE ON THE RLE, LLE AND PRESSURE SORE ON THE BUTTOCKS AREA, ALL DRESSING CHANGE.NO BM, COOPERATIVE DURING REPOSITIONING HELPING THE NURSES A LOT. -HE DID NOT REMOVE HIS BIPAP, HE WENT BACK TO SLEEP AFTER MORNING CARE.
[2021-03-30 04:00] VITALS: BP 112/53
[2021-03-30] MEDS: MIDODRINE HCL (5MG) 5 MG TABLET PO SCH ×3 (05:20→20:58)
--- NOTE | 2021-03-30 05:43 | NUR ---
RT NOTE BIPAP REMOVED AT THIS TIME. PLACED PT ON 4LPM NASAL CANNULA. PT TOLERATING WELL. NO RESPIRATORY DISTRESS NOTED. CHARGE NURSE TITUS AND RN TIFFANIE NOTIFIED.
--- NOTE | 2021-03-30 06:31 | NUR ---
RN NOTES: BLOOD SUGAR CHECKED 110, NO INSULIN OER SCALE, CONTINUE TO MONITOR FOR SIGN OF HYPER/HYPOGLYCEMIA.
--- NOTE | 2021-03-30 06:42 | NUR ---
RN NOTES: BIPAP REMOVED AT 0543,REMAIN STABLE, NO PAIN OR DISCOMFORT, PLEASANT MOOD, COOPERATIVE,AWAITING FOR HIS BREAKFAST TO BE SERVE, REPOSITIONING DONE, BLE ELEVATED,FOR POSSIBLE DISCHARGE THIS AFTERNOON.ENDORSED FOR CONTINUITY OF CARE.
--- NOTE | 2021-03-30 07:11 | NUR ---
LABOR COMMISSIONER OPENING NOTE PATIENT IN BED, A&OX1, NC AT 2L WITH NO SIGNS OF LABORED BREATHING. LEFT UPPER ARM MIDLINE, INTACT. BED LOCKED IN LOW POSITION, 3 SIDE RAILS UP, CALL LIGHT WITHIN REACH, ALL SAFETY PROTOCOL FOLLOWED. WILL CONTINUE TO MONITOR DURING SHIFT.
[2021-03-30 08:00] VITALS: BP 100/49
[2021-03-30] MEDS: DAPTOMYCIN 800 MG in IV NS 0.9% 50 ML IV SCH (08:32)
[2021-03-30] MEDS: SEVELAMER CARBONATE 800 MG POWD.PACK NG SCH ×3 (08:32→18:00)
[2021-03-30] MEDS: ASCORBIC ACID 500 MG TABLET PO SCH (08:32)
[2021-03-30] MEDS: ASPIRIN 81 MG TAB.CHEW PO SCH (08:32)
[2021-03-30] MEDS: ALLOPURINOL 100 MG TABLET PO SCH (08:33)
[2021-03-30] MEDS: VIT B CMPLX 3/FA/VIT C/BIOTIN 1 TAB TABLET PO SCH (08:33)
[2021-03-30] MEDS: ZINC SULFATE 220 MG CAPSULE PO SCH (08:33)
[2021-03-30] MEDS: AMIODARONE HCL 200 MG TABLET PO SCH (08:33)
[2021-03-30] MEDS: CARVEDILOL 12.5 MG TABLET PO SCH ×2 (08:33→16:41)
[2021-03-30] MEDS: FAMOTIDINE (20 MG) 20 MG TABLET PO SCH ×2 (08:33→16:34)
[2021-03-30] MEDS: CLOTRIMAZOLE/BETAMETASONE DIPROPIONATE 15 GM TUBE TP SCH ×2 (08:34→20:59)
[2021-03-30] MEDS: DAKINS QUARTER STRENGTH (0.125%) 480 ML BOTTLE TOP SCH (08:34)
[2021-03-30] MEDS: THERAHONEY GEL 1.5 OZ TUBE TP SCH (08:34)
[2021-03-30] MEDS: MEROPENEM 500 MG in IV NS 0.9% 50 ML IV SCH ×2 (08:35→20:58)
[2021-03-30] MEDS: PROSOURCE / PROSTAT (PYXIS) 30 ML UDC GT SCH ×3 (08:35→16:40)
[2021-03-30] MEDS: RIVAROXABAN 15 MG TABLET PO SCH (08:41)
[2021-03-30 10:04] LABS: BASOPHILS # (AUTO) 0.1 K/uL (0.0-0.2); BASOPHILS % (AUTO) 1.2 % (0.0-2.0); EOSINOPHILS % (AUTO) 4.7 % (0.0-6.0); HEMATOCRIT 25 % (39-51); HEMOGLOBIN 7.8 g/dL (13.5-17.5); LYMPHOCYTES # (AUTO) 0.6 K/uL (0.8-4.8); LYMPHOCYTES % (AUTO) 4.9 % (20.0-44.0); MEAN CORPUSCULAR HGB CONC 31 g/dl (31.0-36.0); MEAN CORPUSCULAR VOLUME 99 fL (80-96); MONOCYTES % (AUTO) 8.9 % (2.0-12.0); NEUTROPHILS # (AUTO) 9.5 K/uL (1.8-8.9); NEUTROPHILS % (AUTO) 80.3 % (43.0-81.0); PLATELET COUNT (AUTO) 233 K/uL (150-450); WHITE BLOOD COUNT (AUTO) 11.8 K/uL (4.3-11.0)
[2021-03-30 10:41] LABS: CARBON DIOXIDE 28 mmol/L (21-32); CHLORIDE 101 mmol/L (98-107); CREATININE 6.9 mg/dL (0.6-1.3); GLUCOSE 163 mg/dL (74-106); POTASSIUM 5.3 mmol/L (3.5-5.1); SODIUM SERUM 137 mmol/L (136-145); UREA NITROGEN, BLOOD 60 mg/dL (7-18)
[2021-03-30 12:01] VITALS: BP 104/50
[2021-03-30 16:00] VITALS: BP 106/53
[2021-03-30 16:19] LABS: HEMOGLOBIN 8.2 g/dL (13.5-17.5)
--- NOTE | 2021-03-30 16:20 | NUR ---
RN NOTE HEMATURIA NOTED. DR. SAWYER NOTIFIED. APPROPRIATE ORDERS PLACED. WILL CONTINUE TO MONITOR.
[2021-03-30 16:28] LABS: ABG BASE EXCESS -1.3 mmol/L; ABG OXYGEN SATURATION 95.8 % (92.0-98.5); ABG PCO2 47.1 mmHg (35.0-45.0); ABG PH 7.336 (7.350-7.450); ABG PO2 89.5 mmHg (75.0-100.0); AaDO2 141.5 mmHg; MetHb 0.1 % (0.0-1.5); O2Hb 94.7 % (94.0-97.0); SITE, ABG Right Radial; VENT MODE, BG NASAL CANNULA
--- NOTE | 2021-03-30 18:37 | NUR ---
RN CLOSING NOTE PATIENT IS AWAKE IN BED, A&O X1, COOPERATIVE. PATIENT IS ON 2L NC WITH SO SIGNS OF LABORED BREATHING AT THIS TIME. LEFT UA MIDLINE IN PLACE AND PATENT. BED LOCKED AND IN LOWEST POSITION, 3 SIDE RAILS UP, CALL LIGHT WITHIN REACH. ALL SAFETY PRECAUTIONS IMPLEMENTED. WILL ENDORSED TO ORNAMENTER HAND NURSE.
[2021-03-30 20:00] VITALS: BP 103/52
[2021-03-30] MEDS: ATORVASTATIN 10 MG TABLET PO SCH (21:00)
[2021-03-30] MEDS: LATANOPROST EYE DROP 0.005% 2.5 ML BOTTLE EACHEYE SCH (21:00)
[2021-03-31] VITALS: BP 112/48
[2021-03-31] MEDS: BLOOD SUGAR DIAGNOSTIC 1 EACH STRIP IN SCH ×4 (01:01→17:32)
[2021-03-31] MEDS: INSULIN REGULAR, HUMAN 100 UNIT/ML 3 ML VIAL SQ PRN ×4 (01:04→17:34)
[2021-03-31 04:00] VITALS: BP 121/48
[2021-03-31] MEDS: MIDODRINE HCL (5MG) 5 MG TABLET PO SCH ×3 (06:12→20:34)
[2021-03-31 07:19] LABS: CALCIUM, SERUM 8.1 mg/dL (8.5-10.1); CARBON DIOXIDE 28 mmol/L (21-32); CHLORIDE 100 mmol/L (98-107); GLUCOSE 141 mg/dL (74-106); POTASSIUM 5.6 mmol/L (3.5-5.1); SODIUM SERUM 139 mmol/L (136-145); UREA NITROGEN, BLOOD 68 mg/dL (7-18)
--- NOTE | 2021-03-31 07:34 | NUR ---
RN OPENING NOTES RECEIVED PT AWAKE, 0X1-2. PT ON 2L NC SAT @100%. NO SOB NOTED, 0 DISTRESS. YUN MIDLINE NOTED, PATENT WITH NO SIGNS INFILTRATION. ALL SAFETY MEASURES RENDERED, BED IN LOWEST POSITION, LOCKED, WITH CALL LIGHT WITHIN REACH. WILL CONTINUE TO MONITOR.
--- NOTE | 2021-03-31 07:36 | NUR ---
RN NOTES, NO SIGNIFICANT CHANGE IN CONDITION DURING THE NIGHT, NO SOB/ACUTE DISTRESS NOTED, CONT ON BIPAP AT NIGHT, ON 2LPM VIA NC, ON STRICT ASPIRATION PRECAUTION, ENDORSED TO DAY SHIFT NURSE FOR CONTINUATION OF CARE.
[2021-03-31 08:00] VITALS: BP 101/50
[2021-03-31] MEDS: MEROPENEM 500 MG in IV NS 0.9% 50 ML IV SCH ×2 (08:30→20:35)
[2021-03-31] MEDS: ZINC SULFATE 220 MG CAPSULE PO SCH (08:31)
[2021-03-31] MEDS: SEVELAMER CARBONATE 800 MG POWD.PACK NG SCH ×3 (08:31→17:36)
[2021-03-31] MEDS: ASPIRIN 81 MG TAB.CHEW PO SCH (08:31)
[2021-03-31] MEDS: VIT B CMPLX 3/FA/VIT C/BIOTIN 1 TAB TABLET PO SCH (08:31)
[2021-03-31] MEDS: ASCORBIC ACID 500 MG TABLET PO SCH (08:32)
[2021-03-31] MEDS: PROSOURCE / PROSTAT (PYXIS) 30 ML UDC GT SCH ×3 (08:33→16:27)
[2021-03-31] MEDS: AMIODARONE HCL 200 MG TABLET PO SCH (08:33)
[2021-03-31] MEDS: CARVEDILOL 12.5 MG TABLET PO SCH ×2 (08:34→16:27)
[2021-03-31] MEDS: ALLOPURINOL 100 MG TABLET PO SCH (08:35)
[2021-03-31] MEDS: FAMOTIDINE (20 MG) 20 MG TABLET PO SCH ×2 (08:40→16:30)
[2021-03-31] MEDS: RIVAROXABAN 15 MG TABLET PO SCH (08:42)
[2021-03-31] MEDS: DAKINS QUARTER STRENGTH (0.125%) 480 ML BOTTLE TOP SCH (08:55)
[2021-03-31] MEDS: CLOTRIMAZOLE/BETAMETASONE DIPROPIONATE 15 GM TUBE TP SCH ×2 (08:55→20:34)
[2021-03-31] MEDS: THERAHONEY GEL 1.5 OZ TUBE TP SCH (08:56)
--- NOTE | 2021-03-31 08:56 | NUR ---
RN NOTES; BP MEDICATION HELD DUE TO LOW BP OF 101/50. MANUALLY CHECKED TO CONFIRM ACCURACY. NO ACTIVE BLEEDING ON SHIFT BUT IT WAS REPORTED PT HAD HEMATURIA YESTERDAY. FRANCESCO HELD. AWARE. WILL CONTINUE TO MONITOR.
[2021-03-31 08:57] LABS: CREATININE 7.8 mg/dL (0.6-1.3)
[2021-03-31 09:26] LABS: BASOPHILS # (AUTO) 0.1 K/uL (0.0-0.2); BASOPHILS % (AUTO) 0.7 % (0.0-2.0); EOSINOPHILS % (AUTO) 4.1 % (0.0-6.0); HEMATOCRIT 27 % (39-51); HEMOGLOBIN 8.2 g/dL (13.5-17.5); LYMPHOCYTES # (AUTO) 0.7 K/uL (0.8-4.8); LYMPHOCYTES % (AUTO) 5.2 % (20.0-44.0); MEAN CORPUSCULAR HGB CONC 30 g/dl (31.0-36.0); MEAN CORPUSCULAR VOLUME 101 fL (80-96); MONOCYTES # (AUTO) 1.3 K/uL (0.1-1.30); NEUTROPHILS # (AUTO) 10.8 K/uL (1.8-8.9); PLATELET COUNT (AUTO) 230 K/uL (150-450); RED BLOOD CELL COUNT(AUTO) 2.68 MIL/uL (4.5-6.0); WHITE BLOOD COUNT (AUTO) 13.5 K/uL (4.3-11.0)
[2021-03-31] MEDS: ACETYLCYSTEINE 10% SOLN 400 MG/4 ML VIAL NEB SCH ×2 (09:48→15:30)
[2021-03-31 12:00] VITALS: BP 100/44
[2021-03-31] MEDS: ERGOCALCIFEROL (VITAMIN D 2) 50,000 UNIT CAPSULE PO SCH (12:06)
[2021-03-31] MEDS: METOLAZONE 2.5 MG TABLET PO SCH (12:06)
[2021-03-31 16:00] VITALS: BP 110/66
--- NOTE | 2021-03-31 18:09 | NUR ---
RN CLOSING NOTES; PT TO BE D/C TO [facility]. REPORT GIVEN TO SARINA. INSTRUCTIONS GIVEN AND EXPLAINED TO RN. RN STATES UNDERSTANDING. ALL PAPER WORK SIGNED AND COMPLETED. PT IN STABLE CONDITION.
--- NOTE | 2021-03-31 19:45 | NUR ---
RN NOTES, AMBULANCE HERE TO PARADI TENDER PATIENT BP 97/38, INFORMED SNF BECAUSE CAPACITOR TESTER INSISTED TO CALL THE PLACE THAT THEY MAY NOT ACCEPT PATIENT, CALL FACILITY AND NURSE STATED THAT THEY WILL NOT ACCEPT PATIENT WITH THIS BP, EXPLAINED THAT PATIENT IS ON MIDODRINE TO MAINTAIN BP, AND THEY KNOW EXACTLY THAT PATIENT MOSTLY IN THE LOW SIDE, PER HER THE DIASTOLIC IS TOO LOW, AND WILL CALL DON, THEN SHE CALL AND PER DON THEY WILL NOT ACCEPT THE PATIENT MATT TEMPLETON DOOR GLASS INSTALLER AWARE.
[2021-03-31 20:00] VITALS: BP 105/38
--- NOTE | 2021-03-31 22:10 | NUR ---
RN NOTES, REPORT GIVEN TO JOSUE FOR CONTINUATION OF CARE, PATIENT PLACED ON BIPAP AT THIS TIME, RT AT BEDSIDE, PATIENT IN STABLE CONDITION, NO SOB/ACUTE DISTRESS NOTED.
--- NOTE | 2021-03-31 22:11 | NUR ---
RN NOTE REPORT RECEIVED BY JORGE MARTIN FOR BREA.
[2021-03-31] MEDS: LATANOPROST EYE DROP 0.005% 2.5 ML BOTTLE EACHEYE SCH (22:18)
[2021-03-31] MEDS: ATORVASTATIN 10 MG TABLET PO SCH (22:18)
[2021-04-01] VITALS: BP 96/65
[2021-04-01] MEDS: ALBUTEROL FS 2.5 MG/3 ML VIAL.NEB IH PRN ×2 (00:08→10:57)
[2021-04-01] MEDS: ACETYLCYSTEINE 10% SOLN 400 MG/4 ML VIAL NEB SCH ×3 (00:08→14:49)
[2021-04-01] MEDS: BLOOD SUGAR DIAGNOSTIC 1 EACH STRIP IN SCH ×4 (00:27→17:25)
[2021-04-01] MEDS: INSULIN REGULAR, HUMAN 100 UNIT/ML 3 ML VIAL SQ PRN ×3 (00:38→17:27)
[2021-04-01 04:00] VITALS: BP 104/58
[2021-04-01] MEDS: MIDODRINE HCL (5MG) 5 MG TABLET PO SCH ×3 (06:02→21:08)
--- NOTE | 2021-04-01 07:23 | NUR ---
RN NOTE NO CHANGES IN PT CONDITION DURING SHIFT. PT IS A/OX2, LETHARGIC. PT ON 4L OF O2 VIA NC SHOWING NO S/S OF RESP DISTRESS/SOB. OXYGEN SATURATION >95%. IV ACCESS ON LEFT UPPER ARM MIDLINE AND RIGHT IJ PERMACATH NOTED. IV LINES FLUSHED, PATENT, AND INTACT WITH NO INFILTRATION. ALL DUE MEDS GIVEN ORDERED. PT KEPT CLEAN AND COMFORTABLE. ALL SAFETY MEASURES IMPLEMENTED. CALL LIGHT WITHIN REACH. BED ALARM ON. BED LOCKED AND IN LOWEST POSITION. WILL ENDORSE TO MORNING SHIFT RN FOR BREA.
--- NOTE | 2021-04-01 07:31 | NUR ---
RN OPENING NOTES RECEIVED PT AWAKE, 0X1/2 IN SUPINE POS. PT ON 2L NC SAT @96%. NO SOB NOTED, 0 DISTRESS. YUN MIDLINE NOTED, PATENT WITH NO SIGNS INFILTRATION. PT TO BE D/C TO SNF BUT DID NOT GO DUE TO LOW BLOOD PRESSURE. ALL SAFETY MEASURES RENDERED, BED IN LOWEST POSITION, LOCKED, WITH CALL LIGHT WITHIN REACH. WILL CONTINUE TO MONITOR.
[2021-04-01 08:00] VITALS: BP 103/41
[2021-04-01] MEDS: SEVELAMER CARBONATE 800 MG POWD.PACK NG SCH ×3 (08:32→17:13)
[2021-04-01] MEDS: ASCORBIC ACID 500 MG TABLET PO SCH (08:32)
[2021-04-01] MEDS: MEROPENEM 500 MG in IV NS 0.9% 50 ML IV SCH ×2 (08:32→20:10)
[2021-04-01] MEDS: VIT B CMPLX 3/FA/VIT C/BIOTIN 1 TAB TABLET PO SCH (08:32)
[2021-04-01] MEDS: ZINC SULFATE 220 MG CAPSULE PO SCH (08:32)
[2021-04-01] MEDS: FAMOTIDINE (20 MG) 20 MG TABLET PO SCH ×2 (08:32→17:13)
[2021-04-01] MEDS: ASPIRIN 81 MG TAB.CHEW PO SCH (08:32)
[2021-04-01] MEDS: ALLOPURINOL 100 MG TABLET PO SCH (08:32)
[2021-04-01] MEDS: RIVAROXABAN 15 MG TABLET PO SCH (08:33)
[2021-04-01] MEDS: PROSOURCE / PROSTAT (PYXIS) 30 ML UDC GT SCH ×3 (08:43→17:13)
[2021-04-01] MEDS: AMIODARONE HCL 200 MG TABLET PO SCH (08:44)
[2021-04-01] MEDS: CARVEDILOL 12.5 MG TABLET PO SCH ×2 (08:45→16:08)
[2021-04-01] MEDS: DAKINS QUARTER STRENGTH (0.125%) 480 ML BOTTLE TOP SCH (08:46)
[2021-04-01] MEDS: THERAHONEY GEL 1.5 OZ TUBE TP SCH (08:46)
[2021-04-01] MEDS: CLOTRIMAZOLE/BETAMETASONE DIPROPIONATE 15 GM TUBE TP SCH ×2 (08:46→21:04)
[2021-04-01] MEDS: DAPTOMYCIN 800 MG in IV NS 0.9% 50 ML IV SCH (09:45)
[2021-04-01 10:32] LABS: ABG BASE EXCESS -3.5 mmol/L; ABG OXYGEN SATURATION 90.7 % (92.0-98.5); ABG PCO2 53.3 mmHg (35.0-45.0); ABG PH 7.263 (7.350-7.450); ABG PO2 72.6 mmHg (75.0-100.0); AaDO2 122.3 mmHg; COHb 1.2 % (0.5-1.5); MetHb 0.3 % (0.0-1.5); O2Hb 89.3 % (94.0-97.0); SITE, ABG Right Radial
--- NOTE | 2021-04-01 10:52 | NUR ---
CM NOTIFIED DISCHARGE CANCELED.
--- NOTE | 2021-04-01 10:52 | NUR ---
PATIENT C/O SOB ALTERED ABG DONE AND PER DR. CALL HOLD DISCHARGE ,PLACED ON BIPAP AND WILL REPEAT ABG IN 3HOURS PER MD.
[2021-04-01 10:59] LABS: BASOPHILS # (AUTO) 0.1 K/uL (0.0-0.2); BASOPHILS % (AUTO) 0.4 % (0.0-2.0); EOSINOPHILS % (AUTO) 3.4 % (0.0-6.0); HEMATOCRIT 25 % (39-51); HEMOGLOBIN 7.5 g/dL (13.5-17.5); LYMPHOCYTES # (AUTO) 0.6 K/uL (0.8-4.8); LYMPHOCYTES % (AUTO) 4.7 % (20.0-44.0); MEAN CORPUSCULAR HGB CONC 31 g/dl (31.0-36.0); MEAN CORPUSCULAR VOLUME 100 fL (80-96); MONOCYTES # (AUTO) 1.3 K/uL (0.1-1.30); MONOCYTES % (AUTO) 9.4 % (2.0-12.0); NEUTROPHILS # (AUTO) 11.2 K/uL (1.8-8.9); NEUTROPHILS % (AUTO) 82.1 % (43.0-81.0); PLATELET COUNT (AUTO) 245 K/uL (150-450); RED BLOOD CELL COUNT(AUTO) 2.45 MIL/uL (4.5-6.0); WHITE BLOOD COUNT (AUTO) 13.6 K/uL (4.3-11.0)
--- NOTE | 2021-04-01 11:05 | NUR ---
RT PT PLACED ON BIPAP WITH PROTECTIVE DRESSING OVER NOSE, PER MD AFTER ABG RESULTS, ABG ORDERED AFTER 2 HR KEPT IN KAYLEE WILL CONT TO MONITOR
[2021-04-01 12:00] VITALS: BP 104/41
--- NOTE | 2021-04-01 12:57 | NUR ---
RN NOTES; MORNING BP MEDICATION NOT GIVEN DUE TO LOW BP.
--- NOTE | 2021-04-01 13:27 | NUR ---
RN NOTES; AFTERNOON MEDICATION ON HOLD DUE TO PT ON BIPAP TREATMENT.
[2021-04-01 14:15] LABS: ABG BASE EXCESS 3.3 mmol/L; ABG OXYGEN SATURATION 89.1 % (92.0-98.5); ABG PCO2 48.9 mmHg (35.0-45.0); ABG PH 7.387 (7.350-7.450); ABG PO2 60.6 mmHg (75.0-100.0); AaDO2 81.3 mmHg; MetHb 0.4 % (0.0-1.5); O2Hb 87.9 % (94.0-97.0); SITE, ABG Right Radial; VENT MODE, BG 2l NC post bipap
[2021-04-01 16:00] VITALS: BP 110/56
--- NOTE | 2021-04-01 16:09 | NUR ---
RN NOTES; EVENING BP MEDICATION HELD DUE TO LOW BP OF 110/56. WILL CONTINUE TO MONITOR.
--- NOTE | 2021-04-01 18:31 | NUR ---
RN CLOSING NOTES; PT DC'D CANCELLED. PT WAS ALTERED. BP LOW. PT HAD BIPAP TREATMENT, TOLERATED WELL AND WAS MORE ALERT. CONTINUE BIPAP TREATMENT TONIGHT. PT A/OX2-3. JUNIOR ML FLUSHED, PATENT, WITH NO SIGNS OF INFILTRATION. SAFETY MEASURES RENDERED, BED LOCKED IN LOWEST POS. CALL LIGHT WITHIN REACH. ENDORSED TO IMMIGRATION COORDINATOR RN IN STABLE CONDITION.
[2021-04-01 20:00] VITALS: BP 101/37
[2021-04-01] MEDS: LATANOPROST EYE DROP 0.005% 2.5 ML BOTTLE EACHEYE SCH (21:05)
[2021-04-01] MEDS: ATORVASTATIN 10 MG TABLET PO SCH (21:08)
--- NOTE | 2021-04-01 22:34 | NUR ---
RT NOTE Pt rec'd on 3lnc. Pt shows no signs of resp distress or sob. Pt placed on bipap on noted settings as charted. Redness and slight scarring noted on pt's nose. Under the nose bipap mask in place, Rn aware. Bipap plugged into red outlet. Ambu bag is bedside. Will continue to monitor closely. Addendum: 04/01/21 at 2238 by SHAHEED ARORA RT Amended: Links added.
[2021-04-02] VITALS: BP 103/24
[2021-04-02] MEDS: ACETYLCYSTEINE 10% SOLN 400 MG/4 ML VIAL NEB SCH ×4 (00:29→23:23)
[2021-04-02] MEDS: ALBUTEROL FS 2.5 MG/3 ML VIAL.NEB IH PRN (00:29)
[2021-04-02] MEDS: BLOOD SUGAR DIAGNOSTIC 1 EACH STRIP IN SCH ×4 (00:42→17:54)
[2021-04-02] MEDS: INSULIN REGULAR, HUMAN 100 UNIT/ML 3 ML VIAL SQ PRN ×3 (00:46→17:58)
[2021-04-02 04:00] VITALS: BP 108/48
[2021-04-02] MEDS: MIDODRINE HCL (5MG) 5 MG TABLET PO SCH ×3 (05:54→21:54)
[2021-04-02 06:47] LABS: ABG BASE EXCESS 1.4 mmol/L; ABG OXYGEN SATURATION 84.8 % (92.0-98.5); ABG PCO2 53.9 mmHg (35.0-45.0); ABG PO2 57.1 mmHg (75.0-100.0); AaDO2 78.9 mmHg; COHb 0.4 % (0.5-1.5); MetHb 0.6 % (0.0-1.5); SITE, ABG Left Radial; VENT MODE, BG Nasal Cannula
--- NOTE | 2021-04-02 07:30 | NUR ---
RN NOTES PT FOUND IN BARIMAXX BED DISPLAYING NO S/S OF DISTRESS, PT ENDORSES NO PAIN AND IS BREATHING EVEN AND UNLABORED ON 2L O2 NC. PT IS A&O2-3, SOME ELEMENTS OF CONFUSION BUT ABLE TO MAKE NEEDS KNOWN. R CHEST WALL PERMACATH ASSESSED, DRESSING INTACT, CLEAN AND DRY. L UA MIDLINE ALSO INTACT, CLEAN AND DRY. RN WILL MONITOR AND TREAT THROUGHOUT SHIFT. SAFETY MEASURES IN PLACE, BED LOCKED AND IN LOWEST POSITION, SIDE RAILS UPX2, CALL LIGHT WITHIN REACH, PT INSTRUCTED TO CALL FOR ASSISTANCE.
[2021-04-02] MEDS: SEVELAMER CARBONATE 800 MG POWD.PACK NG SCH ×3 (07:59→17:28)
[2021-04-02 08:00] VITALS: BP 108/48
--- NOTE | 2021-04-02 08:13 | NUR ---
abg result relayed to dr. lazaro no new orders.
[2021-04-02] MEDS: ZINC SULFATE 220 MG CAPSULE PO SCH (09:00)
[2021-04-02] MEDS: ASPIRIN 81 MG TAB.CHEW PO SCH (09:00)
[2021-04-02] MEDS: MEROPENEM 500 MG in IV NS 0.9% 50 ML IV SCH ×3 (09:00→21:54)
[2021-04-02] MEDS: VIT B CMPLX 3/FA/VIT C/BIOTIN 1 TAB TABLET PO SCH (09:00)
[2021-04-02] MEDS: PROSOURCE / PROSTAT (PYXIS) 30 ML UDC GT SCH ×3 (09:00→17:00)
[2021-04-02] MEDS: ASCORBIC ACID 500 MG TABLET PO SCH (09:00)
[2021-04-02] MEDS: FAMOTIDINE (20 MG) 20 MG TABLET PO SCH ×2 (09:00→17:00)
[2021-04-02] MEDS: ALLOPURINOL 100 MG TABLET PO SCH (09:06)
[2021-04-02] MEDS: CARVEDILOL 12.5 MG TABLET PO SCH ×2 (09:07→17:00)
[2021-04-02] MEDS: AMIODARONE HCL 200 MG TABLET PO SCH (09:07)
[2021-04-02] MEDS: RIVAROXABAN 15 MG TABLET PO SCH (09:10)
--- NOTE | 2021-04-02 09:13 | NUR ---
RN NOTE RN SPOKE TO PT ABOUT ORDERED MEDS. PT REFUSED ALL.. RN ENCOURAGED TAKING BP AND CARDIAC RX. PT AND RN WENT MEDICATION BY MEDICATION ACCEPTING OR REFUSING MEDICATION. RN TAUGHT BENEFIT OF DENIED RX AND ADVISED PT TO EAT WELL BALANCED DIET AFTER DISCHARGE TO INCREASE NUTRITIONAL STATUS.
[2021-04-02] MEDS: DAKINS QUARTER STRENGTH (0.125%) 480 ML BOTTLE TOP SCH (09:26)
[2021-04-02] MEDS: CLOTRIMAZOLE/BETAMETASONE DIPROPIONATE 15 GM TUBE TP SCH ×2 (09:26→21:56)
[2021-04-02] MEDS: THERAHONEY GEL 1.5 OZ TUBE TP SCH (09:26)
[2021-04-02 12:00] VITALS: BP 95/44
[2021-04-02] MEDS: METOLAZONE 2.5 MG TABLET PO SCH (13:00)
--- NOTE | 2021-04-02 13:30 | NUR ---
RN NOTE HD STARTED
[2021-04-02] MEDS ORDERED: ALBUMIN 25% 25 GM in PREMIX 1 EA IV PRN (14:00)
[2021-04-02] MEDS: ALBUMIN 25% 25 GM in PREMIX 1 EA IV PRN (14:27)
[2021-04-02 15:29] LABS: BASOPHILS # (AUTO) 0.2 K/uL (0.0-0.2); BASOPHILS % (AUTO) 1.3 % (0.0-2.0); EOSINOPHILS % (AUTO) 3.3 % (0.0-6.0); HEMATOCRIT 24 % (39-51); HEMOGLOBIN 7.2 g/dL (13.5-17.5); LYMPHOCYTES # (AUTO) 0.7 K/uL (0.8-4.8); LYMPHOCYTES % (AUTO) 5.7 % (20.0-44.0); MEAN CORPUSCULAR HGB CONC 30 g/dl (31.0-36.0); MEAN CORPUSCULAR VOLUME 100 fL (80-96); MONOCYTES # (AUTO) 1.2 K/uL (0.1-1.30); MONOCYTES % (AUTO) 9.4 % (2.0-12.0); NEUTROPHILS # (AUTO) 10.2 K/uL (1.8-8.9); NEUTROPHILS % (AUTO) 80.3 % (43.0-81.0); PLATELET COUNT (AUTO) 253 K/uL (150-450); RED BLOOD CELL COUNT(AUTO) 2.41 MIL/uL (4.5-6.0); WHITE BLOOD COUNT (AUTO) 12.7 K/uL (4.3-11.0)
[2021-04-02 16:00] VITALS: BP 97/52
--- NOTE | 2021-04-02 16:29 | NUR ---
RN NOTE HD FINISHED, 500 ML OUT
--- NOTE | 2021-04-02 18:32 | NUR ---
ff. up bmp result with lab still pending per lab have issue with machine ,will release result once its ready.will endorse to night charge to ff. up.
--- NOTE | 2021-04-02 19:10 | NUR ---
RN NOTES PT FOUND IN BARIMAXX BED LAYING SEMI FOWLERS POSITION, FLACC = 0 AND BREATHING IS EVEN AND UNLABORED ON 2L O2 NC. PT SLEEPING AND HAS BEEN SO INTERMITTENTLY THROUGHOUT SHIFT. L UA MID LINE DRESSING CHANGED. WOUND CARE COMPLETED. PT PROVIDED WITH CLEAN LINENS. VSS, SAFETY MEASURES IN PLACE, BED LOCKED AND IN LOWEST POSITION, SIDE RAILS UPX3, CALL LIGHT WITHIN REACH, PT INSTRUCTED TO CALL FOR ASSISTANCE. SBAR AND REPORT GIVEN TO INSOLE TACK PULLER HAND RN, ALL QUESTIONS ANSWERED. PT ENDORSED IN STABLE CONDITION FOR BREA.
--- NOTE | 2021-04-02 19:40 | NUR ---
RN NOTE PT RECEIVED IN BED. PT IS A/OX1-2, PERIODS OF CONFUSION. PT ON 2L OF O2 VIA NC SHOWING NO S/S OF RESP DISTRESS. OXYGEN SATURATION >95%. IV ACCESS ON LEFT UPPER ARM MIDLINE AND RIGHT IJ PERMACATH NOTED. IV LINES FLUSHED, PATENT, AND INTACT WITH NO INFILTRATION. ALL SAFETY MEASURES IMPLEMENTED. CALL LIGHT WITHIN REACH. BED ALARM ON. BED LOCKED AND IN LOWEST POSITION. WILL CONTINUE TO MONITOR AND ASSESS FOR ANY CHANGES THROUGHOUT SHIFT.
[2021-04-02 19:41] LABS: CALCIUM, SERUM 7.6 mg/dL (8.5-10.1); CARBON DIOXIDE 26 mmol/L (21-32); CHLORIDE 99 mmol/L (98-107); CREATININE 7.4 mg/dL (0.6-1.3); GLUCOSE 183 mg/dL (74-106); MAGNESIUM 1.9 mg/dL (1.8-2.4); PHOSPHORUS 5.6 mg/dL (2.5-4.9); POTASSIUM 5.6 mmol/L (3.5-5.1); SODIUM SERUM 137 mmol/L (136-145); UREA NITROGEN, BLOOD 60 mg/dL (7-18)
[2021-04-02 20:00] VITALS: BP 96/43
[2021-04-02] MEDS: ATORVASTATIN 10 MG TABLET PO SCH (21:54)
[2021-04-02] MEDS: LATANOPROST EYE DROP 0.005% 2.5 ML BOTTLE EACHEYE SCH (21:54)
[2021-04-03] VITALS: BP 96/38
[2021-04-03] MEDS: BLOOD SUGAR DIAGNOSTIC 1 EACH STRIP IN SCH ×4 (00:09→17:47)
[2021-04-03] MEDS: INSULIN REGULAR, HUMAN 100 UNIT/ML 3 ML VIAL SQ PRN ×4 (00:10→17:50)
[2021-04-03 04:00] VITALS: BP 101/42
[2021-04-03] MEDS: MIDODRINE HCL (5MG) 5 MG TABLET PO SCH ×3 (05:41→21:21)
--- NOTE | 2021-04-03 06:48 | NUR ---
RN NOTE NO CHANGES IN PT CONDITION DURING SHIFT. PT IS A/OX1-2, PERIODS OF CONFUSION. PT SEEMS TO BE A/OX3 AFTER RECEIVING BIPAP TREATMENT. PT ON 2L OF O2 VIA NC SHOWING NO S/S OF RESP DISTRESS. OXYGEN SATURATION >95. IV ACCESS ON LEFT UPPER ARM MIDLINE AND RIGHT IJ PERMACATH NOTED. IV LINES FLUSHED, PATENT, AND INTACT WITH NO INFILTRATION. ALL DUE MEDS GIVEN ORDERED. PT KEPT CLEAN AND COMFORTABLE. ALL SAFETY MEASURES IMPLEMENTED. CALL LIGHT WITHIN REACH. BED ALARM ON. BED LOCKED AND IN LOWEST POSITION. WILL ENDORSE TO MORNING SHIFT RN FOR BREA.
--- NOTE | 2021-04-03 07:48 | NUR ---
TELE NURSE OPENING NOTE. RECEIVE REPORT FROM LIFE SPECIALIST NURSE. PATIENT A/O X2 WITH PERIOD OF CONFUSION. PATIENT HAVE MULTIPLE WOUNDS. WILL ASSESS DRESSING AND CHANGE IF NECESSARY. WILL MONITOR BLOOD PRESSURE AND VITAL SIGHS AND OVERALL CONDITION THROUGHOUT SHIFT.
[2021-04-03 08:00] VITALS: BP 89/37
[2021-04-03] MEDS: ACETYLCYSTEINE 10% SOLN 400 MG/4 ML VIAL NEB SCH ×3 (08:06→23:19)
[2021-04-03] MEDS: FAMOTIDINE (20 MG) 20 MG TABLET PO SCH ×2 (08:31→17:20)
[2021-04-03] MEDS: ASPIRIN 81 MG TAB.CHEW PO SCH (08:31)
[2021-04-03] MEDS: VIT B CMPLX 3/FA/VIT C/BIOTIN 1 TAB TABLET PO SCH (08:31)
[2021-04-03] MEDS: SEVELAMER CARBONATE 800 MG POWD.PACK NG SCH ×3 (08:31→17:20)
[2021-04-03] MEDS: ALLOPURINOL 100 MG TABLET PO SCH (08:32)
[2021-04-03] MEDS: ZINC SULFATE 220 MG CAPSULE PO SCH (08:32)
[2021-04-03] MEDS: ASCORBIC ACID 500 MG TABLET PO SCH (08:32)
[2021-04-03] MEDS: MEROPENEM 500 MG in IV NS 0.9% 50 ML IV SCH ×2 (08:34→21:20)
[2021-04-03] MEDS: RIVAROXABAN 15 MG TABLET PO SCH (08:35)
[2021-04-03] MEDS: Z GUARD REMEDY 2 OZ OINT TP PRN (08:49)
[2021-04-03] MEDS: CLOTRIMAZOLE/BETAMETASONE DIPROPIONATE 15 GM TUBE TP SCH ×2 (08:49→21:22)
[2021-04-03] MEDS: CARVEDILOL 12.5 MG TABLET PO SCH ×2 (09:00→17:00)
[2021-04-03] MEDS: AMIODARONE HCL 200 MG TABLET PO SCH (09:00)
[2021-04-03] MEDS: PROSOURCE / PROSTAT (PYXIS) 30 ML UDC GT SCH ×3 (09:01→17:20)
--- NOTE | 2021-04-03 09:06 | NUR ---
TELE NURSE NOTE DID NOT ADMINISTER BLOOD PRESSURE MEDICATIONS: AMIODARONE AND CARVEDILOL. BLOOD PRESSURE AT 08:00AM WAS 89/37. PULSE RATE AT 72. WILL CONTINUE TO MONITOR.
[2021-04-03] MEDS: THERAHONEY GEL 1.5 OZ TUBE TP SCH (09:33)
[2021-04-03] MEDS: DAKINS QUARTER STRENGTH (0.125%) 480 ML BOTTLE TOP SCH (09:33)
[2021-04-03] MEDS: DAPTOMYCIN 800 MG in IV NS 0.9% 50 ML IV SCH (09:39)
[2021-04-03 09:42] LABS: ABG BASE EXCESS -0.2 mmol/L; ABG OXYGEN SATURATION 87.4 % (92.0-98.5); ABG PCO2 53.3 mmHg (35.0-45.0); ABG PH 7.312 (7.350-7.450); ABG PO2 65.6 mmHg (75.0-100.0); AaDO2 129.3 mmHg; COHb 1.1 % (0.5-1.5); MetHb 0.4 % (0.0-1.5); O2Hb 86.1 % (94.0-97.0); SITE, ABG Right Radial; VENT MODE, BG 4LPM NC
[2021-04-03 09:56] LABS: CALCIUM, SERUM 8.1 mg/dL (8.5-10.1); CARBON DIOXIDE 28 mmol/L (21-32); CHLORIDE 101 mmol/L (98-107); CREATININE 5.7 mg/dL (0.6-1.3); GLUCOSE 142 mg/dL (74-106); POTASSIUM 4.6 mmol/L (3.5-5.1); SODIUM SERUM 140 mmol/L (136-145); UREA NITROGEN, BLOOD 43 mg/dL (7-18)
[2021-04-03 10:04] LABS: ALANINE AMINOTRANSFERASE 12 U/L (12-78); ALKALINE PHOSPHATASE 82 U/L (46-116); ASPARTATE AMINOTRANSFERASE 19 U/L (15-37); BILIRUBIN,TOTAL 1.2 mg/dL (0.2-1.0)
[2021-04-03 12:00] VITALS: BP 121/42
[2021-04-03 16:00] VITALS: BP 108/39
[2021-04-03] MEDS ORDERED: ACETYLCYSTEINE 10% SOLN 400 MG/4 ML VIAL NEB SCH (16:00)
--- NOTE | 2021-04-03 18:34 | NUR ---
TELE NURSE CLOSING NOTE PATIENT REMAIN STABLE THROUGHOUT SHIFT. PATIENT A/OX2 WITH PERIOD OF CONFUSION. PATIENT IS ON AV-PACING WITH RATE OF 60S. WOUND CARE WAS PERFORMED. HEMODIALYSIS DONE WITH 2L TAKEN OUT. BP POST DIALYSIS: 97/59 HR60. MORNING BP WAS 89/37, NOTIFIED DOCTOR. DOCTOR SAY TO KEEP MONITORING. PATIENT WAS TURNED EVERY 2 HOURS PER PROTOCOL. SAFETY MEASURE IN PLACE. BED IN LOWEST POSITION WITH HOB ELEVATED. 3 SIDE RAIL UP. PROVIDE COMFORT MEASURES. BED LINEN CHANGED. GOWN CHANGED. WILL CONTINUE TO MONITOR AND ENDORSED TO ON COMING NURSE.
[2021-04-03 20:00] VITALS: BP 98/44
[2021-04-03] MEDS: ATORVASTATIN 10 MG TABLET PO SCH (21:21)
[2021-04-03] MEDS: LATANOPROST EYE DROP 0.005% 2.5 ML BOTTLE EACHEYE SCH (21:22)
[2021-04-04] VITALS (13 sets, daily range): BP systolic 83–114; BP diastolic 30–98
[2021-04-04] MEDS: BLOOD SUGAR DIAGNOSTIC 1 EACH STRIP IN SCH ×5 (01:11→23:55)
[2021-04-04] MEDS: INSULIN REGULAR, HUMAN 100 UNIT/ML 3 ML VIAL SQ PRN ×4 (01:16→23:55)
[2021-04-04] MEDS: ACETAMINOPHEN 325 MG TABLET PO PRN (05:54)
[2021-04-04] MEDS: MIDODRINE HCL (5MG) 5 MG TABLET PO SCH ×3 (05:54→21:00)
[2021-04-04 06:30] LABS: BASOPHILS % (AUTO) 0.3 % (0.0-2.0); EOSINOPHILS % (AUTO) 4.2 % (0.0-6.0); HEMATOCRIT 21 % (39-51); LYMPHOCYTES # (AUTO) 0.7 K/uL (0.8-4.8); LYMPHOCYTES % (AUTO) 6.2 % (20.0-44.0); MEAN CORPUSCULAR HGB CONC 32 g/dl (31.0-36.0); MEAN CORPUSCULAR VOLUME 97 fL (80-96); MONOCYTES % (AUTO) 9.4 % (2.0-12.0); NEUTROPHILS # (AUTO) 8.6 K/uL (1.8-8.9); NEUTROPHILS % (AUTO) 79.9 % (43.0-81.0); PLATELET COUNT (AUTO) 244 K/uL (150-450); WHITE BLOOD COUNT (AUTO) 10.8 K/uL (4.3-11.0)
[2021-04-04 06:56] LABS: CALCIUM, SERUM 8.5 mg/dL (8.5-10.1); CARBON DIOXIDE 29 mmol/L (21-32); CHLORIDE 101 mmol/L (98-107); CREATININE 6.6 mg/dL (0.6-1.3); GLUCOSE 111 mg/dL (74-106); MAGNESIUM 2.1 mg/dL (1.8-2.4); PHOSPHORUS 4.2 mg/dL (2.5-4.9); POTASSIUM 4.7 mmol/L (3.5-5.1); SODIUM SERUM 140 mmol/L (136-145); UREA NITROGEN, BLOOD 57 mg/dL (7-18)
--- NOTE | 2021-04-04 07:30 | NUR ---
RN OPENING NOTES PATIENT RECEIVED STABLED. PATIENT A/OX3 WITH PERIOD OF CONFUSION. PATIENT IS ON AV-PACING WITH RATE OF 60S. MORNING VITAL SIGNS PATIENT HAD LOW BP 96/42. HR 59. O2 94. PT WAS TURNED AND REPOSITIONED BY PROTOCOL. SAFETY MEASURE IN PLACE. BED IN LOWEST POSITION WITH HOB ELEVATED. 3 SIDE RAIL UP. PROVIDE COMFORT MEASURES. BED LINEN CHANGED. WILL CONTINUE TO MONITOR
[2021-04-04 07:34] LABS: HEMOGLOBIN 6.9 g/dL (13.5-17.5)
[2021-04-04] MEDS: ACETYLCYSTEINE 10% SOLN 400 MG/4 ML VIAL NEB SCH ×3 (07:36→23:55)
[2021-04-04] MEDS: SEVELAMER CARBONATE 800 MG POWD.PACK NG SCH ×4 (08:08→17:29)
[2021-04-04] MEDS: VIT B CMPLX 3/FA/VIT C/BIOTIN 1 TAB TABLET PO SCH (08:08)
[2021-04-04] MEDS: ALLOPURINOL 100 MG TABLET PO SCH (08:09)
[2021-04-04] MEDS: ZINC SULFATE 220 MG CAPSULE PO SCH (08:09)
[2021-04-04] MEDS: ASCORBIC ACID 500 MG TABLET PO SCH (08:09)
[2021-04-04] MEDS: FAMOTIDINE (20 MG) 20 MG TABLET PO SCH ×2 (08:09→16:45)
[2021-04-04] MEDS: ASPIRIN 81 MG TAB.CHEW PO SCH (08:11)
[2021-04-04] MEDS: AMIODARONE HCL 200 MG TABLET PO SCH (08:11)
[2021-04-04] MEDS: CARVEDILOL 12.5 MG TABLET PO SCH ×2 (08:12→16:44)
[2021-04-04] MEDS: RIVAROXABAN 15 MG TABLET PO SCH (08:12)
--- NOTE | 2021-04-04 08:13 | NUR ---
TELE.RN NOTES- WITHHELD MEDICATIONS ASPIRIN 81MF AND XARELTO 15 MG PO WITHHELD DUE TO LOW HGB LEVEL OF 6.9 CARVEDILOL 25MG AND AMIODARONE HCL 200MG WITHHELD DUE TO LOW BP AND HR OF 96/42 AND HR 59. WILL CONTINUE TO MONITOR PATIENT.
[2021-04-04] MEDS: PROSOURCE / PROSTAT (PYXIS) 30 ML UDC GT SCH ×4 (09:00→16:44)
[2021-04-04] MEDS: NEPRO VAN 237 ML CAN PO SCH (09:00)
[2021-04-04] MEDS: CLOTRIMAZOLE/BETAMETASONE DIPROPIONATE 15 GM TUBE TP SCH ×2 (09:56→21:48)
[2021-04-04] MEDS: THERAHONEY GEL 1.5 OZ TUBE TP SCH (10:01)
[2021-04-04] MEDS: DAKINS QUARTER STRENGTH (0.125%) 480 ML BOTTLE TOP SCH (10:01)
[2021-04-04 10:03] LABS: BAND % (MANUAL) 1 % (0.0-5.0); EOSINOPHILS % (MANUAL) 2 % (0-4); LYMPHOCYTES % (MANUAL) 6 % (16-48); MONOCYTES % (MANUAL) 7 % (0-11.0); NEUTROPHILS % (MANUAL) 84 (42-76)
--- NOTE | 2021-04-04 11:30 | NUR ---
RN NOTES PT GLUCOSE WAS 162. 3 UNITS OF INSULIN WAS GIVEN FOLLOWED BY PROTOCOL SLIDING SCALE
[2021-04-04] MEDS: METOLAZONE 2.5 MG TABLET PO SCH (13:16)
--- NOTE | 2021-04-04 14:25 | NUR ---
TELE/RN NOTES- RAPID RESPONSE CALLED PATIENT IS CHRONIC COPD AND WITH MULTIPLE COMORBIDITIES AND CHRONIC HEMODIALYSIS. PATIENT BECAME ALTERED AND DESATURATES TO LOW 80'S. RAPID RESPONSE TEAM CALLED. DR. GUTIERRES MADE AWARE.
[2021-04-04] MEDS: MEROPENEM 500 MG in IV NS 0.9% 50 ML IV SCH (16:05)
--- NOTE | 2021-04-04 16:50 | NUR ---
RN NOTES WITHHELD PO MEDS PT WITHHELD PO MEDS DUE TO BEING ON MECH VENT.
[2021-04-04 17:38] LABS: ABG BASE EXCESS 0.8 mmol/L; ABG OXYGEN SATURATION 93.8 % (92.0-98.5); ABG PCO2 47.8 mmHg (35.0-45.0); AaDO2 152.2 mmHg; COHb 1.2 % (0.5-1.5); MetHb 0.1 % (0.0-1.5); O2Hb 92.6 % (94.0-97.0); SITE, ABG Right Radial
--- NOTE | 2021-04-04 19:20 | NUR ---
TELE/RN CLOSING NOTES PATIENT IN BED, LETHARGIC, RESPONSIVE ONLY TO PAIN STIMULI. CURRENTLY ON BIPAP, CONTINUE UNTIL NOC PER DR. ROMERO. PATIENT WILL ALSO HAVE HD TONIGHT WITH AN ORDER OF 2 PRBC TO BE INFUSED WITH HD. CURRENTLY PATIENT IS IN NO DISTRESS. ON SOFT BILATERAL RESTRAINTS. SAFETY PRECAUTIONS IN PLACED: BED LOCKED ON LOWEST POSITION, SIDE RAILS UPX3, CALL LIGHT WITHIN REACH. WILL ENDORSE TO THE NEXT SHIFT FOR BREA.
--- NOTE | 2021-04-04 19:30 | NUR ---
RN OPENING NOTES: RECEIVED PT IN BED IN NO S/SX OF ACUTE DISTRESS AT THIS TIME. NO SOB NOTED. PATIENT'S BREATHING IS EVEN AND UNLABORED. PT NOTED TO BE LETHARGIC. CURRENTLY ON BIPAP; SETTINGS PRESCRIBED; PT TOLERATED WELL. PATIENT ON TELE MONITORING READING SINUS RHYTHM HR IS @60s AT THE TIME OF RECEIVED. PATIENT ON DIET; TOLERATES WELL. NOTED IV SITE ON L UA MIDLINE ; PATENT, INTACT AND FLUSHING WELL; NO S/S OF INFECTION OR INFILTRATION. PT ALSO HAS R CHEST WALL HD CATH ;SECURED AND INTACT NO SIGNS OF INFECTION. WITH BILATERAL SOFT RESTRAINTS IN PLACED, MONITORED AND ASSESSED PER PROTOCOL. SAFETY MEASURES HAVE BEEN PROVIDED AND IMPLEMENTED. PATIENT BED ALARM IS ON. HEAD OF BED ELEVATED. BED IS LOCKED, IN LOWEST POSITION AND SIDE RAILS UP. CALL LIGHT WITHIN REACH OF THE PATIENT. APPLICABLE ISOLATION PRECAUTIONS IN PLACE. WILL CONTINUE TO MONITOR AND REASSESS FOR ANY CHANGES AND WILL CARRY OUT ANY ONGOING AND ACTIVE MD ORDER.
--- NOTE | 2021-04-04 19:45 | NUR ---
TELE-TD/INFANT LEAD TEACHER REPORT TO RADHA PATEL FOR CONT OF CARE.
--- NOTE | 2021-04-04 20:05 | NUR ---
RN NOTES STARTED 1ST BAG OF PRBC ORDERED VIA HD; BLOOD GIVEN TO JORGE REYES (BALJEET RN). INITIAL VITAL SIGNS TAKEN AND NOTED TO BE WNL. WILL CONTINUE TO MONITOR AND ASSESS FOR ANY BLOOD TRANSFUSION REACTION AND ADDRESS ACCORDINGLY. MARANDA PATEL WELL AWARE. Addendum: 04/04/21 at 2046 by AILYN CERVANTES RN @[id number] RN NOTES ENDED BLOOD TRANSFUSION FOR THE 1ST BAG OF PRBC VIA HD ENDORSED BY BALJEET PATEL (ERIC), VITAL SIGNS REMAINED WNL, NO BLOOD TRANSFUSION REACTION NOTED. WILL CONTINUE TO MONITOR AND ASSESS FOR ANY BLOOD TRANSFUSION REACTION POST PROCEDURE. MARANDA PATEL MADE AWARE.
--- NOTE | 2021-04-04 20:50 | NUR ---
JORGE NOTES 2ND BAG OF PRBC ORDERED VIA HD; BLOOD GIVEN TO JORGE REYES (HD RN). VITAL SIGNS TAKEN AND NOTED TO BE WNL. WILL CONTINUE TO MONITOR AND ASSESS FOR ANY BLOOD TRANSFUSION REACTION AND ADDRESS ACCORDINGLY. MARANDA PATEL WELL AWARE. Addendum: 04/04/21 at 2219 by AILYN CERVANTES RN @[id number] RN NOTES ENDED BLOOD TRANSFUSION FOR THE 2ND BAG OF PRBC VIA HD ENDORSED BY BALJEET PATEL (ERIC), VITAL SIGNS REMAINED WNL, NO BLOOD TRANSFUSION REACTION NOTED. WILL CONTINUE TO MONITOR AND ASSESS FOR ANY BLOOD TRANSFUSION REACTION POST PROCEDURE. MARANDA PATEL MADE AWARE.
--- NOTE | 2021-04-04 21:45 | NUR ---
RN NOTES HELD ORAL MEDS DUE AT 2100 AND 2200 (MIDODRINE AND LIPITOR);PT IS LETHARGIC AND CAN'T TOLERATE ORAL MEDS; RISK FOR ASPIRATION. ALICE SHAIKH AND SCREED OPERATOR BOTH AWARE. V/S CHECED; WNL. WILL CONTINUE TO ASSESS AND MONITOR THROUGHOUT THE SHIFT.
[2021-04-04] MEDS: ATORVASTATIN 10 MG TABLET PO SCH (21:48)
[2021-04-04] MEDS: LATANOPROST EYE DROP 0.005% 2.5 ML BOTTLE EACHEYE SCH (21:48)
--- NOTE | 2021-04-04 22:40 | NUR ---
RN NOTES HD DONE PER BALJEET REYES RN; CLEARANCE ONLY. PT TOLERATED PROCEDURE V/S WNL. WILL CONTINUE TO ASSESS AND MONITOR THROUGHOUT THE SHIFT. RADIOPHARMACIST MADE AWARE.
[2021-04-05] VITALS: BP 94/38
[2021-04-05] MEDS: MEROPENEM 500 MG in IV NS 0.9% 50 ML IV SCH ×2 (03:05→15:24)
[2021-04-05 04:00] VITALS: BP 92/34
--- NOTE | 2021-04-05 04:00 | NUR ---
RN NOTES NO NOTED CHANGES IN PATIENT CONDITION AT THIS TIME; PATIENT VITALS STABLE, NO SIGNS OF ACUTE RESPIRATORY DISTRESS. AM PATIENT CARE RENDERED. CHEMICAL ENGINEERING TEACHER MADE AWARE. WILL CONTINUE TO MONITOR AND REASSESS FOR ANY CHANGES THROUGHOUT THE SHIFT.
[2021-04-05] MEDS: BLOOD SUGAR DIAGNOSTIC 1 EACH STRIP IN SCH ×3 (05:15→17:16)
[2021-04-05] MEDS: INSULIN REGULAR, HUMAN 100 UNIT/ML 3 ML VIAL SQ PRN ×2 (05:15→12:35)
[2021-04-05] MEDS: MIDODRINE HCL (5MG) 5 MG TABLET PO SCH ×3 (05:15→21:39)
--- NOTE | 2021-04-05 06:00 | NUR ---
RN NOTES PT OFF HOOKED FROM NOCTURNAL BIPAP BY RT (KIRTI) AND SWITCHED TO 3L VIA NC; TOLERATING WELL WITH 02 SAT OF 93-94% AT THIS TIME. WILL CONTINUE TO ASSESS AND MONITOR UNTIL THE END OF THE SHIFT. COMPUTER TECHNICAL SPECIALIST WELL AWARE.
--- NOTE | 2021-04-05 06:50 | NUR ---
RN CLOSING NOTE: PATIENT REMAINS IN ROOM IN NO SIGNS OF RESPIRATORY DISTRESS, PATIENT STILL ON 3L OF 02 VIA NC ;TOLERATING WELL SATURATING @ >92% SP02. SAFETY MEASURES IMPLEMENTED, BED IN LOWEST POSITION, LOCKED, SIDE RAILS UP, CALL LIGHT WITHIN REACH. ALL NEEDS AND ORDERS ADDRESSED DURING THE SHIFT. IV ACCESS MAINTAINED INTACT, SECURED AND FLUSHING WELL. ALL DUE MEDS GIVEN ORDERED & SCHEDULED ; PATIENT TOLERATED WELL. PATIENT KEPT CLEAN AND COMFORTABLE WITHIN THE SHIFT. PATIENT ENDORSED TO INCOMING SHIFT RN WITH STABLE VITAL SIGN AND FOR CONTINUITY OF CARE.
[2021-04-05] MEDS: ACETYLCYSTEINE 10% SOLN 400 MG/4 ML VIAL NEB SCH ×4 (07:35→23:36)
[2021-04-05 08:00] VITALS: BP 100/34
--- NOTE | 2021-04-05 08:31 | NUR ---
NURSE OPENING NOTE. RECEIVE REPORT FROM CONTROL ROOM TECHNICIAN NURSE. PATIENT IS STABLE WITH PERIOD OF CONFUSION. RECEIVING OXYGEN THROUGH NC AT 3L AND O2 SAT IS ABOVE 90%. 2 UNITS OF PRBC WAS GIVEN IN PREVIOUS SHIFT. WILL FOLLOW UP WITH MORNING LAB. L LOWER ARM MID LINE FLUSH BUT NO BLOOD RETURN. ALL SAFETY MEASURE IN PLACE. PROPER ISOLATION PRECAUTION IN PLACE. BED IN LOWEST POSITION WITH 3 SIDE RAIL UP. HOB ELEVATED. CALL LIGHT WITHIN REACH. WILL CONTINUE TO MONITOR.
--- NOTE | 2021-04-05 09:05 | NUR ---
patient off bipap,awake and alert,c/o clots of blood when urinated,Dr. PRIEST notified and ordered not to hold blood thinners and order labs,will continue to monitor.
[2021-04-05] MEDS: THERAHONEY GEL 1.5 OZ TUBE TP SCH (09:39)
[2021-04-05] MEDS: FAMOTIDINE (20 MG) 20 MG TABLET PO SCH ×2 (09:40→17:12)
[2021-04-05] MEDS: ASPIRIN 81 MG TAB.CHEW PO SCH (09:40)
[2021-04-05] MEDS: CARVEDILOL 12.5 MG TABLET PO SCH ×2 (09:40→17:12)
[2021-04-05] MEDS: ALLOPURINOL 100 MG TABLET PO SCH (09:40)
[2021-04-05] MEDS: AMIODARONE HCL 200 MG TABLET PO SCH (09:40)
[2021-04-05] MEDS: PROSOURCE / PROSTAT (PYXIS) 30 ML UDC GT SCH ×3 (09:41→17:11)
[2021-04-05] MEDS: NEPRO VAN 237 ML CAN PO SCH (09:53)
[2021-04-05] MEDS: ASCORBIC ACID 500 MG TABLET PO SCH (09:53)
[2021-04-05] MEDS: CLOTRIMAZOLE/BETAMETASONE DIPROPIONATE 15 GM TUBE TP SCH ×2 (09:56→21:40)
[2021-04-05] MEDS: DAKINS QUARTER STRENGTH (0.125%) 480 ML BOTTLE TOP SCH (09:59)
[2021-04-05] MEDS: DAPTOMYCIN 800 MG in IV NS 0.9% 50 ML IV SCH (10:01)
[2021-04-05 10:08] LABS: BASOPHILS # (AUTO) 0.1 K/uL (0.0-0.2); EOSINOPHILS % (AUTO) 3.7 % (0.0-6.0); HEMATOCRIT 28 % (39-51); HEMOGLOBIN 8.8 g/dL (13.5-17.5); LYMPHOCYTES # (AUTO) 0.5 K/uL (0.8-4.8); LYMPHOCYTES % (AUTO) 4.3 % (20.0-44.0); MEAN CORPUSCULAR HGB CONC 32 g/dl (31.0-36.0); MEAN CORPUSCULAR VOLUME 96 fL (80-96); MONOCYTES # (AUTO) 0.8 K/uL (0.1-1.30); MONOCYTES % (AUTO) 6.8 % (2.0-12.0); NEUTROPHILS % (AUTO) 84.2 % (43.0-81.0); PLATELET COUNT (AUTO) 255 K/uL (150-450); WHITE BLOOD COUNT (AUTO) 11.9 K/uL (4.3-11.0)
[2021-04-05] MEDS: VIT B CMPLX 3/FA/VIT C/BIOTIN 1 TAB TABLET PO SCH (10:18)
[2021-04-05] MEDS: ZINC SULFATE 220 MG CAPSULE PO SCH (10:18)
[2021-04-05] MEDS: RIVAROXABAN 15 MG TABLET PO SCH (10:19)
[2021-04-05] MEDS: SEVELAMER CARBONATE 800 MG POWD.PACK NG SCH ×3 (10:19→17:12)
[2021-04-05 10:21] LABS: ALANINE AMINOTRANSFERASE 19 U/L (12-78); ALKALINE PHOSPHATASE 104 U/L (46-116); ASPARTATE AMINOTRANSFERASE 42 U/L (15-37); BILIRUBIN,TOTAL 1.7 mg/dL (0.2-1.0); CALCIUM, SERUM 8.6 mg/dL (8.5-10.1); CARBON DIOXIDE 28 mmol/L (21-32); CHLORIDE 102 mmol/L (98-107); CREATININE 6.1 mg/dL (0.6-1.3); GLUCOSE 167 mg/dL (74-106); POTASSIUM 5.6 mmol/L (3.5-5.1); SODIUM SERUM 141 mmol/L (136-145); TOTAL PROTEIN, SERUM 6.8 g/dL (6.4-8.2); UREA NITROGEN, BLOOD 54 mg/dL (7-18)
--- NOTE | 2021-04-05 11:14 | NUR ---
patient no acute distress s/p am care and wound care.
--- NOTE | 2021-04-05 11:48 | NUR ---
urine obtained by straight cath with gross hematuria and send to lab for analysis.
[2021-04-05 12:34] VITALS: BP 100/34
--- NOTE | 2021-04-05 12:46 | NUR ---
patried off restraints forgetful and try to pull hd access on chest,will continue to monitor.
[2021-04-05 12:54] LABS: BILIRUBIN,URINE NEGATIVE (NEGATIVE); COLOR,URINE RED (YELLOW); LEUKOCYTE ESTERASE ,URINE NEGATIVE (NEGATIVE); NITRITE, URINE POSITIVE (NEGATIVE); PROTEIN,URINE >=300 mg/dl (NEGATIVE); UGLUCOSE NEGATIVE (NEGATIVE)
[2021-04-05 12:57] LABS: BACTERIA,URINE None seen /HPF (None Seen); RBC,URINE TOO NUMEROUS TO COUN /HPF (0-2); SQUAMOUS EPITHELIAL CELL,UR None Seen /HPF (None Seen); WBC,URINE NONE SEEN /HPF (0-3)
[2021-04-05 13:33] LABS: ABG BASE EXCESS -2.2 mmol/L; ABG PCO2 42.9 mmHg (35.0-45.0); ABG PH 7.352 (7.350-7.450); ABG PO2 66.7 mmHg (75.0-100.0); AaDO2 111.3 mmHg; COHb 1.1 % (0.5-1.5); MetHb 0.2 % (0.0-1.5); O2Hb 87.8 % (94.0-97.0); SITE, ABG Right Radial
--- NOTE | 2021-04-05 14:10 | NUR ---
ABG RESULT IN AND RELAYED TO MD NO NEW ORDERS.
[2021-04-05 16:17] VITALS: BP 100/34
--- NOTE | 2021-04-05 18:24 | NUR ---
NURSE CLOSING NOTE PATIENT REMAIN STABLE WITH NO SIGN OF DISTRESS. PERIOD OF CONFUSION. ORIENT NEEDED. PATIENT REMAIN ON 3L OF OXYGEN VIA NC. OXYGEN SATURATION MAINTAIN AT 85-92%. ALL MEDS WAS CRUSH AND GIVEN WITH APPLE SAUCE. PATIENT TOLERATE WELL. UA WAS ORDERED. OBTAIN URINE WITH IN AND OUT CATH. BLOODY URINE WAS OBTAIN AND SENT TO LAB. IV REMAIN INTACT AND FLUSH WELL. BED LINEN WAS CHANGED AND PATIENT WAS CLEANED. PATIENT IS COMFORTABLE. SAFETY MEASURE IN PLACE. BED ON LOWEST POSITION WITH HOB ELEVATED AT 30 DEGREE. CALL LIGHT WITH REACH. WILL CONTINUE TO MONITOR AND ENDORSE TO ON COMING NURSE.
[2021-04-05 20:00] VITALS: BP 98/36
[2021-04-05] MEDS ORDERED: SODIUM POLYSTYRENE SULFONATE 15 G/60 ML BOTTLE GT ONE (20:00)
[2021-04-05] MEDS: ATORVASTATIN 10 MG TABLET PO SCH (21:39)
[2021-04-05] MEDS: LATANOPROST EYE DROP 0.005% 2.5 ML BOTTLE EACHEYE SCH (21:40)
[2021-04-05] MEDS ORDERED: SODIUM POLYSTYRENE SULFONATE 15 G/60 ML BOTTLE ONE (21:47)
[2021-04-06] VITALS: BP 103/45
[2021-04-06] MEDS: BLOOD SUGAR DIAGNOSTIC 1 EACH STRIP IN SCH ×5 (00:16→23:07)
[2021-04-06] MEDS: INSULIN REGULAR, HUMAN 100 UNIT/ML 3 ML VIAL SQ PRN ×4 (00:24→17:42)
[2021-04-06 04:00] VITALS: BP 101/44
[2021-04-06] MEDS: MEROPENEM 500 MG in IV NS 0.9% 50 ML IV SCH ×2 (04:19→15:00)
[2021-04-06] MEDS: MIDODRINE HCL (5MG) 5 MG TABLET PO SCH ×3 (05:51→22:01)
--- NOTE | 2021-04-06 06:43 | NUR ---
RN NOTES NO SIGNIFICANT CHANGES DURING SHIFT. PATIENT AOX1. AROUSABLE. RESPONDS TO LIGHT TOUCH STIMULUS. BREATHING EVEN AND UNLABORED. NO SIGNIFICANT DISTRESS NOTED DURING SHIFT. PATIENT ON BIPAP THROUGHOUT THE NIGHT. TOLERATED WELL. SKIN IS WARM AND DRY TO TOUCH. WOUND TREATMENTS DONE DURING AM CARE. PATIENT GIVEN KAYEXALATE 30 GM. NO ADVERSE REACTION. NOTED WITH LEFT UPPER ARM MIDLINE, PATENT WITH GOOD BLOOD RETURN, AND RIGHT UPPER CHEST HD ACCESS. NO SIGNS OF DISCOMFORT DURING SHIFT, NO MOANING OR GRIMICING NOTED. CALL LIGHT WITHIN REACH.
[2021-04-06 06:45] LABS: BASOPHILS # (AUTO) 0.1 K/uL (0.0-0.2); BASOPHILS % (AUTO) 0.8 % (0.0-2.0); EOSINOPHILS % (AUTO) 4.7 % (0.0-6.0); HEMATOCRIT 25 % (39-51); HEMOGLOBIN 7.9 g/dL (13.5-17.5); LYMPHOCYTES # (AUTO) 0.6 K/uL (0.8-4.8); MEAN CORPUSCULAR HGB CONC 31 g/dl (31.0-36.0); MEAN CORPUSCULAR VOLUME 97 fL (80-96); MONOCYTES # (AUTO) 0.8 K/uL (0.1-1.30); NEUTROPHILS # (AUTO) 8.1 K/uL (1.8-8.9); NEUTROPHILS % (AUTO) 80.5 % (43.0-81.0); PLATELET COUNT (AUTO) 258 K/uL (150-450); RED BLOOD CELL COUNT(AUTO) 2.59 MIL/uL (4.5-6.0); WHITE BLOOD COUNT (AUTO) 10.1 K/uL (4.3-11.0)
--- NOTE | 2021-04-06 07:22 | NUR ---
RN OPENING NOTES; RECEIVED PT SLEEPING. A/OX1-2. NO DISTRESS NOTED, NO SOB NOTED. PT SAT AT 96%. SOFT WRIST RESTRAINTS NOTED, TO BE RENEWED 0225AM. ALL SAFETY MEASURES RENDERED, BED IN THE LOWEST POS. BED LOCKED WITH CALL LIGHT WITHIN REACH. WILL CONTINUE TO MONITOR.
[2021-04-06 08:00] VITALS: BP 97/56
[2021-04-06] MEDS: SEVELAMER CARBONATE 800 MG POWD.PACK NG SCH ×3 (08:23→17:28)
[2021-04-06] MEDS: ACETYLCYSTEINE 10% SOLN 400 MG/4 ML VIAL NEB SCH ×3 (08:25→23:07)
[2021-04-06] MEDS: ALLOPURINOL 100 MG TABLET PO SCH (08:31)
[2021-04-06] MEDS: ASPIRIN 81 MG TAB.CHEW PO SCH (08:31)
[2021-04-06] MEDS: ZINC SULFATE 220 MG CAPSULE PO SCH (08:31)
[2021-04-06] MEDS: RIVAROXABAN 15 MG TABLET PO SCH (08:32)
[2021-04-06] MEDS: VIT B CMPLX 3/FA/VIT C/BIOTIN 1 TAB TABLET PO SCH (08:33)
[2021-04-06] MEDS: ASCORBIC ACID 500 MG TABLET PO SCH (08:33)
[2021-04-06] MEDS: FAMOTIDINE (20 MG) 20 MG TABLET PO SCH ×2 (08:33→16:29)
[2021-04-06] MEDS: PROSOURCE / PROSTAT (PYXIS) 30 ML UDC GT SCH ×3 (08:33→16:29)
[2021-04-06] MEDS: NEPRO VAN 237 ML CAN PO SCH (08:34)
[2021-04-06] MEDS: AMIODARONE HCL 200 MG TABLET PO SCH (08:35)
[2021-04-06] MEDS: CARVEDILOL 12.5 MG TABLET PO SCH ×2 (08:35→16:07)
[2021-04-06 08:42] LABS: CALCIUM, SERUM 8.4 mg/dL (8.5-10.1); CARBON DIOXIDE 26 mmol/L (21-32); CHLORIDE 103 mmol/L (98-107); CREATININE 7.1 mg/dL (0.6-1.3); GLUCOSE 137 mg/dL (74-106); POTASSIUM 4.4 mmol/L (3.5-5.1); SODIUM SERUM 142 mmol/L (136-145); UREA NITROGEN, BLOOD 71 mg/dL (7-18)
[2021-04-06] MEDS: THERAHONEY GEL 1.5 OZ TUBE TP SCH (08:47)
[2021-04-06] MEDS: DAKINS QUARTER STRENGTH (0.125%) 480 ML BOTTLE TOP SCH (08:48)
[2021-04-06 08:49] LABS: ALANINE AMINOTRANSFERASE 15 U/L (12-78); ALBUMIN 1.8 g/dL (3.4-5.0); ALKALINE PHOSPHATASE 89 U/L (46-116); ASPARTATE AMINOTRANSFERASE 23 U/L (15-37); BILIRUBIN,TOTAL 1.4 mg/dL (0.2-1.0); TOTAL PROTEIN, SERUM 6.2 g/dL (6.4-8.2)
[2021-04-06] MEDS: CLOTRIMAZOLE/BETAMETASONE DIPROPIONATE 15 GM TUBE TP SCH ×2 (08:50→22:02)
--- NOTE | 2021-04-06 09:43 | NUR ---
RN NOTES; ATTEMPTED TO GET CONSENT FOR ULTRA SOUND AND THORACENTHESIS. BOTH AND PT STRONGLY REFUSED. EXPLAINED RISKS AND BENEFITS TO BOTH AND PT AND STILL REFUSES PROCEDURE. STATES PT IS NOT CONFUSED. CHARGE NURSE ATTEMPTED TO TALK TO PT REGARDING PROCEDURE. PT STILL REFUSED. NOTIFIED.
--- NOTE | 2021-04-06 10:14 | NUR ---
RN NOTES; CAREGIVER DAPHNIE CALLED AND WANTED AN UPDATE ON PT. RN EXPLAINED REFUSAL FOR ULTRASOUND AND THORACENTHESIS. CAREGIVER EXPLAINED PT HAS STATED IN THE PAST THAT HE DID NOT WANT TO HAVE THORACENTHESIS DONE DUE TO MOTHER PASSING AWAY DUE TO PROCEDURE. RN THOROUGHLY EXPLAINED BENEFITS OF PROCEDURE, CAREGIVER STATES UNDERSTANDING BUT STILL CONTINUE TO REFUSE. MD ALREADY NOTIFIED.
[2021-04-06 12:00] VITALS: BP 103/44
[2021-04-06 16:00] VITALS: BP 100/61
--- NOTE | 2021-04-06 16:08 | NUR ---
RN NOTES COREG NOT GIVEN. PT POST DIALYSIS. BP 100/61 HR 60. WILL CONTINUE TO MONITOR.
--- NOTE | 2021-04-06 18:16 | NUR ---
RN CLOSING NOTES PATIENT IN BED RESTING. PATIENT ON 3L OF 02 VIA NC, TOLERATING WELL WITH 02 SAT BETWEEN 94-96. JUNIOR ML PATENT WITH NO SIGNS OF INFILTRATION. ALL DUE MEDS GIVEN AND TOLERATED WELL. PATIENT KEPT CLEAN AND COMFORTABLE. NO SIGNIFICANT CHANGES IN PT HEALTH STATUS DURING SHIFT. ALL SAFETY MEASURES RENDERED, BED IN LOWEST POS. LOCKED, WITH CALL LIGHT WITHIN REACH. ENDORSED TO ICE GUARD INSPECTOR RN IN STABLE CONDITION.
--- NOTE | 2021-04-06 19:30 | NUR ---
KAYLEE RN NOTE PT IN BED ASLEEP, AROUSABLE. A/O X 1 CONFUSED. NOTED PT ON O2 3L VIA N/C AND BREATHING THROUGH HIS MOUTH. O2 SAT 92%. REPLACED IT WITH SIMPLE MASK 10 L O2 SAT WENT UP TO 97%. KEPT HOB ELEVATED. SKIN WARM AND DRY TO TOUCH. NO S/S OF PAIN NOTED. NO DISTRESS OR DISCOMFORT NOTED. ON TELE MONITOR V PACING HR 61. JUNIOR WITH MIDLINE AND RCW WITH HD CATH INTACT. NO S/S OF HYPO OR HYPERGLYCEMIA NOTED. REPOSITION HIM FOR SKIN MANAGEMENT WILL DO Q2H. WOUND DRESSING I/C/D. SIDE RAILS UP X 3 AND CALL LIGHT WITHIN REACH. VSS. CONTINUE TO MONITOR HIM.
[2021-04-06 20:00] VITALS: BP 102/38
[2021-04-06] MEDS: ATORVASTATIN 10 MG TABLET PO SCH (21:57)
--- NOTE | 2021-04-06 22:00 | NUR ---
KAYLEE RN NOTE PT NOTED DESATURATING TO 85% ON 10 L O2 INCREASED TO 15 L AND CALLED RT
[2021-04-06] MEDS: LATANOPROST EYE DROP 0.005% 2.5 ML BOTTLE EACHEYE SCH (22:02)
--- NOTE | 2021-04-06 22:20 | NUR ---
KAYLEE RN NOTE RT AT BED SIDE. SUCTIONED THE PT AND APPLED BIPAP 20/5 ON 40% 02. O2 SAT STILL LOW. STAT ABG IN PROCESS..
--- NOTE | 2021-04-06 22:40 | NUR ---
KAYLEE RN NOTE TEMITOPE DNP AT BED SIDE. ASSESSING THE PT AND WAITING FOR THE ABG RESULT.
[2021-04-06 22:45] LABS: ABG BASE EXCESS 0.6 mmol/L; ABG OXYGEN SATURATION 74.3 % (92.0-98.5); ABG PCO2 62.8 mmHg (35.0-45.0); ABG PH 7.271 (7.350-7.450); ABG PO2 47.3 mmHg (75.0-100.0); AaDO2 311.4 mmHg; COHb 0.9 % (0.5-1.5); MetHb 0.2 % (0.0-1.5); O2Hb 73.5 % (94.0-97.0); SITE, ABG Right Radial; VENT MODE, BG ST 20/5 R20 60%
--- NOTE | 2021-04-06 22:50 | NUR ---
KAYLEE RN NOTE ABG RESULT CAME.PH 7.27, PCO2 62.8 PO2 47.3. HCO3 28.3. TEMITOPE DNP CHECKED AND WANT TO RECHECK ABG IN 4 HRS. RT AT BED SIDE. PT ON BIPAP AT 85%. O2 SAT CAME UP TO 92%. PT WAS ALSO SUCTIONED BY RT MODERATE AMOUNT OF SECRETIONS CAME OUT.
--- NOTE | 2021-04-06 22:51 | NUR ---
RT g performed. results given to dominic tenorio, and rita sykes.
--- NOTE | 2021-04-06 23:03 | NUR ---
KAYLEE RN NOTE PT O2 SAT CAME UP TO 99 % AND REMAIN ON BIPAP 02 AT 50%. PT SHOW NO DISTRESS AT THIS TIME. WILL RECHECK ABG PER RT AT 0100. CONTINUE TO MONITOR HIM.
--- NOTE | 2021-04-06 23:04 | NUR ---
RT nt sx performed. sat improved. 98% on 85% fio2. fio2 titrated down to 50%. sat maintaining at 97%.
--- NOTE | 2021-04-06 23:05 | NUR ---
RT large thick bloody mucus plug suctioned via nt
--- NOTE | 2021-04-06 23:40 | NUR ---
KAYLEE RN NOTE PER INFORMATION SERVICES ASSISTANT TEMITOPE RATE OF BIPAP CHANGE TO 24, RT MADE AWARE. CONTINUE TO MONITOR PT. O2 SAT 96-98%.
[2021-04-07] VITALS: BP 97/43
[2021-04-07 01:27] LABS: ABG BASE EXCESS 0.9 mmol/L; ABG OXYGEN SATURATION 94.4 % (92.0-98.5); ABG PCO2 54.8 mmHg (35.0-45.0); ABG PH 7.319 (7.350-7.450); ABG PO2 81.7 mmHg (75.0-100.0); AaDO2 213.2 mmHg; COHb 0.8 % (0.5-1.5); MetHb 0.3 % (0.0-1.5); O2Hb 93.4 % (94.0-97.0); SITE, ABG Right Radial; VENT MODE, BG ST 20/5 R24 50%
--- NOTE | 2021-04-07 01:33 | NUR ---
RT abg performed. dominic tenorio, notified of results.
--- NOTE | 2021-04-07 01:34 | NUR ---
KAYLEE RN NOTE ABG RESULT CAME AND INFORMED TEMITOPE DNP NO NEW ORDER CONTINUE TO MONITOR THE PT. PT IN NO DISTRESS OR DISCOMFORT O2 SAT 97%, PT REMAIN ON BIPAP. PH 7.319,PCO2 54.8, PO2 81.7,HCO3 27.5 WHICH IS IMPROVING FROM THE LAST ABG.
--- NOTE | 2021-04-07 02:45 | NUR ---
KAYLEE RN NOTE DNP TEMITOPE VISITED THE PT WHILE I WAS GIVING THE WOUND TX. INFORMED TEMITOPE THE PT IS RUNNING LOW BP 86/40 AND AT TIMES GOES UP TO 102/44, NO NEW ORDER GIVEN. CONTINUE TO MONITOR HIM.
[2021-04-07 04:00] VITALS: BP 106/40
[2021-04-07] MEDS: MEROPENEM 500 MG in IV NS 0.9% 50 ML IV SCH ×2 (04:37→15:12)
[2021-04-07] MEDS: MIDODRINE HCL (5MG) 5 MG TABLET PO SCH ×4 (05:00→21:09)
--- NOTE | 2021-04-07 05:00 | NUR ---
KAYLEE RN NOTE PT IN DEEP ASLEEP, HARD TO AROUSE, HELD DUE PO MED AT THIS TIME.
--- NOTE | 2021-04-07 05:42 | NUR ---
KAYLEE RN NOTE RT REMOVED THE PT FROM BIPAP ON O2 6L VIA N/C O2 SAT 95%. NO DISTRESS OR DISCOMFORT NOTED. CONTINUE TO MONITOR HIM.
[2021-04-07] MEDS: BLOOD SUGAR DIAGNOSTIC 1 EACH STRIP IN SCH ×4 (06:22→23:33)
--- NOTE | 2021-04-07 06:48 | NUR ---
KAYLEE RN NOTE PT IN BED AWAKE., MUMBLING. NO SOB, NO DISTRESS OR DISCOMFORT NOTED. NO S/S OF PAIN NOTED. KEPT HIM DRY AND CLEAN. REPOSITION HIM Q2H. ALL NEEDS ATTENDED. ON TELE MONITOR V PACING. 62. WILL ENDORSE TO DAY SHIFT NURSE FOR CONTINUE TO CARE.
[2021-04-07 07:04] LABS: BASOPHILS # (AUTO) 0.1 K/uL (0.0-0.2); BASOPHILS % (AUTO) 0.7 % (0.0-2.0); EOSINOPHILS % (AUTO) 3.6 % (0.0-6.0); HEMATOCRIT 28 % (39-51); HEMOGLOBIN 8.9 g/dL (13.5-17.5); LYMPHOCYTES # (AUTO) 0.7 K/uL (0.8-4.8); LYMPHOCYTES % (AUTO) 6.8 % (20.0-44.0); MEAN CORPUSCULAR HGB CONC 31 g/dl (31.0-36.0); MEAN CORPUSCULAR VOLUME 98 fL (80-96); MONOCYTES # (AUTO) 0.9 K/uL (0.1-1.30); MONOCYTES % (AUTO) 8.7 % (2.0-12.0); NEUTROPHILS # (AUTO) 8.5 K/uL (1.8-8.9); NEUTROPHILS % (AUTO) 80.2 % (43.0-81.0); PLATELET COUNT (AUTO) 250 K/uL (150-450); RED BLOOD CELL COUNT(AUTO) 2.91 MIL/uL (4.5-6.0); WHITE BLOOD COUNT (AUTO) 10.6 K/uL (4.3-11.0)
--- NOTE | 2021-04-07 07:16 | NUR ---
RN OPENING NOTES; RECEIVED PT SLEEPING. A/OX1-2. NO DISTRESS NOTED, NO SOB NOTED. PT SAT AT 97% WITH 02 @6L MASK. SOFT WRIST RESTRAINTS NOTED, TO BE RENEWED 0220AM. ALL SAFETY MEASURES RENDERED, BED IN THE LOWEST POS. BED LOCKED WITH CALL LIGHT WITHIN REACH. WILL CONTINUE TO MONITOR.
[2021-04-07] MEDS: ACETYLCYSTEINE 10% SOLN 400 MG/4 ML VIAL NEB SCH ×3 (07:42→23:52)
[2021-04-07 07:46] LABS: ALANINE AMINOTRANSFERASE 18 U/L (12-78); ALBUMIN 1.9 g/dL (3.4-5.0); ALKALINE PHOSPHATASE 100 U/L (46-116); ASPARTATE AMINOTRANSFERASE 28 U/L (15-37); BILIRUBIN,TOTAL 1.4 mg/dL (0.2-1.0); CALCIUM, SERUM 8.8 mg/dL (8.5-10.1); CARBON DIOXIDE 32 mmol/L (21-32); CHLORIDE 103 mmol/L (98-107); CREATININE 6.7 mg/dL (0.6-1.3); GLUCOSE 142 mg/dL (74-106); POTASSIUM 4.3 mmol/L (3.5-5.1); SODIUM SERUM 143 mmol/L (136-145); TOTAL PROTEIN, SERUM 6.7 g/dL (6.4-8.2); UREA NITROGEN, BLOOD 64 mg/dL (7-18)
[2021-04-07 08:00] VITALS: BP 92/42
[2021-04-07] MEDS: ALLOPURINOL 100 MG TABLET PO SCH (08:25)
[2021-04-07] MEDS: ZINC SULFATE 220 MG CAPSULE PO SCH (08:25)
[2021-04-07] MEDS: ASPIRIN 81 MG TAB.CHEW PO SCH (08:25)
[2021-04-07] MEDS: VIT B CMPLX 3/FA/VIT C/BIOTIN 1 TAB TABLET PO SCH (08:25)
[2021-04-07] MEDS: ASCORBIC ACID 500 MG TABLET PO SCH (08:25)
[2021-04-07] MEDS: FAMOTIDINE (20 MG) 20 MG TABLET PO SCH ×2 (08:25→17:00)
[2021-04-07] MEDS: RIVAROXABAN 15 MG TABLET PO SCH (08:26)
[2021-04-07] MEDS: PROSOURCE / PROSTAT (PYXIS) 30 ML UDC GT SCH ×3 (08:28→17:00)
[2021-04-07] MEDS: SEVELAMER CARBONATE 800 MG POWD.PACK NG SCH ×3 (08:28→17:13)
[2021-04-07] MEDS: CLOTRIMAZOLE/BETAMETASONE DIPROPIONATE 15 GM TUBE TP SCH ×3 (08:38→21:24)
[2021-04-07] MEDS: AMIODARONE HCL 200 MG TABLET PO SCH (08:38)
[2021-04-07] MEDS: DAKINS QUARTER STRENGTH (0.125%) 480 ML BOTTLE TOP SCH (08:38)
[2021-04-07] MEDS: THERAHONEY GEL 1.5 OZ TUBE TP SCH (08:38)
[2021-04-07] MEDS: CARVEDILOL 12.5 MG TABLET PO SCH ×2 (08:39→16:51)
[2021-04-07] MEDS: NEPRO VAN 237 ML CAN PO SCH (08:42)
--- NOTE | 2021-04-07 08:42 | NUR ---
RN NOTES; BP MEDICATIONS HELD DUE TO LOW BP AND HR. WILL CONTINUE TO MONITOR.
[2021-04-07] MEDS: DAPTOMYCIN 800 MG in IV NS 0.9% 50 ML IV SCH (09:09)
--- NOTE | 2021-04-07 10:39 | NUR ---
RN NOTES; ATTEMPTED TO GET CONSENT FOR US THORACENTHESIS 3X. PT STRONGLY DECLINES. MD NOTIFIED.
[2021-04-07] MEDS: INSULIN REGULAR, HUMAN 100 UNIT/ML 3 ML VIAL SQ PRN ×2 (11:11→17:26)
[2021-04-07 12:00] VITALS: BP 101/45
[2021-04-07] MEDS: ERGOCALCIFEROL (VITAMIN D 2) 50,000 UNIT CAPSULE PO SCH (12:20)
[2021-04-07] MEDS: METOLAZONE 2.5 MG TABLET PO SCH (12:22)
[2021-04-07 16:00] VITALS: BP 92/64
--- NOTE | 2021-04-07 16:51 | NUR ---
RN NOTES; EVENING BP MEDICATION HELD DUE TO LOW BP 92/64, HR 60.
--- NOTE | 2021-04-07 17:13 | NUR ---
RN NOTES; PROSTAT, FAMOTIDINE, RENVELA HELD DUE TO PT BEING ON BIPAP TREATMENT.
--- NOTE | 2021-04-07 18:13 | NUR ---
RN CLOSING NOTES PATIENT IN BED RESTING. PATIENT ON 8L via SIMPLE MASK, TOLERATING WELL WITH 02 SAT BETWEEN 96-98. JUNIOR ML PATENT WITH NO SIGNS OF INFILTRATION. MEDICATIONS GIVEN AND TOLERATED WELL. PATIENT KEPT CLEAN AND COMFORTABLE. NO SIGNIFICANT CHANGES IN PT HEALTH STATUS DURING SHIFT. ALL SAFETY MEASURES RENDERED, BED IN LOWEST POS. LOCKED, WITH CALL LIGHT WITHIN REACH. ENDORSED TO CURTAIN FELLER BLINDSTITCH RN IN STABLE CONDITION.
[2021-04-07 20:00] VITALS: BP 101/54
--- NOTE | 2021-04-07 20:02 | NUR ---
KAYLEE RN NOTES RECIEVED PATIENT IN BED, SLEEPING. EASILY AROUSABLE TO PAINFUL STIMULI. BREATHING EVEN AND UNLABORED. NO SOB NOTED. PATIENT ON SIMPLE FACE AT 8 L/MIN. TOLERATING WELL. OXYGEN SAT AT 99 PERCENT. NOTED WITH LEFT UPPER ARM MIDLINE, INTACT AND PATENT, RIGHT UPPER CHEST HD CATH, INTACT. BLE ELEVATED ON PILLOWS. HEELS FLOATED. ASSISTED WITH REPOSITION FOR SKIN MANAGEMENT AND WILL CONTINUE EVERY 2 HOURS. PATIENT NOTED WITH BILATERAL SOFT WRIST RESTRAINT. SKIN WNL AROUND RESTRAINT. VITAL SIGNS WNL. KEPT CLEAN AND DRY. ALL NEEDS ATTENDED. WILL CONTINUE TO MONITOR.
[2021-04-07] MEDS: ATORVASTATIN 10 MG TABLET PO SCH (21:08)
[2021-04-07] MEDS: LATANOPROST EYE DROP 0.005% 2.5 ML BOTTLE EACHEYE SCH ×2 (21:10→21:24)
--- NOTE | 2021-04-07 21:43 | NUR ---
KAYLEE PATEL NOTES PATIENT UNABLE TO SWALLOW MEDICATION. HELD MEDICATION. INFORMED. RT STARTED ON BiPAP. NO DISTRESS NOTED. WILL CONTINUE TO MONITOR. Addendum: 04/07/21 at 2250 by DANIEL ARTHUR RN PATIENT ON BiPAP. RESTRAINTS RELEASED.
--- NOTE | 2021-04-07 23:41 | NUR ---
KAYLEE RN NOTE BS CHECKED WITH VALUE OF 134. HELD INSULIN COVERAGE DUE TO PATIENT POOR FOOD INTAKE. WILL CONTINUE TO MONITOR.
[2021-04-08] VITALS: BP 104/55
[2021-04-08] MEDS: MEROPENEM 500 MG in IV NS 0.9% 50 ML IV SCH ×2 (03:59→15:26)
[2021-04-08 04:00] VITALS: BP 109/54
[2021-04-08] MEDS: BLOOD SUGAR DIAGNOSTIC 1 EACH STRIP IN SCH ×3 (06:21→17:30)
[2021-04-08] MEDS: MIDODRINE HCL (5MG) 5 MG TABLET PO SCH ×3 (06:38→21:10)
--- NOTE | 2021-04-08 06:38 | NUR ---
KAYLEE RN NOTES ADMINISTERED MIDODRINE 10 MG. UNABLE TO ADMINISTER AT 0500 DUE TO PATIENT BEING ON BIPAP.
[2021-04-08 06:49] LABS: BASOPHILS % (AUTO) 0.2 % (0.0-2.0); EOSINOPHILS % (AUTO) 4.6 % (0.0-6.0); HEMATOCRIT 27 % (39-51); HEMOGLOBIN 8.6 g/dL (13.5-17.5); LYMPHOCYTES # (AUTO) 0.7 K/uL (0.8-4.8); LYMPHOCYTES % (AUTO) 6.3 % (20.0-44.0); MEAN CORPUSCULAR HGB CONC 32 g/dl (31.0-36.0); MEAN CORPUSCULAR VOLUME 96 fL (80-96); MONOCYTES # (AUTO) 0.9 K/uL (0.1-1.30); NEUTROPHILS # (AUTO) 8.7 K/uL (1.8-8.9); NEUTROPHILS % (AUTO) 80.9 % (43.0-81.0); PLATELET COUNT (AUTO) 258 K/uL (150-450); RED BLOOD CELL COUNT(AUTO) 2.76 MIL/uL (4.5-6.0); WHITE BLOOD COUNT (AUTO) 10.7 K/uL (4.3-11.0)
--- NOTE | 2021-04-08 07:18 | NUR ---
RN OPENING NOTES; PT IN SUP POS SLEEPING. A/OX1-2. NO DISTRESS NOTED, NO SOB NOTED. PT HAD BIPAP TX IN EVENING AND TOLERATED WELL. PT SAT AT 98% WITH 02 @6L MASK. SOFT WRIST RESTRAINT NOTED, SKIN INTACT. ALL SAFETY MEASURES RENDERED, BED IN THE LOWEST POS. BED LOCKED WITH CALL LIGHT WITHIN REACH. WILL CONTINUE TO MONITOR.
[2021-04-08 07:29] LABS: ALANINE AMINOTRANSFERASE 17 U/L (12-78); ALBUMIN 1.8 g/dL (3.4-5.0); ALKALINE PHOSPHATASE 88 U/L (46-116); ASPARTATE AMINOTRANSFERASE 30 U/L (15-37); BILIRUBIN,TOTAL 1.1 mg/dL (0.2-1.0); CALCIUM, SERUM 8.5 mg/dL (8.5-10.1); CARBON DIOXIDE 28 mmol/L (21-32); CHLORIDE 106 mmol/L (98-107); GLUCOSE 111 mg/dL (74-106); POTASSIUM 4.5 mmol/L (3.5-5.1); SODIUM SERUM 143 mmol/L (136-145); TOTAL PROTEIN, SERUM 6.3 g/dL (6.4-8.2); UREA NITROGEN, BLOOD 75 mg/dL (7-18)
[2021-04-08 07:47] LABS: CREATININE 7.6 mg/dL (0.6-1.3)
--- NOTE | 2021-04-08 07:49 | NUR ---
RN NOTES; LABS CALLED TO REPORT HIGH CREATININE 7.6. DR. ROMERO NOTIFIED. PT IS ON DIALYSIS.
[2021-04-08] MEDS: ACETYLCYSTEINE 10% SOLN 400 MG/4 ML VIAL NEB SCH ×3 (08:06→23:30)
[2021-04-08] MEDS: ALBUTEROL FS 2.5 MG/3 ML VIAL.NEB IH PRN (08:06)
[2021-04-08] MEDS: RIVAROXABAN 15 MG TABLET PO SCH (08:32)
[2021-04-08] MEDS: VIT B CMPLX 3/FA/VIT C/BIOTIN 1 TAB TABLET PO SCH (08:32)
[2021-04-08] MEDS: ZINC SULFATE 220 MG CAPSULE PO SCH (08:32)
[2021-04-08] MEDS: ALLOPURINOL 100 MG TABLET PO SCH (08:32)
[2021-04-08] MEDS: FAMOTIDINE (20 MG) 20 MG TABLET PO SCH ×2 (08:32→17:00)
[2021-04-08] MEDS: ASCORBIC ACID 500 MG TABLET PO SCH (08:32)
[2021-04-08] MEDS: SEVELAMER CARBONATE 800 MG POWD.PACK NG SCH ×3 (08:32→18:00)
[2021-04-08] MEDS: ASPIRIN 81 MG TAB.CHEW PO SCH (08:32)
[2021-04-08] MEDS: PROSOURCE / PROSTAT (PYXIS) 30 ML UDC GT SCH ×3 (08:37→17:00)
[2021-04-08] MEDS: CLOTRIMAZOLE/BETAMETASONE DIPROPIONATE 15 GM TUBE TP SCH ×2 (08:38→21:15)
[2021-04-08] MEDS: DAKINS QUARTER STRENGTH (0.125%) 480 ML BOTTLE TOP SCH (08:38)
[2021-04-08] MEDS: THERAHONEY GEL 1.5 OZ TUBE TP SCH (08:38)
[2021-04-08 08:51] VITALS: BP 95/44
[2021-04-08] MEDS: AMIODARONE HCL 200 MG TABLET PO SCH (08:52)
[2021-04-08] MEDS: NEPRO VAN 237 ML CAN PO SCH (08:53)
[2021-04-08] MEDS: CARVEDILOL 12.5 MG TABLET PO SCH ×2 (08:53→17:00)
--- NOTE | 2021-04-08 09:13 | NUR ---
RN NOTES; BP MEDICATIONS HELD DUE TO LOW BP AND HR OF 95/44, 60. MD IS AWARE OF LOW BP.
[2021-04-08 10:26] LABS: ABG BASE EXCESS 0.3 mmol/L; ABG PCO2 62.1 mmHg (35.0-45.0); ABG PO2 71.2 mmHg (75.0-100.0); AaDO2 84.3 mmHg; COHb 0.5 % (0.5-1.5); MetHb 0.1 % (0.0-1.5); O2Hb 89.5 % (94.0-97.0); SITE, ABG Right Radial; VENT MODE, BG 4L NC
[2021-04-08] MEDS: INSULIN REGULAR, HUMAN 100 UNIT/ML 3 ML VIAL SQ PRN (11:30)
[2021-04-08 12:00] VITALS: BP 96/53
[2021-04-08] MEDS: ALBUMIN 25% 25 GM in PREMIX 1 EA IV PRN (12:14)
--- NOTE | 2021-04-08 12:40 | NUR ---
RN NOTES; AFTERNOON MEDICATION HELD, PT IS ALTERED AND ON BIPAP. CHARGE NURSE AWARE.
--- NOTE | 2021-04-08 12:51 | NUR ---
RN NOTES OF PATIENT [facility] CALLED TO GIVE VERBAL CONSENT FOR ULTRASOUND GUIDED THORACENTESIS, WITNESS BY JORGE Ellington CONSENT SIGNED AND IN CHART. ORDER REINSTATED FOR 04/09/2021
[2021-04-08 14:27] LABS: ABG BASE EXCESS -0.9 mmol/L; ABG OXYGEN SATURATION 93.5 % (92.0-98.5); ABG PCO2 36.9 mmHg (35.0-45.0); AaDO2 165.8 mmHg; COHb 0.3 % (0.5-1.5); MetHb 0.1 % (0.0-1.5); O2Hb 93.1 % (94.0-97.0); SITE, ABG Right Radial; VENT MODE, BG rr24 20/5 40%
--- NOTE | 2021-04-08 15:14 | NUR ---
RN NOTES; GAVE REPORT TO JORGE GOFF FOR CONTINUITY OF CARE. PT ENDORSED IN STABLE CONDITION.
[2021-04-08 16:00] VITALS: BP 106/33
--- NOTE | 2021-04-08 17:32 | NUR ---
NURSE NOTE UNABLE TO GIVE 1700 MEDICATION. PATIENT ON BIPAP.
--- NOTE | 2021-04-08 18:58 | NUR ---
NURSE NOTE 1800 MEDICATION NOT GIVEN. PATIENT ON BIPAP
--- NOTE | 2021-04-08 19:30 | NUR ---
RN NOTE PT RECEIVED IN BED. PT IS CURRENTLY ON BIPAP. OXYGEN SATURATION >95%. A/OX1-2, PERIODS OF CONFUSION. PT ON TELE MONITOR V-PACING WITH HR 60. LEFT UPPER ARM MIDLINE NOTED. LINE FLUSHED, PATENT, AND INTACT WITH NO SIGNS OF INFILTRATION. RIGHT UPPER CHEST HD CATH NOTED. ALL SAFETY MEASURES IMPLEMENTED. WILL CONTINUE TO MONITOR AND ASSESS FOR ANY CHANGES.
--- NOTE | 2021-04-08 19:54 | NUR ---
RN NOTE SPOKE WITH DR. DAS ABOUT PT BEING ON BI-PAP AND GOING THROUGH PERIODS OF CONFUSION. DR. DAS SAID TO SEE IF PT IS ABLE TO TAKE MEDS. IF NOT, OKAY TO HOLD MEDICATIONS PER DR. DAS. ORDER NOTED AND CARRIED OUT.
[2021-04-08 20:00] VITALS: BP 107/46
[2021-04-08] MEDS: ATORVASTATIN 10 MG TABLET PO SCH (21:10)
[2021-04-08] MEDS: LATANOPROST EYE DROP 0.005% 2.5 ML BOTTLE EACHEYE SCH (21:15)
[2021-04-09] VITALS (21 sets, daily range): BP systolic 91–122; BP diastolic 39–64
[2021-04-09] MEDS: BLOOD SUGAR DIAGNOSTIC 1 EACH STRIP IN SCH ×4 (00:20→18:13)
[2021-04-09] MEDS: ACETYLCYSTEINE 10% SOLN 400 MG/4 ML VIAL NEB SCH ×4 (01:40→23:24)
[2021-04-09] MEDS: ALBUTEROL FS 2.5 MG/3 ML VIAL.NEB IH PRN ×2 (01:40→15:01)
[2021-04-09] MEDS: MEROPENEM 500 MG in IV NS 0.9% 50 ML IV SCH ×2 (03:19→17:56)
[2021-04-09] MEDS: MIDODRINE HCL (5MG) 5 MG TABLET PO SCH ×3 (05:36→21:00)
--- NOTE | 2021-04-09 06:48 | NUR ---
RN NOTE NO CHANGES IN PT CONDITION DURING SHIFT. PT IS CURRENTLY ON BIPAP WITH OXYGEN SATURATION >95%. PT ON TELE MONITOR V-PACING WITH HR 60. LEFT UPPER ARM MIDLINE NOTED. LINE FLUSHED, PATENT, AND INTACT WITH NO SIGNS OF INFILTRATION. RIGHT UPPER CHEST HD CATH NOTED. ALL DUE MEDS GIVEN ORDERED. PT KEPT CLEAN AND COMFORTABLE. ALL SAFETY MEASURES IMPLEMENTED. WILL ENDORSE TO MORNING SHIFT RN FOR BREA.
[2021-04-09 07:14] LABS: BASOPHILS % (AUTO) 0.2 % (0.0-2.0); EOSINOPHILS % (AUTO) 5.9 % (0.0-6.0); HEMATOCRIT 26 % (39-51); HEMOGLOBIN 8.2 g/dL (13.5-17.5); LYMPHOCYTES # (AUTO) 0.6 K/uL (0.8-4.8); LYMPHOCYTES % (AUTO) 5.7 % (20.0-44.0); MEAN CORPUSCULAR HGB CONC 31 g/dl (31.0-36.0); MEAN CORPUSCULAR VOLUME 98 fL (80-96); MONOCYTES # (AUTO) 0.8 K/uL (0.1-1.30); MONOCYTES % (AUTO) 7.7 % (2.0-12.0); NEUTROPHILS # (AUTO) 8.6 K/uL (1.8-8.9); NEUTROPHILS % (AUTO) 80.5 % (43.0-81.0); PLATELET COUNT (AUTO) 275 K/uL (150-450); RED BLOOD CELL COUNT(AUTO) 2.69 MIL/uL (4.5-6.0); WHITE BLOOD COUNT (AUTO) 10.7 K/uL (4.3-11.0)
[2021-04-09 07:39] LABS: ALANINE AMINOTRANSFERASE 17 U/L (12-78); ALKALINE PHOSPHATASE 89 U/L (46-116); ASPARTATE AMINOTRANSFERASE 27 U/L (15-37); BILIRUBIN,TOTAL 1.2 mg/dL (0.2-1.0); CALCIUM, SERUM 8.4 mg/dL (8.5-10.1); CARBON DIOXIDE 27 mmol/L (21-32); CHLORIDE 106 mmol/L (98-107); CREATININE 7.3 mg/dL (0.6-1.3); GLUCOSE 114 mg/dL (74-106); POTASSIUM 4.6 mmol/L (3.5-5.1); SODIUM SERUM 144 mmol/L (136-145); TOTAL PROTEIN, SERUM 6.5 g/dL (6.4-8.2); UREA NITROGEN, BLOOD 71 mg/dL (7-18)
[2021-04-09] MEDS: SEVELAMER CARBONATE 800 MG POWD.PACK NG SCH ×3 (08:00→18:00)
[2021-04-09] MEDS: DAPTOMYCIN 800 MG in IV NS 0.9% 50 ML IV SCH (08:51)
[2021-04-09] MEDS: FAMOTIDINE (20 MG) 20 MG TABLET PO SCH ×2 (09:00→17:00)
[2021-04-09] MEDS: ASPIRIN 81 MG TAB.CHEW PO SCH (09:00)
[2021-04-09] MEDS: ASCORBIC ACID 500 MG TABLET PO SCH (09:00)
[2021-04-09] MEDS: CARVEDILOL 12.5 MG TABLET PO SCH ×2 (09:00→17:00)
[2021-04-09] MEDS: PROSOURCE / PROSTAT (PYXIS) 30 ML UDC GT SCH ×3 (09:00→17:00)
[2021-04-09] MEDS: ALLOPURINOL 100 MG TABLET PO SCH (09:00)
[2021-04-09] MEDS: VIT B CMPLX 3/FA/VIT C/BIOTIN 1 TAB TABLET PO SCH (09:00)
[2021-04-09] MEDS: RIVAROXABAN 15 MG TABLET PO SCH (09:00)
[2021-04-09] MEDS: NEPRO VAN 237 ML CAN PO SCH (09:00)
[2021-04-09] MEDS: ZINC SULFATE 220 MG CAPSULE PO SCH (09:00)
[2021-04-09] MEDS: AMIODARONE HCL 200 MG TABLET PO SCH (09:00)
--- NOTE | 2021-04-09 09:34 | NUR ---
RN NOTES, PATIENT PLACED ON BIPAP AT THIS TIME PER DR CALL ORDERS, ABGS AND CXR STAT DONE, WITH ORDERS TO TRANFER PATIENT TO ICU.
[2021-04-09 09:47] LABS: ABG BASE EXCESS -0.6 mmol/L; ABG OXYGEN SATURATION 94.1 % (92.0-98.5); ABG PCO2 56.1 mmHg (35.0-45.0); ABG PO2 89.8 mmHg (75.0-100.0); AaDO2 167.2 mmHg; COHb 0.5 % (0.5-1.5); MetHb 0.4 % (0.0-1.5); O2Hb 93.3 % (94.0-97.0); SITE, ABG Right Radial; VENT MODE, BG SIMPLE MASK
--- NOTE | 2021-04-09 10:15 | NUR ---
RN NOTES, PATIENT TRANSFERRED TO ICU VIA BED WITH ALL ACLS PROTOCOL, PATIENT ON BIPAP, ACCOMPANIED BY RT, 2CNAS AND PRIMARY RN, REPORT GIVEN TO HARRY PATEL AT BEDSIDE, VS 109/53, 95%, 60, 20, 98, BELONGING AND MEDICATIONS GIVEN TO HARRY PATEL.
--- NOTE | 2021-04-09 10:25 | NUR ---
GUSSET FOLDER NOTES RECEIVED PT FROM [employer]. REPORT GIVEN BY MARIO PATEL AT BEDSIDE. LETHARGIC. ON CONTINUOUS BIPAP. VS STABLE. WILL CONTINUE TO MONITOR.
[2021-04-09] MEDS: CLOTRIMAZOLE/BETAMETASONE DIPROPIONATE 15 GM TUBE TP SCH ×2 (10:33→22:14)
[2021-04-09] MEDS: THERAHONEY GEL 1.5 OZ TUBE TP SCH (10:36)
[2021-04-09] MEDS: DAKINS QUARTER STRENGTH (0.125%) 480 ML BOTTLE TOP SCH (10:37)
--- NOTE | 2021-04-09 12:00 | NUR ---
RN NOTES BS OF 120, NO INSULIN COVERAGE.
[2021-04-09] MEDS: INSULIN REGULAR, HUMAN 100 UNIT/ML 3 ML VIAL SQ PRN ×2 (12:01→18:14)
[2021-04-09] MEDS: METOLAZONE 2.5 MG TABLET PO SCH (13:00)
[2021-04-09] MEDS: ALBUMIN 25% 25 GM in PREMIX 1 EA IV PRN (14:34)
--- NOTE | 2021-04-09 14:45 | NUR ---
RN NOTES PT STARTED HD. ALBUMIN GIVEN ORDERED. VS STABLE.
--- NOTE | 2021-04-09 17:45 | NUR ---
RN NOTES HD OUTPUT 1750ML. VS STABLE. STAT BUN ORDERED PER MD AFTER HD.
--- NOTE | 2021-04-09 18:00 | NUR ---
RN NOTES BS OF 85, NO INSULIN COVERAGE.
--- NOTE | 2021-04-09 19:18 | NUR ---
WOOD MILLER NOTES PT ON CONTINUOUS BIPAP. O2 SAT @96%. HD OUTPUT 1750ML. DENIES PAIN. KEPT CLEAN AND COMFORTABLE. NEEDS ATTENDED. SAFETY MEASURES IN PLACE. BED LOCKED AND IN LOWEST POSTION. ENDORSED TO NIGHT RN FOR BREA.
--- NOTE | 2021-04-09 19:40 | NUR ---
ICU/PROCESS DESIGN ENGINEER RECIEVED REPORT FROM DAY SHIFT NURSE. SEE FLOWSHEET FOR ASSESSMENT, THERE ARE MANY SKIN ISSUES THAT ARE ADDRESSED ON THE FLOWSHEET, ALONG WITH INTERVENTIONS TO EACH. THERE IS NO IV'S WHICH NEEDS TO BE ADDRESSED. PT ASST WITH TURNING AND REPOSITIONS, ALONG WITH BIG BOY BED. WILL CONTINUE TO MONITOR THIS PT. NO ACUTE DISTRESS SEEN AT THIS TIME.
[2021-04-09] MEDS: ATORVASTATIN 10 MG TABLET PO SCH (22:00)
[2021-04-09] MEDS: LATANOPROST EYE DROP 0.005% 2.5 ML BOTTLE EACHEYE SCH (22:14)
--- NOTE | 2021-04-09 22:30 | NUR ---
ICU/TRAILHEAD MAINTENANCE WORKER PT IS VERY LETHARGIC WHILE BEING ON BIPAP. 2100 & 2200 MEDICATIONS WERE PLACED ON HOLD FOR TONIGHT ONLY DUE TO THIS. WILL REVISE THIS WHEN PT BECOMES MORE ALERT.
[2021-04-10] VITALS (55 sets, daily range): BP systolic 85–129; BP diastolic 32–58
--- NOTE | 2021-04-10 00:06 | NUR ---
RECEIVED PT ON BIPAP. PT TOLERATING SETTINGS. NO RESP DISTRESS. ALARMS SET AND AUDIBLE. AMBU BAG AT BEDSIDE. Addendum: 04/10/21 at 0007 by JANNA GUZMAN RT Amended: Links added.
[2021-04-10] MEDS: BLOOD SUGAR DIAGNOSTIC 1 EACH STRIP IN SCH ×5 (00:19→23:41)
--- NOTE | 2021-04-10 00:35 | NUR ---
ICU/BUSINESS OPERATIONS DIRECTOR RT INCREASED THE FIO2 TO 40% FROM 30. WILL MONITOR THIS PT'S SATURATION.
--- NOTE | 2021-04-10 03:00 | NUR ---
ICU/PATIENT CARE ASSISTANT PT WAS GIVEN ORAL CARE ALONG WITH AM CARE. PT REMAINS ON CURRENT BIPAP SETTINGS WITH SATURATION AT 96-98%. PT WAS TURNED AND REPOSITIONED FOR COMFORT AND CARE. WILL CONTINUE TO MONITOR THIS PT. NO ACUTE DISTRESS SEEN AT THIS TIME.
[2021-04-10 04:30] LABS: BASOPHILS % (AUTO) 0.5 % (0.0-2.0); EOSINOPHILS % (AUTO) 9.4 % (0.0-6.0); HEMATOCRIT 29 % (39-51); LYMPHOCYTES # (AUTO) 0.8 K/uL (0.8-4.8); LYMPHOCYTES % (AUTO) 7.3 % (20.0-44.0); MEAN CORPUSCULAR HGB CONC 31 g/dl (31.0-36.0); MEAN CORPUSCULAR VOLUME 98 fL (80-96); MONOCYTES % (AUTO) 9.3 % (2.0-12.0); NEUTROPHILS # (AUTO) 7.9 K/uL (1.8-8.9); NEUTROPHILS % (AUTO) 73.5 % (43.0-81.0); PLATELET COUNT (AUTO) 251 K/uL (150-450); RED BLOOD CELL COUNT(AUTO) 2.96 MIL/uL (4.5-6.0); WHITE BLOOD COUNT (AUTO) 10.7 K/uL (4.3-11.0)
[2021-04-10] MEDS: MEROPENEM 500 MG in IV NS 0.9% 50 ML IV SCH ×2 (04:34→17:14)
[2021-04-10 04:37] LABS: CARBON DIOXIDE 30 mmol/L (21-32); CHLORIDE 106 mmol/L (98-107); CREATININE 4.6 mg/dL (0.6-1.3); GLUCOSE 86 mg/dL (74-106); POTASSIUM 4.3 mmol/L (3.5-5.1); SODIUM SERUM 143 mmol/L (136-145); UREA NITROGEN, BLOOD 37 mg/dL (7-18)
[2021-04-10 04:43] LABS: ALANINE AMINOTRANSFERASE 20 U/L (12-78); ALBUMIN 2.4 g/dL (3.4-5.0); ALKALINE PHOSPHATASE 90 U/L (46-116); ASPARTATE AMINOTRANSFERASE 32 U/L (15-37); BILIRUBIN,TOTAL 1.6 mg/dL (0.2-1.0); TOTAL PROTEIN, SERUM 7.1 g/dL (6.4-8.2)
[2021-04-10 04:59] LABS: CALCIUM, SERUM 8.5 mg/dL (8.5-10.1)
[2021-04-10] MEDS: MIDODRINE HCL (5MG) 5 MG TABLET PO SCH ×3 (05:00→20:08)
--- NOTE | 2021-04-10 05:06 | NUR ---
MASK CHANGED TO UNDER THE NOSE SIZE (B) DUE TO REDNESS ON THE BRIDGE OF THE NOSE. RN NOTIFIED.
--- NOTE | 2021-04-10 07:05 | NUR ---
RN NOTES RECEIVED PT ON BED, ALERT/ FOLLOWS SIMPLE COMMAND, ON BIPAP , TOLERATING SETTING WELL, O2 SAT WNL, ON TELE AV PACING , HR IN 60'S, L UPPER ARM MIDLINE SITE CLEAN, DRY AND INTACT, SR UP x3. CALL LIGHT WITHIN EASY REACH, BED LOCKED AND IN LOWEST POSITION, CONTINUE TO MONITOR.
[2021-04-10] MEDS: SEVELAMER CARBONATE 800 MG POWD.PACK NG SCH ×3 (08:00→17:03)
[2021-04-10] MEDS: ACETYLCYSTEINE 10% SOLN 400 MG/4 ML VIAL NEB SCH ×3 (08:05→23:34)
[2021-04-10] MEDS: FAMOTIDINE (20 MG) 20 MG TABLET PO SCH ×2 (08:45→17:02)
[2021-04-10] MEDS: ASPIRIN 81 MG TAB.CHEW PO SCH (08:45)
[2021-04-10] MEDS: CARVEDILOL 12.5 MG TABLET PO SCH ×2 (08:46→17:00)
[2021-04-10] MEDS: AMIODARONE HCL 200 MG TABLET PO SCH (08:47)
[2021-04-10] MEDS: ASCORBIC ACID 500 MG TABLET PO SCH (08:47)
[2021-04-10] MEDS: RIVAROXABAN 15 MG TABLET PO SCH ×2 (08:48→10:10)
[2021-04-10] MEDS: NEPRO VAN 237 ML CAN PO SCH (08:48)
[2021-04-10] MEDS: VIT B CMPLX 3/FA/VIT C/BIOTIN 1 TAB TABLET PO SCH (08:48)
[2021-04-10] MEDS: PROSOURCE / PROSTAT (PYXIS) 30 ML UDC GT SCH ×3 (08:49→17:02)
[2021-04-10] MEDS: ALLOPURINOL 100 MG TABLET PO SCH (08:50)
[2021-04-10] MEDS: ZINC SULFATE 220 MG CAPSULE PO SCH (08:50)
[2021-04-10] MEDS: DAKINS QUARTER STRENGTH (0.125%) 480 ML BOTTLE TOP SCH (08:51)
[2021-04-10] MEDS: THERAHONEY GEL 1.5 OZ TUBE TP SCH (08:51)
[2021-04-10] MEDS: CLOTRIMAZOLE/BETAMETASONE DIPROPIONATE 15 GM TUBE TP SCH ×2 (08:52→22:20)
[2021-04-10 08:57] LABS: ABG BASE EXCESS -0.5 mmol/L; ABG OXYGEN SATURATION 94.3 % (92.0-98.5); ABG PCO2 38.1 mmHg (35.0-45.0); ABG PH 7.416 (7.350-7.450); ABG PO2 80.6 mmHg (75.0-100.0); AaDO2 160.8 mmHg; COHb 0.9 % (0.5-1.5); MetHb 0.1 % (0.0-1.5); O2Hb 93.4 % (94.0-97.0); SITE, ABG Left Radial
[2021-04-10 11:59] LABS: ABG BASE EXCESS 3.1 mmol/L; ABG OXYGEN SATURATION 82.6 % (92.0-98.5); ABG PH 7.372 (7.350-7.450); ABG PO2 52.2 mmHg (75.0-100.0); AaDO2 87.3 mmHg; COHb 0.6 % (0.5-1.5); MetHb 0.5 % (0.0-1.5); O2Hb 81.7 % (94.0-97.0); SITE, ABG Right Radial; VENT MODE, BG N/C
[2021-04-10] MEDS: ALBUMIN 25% 25 GM in PREMIX 1 EA IV PRN (14:20)
--- NOTE | 2021-04-10 16:52 | NUR ---
RN NOTES PT RECEIVING HD , ,MERREM IV NOT GIVEN YET
--- NOTE | 2021-04-10 18:33 | NUR ---
RN NOTES PT HAD HD DURING THIS SHIFT, TOLERATED WELL, ON 3 L O2 N/C , O2 SAT WNL, OFF BIPAP, ON TELE AV- PACING , HR IN 60'S , SR UP x3, CALL LIGHT WITHIN EASY REACH, BED LOCKED AND IN LOWEST POSITION, WILL ENDORSE TO PAPER RULER NURSE FOR CONTINUITY OF CARE .
--- NOTE | 2021-04-10 19:30 | NUR ---
RN NOTE RECEIVED PT AWAKE AND ALERT, CAN FOLLOW SIMPLE COMMANDS. ON O2 AT 3L. NO SIGNS OF RESP DISTRESS NOTED. PT DENIES ANY SOB OR PAIN. NOTED WITH BRUISE ON NOSE BRIDGE, WOUND DRESSINGS ON ARM AND R LOWER LEG CLEAN DRY AND INTACT. HD CATH ON R CHEST INTACT, NO SIGNS OF BLEEDING NOTED. ALL SAFETY IN PLACE PER PROTOCOL. CALL LIGHT WITHIN REACH, WILL CONTINUE TO MONITOR.
[2021-04-10] MEDS: ATORVASTATIN 10 MG TABLET PO SCH (21:36)
[2021-04-10] MEDS: LATANOPROST EYE DROP 0.005% 2.5 ML BOTTLE EACHEYE SCH (21:38)
[2021-04-10] MEDS: INSULIN REGULAR, HUMAN 100 UNIT/ML 3 ML VIAL SQ PRN (23:41)
--- NOTE | 2021-04-10 23:50 | NUR ---
RT NOTE pt rec'd on 3lnc. Pt placed on bipap per md orders on noted settings as charted. pt shows no signs of resp distress or sob. pt NT sx'd for small amt of thick yellow secretions. Alarms are set and audible. Bipap plugged into red outlet. Ambu bag bedside. Will continue to monitor closely. Addendum: 04/10/21 at 2352 by SHAHEED ARORA RT Amended: Links added.
[2021-04-11] VITALS (37 sets, daily range): BP systolic 86–117; BP diastolic 35–68
--- NOTE | 2021-04-11 00:04 | NUR ---
RN NOTE PT WAS PUT ON BIPAP BY RT PER MD ORDER. NO SIGNS OF RESP DISTRESS NOTED. WILL CONTINUE TO MONITOR.
[2021-04-11] MEDS: MEROPENEM 500 MG in IV NS 0.9% 50 ML IV SCH ×2 (04:14→15:58)
--- NOTE | 2021-04-11 04:16 | NUR ---
RN NOTE PT WITH EPISODES OF REMOVING BIPAP, RE ORIENTED, BUT STILL REMOVING IT. OBTAINED AN ORDER FOR RESTRAINTS. WILL CONTINUE TO MONITOR. NO SIGNS OF DISTRESS NOTED.
[2021-04-11 04:24] LABS: BASOPHILS # (AUTO) 0.1 K/uL (0.0-0.2); BASOPHILS % (AUTO) 0.9 % (0.0-2.0); EOSINOPHILS % (AUTO) 9.3 % (0.0-6.0); HEMATOCRIT 25 % (39-51); HEMOGLOBIN 8.1 g/dL (13.5-17.5); LYMPHOCYTES # (AUTO) 0.6 K/uL (0.8-4.8); LYMPHOCYTES % (AUTO) 5.8 % (20.0-44.0); MEAN CORPUSCULAR HGB CONC 32 g/dl (31.0-36.0); MEAN CORPUSCULAR VOLUME 94 fL (80-96); MONOCYTES # (AUTO) 0.9 K/uL (0.1-1.30); MONOCYTES % (AUTO) 8.7 % (2.0-12.0); NEUTROPHILS # (AUTO) 8.1 K/uL (1.8-8.9); NEUTROPHILS % (AUTO) 75.3 % (43.0-81.0); PLATELET COUNT (AUTO) 250 K/uL (150-450); RED BLOOD CELL COUNT(AUTO) 2.66 MIL/uL (4.5-6.0); WHITE BLOOD COUNT (AUTO) 10.7 K/uL (4.3-11.0)
[2021-04-11 04:33] LABS: ALANINE AMINOTRANSFERASE 28 U/L (12-78); ALBUMIN 2.1 g/dL (3.4-5.0); ALKALINE PHOSPHATASE 111 U/L (46-116); ASPARTATE AMINOTRANSFERASE 51 U/L (15-37); BILIRUBIN,TOTAL 1.9 mg/dL (0.2-1.0); CALCIUM, SERUM 7.9 mg/dL (8.5-10.1); CARBON DIOXIDE 32 mmol/L (21-32); CHLORIDE 105 mmol/L (98-107); CREATININE 3.4 mg/dL (0.6-1.3); GLUCOSE 120 mg/dL (74-106); POTASSIUM 3.7 mmol/L (3.5-5.1); SODIUM SERUM 142 mmol/L (136-145); TOTAL PROTEIN, SERUM 6.3 g/dL (6.4-8.2); UREA NITROGEN, BLOOD 24 mg/dL (7-18)
--- NOTE | 2021-04-11 05:14 | NUR ---
PT TAKEN OFF NOC BIPAP AND PLACED ON 3L NC. RN NOTIFIED.
[2021-04-11] MEDS: MIDODRINE HCL (5MG) 5 MG TABLET PO SCH ×3 (05:24→21:07)
--- NOTE | 2021-04-11 05:30 | NUR ---
RN NOTE PT OFF BIPAP, TOLERATING O2 AT 3L WITH O2 SAT OF 95%. NO DISTRESS NOTED.
[2021-04-11] MEDS: BLOOD SUGAR DIAGNOSTIC 1 EACH STRIP IN SCH ×4 (06:11→23:28)
[2021-04-11] MEDS: INSULIN REGULAR, HUMAN 100 UNIT/ML 3 ML VIAL SQ PRN ×2 (06:13→13:24)
--- NOTE | 2021-04-11 07:15 | NUR ---
RN NOTE PT AWAKE, TOLERATING O2 THERAPY AT 3L. O2 SAT AT 94. NO SIGNS OF DISTRESS. PT STILL WITH EPISODE OF PULLING OUT TUBES, CONTINUE ON BILATERAL WRIST RESTRAINTS. WITH GOOD SKIN AND CIRCULATION. WOUND TX WERE DONE ORDERED. DRESSINGS ARE INTACT. NEEDS ATTENDED, ON FREQUENT VISUAL CHECK. ENDORSED TO NEXT SHIFT NURSE FOR BREA.
[2021-04-11] MEDS: ACETYLCYSTEINE 10% SOLN 400 MG/4 ML VIAL NEB SCH ×3 (07:35→23:14)
--- NOTE | 2021-04-11 08:00 | NUR ---
RN NOTE RECEIVED PATIENT CONFUSED, ON O2-4LNC. NO ACUTE RESPIRATORY DISTRESS, SUCTION, MOUTH CARE DONE ASSIST BREAKFAST, DUE MEDS ADMINISTERED CRUSHED. PATIENT AM CARE DONE. PATIENT OBESE, TOTAL ASSIST TURN RIDDHI AND REPOSITIONING, DRESSING CHANGED. PATIENT ANURIC. CALL LIGHT WITHIN TO REACH. WILL FOLLOW UP.
--- NOTE | 2021-04-11 09:00 | NUR ---
RN NOTES GET ORDER VIA Dr CALL REGULAR PATIENT PUT ON BIPAP DURING THE NIGHT TIME.
[2021-04-11] MEDS: DAPTOMYCIN 800 MG in IV NS 0.9% 50 ML IV SCH (09:42)
[2021-04-11] MEDS: ZINC SULFATE 220 MG CAPSULE PO SCH (09:43)
[2021-04-11] MEDS: ASCORBIC ACID 500 MG TABLET PO SCH (09:43)
[2021-04-11] MEDS: VIT B CMPLX 3/FA/VIT C/BIOTIN 1 TAB TABLET PO SCH (09:43)
[2021-04-11] MEDS: RIVAROXABAN 15 MG TABLET PO SCH (09:43)
[2021-04-11] MEDS: ALLOPURINOL 100 MG TABLET PO SCH (09:44)
[2021-04-11] MEDS: FAMOTIDINE (20 MG) 20 MG TABLET PO SCH ×2 (09:44→17:00)
[2021-04-11] MEDS: CARVEDILOL 12.5 MG TABLET PO SCH ×2 (09:45→16:55)
[2021-04-11] MEDS: NEPRO VAN 237 ML CAN PO SCH (09:46)
[2021-04-11] MEDS: PROSOURCE / PROSTAT (PYXIS) 30 ML UDC GT SCH ×3 (09:46→16:58)
[2021-04-11] MEDS: DAKINS QUARTER STRENGTH (0.125%) 480 ML BOTTLE TOP SCH (09:47)
[2021-04-11] MEDS: CLOTRIMAZOLE/BETAMETASONE DIPROPIONATE 15 GM TUBE TP SCH ×2 (09:48→21:07)
[2021-04-11] MEDS: THERAHONEY GEL 1.5 OZ TUBE TP SCH (09:48)
[2021-04-11] MEDS: AMIODARONE HCL 200 MG TABLET PO SCH (09:50)
[2021-04-11] MEDS: ASPIRIN 81 MG TAB.CHEW PO SCH (09:52)
[2021-04-11 10:57] LABS: ABG BASE EXCESS 0.2 mmol/L; ABG OXYGEN SATURATION 92.7 % (92.0-98.5); ABG PCO2 47.8 mmHg (35.0-45.0); ABG PH 7.353 (7.350-7.450); ABG PO2 73.9 mmHg (75.0-100.0); AaDO2 120.1 mmHg; MetHb 0.3 % (0.0-1.5); O2Hb 91.5 % (94.0-97.0); SITE, ABG Right Radial
--- NOTE | 2021-04-11 12:00 | NUR ---
RN NOTES [id number] COVERAGE GIVEN, PATIENT TOLERATED LUNCH 15% POOR .PATIENT PRONE TO ASPIRATION PRECAUTION. PATIENT CONFUSED TRYING TO GET OUT OF BED. WILL MONITOR CLOSELY.
[2021-04-11] MEDS: METOLAZONE 2.5 MG TABLET PO SCH (13:28)
[2021-04-11] MEDS ORDERED: Sodium Phosphate 30 MMOL in IV NS 0.9% 250 ML IV SCH (17:00)
--- NOTE | 2021-04-11 18:30 | NUR ---
RN NOTES PATIENT DEEP SUCTION, PM CARE DONE, DUE MEDICATION ADMINISTERED CRUSHED, PATIENT ON O2-6LNC. HD CATH INTACT RUC, INFUSING SODIUM PHOSPATE @43.33 ML/HR ON LEFT UPPER MIDLINE INTACT. PATIENT ANURIC. ASSIST EATING DINNER TOLERATED 15%, KEEP HOB ELEVATED FOR ASPIRATION PRECAUTION. ENDORSED ONCOMING NURSE BREA.
--- NOTE | 2021-04-11 20:18 | NUR ---
PT PLACED ON NOC BIPAP RN NOTIFIED. PT NT SX'D LARGE AMT OF RED SECRETIONS. CONTINUE TO MONITOR.
[2021-04-11] MEDS: LATANOPROST EYE DROP 0.005% 2.5 ML BOTTLE EACHEYE SCH (21:08)
[2021-04-11] MEDS: ATORVASTATIN 10 MG TABLET PO SCH (21:08)
[2021-04-11] MEDS ORDERED: IV NS 0.9% 500 ML IV ONE (22:30)
[2021-04-11] MEDS: ALBUTEROL FS 2.5 MG/3 ML VIAL.NEB IH PRN (23:14)
[2021-04-11] MEDS ORDERED: NOREPINEPHRINE 8MG/250ML RTU 250 ML IV ONE (23:30)
[2021-04-11] MEDS: NOREPINEPHRINE 8 MG in IV NS 0.9% 242 ML IV PRN (23:33)
[2021-04-12] VITALS (41 sets, daily range): BP systolic 85–150; BP diastolic 38–128
[2021-04-12] MEDS: MEROPENEM 500 MG in IV NS 0.9% 50 ML IV SCH ×2 (04:17→17:14)
--- NOTE | 2021-04-12 04:20 | NUR ---
SUPERVISOR VOLUNTEER SERVICES PT IS CONFUSED & AGITATED @ TIMES. PT IS ON NOCTURNAL BIPAP- TOLERATES WELL. VSS, AFEBRILE, A-V PACING -100%. PT WAS HYPOTENSIVE. BOLUS 500 ML NS GIVEN & STARTED LEVOPHED PER NEWS ORDER. SOFT WRIST RESTRAINTS ON. REMAINS ANURIC. LAST HD WAS DONE ON 04.11. NEXT SCHEDULED FOR TODAY. INCONTINENT IN BM. COMPLETE BATH GIVEN, ALL LINEN CHANGED. MEDICATED ORDERED. WILL CONTINUE CLOSE MONITORING.
[2021-04-12] MEDS: MIDODRINE HCL (5MG) 5 MG TABLET PO SCH ×3 (04:30→20:44)
[2021-04-12] MEDS: INSULIN REGULAR, HUMAN 100 UNIT/ML 3 ML VIAL SQ PRN ×3 (05:06→17:06)
[2021-04-12] MEDS: BLOOD SUGAR DIAGNOSTIC 1 EACH STRIP IN SCH ×3 (05:11→17:04)
[2021-04-12 05:54] LABS: BASOPHILS # (AUTO) 0.1 K/uL (0.0-0.2); BASOPHILS % (AUTO) 0.4 % (0.0-2.0); EOSINOPHILS % (AUTO) 8.3 % (0.0-6.0); HEMATOCRIT 25 % (39-51); HEMOGLOBIN 7.9 g/dL (13.5-17.5); LYMPHOCYTES # (AUTO) 0.8 K/uL (0.8-4.8); LYMPHOCYTES % (AUTO) 5.8 % (20.0-44.0); MEAN CORPUSCULAR HGB CONC 32 g/dl (31.0-36.0); MEAN CORPUSCULAR VOLUME 97 fL (80-96); MONOCYTES # (AUTO) 1.3 K/uL (0.1-1.30); MONOCYTES % (AUTO) 9.1 % (2.0-12.0); NEUTROPHILS % (AUTO) 76.4 % (43.0-81.0); PLATELET COUNT (AUTO) 268 K/uL (150-450); WHITE BLOOD COUNT (AUTO) 14.4 K/uL (4.3-11.0)
[2021-04-12 05:56] LABS: CALCIUM, SERUM 8.1 mg/dL (8.5-10.1); CARBON DIOXIDE 30 mmol/L (21-32); CHLORIDE 105 mmol/L (98-107); GLUCOSE 163 mg/dL (74-106); POTASSIUM 3.9 mmol/L (3.5-5.1); SODIUM SERUM 144 mmol/L (136-145); UREA NITROGEN, BLOOD 39 mg/dL (7-18)
[2021-04-12 06:01] LABS: ALANINE AMINOTRANSFERASE 41 U/L (12-78); ALBUMIN 1.9 g/dL (3.4-5.0); ALKALINE PHOSPHATASE 122 U/L (46-116); ASPARTATE AMINOTRANSFERASE 57 U/L (15-37); BILIRUBIN,TOTAL 2.3 mg/dL (0.2-1.0); TOTAL PROTEIN, SERUM 6.3 g/dL (6.4-8.2)
--- NOTE | 2021-04-12 07:30 | NUR ---
STRANDING MACHINE OPERATOR HELPER OPENING NOTES Patient received on bipap and asleep. Levo running at 0.06 mcg to left upper arm midline opal well. HOB kept elevated. sbp WNL.Will continue to monitor. Call light with in reach.
[2021-04-12] MEDS: ACETYLCYSTEINE 10% SOLN 400 MG/4 ML VIAL NEB SCH ×2 (08:06→16:03)
--- NOTE | 2021-04-12 08:30 | NUR ---
02 LOWERED TO 5 LITERS VIA NC ANNE-MARIE WELL
[2021-04-12] MEDS: CARVEDILOL 12.5 MG TABLET PO SCH ×2 (08:46→16:22)
[2021-04-12] MEDS: ASCORBIC ACID 500 MG TABLET PO SCH (08:53)
[2021-04-12] MEDS: ASPIRIN 81 MG TAB.CHEW PO SCH (08:53)
[2021-04-12] MEDS: VIT B CMPLX 3/FA/VIT C/BIOTIN 1 TAB TABLET PO SCH (08:53)
[2021-04-12] MEDS: ZINC SULFATE 220 MG CAPSULE PO SCH (08:54)
[2021-04-12] MEDS: AMIODARONE HCL 200 MG TABLET PO SCH (08:54)
[2021-04-12] MEDS: PROSOURCE / PROSTAT (PYXIS) 30 ML UDC GT SCH ×3 (08:54→17:14)
[2021-04-12] MEDS: NEPRO VAN 237 ML CAN PO SCH (08:54)
[2021-04-12] MEDS: FAMOTIDINE (20 MG) 20 MG TABLET PO SCH ×2 (08:54→17:13)
[2021-04-12] MEDS: ALLOPURINOL 100 MG TABLET PO SCH (08:54)
[2021-04-12] MEDS: RIVAROXABAN 15 MG TABLET PO SCH (08:58)
[2021-04-12] MEDS: THERAHONEY GEL 1.5 OZ TUBE TP SCH (09:27)
[2021-04-12] MEDS: CLOTRIMAZOLE/BETAMETASONE DIPROPIONATE 15 GM TUBE TP SCH ×2 (09:27→21:12)
[2021-04-12] MEDS: DAKINS QUARTER STRENGTH (0.125%) 480 ML BOTTLE TOP SCH (09:27)
[2021-04-12] MEDS: ALBUMIN 25% 25 GM in PREMIX 1 EA IV PRN (11:09)
[2021-04-12] MEDS: EPOETIN ALFA-EPBX 10,000 UNIT/ML VIAL IV SCH (11:35)
[2021-04-12] MEDS: NOREPINEPHRINE 8 MG in IV NS 0.9% 242 ML IV PRN (17:05)
--- NOTE | 2021-04-12 19:49 | NUR ---
SPECIAL EDUCATION PARAPROFESSIONAL CLOSING NOTES Patient is alert and oriented x 3 and on bipap opal well at this time. No c/o pain or discomfort. Turned and repositioned q2h and prn. HD done with 1 liter output and noted with 1 bm. On levo drip to left ua midline at 0.06 mcg, opal well. Wound care done. Will contnue to monitor. Call light with in reach. Endorsed to next shift for BREA.r
--- NOTE | 2021-04-12 19:51 | NUR ---
FRET SAW OPERATOR. INITIAL ASSESSMENT. RECEIVED THE PT REST ON THE BED.AWAKE, ALERT FOLLOW COMMANDS. PAPER DELIVERER SHOWING AV PACING. BIPAP ON SAT 90%. NO ACUTE DISTRESS NOTED. IV LT UPPER ARM MID LINE. LEVOPHED 0.06 MCG/KG/MIN, MULTIPLE WOUND . AFEBRILE. WILL CONTINUE TO MONITOR VITALS.
[2021-04-12] MEDS ORDERED: IV NS 0.9% 250 ML IV PRN (21:00)
[2021-04-12] MEDS: ATORVASTATIN 10 MG TABLET PO SCH (21:09)
[2021-04-12] MEDS: LATANOPROST EYE DROP 0.005% 2.5 ML BOTTLE EACHEYE SCH (21:12)
[2021-04-12] MEDS: ACETAMINOPHEN 325 MG TABLET PO PRN (21:25)
--- NOTE | 2021-04-12 22:16 | NUR ---
staff nurse icu resource team. pt has fever 101. tylenol given per ordered.
[2021-04-13] VITALS (53 sets, daily range): BP systolic 88–119; BP diastolic 44–68
[2021-04-13] MEDS: BLOOD SUGAR DIAGNOSTIC 1 EACH STRIP IN SCH ×4 (00:09→17:44)
[2021-04-13] MEDS: ALBUTEROL FS 2.5 MG/3 ML VIAL.NEB IH PRN (00:17)
[2021-04-13] MEDS: ACETYLCYSTEINE 10% SOLN 400 MG/4 ML VIAL NEB SCH ×3 (00:17→14:49)
--- NOTE | 2021-04-13 03:14 | NUR ---
auricular therapist. am care given. remaining same bipap settings tolerated well. sat 98%/ no acute distres noted. court monitor showingnsr. iv rt hand 20g hob elevated. goldie soft wrist restraisint checked aaarepieased no injury or redness noted.will continue to monitor.
[2021-04-13] MEDS: MEROPENEM 500 MG in IV NS 0.9% 50 ML IV SCH ×2 (05:16→16:00)
[2021-04-13] MEDS: MIDODRINE HCL (5MG) 5 MG TABLET PO SCH ×3 (05:18→21:31)
--- NOTE | 2021-04-13 07:30 | NUR ---
PHOTO LAB MANAGER OPENING NOTES Patient received on o2 via nc and asleep. Levo running at 0.06 mcg to left upper arm midline opal well. HOB kept elevated. sbp WNL.Will continue to monitor. Call light with in reach.
[2021-04-13 07:46] LABS: BASOPHILS # (AUTO) 0.2 K/uL (0.0-0.2); EOSINOPHILS % (AUTO) 7.5 % (0.0-6.0); HEMATOCRIT 25 % (39-51); HEMOGLOBIN 7.9 g/dL (13.5-17.5); LYMPHOCYTES # (AUTO) 1.3 K/uL (0.8-4.8); LYMPHOCYTES % (AUTO) 8.2 % (20.0-44.0); MEAN CORPUSCULAR HGB CONC 31 g/dl (31.0-36.0); MEAN CORPUSCULAR VOLUME 96 fL (80-96); MONOCYTES # (AUTO) 1.4 K/uL (0.1-1.30); MONOCYTES % (AUTO) 8.9 % (2.0-12.0); NEUTROPHILS # (AUTO) 11.9 K/uL (1.8-8.9); NEUTROPHILS % (AUTO) 74.4 % (43.0-81.0); PLATELET COUNT (AUTO) 287 K/uL (150-450); RED BLOOD CELL COUNT(AUTO) 2.64 MIL/uL (4.5-6.0); WHITE BLOOD COUNT (AUTO) 15.9 K/uL (4.3-11.0)
[2021-04-13] MEDS: ALLOPURINOL 100 MG TABLET PO SCH (08:29)
[2021-04-13] MEDS: ZINC SULFATE 220 MG CAPSULE PO SCH (08:29)
[2021-04-13] MEDS: ASCORBIC ACID 500 MG TABLET PO SCH (08:29)
[2021-04-13] MEDS: FAMOTIDINE (20 MG) 20 MG TABLET PO SCH ×2 (08:29→17:43)
[2021-04-13] MEDS: AMIODARONE HCL 200 MG TABLET PO SCH (08:29)
[2021-04-13] MEDS: ASPIRIN 81 MG TAB.CHEW PO SCH (08:29)
[2021-04-13] MEDS: VIT B CMPLX 3/FA/VIT C/BIOTIN 1 TAB TABLET PO SCH (08:30)
[2021-04-13] MEDS: CARVEDILOL 12.5 MG TABLET PO SCH ×2 (08:30→17:00)
[2021-04-13] MEDS: NEPRO VAN 237 ML CAN PO SCH (08:30)
[2021-04-13] MEDS: CLOTRIMAZOLE/BETAMETASONE DIPROPIONATE 15 GM TUBE TP SCH ×2 (08:30→21:30)
[2021-04-13] MEDS: DAKINS QUARTER STRENGTH (0.125%) 480 ML BOTTLE TOP SCH (08:30)
[2021-04-13] MEDS: THERAHONEY GEL 1.5 OZ TUBE TP SCH (08:31)
[2021-04-13] MEDS: PROSOURCE / PROSTAT (PYXIS) 30 ML UDC GT SCH ×3 (08:31→17:43)
[2021-04-13 08:44] LABS: CALCIUM, SERUM 8.3 mg/dL (8.5-10.1); CARBON DIOXIDE 29 mmol/L (21-32); CHLORIDE 103 mmol/L (98-107); CREATININE 4.3 mg/dL (0.6-1.3); GLUCOSE 156 mg/dL (74-106); POTASSIUM 3.8 mmol/L (3.5-5.1); SODIUM SERUM 141 mmol/L (136-145); UREA NITROGEN, BLOOD 33 mg/dL (7-18)
[2021-04-13 08:51] LABS: ALANINE AMINOTRANSFERASE 51 U/L (12-78); ALBUMIN 2.2 g/dL (3.4-5.0); ALKALINE PHOSPHATASE 144 U/L (46-116); ASPARTATE AMINOTRANSFERASE 77 U/L (15-37); BILIRUBIN,TOTAL 2.3 mg/dL (0.2-1.0); TOTAL PROTEIN, SERUM 6.6 g/dL (6.4-8.2)
[2021-04-13] MEDS: RIVAROXABAN 15 MG TABLET PO SCH (08:51)
[2021-04-13] MEDS: DAPTOMYCIN 800 MG in IV NS 0.9% 50 ML IV SCH (09:55)
[2021-04-13] MEDS: NOREPINEPHRINE 8 MG in IV NS 0.9% 242 ML IV PRN (12:03)
[2021-04-13] MEDS: INSULIN REGULAR, HUMAN 100 UNIT/ML 3 ML VIAL SQ PRN ×2 (13:00→17:55)
--- NOTE | 2021-04-13 19:18 | NUR ---
HIGH SCHOOL FOREIGN LANGUAGE TEACHER RCD PT W/DX RESP FAIL; PT IS ALERT; O2 3L NC; TOLERATING WELL. AV/VPACING ON MONITOR. PT IS ANURIC. HD CATH TO RCW. JUNIOR MIDLINE W/LEVOPHED AT 0.06 MCG/KG/MIN. WOUNDS NOTED TO BLE, SACRUM AND SCROTUM. DRESSINGS IN PLACE. Addendum: 04/14/21 at 0329 by LARY PEREZ RN GENERALIZED RASH TO ABDOMEN AND BACK
--- NOTE | 2021-04-13 19:21 | NUR ---
HELPER/DRIVER CLOSING NOTES Patient is alert and oriented x 2-3 and on 02 3 lpm via n/c opal well at this time. No c/o pain or discomfort. Turned and repositioned q2h and prn. Ultra filtration done with 2 liter output and noted with 2 episodes of urine ouput during shift On levo drip to left ua midline at 0.06 mcg, opal well. Wound care done. Will continue to monitor. Call light with in reach. Endorsed to next shift for BREA.r
[2021-04-13] MEDS: ATORVASTATIN 10 MG TABLET PO SCH (21:30)
[2021-04-13] MEDS: LATANOPROST EYE DROP 0.005% 2.5 ML BOTTLE EACHEYE SCH (21:30)
[2021-04-14] VITALS (89 sets, daily range): BP systolic 70–121; BP diastolic 29–75
--- NOTE | 2021-04-14 00:04 | NUR ---
SURVEILLANCE ANALYST BLOOD GLUCOSE 133 COVERAGE PER INSULIN SLIDING SCALE.
[2021-04-14] MEDS: ALBUTEROL FS 2.5 MG/3 ML VIAL.NEB IH PRN ×2 (00:06→23:58)
[2021-04-14] MEDS: ACETYLCYSTEINE 10% SOLN 400 MG/4 ML VIAL NEB SCH ×4 (00:06→23:58)
[2021-04-14] MEDS: BLOOD SUGAR DIAGNOSTIC 1 EACH STRIP IN SCH ×5 (00:08→23:45)
[2021-04-14] MEDS: INSULIN REGULAR, HUMAN 100 UNIT/ML 3 ML VIAL SQ PRN ×4 (00:10→23:39)
--- NOTE | 2021-04-14 01:55 | NUR ---
HORSESHOER RENDERED COMPLETE BED BATH AND ECG LEAD CHANGE. PROVIDED ORAL CARE. PT TOLERATED WELL.
[2021-04-14] MEDS: MEROPENEM 500 MG in IV NS 0.9% 50 ML IV SCH (03:05)
--- NOTE | 2021-04-14 03:21 | NUR ---
GUITAR INSTRUCTOR PT HAS EPISODES WHERE HE REMOVES BIPAP; PT PROVIDED WITH EDUCATION TO MAINTAIN BIPAP ON.
[2021-04-14 04:52] LABS: BASOPHILS # (AUTO) 0.1 K/uL (0.0-0.2); BASOPHILS % (AUTO) 0.7 % (0.0-2.0); EOSINOPHILS % (AUTO) 9.2 % (0.0-6.0); HEMATOCRIT 23 % (39-51); HEMOGLOBIN 7.3 g/dL (13.5-17.5); LYMPHOCYTES # (AUTO) 1.2 K/uL (0.8-4.8); LYMPHOCYTES % (AUTO) 8.9 % (20.0-44.0); MEAN CORPUSCULAR HGB CONC 32 g/dl (31.0-36.0); MEAN CORPUSCULAR VOLUME 95 fL (80-96); MONOCYTES # (AUTO) 1.3 K/uL (0.1-1.30); MONOCYTES % (AUTO) 9.6 % (2.0-12.0); NEUTROPHILS # (AUTO) 9.5 K/uL (1.8-8.9); NEUTROPHILS % (AUTO) 71.6 % (43.0-81.0); PLATELET COUNT (AUTO) 248 K/uL (150-450); WHITE BLOOD COUNT (AUTO) 13.3 K/uL (4.3-11.0)
[2021-04-14 05:08] LABS: CALCIUM, SERUM 8.6 mg/dL (8.5-10.1); CARBON DIOXIDE 27 mmol/L (21-32); CHLORIDE 106 mmol/L (98-107); CREATININE 5.3 mg/dL (0.6-1.3); GLUCOSE 112 mg/dL (74-106); MAGNESIUM 1.7 mg/dL (1.8-2.4); PHOSPHORUS 3.1 mg/dL (2.5-4.9); SODIUM SERUM 144 mmol/L (136-145)
[2021-04-14] MEDS: MIDODRINE HCL (5MG) 5 MG TABLET PO SCH ×3 (05:25→21:58)
[2021-04-14 05:33] LABS: UREA NITROGEN, BLOOD 47 mg/dL (7-18)
--- NOTE | 2021-04-14 07:47 | NUR ---
YARDER OPERATOR OPENING NOTE PT IN BED SEMIFOWLERS, ON NC 3L, SPO2 98%, NO RESP DISTRESS OR SOB NOTED. PT V-PACING ON BEDSIDE MONITOR. PT IS LETHARGIC AT THIS TIME, SPEECH IS GARBLED AT THIS MOMENT. PT HAS JUNIOR MIDLINE WITH LEVO RUNNING PER PROTOCOL, LINE FLUSHED AND PATENT. PT RUCW HD CATH IS INTACT. PT SACRAL WOUND AND BLE VENOUS ULCERS NOTED. ALL PT SAFETY PRECAUTIONS IN PLACE, WILL CONT TO MONITOR
--- NOTE | 2021-04-14 08:15 | NUR ---
RN NOTE PER DR MOSER, HOLD CARVEDILOL AND OK TO GIVE XARELTO
[2021-04-14 08:55] LABS: ABG BASE EXCESS 1.4 mmol/L; ABG OXYGEN SATURATION 85.9 % (92.0-98.5); ABG PCO2 51.4 mmHg (35.0-45.0); ABG PH 7.346 (7.350-7.450); ABG PO2 59.1 mmHg (75.0-100.0); AaDO2 108.9 mmHg; COHb 1.1 % (0.5-1.5); MetHb 0.4 % (0.0-1.5); O2Hb 84.6 % (94.0-97.0); SITE, ABG Left Radial; VENT MODE, BG NASAL CANNULA
[2021-04-14] MEDS: CARVEDILOL 12.5 MG TABLET PO SCH ×2 (09:00→17:00)
[2021-04-14] MEDS: ALLOPURINOL 100 MG TABLET PO SCH (09:08)
[2021-04-14] MEDS: VIT B CMPLX 3/FA/VIT C/BIOTIN 1 TAB TABLET PO SCH (09:08)
[2021-04-14] MEDS: ASPIRIN 81 MG TAB.CHEW PO SCH (09:08)
[2021-04-14] MEDS: RIVAROXABAN 15 MG TABLET PO SCH (09:08)
[2021-04-14] MEDS: AMIODARONE HCL 200 MG TABLET PO SCH (09:09)
[2021-04-14] MEDS: ASCORBIC ACID 500 MG TABLET PO SCH (09:09)
[2021-04-14] MEDS: ZINC SULFATE 220 MG CAPSULE PO SCH (09:09)
[2021-04-14] MEDS: FAMOTIDINE (20 MG) 20 MG TABLET PO SCH ×2 (09:10→17:12)
[2021-04-14] MEDS: PROSOURCE / PROSTAT (PYXIS) 30 ML UDC GT SCH ×3 (09:10→17:10)
[2021-04-14] MEDS: NEPRO VAN 237 ML CAN PO SCH (09:10)
[2021-04-14] MEDS: CLOTRIMAZOLE/BETAMETASONE DIPROPIONATE 15 GM TUBE TP SCH ×2 (09:11→21:58)
[2021-04-14] MEDS: DAKINS QUARTER STRENGTH (0.125%) 480 ML BOTTLE TOP SCH (09:11)
[2021-04-14] MEDS: THERAHONEY GEL 1.5 OZ TUBE TP SCH (09:11)
[2021-04-14] MEDS: NOREPINEPHRINE 8 MG in IV NS 0.9% 242 ML IV PRN (12:10)
[2021-04-14] MEDS: ERGOCALCIFEROL (VITAMIN D 2) 50,000 UNIT CAPSULE PO SCH (13:20)
[2021-04-14] MEDS: METOLAZONE 2.5 MG TABLET PO SCH (13:23)
--- NOTE | 2021-04-14 18:30 | NUR ---
RN NOTE SPOKE WITH ENE, LAV CREWMAN, REGARDING PT AND FAMILY REQUEST TO INITIATE TRANSFER TO [facility]. ENE WILL F/U
--- NOTE | 2021-04-14 19:00 | NUR ---
PRECISION LENS GRINDER APPRENTICE CLOSING NOTE PT ON NC 3L, SPO2 >95%, NO SOB OR RESP DISTRESS NOTED. PT MORE ALERT NOW A/Ox2-3 WITH PERIODS OF CONFUSION. PT NOW ON LEVO @ 0.06 MCG/KG/MIN. HD SCHEDULED FOR TOMORROW. ALL PT SAFETY PRECAUTIONS IN PLACE, WILL ENDORSE BREA TO ONCOMING RN
[2021-04-14] MEDS: LATANOPROST EYE DROP 0.005% 2.5 ML BOTTLE EACHEYE SCH (21:58)
[2021-04-14] MEDS: ATORVASTATIN 10 MG TABLET PO SCH (21:58)
[2021-04-15] VITALS (99 sets, daily range): BP systolic 73–130; BP diastolic 27–89
[2021-04-15] MEDS ORDERED: NOREPINEPHRINE 8MG/250ML RTU 250 ML IV ONE (04:05)
[2021-04-15] MEDS: NOREPINEPHRINE 8 MG in IV NS 0.9% 242 ML IV PRN ×2 (04:08→18:37)
[2021-04-15 04:46] LABS: BASOPHILS # (AUTO) 0.2 K/uL (0.0-0.2); EOSINOPHILS % (AUTO) 10.9 % (0.0-6.0); HEMATOCRIT 26 % (39-51); HEMOGLOBIN 8.2 g/dL (13.5-17.5); LYMPHOCYTES # (AUTO) 1.3 K/uL (0.8-4.8); LYMPHOCYTES % (AUTO) 8.1 % (20.0-44.0); MEAN CORPUSCULAR HGB CONC 31 g/dl (31.0-36.0); MEAN CORPUSCULAR VOLUME 97 fL (80-96); MONOCYTES # (AUTO) 1.5 K/uL (0.1-1.30); MONOCYTES % (AUTO) 9.5 % (2.0-12.0); NEUTROPHILS # (AUTO) 11.4 K/uL (1.8-8.9); NEUTROPHILS % (AUTO) 70.5 % (43.0-81.0); PLATELET COUNT (AUTO) 316 K/uL (150-450); RED BLOOD CELL COUNT(AUTO) 2.68 MIL/uL (4.5-6.0); WHITE BLOOD COUNT (AUTO) 16.2 K/uL (4.3-11.0)
[2021-04-15] MEDS: MIDODRINE HCL (5MG) 5 MG TABLET PO SCH ×3 (05:03→21:09)
[2021-04-15 05:16] LABS: CALCIUM, SERUM 8.7 mg/dL (8.5-10.1); CARBON DIOXIDE 26 mmol/L (21-32); CHLORIDE 104 mmol/L (98-107); CREATININE 6.6 mg/dL (0.6-1.3); GLUCOSE 158 mg/dL (74-106); PHOSPHORUS 4.3 mg/dL (2.5-4.9); POTASSIUM 4.5 mmol/L (3.5-5.1); SODIUM SERUM 143 mmol/L (136-145); UREA NITROGEN, BLOOD 64 mg/dL (7-18)
[2021-04-15] MEDS: BLOOD SUGAR DIAGNOSTIC 1 EACH STRIP IN SCH ×4 (06:21→23:50)
[2021-04-15] MEDS: INSULIN REGULAR, HUMAN 100 UNIT/ML 3 ML VIAL SQ PRN ×3 (06:22→23:45)
--- NOTE | 2021-04-15 07:30 | NUR ---
EXTRUSION MANAGER OPENING NOTE PT IN BED SEMIFOWLERS, ON NC 3L, SPO2 99%, NO RESP DISTRESS OR SOB NOTED. PT V-PACING ON BEDSIDE MONITOR, HR 60. PT IS A/Ox2, DENIES PAIN AT THIS MOMENT. PT HAS JUNIOR MIDLINE WITH LEVO JUST CHANGED FROM 0.08 TO 0.06 MCG/KG/MIN, LINE FLUSHED AND PATENT WITH NO S/S OF INFECTION OR INFILTRATION. PT RUCW HD CATH IS INTACT. PT SACRAL WOUND AND BLE VENOUS ULCERS NOTED. PT DUE FOR HD TODAY. ALL PT SAFETY PRECAUTIONS IN PLACE, WILL CONT TO MONITOR
[2021-04-15] MEDS: ACETYLCYSTEINE 10% SOLN 400 MG/4 ML VIAL NEB SCH ×3 (07:53→23:20)
[2021-04-15] MEDS: ASPIRIN 81 MG TAB.CHEW PO SCH (08:16)
[2021-04-15] MEDS: ZINC SULFATE 220 MG CAPSULE PO SCH (08:16)
[2021-04-15] MEDS: ASCORBIC ACID 500 MG TABLET PO SCH (08:17)
[2021-04-15] MEDS: FAMOTIDINE (20 MG) 20 MG TABLET PO SCH ×2 (08:17→17:09)
[2021-04-15] MEDS: ALLOPURINOL 100 MG TABLET PO SCH (08:17)
[2021-04-15] MEDS: AMIODARONE HCL 200 MG TABLET PO SCH (08:17)
[2021-04-15] MEDS: VIT B CMPLX 3/FA/VIT C/BIOTIN 1 TAB TABLET PO SCH (08:17)
[2021-04-15] MEDS: RIVAROXABAN 15 MG TABLET PO SCH (08:18)
[2021-04-15] MEDS: PROSOURCE / PROSTAT (PYXIS) 30 ML UDC GT SCH ×3 (08:24→17:08)
[2021-04-15] MEDS: CARVEDILOL 12.5 MG TABLET PO SCH ×2 (08:24→17:00)
[2021-04-15] MEDS: THERAHONEY GEL 1.5 OZ TUBE TP SCH (08:25)
[2021-04-15] MEDS: CLOTRIMAZOLE/BETAMETASONE DIPROPIONATE 15 GM TUBE TP SCH ×2 (08:25→21:13)
[2021-04-15] MEDS: NEPRO VAN 237 ML CAN PO SCH (08:25)
[2021-04-15] MEDS: DAKINS QUARTER STRENGTH (0.125%) 480 ML BOTTLE TOP SCH (08:25)
[2021-04-15] MEDS: ALBUMIN 25% 25 GM in PREMIX 1 EA IV PRN (09:57)
[2021-04-15] MEDS: HYDROCORTISONE SOD SUCCINATE 100 MG/2 ML VIAL IV SCH ×4 (10:30→21:07)
[2021-04-15] MEDS: FLUDROCORTISONE 0.1 MG TABLET PO SCH ×3 (11:27→23:35)
--- NOTE | 2021-04-15 12:50 | NUR ---
RN NOTE PT TOLERATED HD WELL, BP 115/61. 2 L REMOVED, WILL CONT TO MONITOR
--- NOTE | 2021-04-15 18:58 | NUR ---
[employer] VICE PRESIDENT NOTE PT IN BED A/Ox2 BREATHING 2L NC SPO2 88-95%, NO RESP DISTRESS NOTED. PT RECEIVED HD, 2L REMOVED, TOLERATED WELL. PT ON LEVO 0.04 MCG/KG/MIN. ALL WOUND CARE CARRIED OUT PER ORDERS. NO CHANGES TO PT DURING SHIFT. ALL PT SAFETY PRECAUTIONS IN PLACE, WILL ENDORSE CARE TO ONCOMING NURSE
--- NOTE | 2021-04-15 19:44 | NUR ---
RT NOTE PT PLACED ON BIPAP AT THIS TIME. MASK IS SECURED. ALARMS ON AND AUDIBLE. NO COMPLICATIONS NOTED. MINIMAL LEAK NOTED. NO RESPIRATORY DISTRESS NOTED. WILL CONTINUE TO MONITOR T/O SHIFT. Addendum: 04/15/21 at 2031 by MICKY RUDOLPH RT Amended: Links added.
[2021-04-15] MEDS: ATORVASTATIN 10 MG TABLET PO SCH (21:08)
[2021-04-15] MEDS: LATANOPROST EYE DROP 0.005% 2.5 ML BOTTLE EACHEYE SCH (21:13)
--- NOTE | 2021-04-15 21:35 | NUR ---
RT NOTE PT OFF BIPAP AT THIS TIME. PT REFUSED BIPAP. NO RESPIRATORY DISTRESS NOTED. PLACED BACK ON NASAL CANNULA.
[2021-04-16] VITALS (97 sets, daily range): BP systolic 75–140; BP diastolic 26–98
[2021-04-16 04:38] LABS: BASOPHILS % (AUTO) 0.4 % (0.0-2.0); EOSINOPHILS % (AUTO) 0.2 % (0.0-6.0); HEMATOCRIT 23 % (39-51); HEMOGLOBIN 7.4 g/dL (13.5-17.5); LYMPHOCYTES # (AUTO) 1.1 K/uL (0.8-4.8); LYMPHOCYTES % (AUTO) 9.3 % (20.0-44.0); MEAN CORPUSCULAR HGB CONC 32 g/dl (31.0-36.0); MEAN CORPUSCULAR VOLUME 96 fL (80-96); MONOCYTES # (AUTO) 0.3 K/uL (0.1-1.30); MONOCYTES % (AUTO) 2.6 % (2.0-12.0); NEUTROPHILS # (AUTO) 10.8 K/uL (1.8-8.9); NEUTROPHILS % (AUTO) 87.5 % (43.0-81.0); PLATELET COUNT (AUTO) 310 K/uL (150-450); RED BLOOD CELL COUNT(AUTO) 2.43 MIL/uL (4.5-6.0); WHITE BLOOD COUNT (AUTO) 12.3 K/uL (4.3-11.0)
[2021-04-16 04:51] LABS: CALCIUM, SERUM 8.4 mg/dL (8.5-10.1); CARBON DIOXIDE 31 mmol/L (21-32); CHLORIDE 100 mmol/L (98-107); CREATININE 4.3 mg/dL (0.6-1.3); GLUCOSE 233 mg/dL (74-106); MAGNESIUM 2.1 mg/dL (1.8-2.4); PHOSPHORUS 3.5 mg/dL (2.5-4.9); POTASSIUM 4.5 mmol/L (3.5-5.1); SODIUM SERUM 137 mmol/L (136-145); UREA NITROGEN, BLOOD 41 mg/dL (7-18)
[2021-04-16] MEDS: HYDROCORTISONE SOD SUCCINATE 100 MG/2 ML VIAL IV SCH ×3 (05:25→21:11)
[2021-04-16] MEDS: FLUDROCORTISONE 0.1 MG TABLET PO SCH ×4 (05:25→23:36)
[2021-04-16] MEDS: MIDODRINE HCL (5MG) 5 MG TABLET PO SCH ×3 (05:28→21:12)
[2021-04-16] MEDS: BLOOD SUGAR DIAGNOSTIC 1 EACH STRIP IN SCH ×4 (05:37→23:37)
[2021-04-16] MEDS: INSULIN REGULAR, HUMAN 100 UNIT/ML 3 ML VIAL SQ PRN ×4 (05:40→23:39)
--- NOTE | 2021-04-16 06:25 | NUR ---
HAIR WEAVER: NO SIGNIFICANT CHANGE OF CONDITION DURING THE SHIFT. REMAINED A/O X2. TOLERATED 3L 02 VIA NC AND BIPAP DURING THE NIGHT WT NO ACUTE DISTRESS. NO C/O PAIN OR EVIDENCE OF DISCOMFORT. V-PACED ON ACUTE COORDINATOR. AFEBRILE. STILL ON LEVOPHED DRIP AT 0.04MCG/KG/MIN FOR BP SUPPORT. NO S/S OF IV INFILTRATION. INSULIN COVERED VIA SS FOR BLOOD GLUCOSE. HOB ABOVE 35 DEGREES, BED IN LOWEST POSITION AND LOCKED, BED ALARM ON, SIDE RAILS UP X2. CALL LIGHT WITHIN REACH.
--- NOTE | 2021-04-16 07:15 | NUR ---
RN OPENING NOTES PT IN BED, A/O X2. ON O2 VIA NC @3L. SPO2 97%. NO SOB OR ANY S/S OF ACUTE RESPIRATORY DISTRESS NOTED. PT V-PACING ON BEDSIDE MONITOR, HR @60. NO PAIN REPORTED AT THIS MOMENT. IV ACCESS ON JUNIOR MIDLINE WITH LEVO @0.04 MCG/KG/MIN. RIGHT UPPER CHEST WALL HD CATH IS INTACT. SACRAL WOUND AND BLE VENOUS ULCERS NOTED. SAFETY MEASURES IN PLACE. CALL LIGHT WITHIN REACH. BED LOCKED AND IN LOWEST POSITION WITH SIDE RAILS UP X3. HOB ELEVATED. WILL CONTINUE TO MONITOR.
[2021-04-16] MEDS: ACETYLCYSTEINE 10% SOLN 400 MG/4 ML VIAL NEB SCH ×3 (07:38→23:39)
[2021-04-16] MEDS: PROSOURCE / PROSTAT (PYXIS) 30 ML UDC GT SCH ×3 (08:41→17:19)
[2021-04-16] MEDS: ASCORBIC ACID 500 MG TABLET PO SCH (08:42)
[2021-04-16] MEDS: ZINC SULFATE 220 MG CAPSULE PO SCH (08:42)
[2021-04-16] MEDS: FAMOTIDINE (20 MG) 20 MG TABLET PO SCH ×2 (08:42→17:18)
[2021-04-16] MEDS: VIT B CMPLX 3/FA/VIT C/BIOTIN 1 TAB TABLET PO SCH (08:42)
[2021-04-16] MEDS: ASPIRIN 81 MG TAB.CHEW PO SCH (08:42)
[2021-04-16] MEDS: CARVEDILOL 12.5 MG TABLET PO SCH ×2 (08:44→17:18)
[2021-04-16] MEDS: ALLOPURINOL 100 MG TABLET PO SCH (08:44)
[2021-04-16] MEDS: AMIODARONE HCL 200 MG TABLET PO SCH (08:44)
[2021-04-16] MEDS: THERAHONEY GEL 1.5 OZ TUBE TP SCH (08:45)
[2021-04-16] MEDS: DAKINS QUARTER STRENGTH (0.125%) 480 ML BOTTLE TOP SCH (08:45)
[2021-04-16] MEDS: CLOTRIMAZOLE/BETAMETASONE DIPROPIONATE 15 GM TUBE TP SCH ×2 (08:45→21:13)
[2021-04-16] MEDS: RIVAROXABAN 15 MG TABLET PO SCH (08:46)
[2021-04-16] MEDS: NEPRO VAN 237 ML CAN PO SCH (08:47)
[2021-04-16] MEDS: METOLAZONE 2.5 MG TABLET PO SCH (12:30)
[2021-04-16] MEDS: NOREPINEPHRINE 8 MG in IV NS 0.9% 242 ML IV PRN (15:31)
--- NOTE | 2021-04-16 19:31 | NUR ---
RN CLOSING NOTE NO SOB OR RESP DISTRESS NOTED. PT PULLED OUT MIDLINE. INFORMED NURSING SOLUTION ANALYST FOR REINSERTION. KEPT CLEAN AND COMFORTABLE. SAFETY MEASURES IN PLACE. ENDORSED TO NIGHT RN FOR BREA.
--- NOTE | 2021-04-16 20:00 | NUR ---
ICU NOTES Received patient awake alert oriented x1-2 otherwise confused.JUNIOR MIDLINE newly inserted by PICC LINE NURSE.Bilateral wrist restraints applied for safety.Respiration even and unlabored with O2 3LNC saturation 90%.No acute distress noted.V-paced per monitor.Continue on Levophed gtt for BP support. BP remains low 80's.ANURIC HD patient.Denies pain or any discomfort.Turned and repositioned.Safety measures implemented.
[2021-04-16] MEDS: LATANOPROST EYE DROP 0.005% 2.5 ML BOTTLE EACHEYE SCH (21:11)
[2021-04-16] MEDS: ATORVASTATIN 10 MG TABLET PO SCH (21:12)
--- NOTE | 2021-04-16 23:43 | NUR ---
PLACED ON NOC BiPAP.
[2021-04-17] VITALS (96 sets, daily range): BP systolic 77–141; BP diastolic 37–73
[2021-04-17] MEDS: NOREPINEPHRINE 8 MG in IV NS 0.9% 242 ML IV PRN ×2 (03:46→23:20)
[2021-04-17] MEDS: HYDROCORTISONE SOD SUCCINATE 100 MG/2 ML VIAL IV SCH ×3 (05:11→21:12)
[2021-04-17] MEDS: MIDODRINE HCL (5MG) 5 MG TABLET PO SCH ×3 (05:12→21:12)
[2021-04-17] MEDS: FLUDROCORTISONE 0.1 MG TABLET PO SCH ×4 (05:12→23:27)
[2021-04-17] MEDS: BLOOD SUGAR DIAGNOSTIC 1 EACH STRIP IN SCH ×4 (05:25→23:36)
[2021-04-17] MEDS: INSULIN REGULAR, HUMAN 100 UNIT/ML 3 ML VIAL SQ PRN ×3 (05:27→23:37)
--- NOTE | 2021-04-17 06:25 | NUR ---
PT OFF BiPAP AND PLACED ON 3L NC RN NOTIFIED.
--- NOTE | 2021-04-17 06:50 | NUR ---
ICU NOTES Patient resting in no acute distress.V-paced 60 constant.Levophed gtt titrated down to 0.03 mcg. Tolerated Bipap during the night now on O2 NC 3L well tolerated saturation 100%.FSBS monitored coverage given per sliding scale.Wound care done.Bed bath rendered and complete linens changed. Turned and repositioned.
--- NOTE | 2021-04-17 07:00 | NUR ---
RN NOTES PT IN BED, A/O X2. ON O2 VIA NC @3L. SPO2 97%. NO SOB OR ANY S/S OF ACUTE RESPIRATORY DISTRESS NOTED. PT V-PACING ON BEDSIDE MONITOR, HR @60. NO PAIN REPORTED AT THIS MOMENT. IV ACCESS ON JUNIOR MIDLINE WITH LEVO @0.03 MCG/KG/MIN. RIGHT UPPER CHEST WALL HD CATH IS INTACT. SACRAL WOUND AND BLE VENOUS ULCERS NOTED. SAFETY MEASURES IN PLACE. CALL LIGHT WITHIN REACH. BED LOCKED AND IN LOWEST POSITION WITH SIDE RAILS UP X3. HOB ELEVATED. WILL CONTINUE TO MONITOR.
[2021-04-17] MEDS: ACETYLCYSTEINE 10% SOLN 400 MG/4 ML VIAL NEB SCH ×3 (08:04→23:17)
[2021-04-17 08:41] LABS: ALANINE AMINOTRANSFERASE 49 U/L (12-78); ALBUMIN 2.3 g/dL (3.4-5.0); ALKALINE PHOSPHATASE 151 U/L (46-116); ASPARTATE AMINOTRANSFERASE 51 U/L (15-37); BILIRUBIN,TOTAL 1.1 mg/dL (0.2-1.0); CALCIUM, SERUM 8.5 mg/dL (8.5-10.1); CARBON DIOXIDE 28 mmol/L (21-32); CHLORIDE 99 mmol/L (98-107); CREATININE 5.6 mg/dL (0.6-1.3); GLUCOSE 222 mg/dL (74-106); POTASSIUM 4.6 mmol/L (3.5-5.1); SODIUM SERUM 138 mmol/L (136-145); TOTAL PROTEIN, SERUM 6.5 g/dL (6.4-8.2); UREA NITROGEN, BLOOD 62 mg/dL (7-18)
[2021-04-17] MEDS: NEPRO VAN 237 ML CAN PO SCH (09:00)
[2021-04-17] MEDS: PROSOURCE / PROSTAT (PYXIS) 30 ML UDC GT SCH ×3 (09:00→16:55)
[2021-04-17] MEDS: CARVEDILOL 12.5 MG TABLET PO SCH ×2 (09:00→17:00)
--- NOTE | 2021-04-17 09:00 | NUR ---
RN NOTES PT IS CONFUSED , SPOKEN TO PT'S ON THE PHONE, SHE STATED WANTS TO TALK TO PCP FIRST IN ORDER TO GIVE PHONE CONSENT FOR HIDA SCAN , DR FERRARA .
[2021-04-17 09:41] LABS: BASOPHILS # (AUTO) 0.1 K/uL (0.0-0.2); BASOPHILS % (AUTO) 0.6 % (0.0-2.0); EOSINOPHILS % (AUTO) 0.1 % (0.0-6.0); HEMATOCRIT 23 % (39-51); HEMOGLOBIN 7.1 g/dL (13.5-17.5); LYMPHOCYTES # (AUTO) 1.1 K/uL (0.8-4.8); LYMPHOCYTES % (AUTO) 8.6 % (20.0-44.0); MEAN CORPUSCULAR HGB CONC 31 g/dl (31.0-36.0); MEAN CORPUSCULAR VOLUME 97 fL (80-96); MONOCYTES # (AUTO) 0.7 K/uL (0.1-1.30); MONOCYTES % (AUTO) 5.3 % (2.0-12.0); NEUTROPHILS # (AUTO) 10.9 K/uL (1.8-8.9); NEUTROPHILS % (AUTO) 85.4 % (43.0-81.0); PLATELET COUNT (AUTO) 255 K/uL (150-450); RED BLOOD CELL COUNT(AUTO) 2.33 MIL/uL (4.5-6.0); WHITE BLOOD COUNT (AUTO) 12.7 K/uL (4.3-11.0)
[2021-04-17] MEDS: ALLOPURINOL 100 MG TABLET PO SCH (09:45)
[2021-04-17] MEDS: SULFAMETH/TRIMETH 800/160 MG 1 UDTAB TABLET PO SCH (09:46)
[2021-04-17] MEDS: ASPIRIN 81 MG TAB.CHEW PO SCH (09:46)
[2021-04-17] MEDS: AMIODARONE HCL 200 MG TABLET PO SCH (09:46)
[2021-04-17] MEDS: FAMOTIDINE (20 MG) 20 MG TABLET PO SCH ×2 (09:46→17:11)
[2021-04-17] MEDS: ASCORBIC ACID 500 MG TABLET PO SCH (09:46)
[2021-04-17] MEDS: ZINC SULFATE 220 MG CAPSULE PO SCH (09:46)
[2021-04-17] MEDS: RIVAROXABAN 15 MG TABLET PO SCH (09:47)
[2021-04-17] MEDS: VIT B CMPLX 3/FA/VIT C/BIOTIN 1 TAB TABLET PO SCH (09:47)
[2021-04-17] MEDS: CLOTRIMAZOLE/BETAMETASONE DIPROPIONATE 15 GM TUBE TP SCH ×2 (09:49→21:12)
[2021-04-17] MEDS: DAKINS QUARTER STRENGTH (0.125%) 480 ML BOTTLE TOP SCH (09:49)
[2021-04-17] MEDS: THERAHONEY GEL 1.5 OZ TUBE TP SCH (09:52)
--- NOTE | 2021-04-17 12:00 | NUR ---
RN NOTES UNABLE O OBTAINED CONSENT FOR HIDA SCAN , ATTEMPT MAKE TO CALL PT'S , NO ANSWER OR RETURN CALLS FROM HER AT THIS TIME . AWARE .
--- NOTE | 2021-04-17 18:00 | NUR ---
RN NOTES NO RETURN CALL FROM PT'S REGARDING HIDA SCAN CONSENT, PT REMAINS ON LEVO AT .04 MCG/KG/MIN , ON TELE V PACING , HR IN 60'S , NO SIGNIFCANT CHANGES NOTED ON THIS SHIFT, WILL ENDORSE TO SURVEYOR GEOPHYSICAL PROSPECTING NURSE FOR CONTINUITY OF CARE .
--- NOTE | 2021-04-17 20:00 | NUR ---
ICU NOTES Received patient awake oriented to self otherwise confused.Reoriented.Dx: Acute Hypoxemic Respiratory Failure.With O2 3LNC no acute respiratory distress noted.V-paced per monitor. With ongoing Levophed gtt infusing via JUNIOR ML for BP support and will titrate accordingly. At 1945 HD started by HD RN. Unable to to do HIDA SCAN not consented yet.Turned and repositioned.
[2021-04-17] MEDS: ATORVASTATIN 10 MG TABLET PO SCH (21:12)
[2021-04-17] MEDS: LATANOPROST EYE DROP 0.005% 2.5 ML BOTTLE EACHEYE SCH (21:12)
--- NOTE | 2021-04-17 22:30 | NUR ---
ICU NOTES Patient had HD done with 2 Liters out.Levophed gtt titrated as needed.
--- NOTE | 2021-04-17 23:42 | NUR ---
PT PLACED ON NOC BIPAP.
[2021-04-18] VITALS (65 sets, daily range): BP systolic 75–142; BP diastolic 27–72
--- NOTE | 2021-04-18 04:00 | NUR ---
ICU NOTES Patient awake vs stable.Bed bath rendered and wound care done per protocol.Tolerated procedure well.Turned and repositioned.
[2021-04-18 04:28] LABS: BASOPHILS # (AUTO) 0.1 K/uL (0.0-0.2); BASOPHILS % (AUTO) 0.4 % (0.0-2.0); EOSINOPHILS % (AUTO) 0.1 % (0.0-6.0); HEMATOCRIT 23 % (39-51); HEMOGLOBIN 7.4 g/dL (13.5-17.5); LYMPHOCYTES # (AUTO) 1.2 K/uL (0.8-4.8); LYMPHOCYTES % (AUTO) 8.3 % (20.0-44.0); MEAN CORPUSCULAR HGB CONC 32 g/dl (31.0-36.0); MEAN CORPUSCULAR VOLUME 95 fL (80-96); MONOCYTES # (AUTO) 0.7 K/uL (0.1-1.30); MONOCYTES % (AUTO) 4.5 % (2.0-12.0); NEUTROPHILS # (AUTO) 12.9 K/uL (1.8-8.9); NEUTROPHILS % (AUTO) 86.7 % (43.0-81.0); PLATELET COUNT (AUTO) 323 K/uL (150-450); RED BLOOD CELL COUNT(AUTO) 2.46 MIL/uL (4.5-6.0); WHITE BLOOD COUNT (AUTO) 14.9 K/uL (4.3-11.0)
[2021-04-18 04:43] LABS: ALANINE AMINOTRANSFERASE 54 U/L (12-78); ALBUMIN 2.4 g/dL (3.4-5.0); ALKALINE PHOSPHATASE 155 U/L (46-116); ASPARTATE AMINOTRANSFERASE 61 U/L (15-37); BILIRUBIN,TOTAL 1.2 mg/dL (0.2-1.0); CALCIUM, SERUM 8.7 mg/dL (8.5-10.1); CARBON DIOXIDE 30 mmol/L (21-32); CHLORIDE 104 mmol/L (98-107); CREATININE 3.9 mg/dL (0.6-1.3); GLUCOSE 193 mg/dL (74-106); POTASSIUM 5.8 mmol/L (3.5-5.1); SODIUM SERUM 141 mmol/L (136-145); TOTAL PROTEIN, SERUM 6.9 g/dL (6.4-8.2); UREA NITROGEN, BLOOD 40 mg/dL (7-18)
[2021-04-18] MEDS: HYDROCORTISONE SOD SUCCINATE 100 MG/2 ML VIAL IV SCH ×3 (05:00→20:17)
[2021-04-18] MEDS: FLUDROCORTISONE 0.1 MG TABLET PO SCH ×4 (05:01→23:47)
[2021-04-18] MEDS: MIDODRINE HCL (5MG) 5 MG TABLET PO SCH ×3 (05:01→21:06)
[2021-04-18] MEDS: BLOOD SUGAR DIAGNOSTIC 1 EACH STRIP IN SCH ×4 (05:22→23:44)
[2021-04-18] MEDS: INSULIN REGULAR, HUMAN 100 UNIT/ML 3 ML VIAL SQ PRN ×3 (05:24→23:48)
--- NOTE | 2021-04-18 05:30 | NUR ---
PT TAKEN OFF NOC BIPAP AND PLACED ON 3L NC.
--- NOTE | 2021-04-18 06:45 | NUR ---
Patient resting in no acute distress.VS remains stable.V-paced 100%.Tolerating O2 3L NC saturation 99%. Still waiting for HIDA SCAN consent.Will endorse to day shift for continuity of care.
--- NOTE | 2021-04-18 07:30 | NUR ---
NUTRITION CONSULTANT OPENING NOTES Patient received on 02 3 liters and asleep. Patient is alert and oriented x 2/3 Patient is breathing even and unlabored. On Levo running at 0.05 mcg to left upper arm midline opal well. HOB kept elevated. BP readings WNL. Unable to get a hold of for HIDA SCAN consent.Will continue to monitor. Call light with in reach.
[2021-04-18] MEDS: ACETYLCYSTEINE 10% SOLN 400 MG/4 ML VIAL NEB SCH ×3 (07:47→23:58)
[2021-04-18] MEDS: NEPRO VAN 237 ML CAN PO SCH (08:23)
[2021-04-18] MEDS: CARVEDILOL 12.5 MG TABLET PO SCH ×2 (08:23→16:53)
[2021-04-18] MEDS: PROSOURCE / PROSTAT (PYXIS) 30 ML UDC GT SCH ×3 (08:23→16:53)
[2021-04-18] MEDS: SULFAMETH/TRIMETH 800/160 MG 1 UDTAB TABLET PO SCH (08:27)
[2021-04-18] MEDS: AMIODARONE HCL 200 MG TABLET PO SCH (08:28)
[2021-04-18] MEDS: ASPIRIN 81 MG TAB.CHEW PO SCH (08:28)
[2021-04-18] MEDS: ALLOPURINOL 100 MG TABLET PO SCH (08:28)
[2021-04-18] MEDS: FAMOTIDINE (20 MG) 20 MG TABLET PO SCH ×2 (08:28→17:03)
[2021-04-18] MEDS: DAKINS QUARTER STRENGTH (0.125%) 480 ML BOTTLE TOP SCH (08:28)
[2021-04-18] MEDS: ASCORBIC ACID 500 MG TABLET PO SCH (08:28)
[2021-04-18] MEDS: THERAHONEY GEL 1.5 OZ TUBE TP SCH (08:29)
[2021-04-18] MEDS: CLOTRIMAZOLE/BETAMETASONE DIPROPIONATE 15 GM TUBE TP SCH ×2 (08:29→21:06)
[2021-04-18] MEDS: RIVAROXABAN 15 MG TABLET PO SCH (08:31)
[2021-04-18] MEDS: VIT B CMPLX 3/FA/VIT C/BIOTIN 1 TAB TABLET PO SCH (08:31)
[2021-04-18] MEDS: ZINC SULFATE 220 MG CAPSULE PO SCH (08:31)
--- NOTE | 2021-04-18 09:00 | NUR ---
Informed MD Restrepo and Dr Louise regarding patient's K+ level of 5.8. Per P patient will be dialyzed today. No further orders. MD Restrepo assessed patient in person.
[2021-04-18] MEDS: METOLAZONE 2.5 MG TABLET PO SCH (13:00)
[2021-04-18] MEDS: EPOETIN ALFA-EPBX 10,000 UNIT/ML VIAL IV SCH (17:13)
[2021-04-18] MEDS: NOREPINEPHRINE 8 MG in IV NS 0.9% 242 ML IV PRN (19:14)
--- NOTE | 2021-04-18 19:27 | NUR ---
MANAGER REVIEW CLOSING NOTES Patient received on 02 3 liters and awake and alert. Patient is alert and oriented x 2/3.Patient is breathing even and unlabored. On Levo running at 0.07 mcg to left upper arm midline opal well. HOB kept elevated. BP readings WNL. Patient transferred to radiology for HIDA SCAN and opal well. Patient had HD done today and output of 2 liters. Turned and repositioned q2h and prn. Wound care done. Endorsed to next shift for BREA. Call light with in reach. Bilateral wrist restraints ordered by MD for patient. No s/s of skin breakdown noted.
[2021-04-18] MEDS: LATANOPROST EYE DROP 0.005% 2.5 ML BOTTLE EACHEYE SCH (21:06)
[2021-04-18] MEDS: ATORVASTATIN 10 MG TABLET PO SCH (21:06)
[2021-04-19] VITALS (96 sets, daily range): BP systolic 72–171; BP diastolic 28–163
[2021-04-19 05:01] LABS: BASOPHILS # (AUTO) 0.2 K/uL (0.0-0.2); EOSINOPHILS % (AUTO) 0.2 % (0.0-6.0); HEMATOCRIT 25 % (39-51); HEMOGLOBIN 8.1 g/dL (13.5-17.5); LYMPHOCYTES # (AUTO) 2.2 K/uL (0.8-4.8); LYMPHOCYTES % (AUTO) 11.6 % (20.0-44.0); MEAN CORPUSCULAR HGB CONC 32 g/dl (31.0-36.0); MEAN CORPUSCULAR VOLUME 95 fL (80-96); MONOCYTES # (AUTO) 1.2 K/uL (0.1-1.30); MONOCYTES % (AUTO) 6.3 % (2.0-12.0); NEUTROPHILS # (AUTO) 15.5 K/uL (1.8-8.9); NEUTROPHILS % (AUTO) 80.9 % (43.0-81.0); PLATELET COUNT (AUTO) 353 K/uL (150-450); RED BLOOD CELL COUNT(AUTO) 2.67 MIL/uL (4.5-6.0); WHITE BLOOD COUNT (AUTO) 19.2 K/uL (4.3-11.0)
[2021-04-19 05:20] LABS: ALANINE AMINOTRANSFERASE 54 U/L (12-78); ALBUMIN 2.4 g/dL (3.4-5.0); ALKALINE PHOSPHATASE 145 U/L (46-116); ASPARTATE AMINOTRANSFERASE 47 U/L (15-37); BILIRUBIN,TOTAL 1.2 mg/dL (0.2-1.0); CALCIUM, SERUM 8.3 mg/dL (8.5-10.1); CARBON DIOXIDE 29 mmol/L (21-32); CHLORIDE 100 mmol/L (98-107); CREATININE 2.9 mg/dL (0.6-1.3); GLUCOSE 208 mg/dL (74-106); POTASSIUM 3.9 mmol/L (3.5-5.1); SODIUM SERUM 137 mmol/L (136-145); TOTAL PROTEIN, SERUM 6.7 g/dL (6.4-8.2); UREA NITROGEN, BLOOD 30 mg/dL (7-18)
[2021-04-19] MEDS: HYDROCORTISONE SOD SUCCINATE 100 MG/2 ML VIAL IV SCH ×3 (05:20→20:43)
[2021-04-19] MEDS: MIDODRINE HCL (5MG) 5 MG TABLET PO SCH ×3 (05:21→21:03)
[2021-04-19] MEDS: BLOOD SUGAR DIAGNOSTIC 1 EACH STRIP IN SCH ×4 (05:21→23:24)
[2021-04-19] MEDS: FLUDROCORTISONE 0.1 MG TABLET PO SCH ×4 (05:21→23:08)
[2021-04-19] MEDS: INSULIN REGULAR, HUMAN 100 UNIT/ML 3 ML VIAL SQ PRN ×4 (05:38→23:29)
[2021-04-19] MEDS: ACETYLCYSTEINE 10% SOLN 400 MG/4 ML VIAL NEB SCH ×3 (07:24→23:30)
--- NOTE | 2021-04-19 07:30 | NUR ---
ICU/RN PT IS ON 3L N/C SAT O2-97%.AWAKE,ALERT .ON LEVOPHED DRIP.AFEBRILE.NO PAIN REPORTED AT THIS TIME.HAS LEFT UPPER ARM MID LINE.ANURIC ON HD ,RIGHT SUBCLAVIAN HD CATH.MULTIPLY BRUISES AND SKIN TEARS NOTED ALL OVER THE BODY.SACRAL WOUND COVERED WITH CLEAN DRESSING.RIGHT LOWER LEG COVERED WITH DRESSING.LABS REVIEW.
[2021-04-19] MEDS: ZINC SULFATE 220 MG CAPSULE PO SCH (08:19)
[2021-04-19] MEDS: VIT B CMPLX 3/FA/VIT C/BIOTIN 1 TAB TABLET PO SCH (08:19)
[2021-04-19] MEDS: ALLOPURINOL 100 MG TABLET PO SCH (08:19)
[2021-04-19] MEDS: ASPIRIN 81 MG TAB.CHEW PO SCH (08:19)
[2021-04-19] MEDS: SULFAMETH/TRIMETH 800/160 MG 1 UDTAB TABLET PO SCH ×2 (08:19→20:44)
[2021-04-19] MEDS: RIVAROXABAN 15 MG TABLET PO SCH (08:20)
[2021-04-19] MEDS: PROSOURCE / PROSTAT (PYXIS) 30 ML UDC GT SCH ×3 (08:21→17:11)
[2021-04-19] MEDS: AMIODARONE HCL 200 MG TABLET PO SCH (08:21)
[2021-04-19] MEDS: FAMOTIDINE (20 MG) 20 MG TABLET PO SCH ×2 (08:21→17:11)
[2021-04-19] MEDS: ASCORBIC ACID 500 MG TABLET PO SCH (08:21)
[2021-04-19] MEDS: CARVEDILOL 12.5 MG TABLET PO SCH ×2 (08:21→17:00)
[2021-04-19] MEDS: NEPRO VAN 237 ML CAN PO SCH (08:22)
[2021-04-19] MEDS: DAKINS QUARTER STRENGTH (0.125%) 480 ML BOTTLE TOP SCH (08:22)
[2021-04-19] MEDS: CLOTRIMAZOLE/BETAMETASONE DIPROPIONATE 15 GM TUBE TP SCH ×2 (08:23→20:44)
[2021-04-19] MEDS: THERAHONEY GEL 1.5 OZ TUBE TP SCH (08:24)
[2021-04-19] MEDS ORDERED: VANCOMYCIN HCL 1.25 GM in IV D5W 260 ML IV SCH (09:00)
[2021-04-19] MEDS ORDERED: CEFEPIME 1 GM in IV D5W 50 ML IV SCH (09:00)
--- NOTE | 2021-04-19 09:10 | NUR ---
ICU/RN DUE MEDS ARE GIVEN ORDERED.PT EATS 50% FROM HIS MEAL TRAY.
[2021-04-19 10:39] LABS: LYMPHOCYTES % (MANUAL) 6 % (16-48); METAMYELOCYTES % 2 % (0-0); MONOCYTES % (MANUAL) 5 % (0-11.0); NEUTROPHILS % (MANUAL) 87 (42-76)
[2021-04-19] MEDS: NOREPINEPHRINE 8 MG in IV NS 0.9% 242 ML IV PRN (10:40)
[2021-04-19] MEDS: TRAMADOL HCL 50 MG TABLET PO PRN (13:22)
--- NOTE | 2021-04-19 13:25 | NUR ---
ICU/RN PT C/O OF ABDOMINAL PAIN. 5-12/12.ULTRAM 1 TAB PO GIVEN ORDERED.ABDOMEN SOFT BOWEL SOUNDS PRESENT.PENIS HAS BLOODY DISCHARGE.MD NOTIFIED.CT ABDOMEN AND PELVIS ORDERED WITHOUT CONTRAST.CBC STAT ORDERED.
--- NOTE | 2021-04-19 17:00 | NUR ---
ICU/RN PM CARE PROVIDED.WOUND DRESSING DONE ORDERED.PT STILL HAS BLOODY DISCHARGE FROM HIS PENIS.H/H RESULTED IS STABLE.NO PAIN REPORTED AT THIS TIME.DUE MEDS ARE GIVEN ORDERED.PT IS STILL ON LEVOPHED DRIP. CVP-4-6. CONTINUE MONITORING.REFUSED TO EAT DINNER.
[2021-04-19 17:22] LABS: BASOPHILS # (AUTO) 0.2 K/uL (0.0-0.2); BASOPHILS % (AUTO) 1.1 % (0.0-2.0); EOSINOPHILS % (AUTO) 0.1 % (0.0-6.0); HEMATOCRIT 25 % (39-51); HEMOGLOBIN 8.1 g/dL (13.5-17.5); LYMPHOCYTES # (AUTO) 2.5 K/uL (0.8-4.8); LYMPHOCYTES % (AUTO) 11.2 % (20.0-44.0); MEAN CORPUSCULAR HGB CONC 32 g/dl (31.0-36.0); MEAN CORPUSCULAR VOLUME 95 fL (80-96); MONOCYTES # (AUTO) 1.6 K/uL (0.1-1.30); NEUTROPHILS # (AUTO) 18.1 K/uL (1.8-8.9); NEUTROPHILS % (AUTO) 80.6 % (43.0-81.0); PLATELET COUNT (AUTO) 346 K/uL (150-450); RED BLOOD CELL COUNT(AUTO) 2.65 MIL/uL (4.5-6.0); WHITE BLOOD COUNT (AUTO) 22.5 K/uL (4.3-11.0)
[2021-04-19 17:34] LABS: BAND % (MANUAL) 2 % (0.0-5.0); LYMPHOCYTES % (MANUAL) 11 % (16-48); MONOCYTES % (MANUAL) 2 % (0-11.0); NEUTROPHILS % (MANUAL) 85 (42-76)
--- NOTE | 2021-04-19 19:30 | NUR ---
RN OPENING NOTES: RECEIVED PT IN BED IN NO S/SX OF ACUTE DISTRESS AT THIS TIME. NO SOB NOTED. PATIENT'S BREATHING IS EVEN AND UNLABORED. PT ON 3L OF 02 VIA NC;TOLERATES WELL. PATIENT ON TELE MONITORING READING SINUS RHYTHM HR IS @60s AT THE TIME OF RECEIVED. PATIENT ON CCHO DIET; TOLERATES WELL. NOTED IV SITE ON L UA MIDLINE #20; PATENT, INTACT AND FLUSHING WELL; NO S/S OF INFECTION OR INFILTRATION. PT ALSO HAS R CHEST WALL HD CATH ;SECURED AND INTACT NO SIGNS OF INFECTION. PT HAS A RUNNING LEVOPHED RECEIVED @0.1MCG/KG/MIN BOTH MONITORED AND TITRATED PER PROTOCOL. CURRENTLY ON CVP MONITORING. SAFETY MEASURES HAVE BEEN PROVIDED AND IMPLEMENTED. PATIENT BED ALARM IS ON. HEAD OF BED ELEVATED. BED IS LOCKED, IN LOWEST POSITION AND SIDE RAILS UP. CALL LIGHT WITHIN REACH OF THE PATIENT. APPLICABLE ISOLATION PRECAUTIONS IN PLACE. WILL CONTINUE TO MONITOR AND REASSESS FOR ANY CHANGES AND WILL CARRY OUT ANY ONGOING AND ACTIVE MD ORDER.
[2021-04-19] MEDS: ATORVASTATIN 10 MG TABLET PO SCH (21:01)
[2021-04-19] MEDS: LATANOPROST EYE DROP 0.005% 2.5 ML BOTTLE EACHEYE SCH (21:02)
--- NOTE | 2021-04-19 22:00 | NUR ---
RN NOTES RT (ALEISHA) COORDINATED THAT PT WAS ON HOOKED TO NOCTURNAL BIPAP; TOLERATES AT THIS TIME. WILL CONTINUE TO ASSESS AND MONITOR THROUGHOUT THE SHIFT.
--- NOTE | 2021-04-19 22:45 | NUR ---
PT AGITATED AND REFUSING BIPAP AT THIS TIME. PT UNCOOPERATIVE. PT ALERT AND ORIENTATED. PT VERY ADAMANT AND REFUSING. RN NOTIFIED. Addendum: 04/20/21 at 0507 by ALEISHA ZHENG RT Amended: Links added.
--- NOTE | 2021-04-19 22:50 | NUR ---
RN NOTES NOTED PT REMOVED BIPAP MASK; EXPLAINED RISK AND BENEFITS. BUT PT REFUSED TO HAVE IT ON AGAIN. RN ACKNOWLEDGED AND PUT PT BACK TO DC ON A 3L OF O2. NOTIFIED RT (ALEISHA) RT ACKNOWLEDGED. MACHINE ROOM ENGINEER MADE AWARE. WILL CONTINUE TO MONITOR Addendum: 04/19/21 at 2305 by AILYN CERVANTES RN @2300 RT (ALEISHA) ADJUSTED O2 LEVEL @2L; PT TOLERATES WELL ;SATING @99% AT THIS TIME. WILL CONTINUE TO ASSESS AND MONITOR THROUGHOUT THE SHIFT.
[2021-04-20] VITALS (96 sets, daily range): BP systolic 79–155; BP diastolic 20–117
--- NOTE | 2021-04-20 | NUR ---
RN NOTES PATIENT REMAINED TO BE IN NO SIGNS OF ACUTE RESPIRATORY DISTRESS , VITAL SIGNS WNL AT THIS TIME. POULTRY FARMER MEAT WELL AWARE. WILL CONTINUE TO MONITOR AND REASSESS FOR ANY CHANGES THROUGHOUT THE SHIFT.
[2021-04-20] MEDS: NOREPINEPHRINE 8 MG in IV NS 0.9% 242 ML IV PRN ×2 (00:19→23:26)
--- NOTE | 2021-04-20 00:45 | NUR ---
RN NOTES PICC LINE NURSE (MARIO) FACILITATED INSERTION OF PICC LINE @ R UA , SECURED, INTACT AND FLUSHING WELL. LAP WELDER WELL AWARE.
--- NOTE | 2021-04-20 04:00 | NUR ---
RN NOTES NO NOTED CHANGES IN PATIENT CONDITION AT THIS TIME; PATIENT VITALS STABLE, NO SIGNS OF ACUTE RESPIRATORY DISTRESS. AM PATIENT CARE AND WOUND CARE RENDERED.WILL CONTINUE TO MONITOR AND REASSESS FOR ANY CHANGES THROUGHOUT THE SHIFT.
[2021-04-20] MEDS: HYDROCORTISONE SOD SUCCINATE 100 MG/2 ML VIAL IV SCH ×3 (04:15→21:01)
--- NOTE | 2021-04-20 04:15 | NUR ---
RN NOTES MIDODRINE 10MG/2TABS NOT GIVEN AT THIS TIME; PT HAS RUNNING PRESSOR OF LEVO TO MAINTAIN SBP >90. ORDER BOOKER WELL AWARE.
[2021-04-20] MEDS: MIDODRINE HCL (5MG) 5 MG TABLET PO SCH ×3 (04:17→21:02)
[2021-04-20 04:53] LABS: BASOPHILS # (AUTO) 0.1 K/uL (0.0-0.2); BASOPHILS % (AUTO) 0.5 % (0.0-2.0); HEMATOCRIT 24 % (39-51); HEMOGLOBIN 7.4 g/dL (13.5-17.5); LYMPHOCYTES # (AUTO) 2.2 K/uL (0.8-4.8); LYMPHOCYTES % (AUTO) 10.3 % (20.0-44.0); MEAN CORPUSCULAR HGB CONC 31 g/dl (31.0-36.0); MEAN CORPUSCULAR VOLUME 95 fL (80-96); MONOCYTES # (AUTO) 1.4 K/uL (0.1-1.30); MONOCYTES % (AUTO) 6.7 % (2.0-12.0); NEUTROPHILS # (AUTO) 17.6 K/uL (1.8-8.9); NEUTROPHILS % (AUTO) 82.5 % (43.0-81.0); PLATELET COUNT (AUTO) 343 K/uL (150-450); RED BLOOD CELL COUNT(AUTO) 2.46 MIL/uL (4.5-6.0); WHITE BLOOD COUNT (AUTO) 21.3 K/uL (4.3-11.0)
[2021-04-20 05:09] LABS: ALANINE AMINOTRANSFERASE 42 U/L (12-78); ALBUMIN 2.2 g/dL (3.4-5.0); ALKALINE PHOSPHATASE 134 U/L (46-116); ASPARTATE AMINOTRANSFERASE 28 U/L (15-37); CALCIUM, SERUM 8.2 mg/dL (8.5-10.1); CARBON DIOXIDE 29 mmol/L (21-32); CHLORIDE 100 mmol/L (98-107); CREATININE 4.4 mg/dL (0.6-1.3); GLUCOSE 256 mg/dL (74-106); POTASSIUM 4.4 mmol/L (3.5-5.1); SODIUM SERUM 137 mmol/L (136-145); TOTAL PROTEIN, SERUM 6.1 g/dL (6.4-8.2); UREA NITROGEN, BLOOD 51 mg/dL (7-18)
[2021-04-20] MEDS: BLOOD SUGAR DIAGNOSTIC 1 EACH STRIP IN SCH ×4 (05:23→23:43)
[2021-04-20] MEDS: INSULIN REGULAR, HUMAN 100 UNIT/ML 3 ML VIAL SQ PRN ×5 (05:30→23:37)
--- NOTE | 2021-04-20 05:45 | NUR ---
RN NOTES RTWIL) COORDINATED THAT PT WAS PUT ON ROOM AIR AT THIS TIME FOR TRIAL. WILL REASSESS IF PATIENT CAN MAINTAIN O2 SAT <88% (PER DR CALL'S NOTE MAINTAIN O2 SAT BET 88-90%). WILL CONTINUE TO ASSESS AND MONITOR FOR CHANGES. Addendum: 04/20/21 at 0602 by AILYN CERVANTES RN @0600 PT O2 SAT IS <80 (84-85%) PT SWITCHED BACK TO 1L O2 VIA NC BY RT DE LA TORRE); O2 SAT AT 92% AT THIS TIME. WILL CONTINUE TO MONITOR
[2021-04-20] MEDS ORDERED: FLUDROCORTISONE 0.1 MG TABLET ONE (06:05)
[2021-04-20] MEDS: FLUDROCORTISONE 0.1 MG TABLET PO SCH ×4 (06:24→23:29)
[2021-04-20 06:35] LABS: BAND % (MANUAL) 1 % (0.0-5.0); LYMPHOCYTES % (MANUAL) 5 % (16-48); METAMYELOCYTES % 1 % (0-0); MONOCYTES % (MANUAL) 6 % (0-11.0); MYELOCYTES % 1 % (0-0); NEUTROPHILS % (MANUAL) 86 (42-76)
--- NOTE | 2021-04-20 06:51 | NUR ---
RN CLOSING NOTE: PATIENT REMAINS IN ROOM IN NO SIGNS OF RESPIRATORY DISTRESS, PATIENT CURRENTLY ON 1L OF 02 VIA NC;TOLERATING WELL SATURATING @ >90% SP02. SAFETY MEASURES IMPLEMENTED, BED IN LOWEST POSITION, LOCKED, SIDE RAILS UP, CALL LIGHT WITHIN REACH. ALL NEEDS AND ORDERS ADDRESSED DURING THE SHIFT. IV ACCESS MAINTAINED INTACT, SECURED AND FLUSHING WELL. ALL DUE MEDS GIVEN ORDERED & SCHEDULED ; PATIENT TOLERATED WELL. STILL WITH ONGOING LEVO @.04MCG/KG/MIN MONITORED AND ADJUSTED PER PROTOCOL PATIENT KEPT CLEAN AND COMFORTABLE WITHIN THE SHIFT. PATIENT ENDORSED TO INCOMING SHIFT RN WITH STABLE VITAL SIGN AND FOR CONTINUITY OF CARE.
--- NOTE | 2021-04-20 07:00 | NUR ---
RN NOTES PT IN BED, A/O X3. ON O2 1L NC , O2 SAT WNL, NO SOB OR ANY S/S OF ACUTE RESPIRATORY DISTRESS NOTED. PT V-PACING ON BEDSIDE MONITOR, HR @60. NO PAIN REPORTED AT THIS MOMENT. IV ACCESS ON JUNIOR MIDLINE WITH LEVO @0.04 MCG/KG/MIN. RIGHT UPPER CHEST WALL HD CATH IS INTACT. CALL LIGHT WITHIN EASY REACH. BED LOCKED AND IN LOWEST POSITION, SIDE RAILS UP X3. HOB ELEVATED. WILL CONTINUE TO MONITOR.
[2021-04-20] MEDS: ACETYLCYSTEINE 10% SOLN 400 MG/4 ML VIAL NEB SCH ×3 (07:52→23:35)
[2021-04-20] MEDS: ASPIRIN 81 MG TAB.CHEW PO SCH (08:40)
[2021-04-20] MEDS: AMIODARONE HCL 200 MG TABLET PO SCH (08:40)
[2021-04-20] MEDS: FAMOTIDINE (20 MG) 20 MG TABLET PO SCH ×2 (08:41→17:03)
[2021-04-20] MEDS: ZINC SULFATE 220 MG CAPSULE PO SCH (08:41)
[2021-04-20] MEDS: SULFAMETH/TRIMETH 800/160 MG 1 UDTAB TABLET PO SCH ×2 (08:42→21:02)
[2021-04-20] MEDS: ASCORBIC ACID 500 MG TABLET PO SCH (08:42)
[2021-04-20] MEDS: ALLOPURINOL 100 MG TABLET PO SCH (08:42)
[2021-04-20] MEDS: VIT B CMPLX 3/FA/VIT C/BIOTIN 1 TAB TABLET PO SCH (08:42)
[2021-04-20] MEDS: DAKINS QUARTER STRENGTH (0.125%) 480 ML BOTTLE TOP SCH (08:48)
[2021-04-20] MEDS: PROSOURCE / PROSTAT (PYXIS) 30 ML UDC GT SCH ×4 (08:48→17:06)
[2021-04-20] MEDS: NEPRO VAN 237 ML CAN PO SCH (08:48)
[2021-04-20] MEDS: CLOTRIMAZOLE/BETAMETASONE DIPROPIONATE 15 GM TUBE TP SCH ×2 (08:49→21:18)
[2021-04-20] MEDS: THERAHONEY GEL 1.5 OZ TUBE TP SCH (08:49)
[2021-04-20] MEDS: INSULIN GLARGINE, 100 UNIT/ML CARTRIDGE SQ SCH ×2 (08:54→17:20)
[2021-04-20] MEDS: CARVEDILOL 12.5 MG TABLET PO SCH ×2 (08:56→17:00)
[2021-04-20] MEDS: RIVAROXABAN 15 MG TABLET PO SCH (09:03)
--- NOTE | 2021-04-20 14:00 | NUR ---
RN NOTES PT RECEIVING HD AT THIS TIME, ONE UNIT OF PRBC INFUSING , NO COMPLICATION NOTED .
--- NOTE | 2021-04-20 18:00 | NUR ---
RN NOTES NO SIGNIFICANT CHANGES NOTED , ON THIS SHIFT, PT REMAINS ON LEVO AT .04 MCG/KG/MIN, IV SITE CLEAN, DRY AND INTACT, WILL ENDORSE TO BAG ADJUSTER NURSE FOR CONTINUITY OF CARE .
[2021-04-20] MEDS: TRAMADOL HCL 50 MG TABLET PO PRN (19:11)
--- NOTE | 2021-04-20 19:45 | NUR ---
RN NOTES RECEIVED PATIENT AWAKE, ALERT ORIENTED X 3 COMMUNICATE WELL. DENIES PAIN. NO SOB OR RESPIRATORY DISTRESS. WITH O2 1LPM VIA NC SATURATION 98%. AFEBRILE. V-PACING ON MONITOR. DENIES DIZZINESS OR N/V. PATIENT HAS YUN PICC LINE WITH LOW DOSE OF LEVOPHED @ 0.04 MCG/KG/MIN. IV ON JUNIOR ML ARE INTACT AND PATENT HD CATH ON RCW CLEAN AND DRY. NO ASE FROM S/P 1 UNIT OF PRBC.. KEPT PT CLEAN AND DRY, AGUILA BIG MATTRESS SET FOR TURNING AND REPOSITIONING TO REDUCED PRESSURE TO BONY PROMINENCE AREA. K
[2021-04-20] MEDS: ATORVASTATIN 10 MG TABLET PO SCH (21:04)
[2021-04-20] MEDS: LATANOPROST EYE DROP 0.005% 2.5 ML BOTTLE EACHEYE SCH (21:18)
--- NOTE | 2021-04-20 21:30 | NUR ---
PT REFUSING BIPAP AT THIS TIME, PT UNCOOPERATIVE. PT ALERT AND ORIENTATED. PT VERY ADAMANT AND REFUSING. RN NOTIFIED.
[2021-04-20] MEDS: ALBUTEROL FS 2.5 MG/3 ML VIAL.NEB IH PRN (23:35)
[2021-04-21] VITALS (70 sets, daily range): BP systolic 79–134; BP diastolic 26–93
--- NOTE | 2021-04-21 00:21 | NUR ---
RN NOTES PATIENT ENCOURAGED FOR BIPAP WITH RT FOR THE SECOND TIME, INEFFECTIVE. PATIENT REFUSED. RISK AND BENEFITS EXPLAINED . PATIENT SATURATION ON 98%..
[2021-04-21] MEDS: MIDODRINE HCL (5MG) 5 MG TABLET PO SCH ×3 (04:31→21:41)
[2021-04-21] MEDS: HYDROCORTISONE SOD SUCCINATE 100 MG/2 ML VIAL IV SCH ×2 (04:32→17:15)
[2021-04-21] MEDS: TRAMADOL HCL 50 MG TABLET PO PRN ×2 (04:32→16:09)
[2021-04-21 04:48] LABS: BASOPHILS % (AUTO) 0.2 % (0.0-2.0); HEMATOCRIT 27 % (39-51); HEMOGLOBIN 8.9 g/dL (13.5-17.5); LYMPHOCYTES # (AUTO) 1.5 K/uL (0.8-4.8); LYMPHOCYTES % (AUTO) 8.3 % (20.0-44.0); MEAN CORPUSCULAR HGB CONC 32 g/dl (31.0-36.0); MEAN CORPUSCULAR VOLUME 96 fL (80-96); MONOCYTES # (AUTO) 0.9 K/uL (0.1-1.30); NEUTROPHILS % (AUTO) 86.5 % (43.0-81.0); PLATELET COUNT (AUTO) 318 K/uL (150-450); RED BLOOD CELL COUNT(AUTO) 2.87 MIL/uL (4.5-6.0); WHITE BLOOD COUNT (AUTO) 18.5 K/uL (4.3-11.0)
[2021-04-21] MEDS ORDERED: IV NS 0.9% 500 ML IV ONE (05:00)
[2021-04-21 05:20] LABS: ALANINE AMINOTRANSFERASE 52 U/L (12-78); ALBUMIN 2.3 g/dL (3.4-5.0); ALKALINE PHOSPHATASE 142 U/L (46-116); ASPARTATE AMINOTRANSFERASE 34 U/L (15-37); BILIRUBIN,TOTAL 1.1 mg/dL (0.2-1.0); CARBON DIOXIDE 34 mmol/L (21-32); CHLORIDE 101 mmol/L (98-107); CREATININE 3.7 mg/dL (0.6-1.3); GLUCOSE 199 mg/dL (74-106); POTASSIUM 4.1 mmol/L (3.5-5.1); SODIUM SERUM 139 mmol/L (136-145); TOTAL PROTEIN, SERUM 6.2 g/dL (6.4-8.2); UREA NITROGEN, BLOOD 36 mg/dL (7-18)
[2021-04-21] MEDS: INSULIN REGULAR, HUMAN 100 UNIT/ML 3 ML VIAL SQ PRN ×2 (05:54→11:44)
[2021-04-21] MEDS: BLOOD SUGAR DIAGNOSTIC 1 EACH STRIP IN SCH ×3 (05:54→17:39)
[2021-04-21] MEDS: FLUDROCORTISONE 0.1 MG TABLET PO SCH ×3 (06:58→18:31)
--- NOTE | 2021-04-21 07:00 | NUR ---
RN NOTES PATIENT REMAINED STABLE ON O2 1LPM VIA NC AND TOLERATED ROOM AIR WELL WHEN AWAKE. NO SIGNIFICANT CHANGES TROUGHOUT THE SHIFT. ASLEEP WELL. OFF FROM PRESSOR. PATIENT VSS. AFEBRILE. KEPT PT CLEAN AND DRY. WOUND DRESSING CHANGED PHOTOT TAKEN FOR WEEKLY PROGRESS REPORT
[2021-04-21] MEDS: ACETYLCYSTEINE 10% SOLN 400 MG/4 ML VIAL NEB SCH ×2 (07:30→15:07)
[2021-04-21] MEDS: INSULIN GLARGINE, 100 UNIT/ML CARTRIDGE SQ SCH ×2 (09:00→17:38)
[2021-04-21] MEDS: ASPIRIN 81 MG TAB.CHEW PO SCH (10:34)
[2021-04-21] MEDS: ASCORBIC ACID 500 MG TABLET PO SCH (10:34)
[2021-04-21] MEDS: ZINC SULFATE 220 MG CAPSULE PO SCH (10:34)
[2021-04-21] MEDS: FAMOTIDINE (20 MG) 20 MG TABLET PO SCH ×2 (10:35→17:15)
[2021-04-21] MEDS: AMIODARONE HCL 200 MG TABLET PO SCH (10:36)
[2021-04-21] MEDS: RIVAROXABAN 15 MG TABLET PO SCH (10:38)
[2021-04-21] MEDS: CARVEDILOL 12.5 MG TABLET PO SCH ×2 (10:39→17:17)
[2021-04-21] MEDS: NEPRO VAN 237 ML CAN PO SCH (11:28)
[2021-04-21] MEDS: VIT B CMPLX 3/FA/VIT C/BIOTIN 1 TAB TABLET PO SCH (11:52)
[2021-04-21] MEDS: DAKINS QUARTER STRENGTH (0.125%) 480 ML BOTTLE TOP SCH (11:53)
[2021-04-21] MEDS: THERAHONEY GEL 1.5 OZ TUBE TP SCH (11:53)
[2021-04-21] MEDS: CLOTRIMAZOLE/BETAMETASONE DIPROPIONATE 15 GM TUBE TP SCH ×2 (11:53→21:41)
[2021-04-21] MEDS: ALLOPURINOL 100 MG TABLET PO SCH (11:53)
[2021-04-21] MEDS: ERGOCALCIFEROL (VITAMIN D 2) 50,000 UNIT CAPSULE PO SCH (12:06)
[2021-04-21] MEDS: PROSOURCE / PROSTAT (PYXIS) 30 ML UDC GT SCH ×3 (12:09→17:18)
[2021-04-21] MEDS: SULFAMETH/TRIMETH 800/160 MG 1 UDTAB TABLET PO SCH ×2 (12:14→21:41)
[2021-04-21] MEDS: METOLAZONE 2.5 MG TABLET PO SCH (13:38)
--- NOTE | 2021-04-21 17:44 | NUR ---
PATIENT BS = 165, GLARGINE AND INSULIN GIVEN PER MD ORDERS, ON ROOM AIR FLUCTUATES OXYGEN LEVEL BETWEEN 93-94% STATED HE WANTED TO GIVE HIS NOSE/ MEANING HIS NOSTRILS A REST, FULL BED LINEN CHANGE AND PATIENT CLEANED, NO BM NOTED, WOUND CARE PROVIDED AND BANDAGE ON SACRUM INTACT, COMPLIANT WITH CARE, BED LOW TO FLOOR, BRAKES ON AND LOCKED , CALL LIGHT IN REACH. HELD THE COREG DUE TO LOW B/P NOTED AND PER MD ORDERS. WILL MONITOR VITAL SIGNS, REPOSITIONED FOR COMFORT Q 2 HOURS AND PILLOWS PLACED IN POSITION TO RELIEVE PRESSURE BI-LATERAL FEET, AND BI-LATERAL UPPER EXTREMITIES.
--- NOTE | 2021-04-21 19:00 | NUR ---
PATIENT NOT ON A G-TUBE FEEDING , THE INPUT DATA FOR G-TUBE FEEDING IS INCORRECT, SOME WERE ABLE TO BE CORRECTED AND SOME ITEMS IN THE G-TUBE FEEDING ICON WERE UNABLE TO CHANGE AND BE CORRECTED PLEASE NOTE PATIENT NOT ON G-TUBE FEEDING - AMOUNT EQUALS ZERO FOR THIS AREA.
--- NOTE | 2021-04-21 19:45 | NUR ---
RN NOTES RECEIVED PATIENT ASLEEP ON BED , EASILY AROUSABLE. DENIES PAIN. NO SOB OR RESPIRATORY DISTRESS. WITH O2 1LPM VIA NC SATURATION 98 %. AFEBRILE. V-PACING ON MONITOR HR 60. UNABLE TO READ BP FROM THE MONITOR PATIETN KEPT MOVING ARMS. CHECKED BP MANUALLY SBP 84 MMHG. RE STARTED LEVOPHED AT 0.1 MCG/KG/MIN WILL TITRATED PROTOCOL ORDER. CVP READS 4 CALIBRATED AND LEBELLED. PATIENT HAS YUN PICC LINE AND JUNIOR ML ALL ARE INTACT AND PATENT HD CATH ON RCW CLEAN AND DRY. KEPT PT CLEAN AND DRY, BIG BOY MATTRESS SET FOR TURNING AND REPOSITIONING TO REDUCED PRESSURE TO BONY PROMINENCE AREA.
--- NOTE | 2021-04-21 20:00 | NUR ---
RN NOTES 1935 PM - RECEIVED DKA PATIENT WITH ALGORITHM #2 PROTOCOL FOR INSULIN DRIP. VERY LETHARGIC, UNABLE TO COMMUNICATE, WITH SHALLOW BREATHING ON O2 3LPM VIA NC SATURATION 96%. SR ON MONITOR. UNABLE TO READ TEMPERATURE ORALLY AND AXILLARY, RECTAL TEMP PLACED WITH 89.2 DEGREE FHARENHEIGHT. DELORES NEWBY INITIATED. BS CHECKED READ "HI" AT THIS TIME, AND ABG SHOWS BICARB OF 1.8 DESPITE OF PATIENT IS RUNNING BICARB DRIP AT 125 ML/HR INFORMED SANYA FATIMA NP PER SANYA SHE WILL CHANGE THE ORDER. Addendum: 04/21/21 at 2206 by NIKITA DOYLE RN ERROR WRONG PATIENT
[2021-04-21] MEDS: ATORVASTATIN 10 MG TABLET PO SCH (21:41)
[2021-04-21] MEDS: LATANOPROST EYE DROP 0.005% 2.5 ML BOTTLE EACHEYE SCH (21:42)
--- NOTE | 2021-04-21 22:09 | NUR ---
RT NOTE Pt refusing bipap. Pt educated on the risk of not wearing bipap. pt is unable to comply. RN is aware. will continue to monitor closely
--- NOTE | 2021-04-21 22:10 | NUR ---
RN NOTES PATIETN IS AOX3 RT OFFERED BIPAP MD ORDER NOCTURNAL BIPAP, PATIENT REFUSED. RISK AND BENEFITS EXPLAINED, INEFFECTIVE. KEPT PT ON O2 1-2 LPM VIA NC SATURATION 94%. NO SOB WITH GOOD RISE AND FALL OF CHEST. WILL CLOSELY MONITOR.
[2021-04-22] VITALS (82 sets, daily range): BP systolic 71–137; BP diastolic 31–103
[2021-04-22] MEDS: ACETYLCYSTEINE 10% SOLN 400 MG/4 ML VIAL NEB SCH ×4 (00:04→23:53)
[2021-04-22] MEDS: FLUDROCORTISONE 0.1 MG TABLET PO SCH ×4 (00:39→17:52)
[2021-04-22] MEDS: BLOOD SUGAR DIAGNOSTIC 1 EACH STRIP IN SCH ×4 (00:50→17:51)
[2021-04-22] MEDS: INSULIN REGULAR, HUMAN 100 UNIT/ML 3 ML VIAL SQ PRN ×2 (00:52→06:44)
[2021-04-22 04:20] LABS: BASOPHILS % (AUTO) 0.2 % (0.0-2.0); HEMATOCRIT 26 % (39-51); HEMOGLOBIN 8.2 g/dL (13.5-17.5); LYMPHOCYTES # (AUTO) 1.1 K/uL (0.8-4.8); LYMPHOCYTES % (AUTO) 5.9 % (20.0-44.0); MEAN CORPUSCULAR HGB CONC 32 g/dl (31.0-36.0); MEAN CORPUSCULAR VOLUME 97 fL (80-96); MONOCYTES # (AUTO) 0.6 K/uL (0.1-1.30); MONOCYTES % (AUTO) 3.5 % (2.0-12.0); NEUTROPHILS # (AUTO) 16.1 K/uL (1.8-8.9); NEUTROPHILS % (AUTO) 90.4 % (43.0-81.0); PLATELET COUNT (AUTO) 269 K/uL (150-450); RED BLOOD CELL COUNT(AUTO) 2.64 MIL/uL (4.5-6.0); WHITE BLOOD COUNT (AUTO) 17.8 K/uL (4.3-11.0)
[2021-04-22] MEDS: TRAMADOL HCL 50 MG TABLET PO PRN (04:26)
[2021-04-22] MEDS: MIDODRINE HCL (5MG) 5 MG TABLET PO SCH ×3 (04:27→21:45)
[2021-04-22 04:34] LABS: ALANINE AMINOTRANSFERASE 47 U/L (12-78); ALBUMIN 2.3 g/dL (3.4-5.0); ALKALINE PHOSPHATASE 145 U/L (46-116); ASPARTATE AMINOTRANSFERASE 30 U/L (15-37); BILIRUBIN,TOTAL 0.9 mg/dL (0.2-1.0); CARBON DIOXIDE 30 mmol/L (21-32); CHLORIDE 95 mmol/L (98-107); CREATININE 4.7 mg/dL (0.6-1.3); GLUCOSE 235 mg/dL (74-106); POTASSIUM 4.1 mmol/L (3.5-5.1); SODIUM SERUM 136 mmol/L (136-145); TOTAL PROTEIN, SERUM 5.9 g/dL (6.4-8.2); UREA NITROGEN, BLOOD 57 mg/dL (7-18)
[2021-04-22] MEDS ORDERED: IV NS 0.9% 500 ML IV PRN (07:00)
--- NOTE | 2021-04-22 07:00 | NUR ---
RN NOTES PATIENT REMAINED STABLE WITH O2 1LPM VIA NC. SATURATION 97%. BREATHING EVEN AND UNLABORED. PATIENT REMAINED AOX3. CONTINUE WITH LOW DOSE OF LEVOPHED @ 0.02 MCG/KG/MIN. TOELRATED WELL. AFEBRILE. ALL DUE MEDS. TOELRATED WITHOUT ASE PRESENT. KEPT PT CLEAN AND COMFORTABLE IN BED. WOUND DRESSING CHANGES UPON CLEANING THE PATIENT. WILL CONTINUE WITH POC.
--- NOTE | 2021-04-22 07:30 | NUR ---
RN NOTES PT FOUND SLEEPING SEMI FOWLERS POSITION DISPLAYING NO S/S OF DISTRESS, FLACC = 0 AND BREATHING IS EVEN AND UNLABORED ON 1L O2 NC. PT WOKE UP UPON ROUNDING, IS A&OX3-4 (BASELINE IN COGNITIVE ABILITY) AND ENDORSES NO PAIN. CVP WAS CALIBRATED. R UA PICC IS PATIENT AND INTACT. R UA MIDLINE IS PATIENT AND INTACT. VSS, LEVO MAINTAINING BP, RN WILL TREAT AND MONITOR THROUGHOUT SHIFT. SAFETY MEASURES IN PLACE, BED LOCKED AND IN LOWEST POSITION, SIDE RAILS UPX3, CALL LIGHT WITHIN REACH, PT INSTRUCTED TO CALL FOR ASSISTANCE.
[2021-04-22] MEDS: FAMOTIDINE (20 MG) 20 MG TABLET PO SCH ×2 (08:51→17:45)
[2021-04-22] MEDS: AMIODARONE HCL 200 MG TABLET PO SCH (08:51)
[2021-04-22] MEDS: SULFAMETH/TRIMETH 800/160 MG 1 UDTAB TABLET PO SCH ×2 (08:51→21:45)
[2021-04-22] MEDS: ZINC SULFATE 220 MG CAPSULE PO SCH (08:51)
[2021-04-22] MEDS: VIT B CMPLX 3/FA/VIT C/BIOTIN 1 TAB TABLET PO SCH (08:51)
[2021-04-22] MEDS: PROSOURCE / PROSTAT (PYXIS) 30 ML UDC PO SCH ×3 (08:51→17:47)
[2021-04-22] MEDS: ASPIRIN 81 MG TAB.CHEW PO SCH (08:51)
[2021-04-22] MEDS: THERAHONEY GEL 1.5 OZ TUBE TP SCH (08:52)
[2021-04-22] MEDS: DAKINS QUARTER STRENGTH (0.125%) 480 ML BOTTLE TOP SCH (08:52)
[2021-04-22] MEDS: ASCORBIC ACID 500 MG TABLET PO SCH (08:52)
[2021-04-22] MEDS: HYDROCORTISONE SOD SUCCINATE 100 MG/2 ML VIAL IV SCH ×2 (08:52→17:45)
[2021-04-22] MEDS: ALLOPURINOL 100 MG TABLET PO SCH (08:52)
[2021-04-22] MEDS: INSULIN GLARGINE, 100 UNIT/ML CARTRIDGE SQ SCH ×2 (08:56→17:51)
[2021-04-22] MEDS: CLOTRIMAZOLE/BETAMETASONE DIPROPIONATE 15 GM TUBE TP SCH ×2 (08:57→21:48)
[2021-04-22] MEDS: RIVAROXABAN 15 MG TABLET PO SCH (08:57)
[2021-04-22] MEDS: CARVEDILOL 12.5 MG TABLET PO SCH (09:00)
[2021-04-22] MEDS: NEPRO VAN 237 ML CAN PO SCH (09:38)
--- NOTE | 2021-04-22 09:39 | NUR ---
RN NOTE COREG HELD BECAUSE PT IS ON LEVO.
[2021-04-22] MEDS: ALBUMIN 25% 25 GM in PREMIX 1 EA IV PRN (10:53)
--- NOTE | 2021-04-22 10:54 | NUR ---
RN NOTE HD STARTED
[2021-04-22] MEDS ORDERED: NOREPINEPHRINE 8 MG in IV NS 0.9% 242 ML IV PRN (11:00)
--- NOTE | 2021-04-22 12:26 | NUR ---
HD ONGOING Addendum: 04/22/21 at 1227 by YAN GEE RN Amended: Links added.
--- NOTE | 2021-04-22 14:30 | NUR ---
RN NOTE HD FINISHED, 500 ML OUT
--- NOTE | 2021-04-22 19:00 | NUR ---
RN NOTES PT FOUND IN SEMI SCHWARTZ'S POSITION DISPLAYING NO S/S OF DISTRESS, PT ENDORSES NO PAIN AND BREATHING EVEN AND UNLABORED ON 1L O2 NC. PT, WHILE HEMODYNALIMCALLY UNSTABLE, IS MAINTAINING ADEQUATE BP. R UA PICC IS PATIENT AND INTACT. L UA MIDLINE IS PATIENT AND INTACT. WOUND CARE PERFORMED. VSS, SBAR AND REPORT GIVEN TO LEATHER SCRAPER. ALL QUESTIONS ANSWERED. PT ENDORSED IN STABLE CONDITION FOR BREA
--- NOTE | 2021-04-22 19:40 | NUR ---
RN NOTES RECEIVED PATIENT AWAKE ALERT ORIENETED X 2-3 ON BED ,NO SOB. BREATHING EVEN AND UNLABORED WITH O2 1LPM VIA NC SATURATION 97 %. AFEBRILE. V-PACING ON MONITOR HR 60. CVP READS 4 CALIBRATED AND LEBELLED. PATIENT HAS YUN PICC LINE AND JUNIOR ML ALL ARE INTACT AND PATENT HD CATH ON RCW WITH CLEAN AND DRY DRESSING. KEPT PT CLEAN AND DRY, BIG BOY MATTRESS SET FOR TURNING AND REPOSITIONING TO REDUCED PRESSURE TO BONY PROMINENCE AREA. CALL LIGHT KEPT WITHIN EASY REACH
[2021-04-22] MEDS: ATORVASTATIN 10 MG TABLET PO SCH (21:45)
[2021-04-22] MEDS: LATANOPROST EYE DROP 0.005% 2.5 ML BOTTLE EACHEYE SCH (21:48)
--- NOTE | 2021-04-22 22:15 | NUR ---
RT NOTE Pt rec'd on 1LNC. Pt shows no signs of resp distress or sob. Pt is awake and alert. Pt refuses bipap. Pt educated and aware of the risk of not being placed on bipap. Will continue to monitor closely.
[2021-04-22] MEDS: ALBUTEROL FS 2.5 MG/3 ML VIAL.NEB IH PRN (23:53)
[2021-04-23] VITALS (33 sets, daily range): BP systolic 65–117; BP diastolic 17–71
[2021-04-23] MEDS: FLUDROCORTISONE 0.1 MG TABLET PO SCH ×4 (00:25→17:08)
[2021-04-23] MEDS: INSULIN REGULAR, HUMAN 100 UNIT/ML 3 ML VIAL SQ PRN ×2 (00:57→13:25)
[2021-04-23] MEDS: BLOOD SUGAR DIAGNOSTIC 1 EACH STRIP IN SCH ×4 (01:41→17:23)
[2021-04-23] MEDS: TRAMADOL HCL 50 MG TABLET PO PRN ×2 (02:22→17:27)
[2021-04-23 04:31] LABS: BASOPHILS # (AUTO) 0.1 K/uL (0.0-0.2); BASOPHILS % (AUTO) 0.5 % (0.0-2.0); EOSINOPHILS % (AUTO) 0.3 % (0.0-6.0); HEMATOCRIT 24 % (39-51); HEMOGLOBIN 7.7 g/dL (13.5-17.5); LYMPHOCYTES # (AUTO) 0.9 K/uL (0.8-4.8); LYMPHOCYTES % (AUTO) 6.3 % (20.0-44.0); MEAN CORPUSCULAR HGB CONC 32 g/dl (31.0-36.0); MEAN CORPUSCULAR VOLUME 98 fL (80-96); MONOCYTES # (AUTO) 1.2 K/uL (0.1-1.30); MONOCYTES % (AUTO) 8.2 % (2.0-12.0); NEUTROPHILS # (AUTO) 12.3 K/uL (1.8-8.9); NEUTROPHILS % (AUTO) 84.7 % (43.0-81.0); PLATELET COUNT (AUTO) 251 K/uL (150-450); RED BLOOD CELL COUNT(AUTO) 2.45 MIL/uL (4.5-6.0); WHITE BLOOD COUNT (AUTO) 14.5 K/uL (4.3-11.0)
[2021-04-23 05:08] LABS: ALANINE AMINOTRANSFERASE 50 U/L (12-78); ALKALINE PHOSPHATASE 113 U/L (46-116); ASPARTATE AMINOTRANSFERASE 31 U/L (15-37); BILIRUBIN,TOTAL 0.9 mg/dL (0.2-1.0); CARBON DIOXIDE 28 mmol/L (21-32); CHLORIDE 100 mmol/L (98-107); CREATININE 3.4 mg/dL (0.6-1.3); GLUCOSE 101 mg/dL (74-106); POTASSIUM 3.9 mmol/L (3.5-5.1); SODIUM SERUM 137 mmol/L (136-145); TOTAL PROTEIN, SERUM 5.9 g/dL (6.4-8.2); UREA NITROGEN, BLOOD 40 mg/dL (7-18)
[2021-04-23 05:42] LABS: ALBUMIN 2.6 g/dL (3.4-5.0)
[2021-04-23] MEDS: MIDODRINE HCL (5MG) 5 MG TABLET PO SCH ×3 (06:14→21:21)
--- NOTE | 2021-04-23 07:00 | NUR ---
RN NOTES PATIENT ASLEEP AT THIS TIME. NO SIGNIFICANT CHANGES THROUGHOUT THE SHIFT. . STABLE. AOX3 VERBALLY RESPONSIVE WHEN AWAKE. ABLE TO TOLERATE ROOM AIR, BUT KEPT O2 1LPM VIA NC. SBP KEPT >80 MMHG PER MD ORDER. VSS IN THAT CASE NO NEED FOR PRESSOR. REMAINED ANURIC. NO BM DESPITE OF GIVING MOM . CVP CONTINUE LABELLED AND CALIBRATED SCORE IS 2. WILL ENDORSED CONTINUITY OF CARE TO AM NURSE.
[2021-04-23] MEDS: ACETYLCYSTEINE 10% SOLN 400 MG/4 ML VIAL NEB SCH ×3 (07:35→23:55)
--- NOTE | 2021-04-23 07:35 | NUR ---
RN NOTES PT FOUND SLEEPING SEMI SCHWARTZ'S POSITION DISPLAYING NO S/S OF DISTRESS, FLACC = 0 AND BREATHING IS EVEN AND UNLABORED ON 1L O2 NC. PT MAINTAINING ACCEPTABLE BP PARAMATERS. VSS, WILL CONTINUE TO MONITOR AND TREAT. SAFETY MEASURES IN PLACE, BED LOCKED AND IN LOWEST POSITION, SIDE RAILS UPX3, CALL LIGHT WITHIN REACH, PT PREVIOUSLY INSTRUCTED TO CALL FOR ASSISTANCE.
[2021-04-23] MEDS: AMIODARONE HCL 200 MG TABLET PO SCH (08:01)
[2021-04-23] MEDS: ZINC SULFATE 220 MG CAPSULE PO SCH (08:01)
[2021-04-23] MEDS: SULFAMETH/TRIMETH 800/160 MG 1 UDTAB TABLET PO SCH ×2 (08:01→21:21)
[2021-04-23] MEDS: ASPIRIN 81 MG TAB.CHEW PO SCH (08:01)
[2021-04-23] MEDS: VIT B CMPLX 3/FA/VIT C/BIOTIN 1 TAB TABLET PO SCH (08:02)
[2021-04-23] MEDS: FAMOTIDINE (20 MG) 20 MG TABLET PO SCH ×2 (08:02→17:08)
[2021-04-23] MEDS: CLOTRIMAZOLE/BETAMETASONE DIPROPIONATE 15 GM TUBE TP SCH ×2 (08:02→21:18)
[2021-04-23] MEDS: ASCORBIC ACID 500 MG TABLET PO SCH (08:02)
[2021-04-23] MEDS: HYDROCORTISONE SOD SUCCINATE 100 MG/2 ML VIAL IV SCH ×2 (08:02→17:08)
[2021-04-23] MEDS: ALLOPURINOL 100 MG TABLET PO SCH (08:02)
[2021-04-23] MEDS: PROSOURCE / PROSTAT (PYXIS) 30 ML UDC PO SCH (08:02)
[2021-04-23] MEDS: DAKINS QUARTER STRENGTH (0.125%) 480 ML BOTTLE TOP SCH (08:03)
[2021-04-23] MEDS: THERAHONEY GEL 1.5 OZ TUBE TP SCH (08:03)
[2021-04-23] MEDS: INSULIN GLARGINE, 100 UNIT/ML CARTRIDGE SQ SCH ×2 (08:05→17:11)
[2021-04-23] MEDS: RIVAROXABAN 15 MG TABLET PO SCH (08:05)
[2021-04-23] MEDS: DAKINS HALF STRENGTH (0.25%) 480 ML BOTTLE TOP SCH ×2 (11:32→17:10)
[2021-04-23] MEDS: GLUCERNA SHAKE 237 ML CAN PO SCH ×2 (12:45→17:08)
[2021-04-23] MEDS: METOLAZONE 2.5 MG TABLET PO SCH (13:23)
--- NOTE | 2021-04-23 18:05 | NUR ---
PATIENT TRANSFER PT MOVED TO [facility], ROOM 112-1. PT IS CURRENTLY A&OX4, ENDORSING NO PAIN AND IS BREATHING EVEN AND UNLABORED ON 1L O2 NC. WOUND CARE JUST PERFORMED. BEDSIDE REPORT GIVEN TO JORGE PHAN. SBAR GIVEN WELL. PT ENDORSED IN STABLE CONDITION, ALL QUESTIONS ANSWERED.
--- NOTE | 2021-04-23 18:10 | NUR ---
RN NOTE BEDSIDE REPORT FROM YAN PATEL, WILL CONTINUE PLAN OF CARE.
--- NOTE | 2021-04-23 18:44 | NUR ---
RN NOTE PATIENT ALERT AND ORIENTED, ON BIPAP AT NIGHT, ON O2 VIA NC AT 3LPM AT THIS TIME TOLERATING WELL, BREATHING EVEN AND UNLABORED, WILL CONTINUE PLAN OF CARE AND MONITOR FOR ANY BREA, SAFETY MEASURES OBSERVED, CALL LIGHT WITHIN REACH, WILL ENDORSE TO NOC SHIFT.
[2021-04-23] MEDS: LATANOPROST EYE DROP 0.005% 2.5 ML BOTTLE EACHEYE SCH (21:18)
[2021-04-23] MEDS: ATORVASTATIN 10 MG TABLET PO SCH (21:21)
--- NOTE | 2021-04-23 23:00 | NUR ---
RT NOTES Pt was received on 4 L nasal cannula saturating 96 %. Pt is refusing bipap at this time, pt educated and aware of risks of not being on bipap. Will continue to monitor and try again later.
--- NOTE | 2021-04-23 23:22 | NUR ---
RT NOTE PT TITRATED TO 2LNC.
[2021-04-23] MEDS: ALBUTEROL FS 2.5 MG/3 ML VIAL.NEB IH PRN (23:55)
[2021-04-24 00:17] VITALS: BP 103/24
[2021-04-24] MEDS: BLOOD SUGAR DIAGNOSTIC 1 EACH STRIP IN SCH ×4 (00:50→17:52)
--- NOTE | 2021-04-24 01:02 | NUR ---
HD treatment completed and tolerated procedure well. Pt more awake and following simple commands. VSS. Net UF 500 ml as ordered. Dressing to Rt upper chest clean, dry and intact, no bleeding noted to site. Report given to Abhijit PATEL.
[2021-04-24] MEDS: INSULIN REGULAR, HUMAN 100 UNIT/ML 3 ML VIAL SQ PRN ×2 (01:04→11:28)
[2021-04-24] MEDS: FLUDROCORTISONE 0.1 MG TABLET PO SCH ×4 (01:09→17:38)
[2021-04-24 04:00] VITALS: BP 104/43
[2021-04-24] MEDS: MIDODRINE HCL (5MG) 5 MG TABLET PO SCH ×3 (05:41→21:14)
[2021-04-24 06:13] LABS: BASOPHILS % (AUTO) 0.2 % (0.0-2.0); EOSINOPHILS % (AUTO) 0.6 % (0.0-6.0); HEMATOCRIT 26 % (39-51); HEMOGLOBIN 8.3 g/dL (13.5-17.5); LYMPHOCYTES % (AUTO) 8.3 % (20.0-44.0); MEAN CORPUSCULAR HGB CONC 32 g/dl (31.0-36.0); MEAN CORPUSCULAR VOLUME 98 fL (80-96); MONOCYTES # (AUTO) 1.2 K/uL (0.1-1.30); MONOCYTES % (AUTO) 9.9 % (2.0-12.0); NEUTROPHILS # (AUTO) 9.9 K/uL (1.8-8.9); PLATELET COUNT (AUTO) 218 K/uL (150-450); RED BLOOD CELL COUNT(AUTO) 2.63 MIL/uL (4.5-6.0); WHITE BLOOD COUNT (AUTO) 12.2 K/uL (4.3-11.0)
[2021-04-24 07:18] LABS: ALANINE AMINOTRANSFERASE 47 U/L (12-78); ALBUMIN 2.2 g/dL (3.4-5.0); ALKALINE PHOSPHATASE 113 U/L (46-116); ASPARTATE AMINOTRANSFERASE 26 U/L (15-37); BILIRUBIN,TOTAL 0.9 mg/dL (0.2-1.0); CALCIUM, SERUM 7.5 mg/dL (8.5-10.1); CARBON DIOXIDE 27 mmol/L (21-32); CHLORIDE 98 mmol/L (98-107); CREATININE 4.7 mg/dL (0.6-1.3); GLUCOSE 79 mg/dL (74-106); POTASSIUM 4.8 mmol/L (3.5-5.1); SODIUM SERUM 134 mmol/L (136-145); TOTAL PROTEIN, SERUM 5.5 g/dL (6.4-8.2); UREA NITROGEN, BLOOD 64 mg/dL (7-18)
[2021-04-24] MEDS: ACETYLCYSTEINE 10% SOLN 400 MG/4 ML VIAL NEB SCH ×3 (07:19→23:18)
[2021-04-24] MEDS: ALBUTEROL FS 2.5 MG/3 ML VIAL.NEB IH PRN ×2 (07:19→15:01)
--- NOTE | 2021-04-24 07:25 | NUR ---
RN OPENING NOTES; RECIEVED PT IN BED RESTING. PT A/OX3, NO SOB NOTED, NO DISTRESS NOTED. NO C/O PAIN AT THIS TIME. ALL SAFETY MEASURES RENDERED, BED IN LOWEST POS. LOCKED, WITH CALL LIGHT WITHIN REACH. IV ACCESS NOTED, PATENT, WITH NO SIGNS OF INFILTRATION. WILL CONTINUE TO MONITOR.
[2021-04-24 08:00] VITALS: BP 116/66
[2021-04-24] MEDS: GLUCERNA SHAKE 237 ML CAN PO SCH ×3 (08:30→17:51)
[2021-04-24] MEDS: FAMOTIDINE (20 MG) 20 MG TABLET PO SCH ×2 (08:32→17:37)
[2021-04-24] MEDS: VIT B CMPLX 3/FA/VIT C/BIOTIN 1 TAB TABLET PO SCH (08:32)
[2021-04-24] MEDS: ALLOPURINOL 100 MG TABLET PO SCH (08:32)
[2021-04-24] MEDS: ASCORBIC ACID 500 MG TABLET PO SCH (08:32)
[2021-04-24] MEDS: ZINC SULFATE 220 MG CAPSULE PO SCH (08:32)
[2021-04-24] MEDS: ASPIRIN 81 MG TAB.CHEW PO SCH (08:32)
[2021-04-24] MEDS: HYDROCORTISONE SOD SUCCINATE 100 MG/2 ML VIAL IV SCH ×2 (08:32→17:37)
[2021-04-24] MEDS: RIVAROXABAN 15 MG TABLET PO SCH (08:33)
[2021-04-24] MEDS: AMIODARONE HCL 200 MG TABLET PO SCH (08:33)
[2021-04-24] MEDS: SULFAMETH/TRIMETH 800/160 MG 1 UDTAB TABLET PO SCH (08:38)
[2021-04-24] MEDS: INSULIN GLARGINE, 100 UNIT/ML CARTRIDGE SQ SCH ×2 (08:39→17:00)
[2021-04-24] MEDS: CLOTRIMAZOLE/BETAMETASONE DIPROPIONATE 15 GM TUBE TP SCH ×2 (08:42→21:11)
[2021-04-24] MEDS: THERAHONEY GEL 1.5 OZ TUBE TP SCH (08:42)
[2021-04-24] MEDS: DAKINS HALF STRENGTH (0.25%) 480 ML BOTTLE TOP SCH ×2 (08:43→17:51)
--- NOTE | 2021-04-24 11:28 | NUR ---
RN NOTES BLOOD SUGAR TAKEN ORDERED. RESULTS 80. NO INSULIN GIVEN PER SLIDING SCALE
[2021-04-24 12:00] VITALS: BP 101/64
[2021-04-24] MEDS: ALBUMIN 25% 25 GM in PREMIX 1 EA IV PRN (12:16)
[2021-04-24 16:00] VITALS: BP 106/57
--- NOTE | 2021-04-24 17:52 | NUR ---
RN NOTES BLOOD SUGAR TAKEN ORDERED. RESULTS 22. NO INSULIN GIVEN PER SLIDING SCALE. LANTUS HELD FOR B/S <140.
--- NOTE | 2021-04-24 18:50 | NUR ---
RN NOTES; PT A/OX3, ALL MEDICATION GIVEN AND WELL TOLERATED. PT ON 02 VIA NC TOLERATING WELL SAT AT 96%-98%. WOUND CARE DONE, PT KEPT CLEAN, DRY AND COMFORTABLE. NO SIGNIFICANT CHANGES IN PT HEALTH STATUS DURING SHIFT. DIALYSIS TREATMENT DONE, BUT DUE TO LOW BP COULD NOT TAKE ANY FLUIDS. SAFETY MEASURES RENDERED. BED IN LOWEST POS. WITH CALL LIGHT WITHIN REACH. ENDORSED TO MILLING MACHINE OPERATOR GEAR RN IN STABLE CONDITION.
--- NOTE | 2021-04-24 19:39 | NUR ---
RT NOTE PT RECEIVED AWAKE/ALERT ON 28% NASAL CANNULA. PT REFUSES BIPAP AFTER EXPLAINING RISKS AND BENEFITS. NURSE MARIO NOTIFIED. NO RESPIRATORY DISTRESS NOTED. WILL MONITOR.
[2021-04-24 20:00] VITALS: BP 99/43
[2021-04-24] MEDS: LATANOPROST EYE DROP 0.005% 2.5 ML BOTTLE EACHEYE SCH (21:11)
[2021-04-24] MEDS: ATORVASTATIN 10 MG TABLET PO SCH (21:14)
[2021-04-25] VITALS: BP 118/49
[2021-04-25] MEDS: BLOOD SUGAR DIAGNOSTIC 1 EACH STRIP IN SCH ×4 (00:09→17:06)
[2021-04-25] MEDS: FLUDROCORTISONE 0.1 MG TABLET PO SCH ×4 (00:11→17:06)
[2021-04-25] MEDS: INSULIN REGULAR, HUMAN 100 UNIT/ML 3 ML VIAL SQ PRN ×3 (00:15→17:08)
[2021-04-25 04:00] VITALS: BP 123/60
[2021-04-25] MEDS: MIDODRINE HCL (5MG) 5 MG TABLET PO SCH ×3 (05:51→21:37)
[2021-04-25] MEDS: TRAMADOL HCL 50 MG TABLET PO PRN (05:52)
[2021-04-25 06:46] LABS: ALANINE AMINOTRANSFERASE 45 U/L (12-78); ALBUMIN 2.3 g/dL (3.4-5.0); ALKALINE PHOSPHATASE 117 U/L (46-116); ASPARTATE AMINOTRANSFERASE 30 U/L (15-37); BILIRUBIN,TOTAL 0.7 mg/dL (0.2-1.0); CALCIUM, SERUM 7.7 mg/dL (8.5-10.1); CARBON DIOXIDE 25 mmol/L (21-32); CHLORIDE 102 mmol/L (98-107); CREATININE 3.9 mg/dL (0.6-1.3); GLUCOSE 125 mg/dL (74-106); POTASSIUM 4.7 mmol/L (3.5-5.1); SODIUM SERUM 136 mmol/L (136-145); TOTAL PROTEIN, SERUM 5.4 g/dL (6.4-8.2); UREA NITROGEN, BLOOD 47 mg/dL (7-18)
[2021-04-25 07:10] LABS: BASOPHILS % (AUTO) 0.1 % (0.0-2.0); EOSINOPHILS % (AUTO) 0.3 % (0.0-6.0); HEMATOCRIT 24 % (39-51); HEMOGLOBIN 7.6 g/dL (13.5-17.5); LYMPHOCYTES # (AUTO) 0.5 K/uL (0.8-4.8); LYMPHOCYTES % (AUTO) 4.3 % (20.0-44.0); MEAN CORPUSCULAR HGB CONC 32 g/dl (31.0-36.0); MEAN CORPUSCULAR VOLUME 98 fL (80-96); MONOCYTES # (AUTO) 0.9 K/uL (0.1-1.30); MONOCYTES % (AUTO) 7.2 % (2.0-12.0); NEUTROPHILS % (AUTO) 88.1 % (43.0-81.0); PLATELET COUNT (AUTO) 207 K/uL (150-450); RED BLOOD CELL COUNT(AUTO) 2.41 MIL/uL (4.5-6.0); WHITE BLOOD COUNT (AUTO) 12.5 K/uL (4.3-11.0)
--- NOTE | 2021-04-25 07:30 | NUR ---
RN OPENING NOTE PATIENT RECEIVED IN BED, AWAKE, A&OX2. PATIENT ON 2L O2 NC WITH NO SIGNS OF LABORED BREATHING. R UA PICC LINE AND L UA MIDLINE IN PLACE. BED LOCKED AND IN LOWEST POSITION, 3 SIDE RAILS UP, CALL LIGHT WITHIN REACH. WILL CONTINUE TO MONITOR.
[2021-04-25] MEDS: GLUCERNA SHAKE 237 ML CAN PO SCH ×3 (07:36→17:06)
[2021-04-25 08:00] VITALS: BP 120/46
--- NOTE | 2021-04-25 08:09 | NUR ---
[facility] RN NOTE ON BREATHING TX BY RT
[2021-04-25] MEDS: ACETYLCYSTEINE 10% SOLN 400 MG/4 ML VIAL NEB SCH ×3 (08:13→23:36)
[2021-04-25] MEDS: VIT B CMPLX 3/FA/VIT C/BIOTIN 1 TAB TABLET PO SCH (08:21)
[2021-04-25] MEDS: ASCORBIC ACID 500 MG TABLET PO SCH (08:21)
[2021-04-25] MEDS: ALLOPURINOL 100 MG TABLET PO SCH (08:21)
[2021-04-25] MEDS: RIVAROXABAN 15 MG TABLET PO SCH (08:21)
[2021-04-25] MEDS: ASPIRIN 81 MG TAB.CHEW PO SCH (08:21)
[2021-04-25] MEDS: ZINC SULFATE 220 MG CAPSULE PO SCH (08:22)
[2021-04-25] MEDS: FAMOTIDINE (20 MG) 20 MG TABLET PO SCH ×2 (08:22→17:06)
[2021-04-25] MEDS: AMIODARONE HCL 200 MG TABLET PO SCH (08:23)
[2021-04-25] MEDS: HYDROCORTISONE SOD SUCCINATE 100 MG/2 ML VIAL IV SCH ×2 (08:23→13:12)
[2021-04-25] MEDS: INSULIN GLARGINE, 100 UNIT/ML CARTRIDGE SQ SCH ×2 (08:24→17:08)
[2021-04-25] MEDS: CLOTRIMAZOLE/BETAMETASONE DIPROPIONATE 15 GM TUBE TP SCH ×2 (08:25→21:34)
[2021-04-25] MEDS: THERAHONEY GEL 1.5 OZ TUBE TP SCH (08:25)
[2021-04-25] MEDS: DAKINS HALF STRENGTH (0.25%) 480 ML BOTTLE TOP SCH ×2 (08:25→17:04)
--- NOTE | 2021-04-25 10:00 | NUR ---
[facility] RN NOTE SPOKE WITH DR KALYANI BUCKLEY, NOTIFIED THAT PATIENT WANTS TO GET UP ON CHAIR ,PER DR KALYANI BUCKLEY OK TO ORDER PT EVAL ,ORDER CARRIED OUT
--- NOTE | 2021-04-25 11:30 | NUR ---
[facility] RN NOTE ASSISTED TO TO HAVE LUNCH , CALL LIGHT WITHIN REACH , NOT IN IN DISTRESS
[2021-04-25 12:00] VITALS: BP 105/46
--- NOTE | 2021-04-25 12:00 | NUR ---
maurice rn note seen by dr lazaro aircraft engine mechanic supervisor updated patient condition
[2021-04-25] MEDS: METOLAZONE 2.5 MG TABLET PO SCH (12:23)
--- NOTE | 2021-04-25 13:29 | NUR ---
[facility] RN NOTE ROUNDS MADE TURN REPOSITION DONE , CALL LIGHT WITHIN REACH
--- NOTE | 2021-04-25 13:59 | NUR ---
RN NOTE NOTIFIED KALYANI CHOWDHURY DNP ABOUT HEMOGLOBIN OF 7.6. NO NEW ORDER AT THIS TIME. Addendum: 04/25/21 at 1732 by MELI SEXTON RN [id number] KALYANI BUCKLEY AWARE THAT HG WAS YESTERDAY 8.3 AND TODAY 7.6 NPNO NEW ORDER GIVEN, WILL F\U
--- NOTE | 2021-04-25 14:23 | NUR ---
maurice rn note rt at bedside breathing tx dong not in distress,will monitor
[2021-04-25 16:24] VITALS: BP 107/46
--- NOTE | 2021-04-25 17:09 | NUR ---
KAYLEE RN NOTE ROUNDS MADE, RESTING COMFORTABLY ,NO SOB AT THIS TIME NOTE ,CALL LIGHT WITHIN REACH
--- NOTE | 2021-04-25 18:32 | NUR ---
RN CLOSING NOTE PATIENT IN BED, AWAKE, A&OX2-3. PATIENT ON 2L O2 NC WITH NO SIGNS OF LABORED BREATHING AT THIS TIME. PATIENT ON TELE MONITOR. R UPPER ARM PICC LINE AND L UPPER ARM MIDLINE IN PLACE AND PATENT. ALL NEEDS ATTENDED THROUGHOUT SHIFT. BED LOCKED AND IN LOWEST POSITION, 3 SIDE RAILS UP, CALL LIGHT WITHIN REACH, ALL SAFETY MEASURES IMPLEMENTED. WILL ENDORSE TO THEATRE PROFESSOR NURSE.
[2021-04-25 20:00] VITALS: BP 107/51
[2021-04-25] MEDS: LATANOPROST EYE DROP 0.005% 2.5 ML BOTTLE EACHEYE SCH (21:34)
[2021-04-25] MEDS: ATORVASTATIN 10 MG TABLET PO SCH (21:37)
--- NOTE | 2021-04-25 23:39 | NUR ---
RT PATIENT WAS RECEIVED AWAKE, ALERT AND STABLE ON 2L NASAL CANNULA.PATIENT REFUSED TO USE BIPAP AT THIS TIME, NURSE MARIO HOLLOWAY. EXPLAINED BENEFITS OF USING BIPAP AT NIGHT. WILL CONTINUE TO MONITOR THROUGHOUT THE SHIFT.
[2021-04-26] VITALS: BP 100/50
[2021-04-26] MEDS: BLOOD SUGAR DIAGNOSTIC 1 EACH STRIP IN SCH ×4 (00:45→17:32)
[2021-04-26] MEDS: FLUDROCORTISONE 0.1 MG TABLET PO SCH ×5 (00:45→23:59)
[2021-04-26 04:00] VITALS: BP 106/46
[2021-04-26] MEDS: MIDODRINE HCL (5MG) 5 MG TABLET PO SCH ×3 (05:41→21:47)
[2021-04-26] MEDS: TRAMADOL HCL 50 MG TABLET PO PRN (05:41)
[2021-04-26 07:01] LABS: BASOPHILS # (AUTO) 0.1 K/uL (0.0-0.2); BASOPHILS % (AUTO) 0.4 % (0.0-2.0); EOSINOPHILS % (AUTO) 1.7 % (0.0-6.0); HEMATOCRIT 25 % (39-51); HEMOGLOBIN 8.3 g/dL (13.5-17.5); LYMPHOCYTES % (AUTO) 7.3 % (20.0-44.0); MEAN CORPUSCULAR HGB CONC 33 g/dl (31.0-36.0); MEAN CORPUSCULAR VOLUME 97 fL (80-96); MONOCYTES # (AUTO) 1.4 K/uL (0.1-1.30); MONOCYTES % (AUTO) 9.8 % (2.0-12.0); NEUTROPHILS # (AUTO) 11.6 K/uL (1.8-8.9); NEUTROPHILS % (AUTO) 80.8 % (43.0-81.0); PLATELET COUNT (AUTO) 226 K/uL (150-450); RED BLOOD CELL COUNT(AUTO) 2.58 MIL/uL (4.5-6.0); WHITE BLOOD COUNT (AUTO) 14.4 K/uL (4.3-11.0)
[2021-04-26 07:14] LABS: ALANINE AMINOTRANSFERASE 48 U/L (12-78); ALBUMIN 2.3 g/dL (3.4-5.0); ALKALINE PHOSPHATASE 119 U/L (46-116); ASPARTATE AMINOTRANSFERASE 29 U/L (15-37); BILIRUBIN,TOTAL 0.7 mg/dL (0.2-1.0); CALCIUM, SERUM 7.7 mg/dL (8.5-10.1); CARBON DIOXIDE 23 mmol/L (21-32); CHLORIDE 100 mmol/L (98-107); CREATININE 5.1 mg/dL (0.6-1.3); GLUCOSE 90 mg/dL (74-106); SODIUM SERUM 133 mmol/L (136-145); TOTAL PROTEIN, SERUM 5.8 g/dL (6.4-8.2); UREA NITROGEN, BLOOD 60 mg/dL (7-18)
[2021-04-26] MEDS: ACETYLCYSTEINE 10% SOLN 400 MG/4 ML VIAL NEB SCH ×3 (07:35→23:09)
[2021-04-26 08:00] VITALS: BP 98/35
[2021-04-26] MEDS: GLUCERNA SHAKE 237 ML CAN PO SCH ×3 (08:00→17:33)
[2021-04-26] MEDS: INSULIN GLARGINE, 100 UNIT/ML CARTRIDGE SQ SCH ×2 (09:00→17:00)
[2021-04-26] MEDS: RIVAROXABAN 15 MG TABLET PO SCH (09:00)
[2021-04-26] MEDS: AMIODARONE HCL 200 MG TABLET PO SCH (09:00)
[2021-04-26] MEDS: ASPIRIN 81 MG TAB.CHEW PO SCH (09:45)
[2021-04-26] MEDS: FAMOTIDINE (20 MG) 20 MG TABLET PO SCH ×2 (09:45→17:18)
[2021-04-26] MEDS: VIT B CMPLX 3/FA/VIT C/BIOTIN 1 TAB TABLET PO SCH (09:47)
[2021-04-26] MEDS: ZINC SULFATE 220 MG CAPSULE PO SCH (09:47)
[2021-04-26] MEDS: ASCORBIC ACID 500 MG TABLET PO SCH (09:48)
[2021-04-26] MEDS: ALLOPURINOL 100 MG TABLET PO SCH (09:48)
[2021-04-26] MEDS: HYDROCORTISONE SOD SUCCINATE 100 MG/2 ML VIAL IV SCH (09:50)
[2021-04-26] MEDS: DAKINS HALF STRENGTH (0.25%) 480 ML BOTTLE TOP SCH ×2 (09:59→17:33)
[2021-04-26] MEDS: THERAHONEY GEL 1.5 OZ TUBE TP SCH (09:59)
[2021-04-26] MEDS: CLOTRIMAZOLE/BETAMETASONE DIPROPIONATE 15 GM TUBE TP SCH ×2 (09:59→21:42)
[2021-04-26] MEDS: ALBUMIN 25% 25 GM in PREMIX 1 EA IV PRN (10:25)
[2021-04-26 12:00] VITALS: BP 104/60
--- NOTE | 2021-04-26 13:30 | NUR ---
RN NOTE PER [facility] NURSE PT REMOVED 1L BP 120/ 68. PT STABLE AND ATE 25%. WILL CONTINUE TO MONITOR. PERMACATH RU CHEST INTACT AND PATENT DRY DRESSING NO SIGNS OF BLEEDING.
[2021-04-26 16:00] VITALS: BP 111/47
--- NOTE | 2021-04-26 17:58 | NUR ---
RN CLOSING NOTE PT IS STABLE AND EATING. PT IS ON 2L OF O2 WITH SAT >95%. YUN PICC, JUNIOR MIDLINE, AND RU HD CATH INTACT. PT PLACED ON TELE WITH SR AND V=PACING. WILL CONTINUE TO MONITOR
--- NOTE | 2021-04-26 19:00 | NUR ---
GAS COMPRESSOR TURBINE OPERATOR OPENING NOTE RECEIVED PT RESTING IN BED. A/O X3, PT STABLE ON 2L OXYGEN VIA NC. NO SOB NOTED, NO S/S OF RESPIRATORY DISTRESS. PT IS ON EXTERNAL MANAGER LPN READING SR 60, V-PACING. NO C/O PAIN AT THIS TIME. IV ACCESS IN RIGHT UPPER ARM PICC LINE, LEFT UPPER ARM MIDLINE AND RIGHT CW HD, INTACT, PATENT, AND FLUSHING WELL. SAFETY MEASURES MAINTAINED AT ALL TIMES. BED IN LOWEST, LOCKED POSITION, HOB ELEVATED, SIDE RAILS UP X2. CALL LIGHT AND TABLE WITHIN REACH. WILL CONTINUE WITH PLAN OF CARE.
[2021-04-26 20:00] VITALS: BP 111/55
[2021-04-26] MEDS: ATORVASTATIN 10 MG TABLET PO SCH (21:26)
[2021-04-26] MEDS: LATANOPROST EYE DROP 0.005% 2.5 ML BOTTLE EACHEYE SCH (21:42)
--- NOTE | 2021-04-26 23:16 | NUR ---
RCVD PT ON 2L NC, PT IS AWAKE AND ALERT. PT REFUSED NOC BIPAP, RN ADINA NOTIFIED. BREATHING TX GIVEN PER MD'S ORDER, NO ADVERSE REACTION NOTED. NO RESPIRATORY DISTRESS NOTED. SPO2 99% WILL CONTINUE TO MONITOR T/O SHIFT.
[2021-04-27] VITALS: BP 113/53
[2021-04-27] MEDS: BLOOD SUGAR DIAGNOSTIC 1 EACH STRIP IN SCH ×5 (00:18→23:47)
[2021-04-27] MEDS: INSULIN REGULAR, HUMAN 100 UNIT/ML 3 ML VIAL SQ PRN ×4 (00:19→17:26)
--- NOTE | 2021-04-27 00:19 | NUR ---
BS 111. NO INSULIN GIVEN PER SLIDING SCALE
[2021-04-27 04:00] VITALS: BP 90/48
[2021-04-27] MEDS: FLUDROCORTISONE 0.1 MG TABLET PO SCH ×4 (05:24→23:47)
[2021-04-27] MEDS: MIDODRINE HCL (5MG) 5 MG TABLET PO SCH ×3 (05:24→21:55)
--- NOTE | 2021-04-27 05:57 | NUR ---
BS 92. NO INSULIN GIVEN PER SLIDING SCALE
[2021-04-27] MEDS: TRAMADOL HCL 50 MG TABLET PO PRN (06:28)
[2021-04-27 07:34] LABS: BASOPHILS % (AUTO) 0.4 % (0.0-2.0); EOSINOPHILS % (AUTO) 2.2 % (0.0-6.0); HEMATOCRIT 25 % (39-51); HEMOGLOBIN 8.2 g/dL (13.5-17.5); LYMPHOCYTES # (AUTO) 0.8 K/uL (0.8-4.8); LYMPHOCYTES % (AUTO) 7.4 % (20.0-44.0); MEAN CORPUSCULAR HGB CONC 33 g/dl (31.0-36.0); MEAN CORPUSCULAR VOLUME 99 fL (80-96); MONOCYTES # (AUTO) 1.3 K/uL (0.1-1.30); MONOCYTES % (AUTO) 11.7 % (2.0-12.0); NEUTROPHILS # (AUTO) 8.7 K/uL (1.8-8.9); NEUTROPHILS % (AUTO) 78.3 % (43.0-81.0); PLATELET COUNT (AUTO) 215 K/uL (150-450); RED BLOOD CELL COUNT(AUTO) 2.54 MIL/uL (4.5-6.0); WHITE BLOOD COUNT (AUTO) 11.2 K/uL (4.3-11.0)
[2021-04-27] MEDS: ACETYLCYSTEINE 10% SOLN 400 MG/4 ML VIAL NEB SCH ×3 (07:35→23:16)
--- NOTE | 2021-04-27 07:35 | NUR ---
HONEST JOHN ROCKET CREW MEMBER NOTES RECEIVED PT AWAKE/ALERT IN BED ON 2L NC WITH NO S/SX OF RESPIRATORY DISTRESS. SAFETY MEASURES IN PLACE WITH BED IN LOWEST LOCKED POSITION, CALL LIGHT WITHIN REACH AND ALL NEEDS ATTENDED AT THIS TIME.
[2021-04-27] MEDS: GLUCERNA SHAKE 237 ML CAN PO SCH ×3 (07:48→17:32)
[2021-04-27 08:00] VITALS: BP 106/25
[2021-04-27 08:07] LABS: ALANINE AMINOTRANSFERASE 48 U/L (12-78); ALBUMIN 2.4 g/dL (3.4-5.0); ALKALINE PHOSPHATASE 132 U/L (46-116); ASPARTATE AMINOTRANSFERASE 31 U/L (15-37); BILIRUBIN,TOTAL 0.9 mg/dL (0.2-1.0); CARBON DIOXIDE 26 mmol/L (21-32); CHLORIDE 100 mmol/L (98-107); CREATININE 4.7 mg/dL (0.6-1.3); GLUCOSE 79 mg/dL (74-106); POTASSIUM 4.8 mmol/L (3.5-5.1); SODIUM SERUM 134 mmol/L (136-145); TOTAL PROTEIN, SERUM 5.9 g/dL (6.4-8.2); UREA NITROGEN, BLOOD 52 mg/dL (7-18)
--- NOTE | 2021-04-27 08:18 | NUR ---
RESP TX DEFERRED PER PTS REQUEST NO S/S OF SOB NOTED ATT Addendum: 04/27/21 at 0820 by SUZANNA SCOTT RT Amended: Links added.
[2021-04-27] MEDS: AMIODARONE HCL 200 MG TABLET PO SCH (09:00)
[2021-04-27] MEDS: THERAHONEY GEL 1.5 OZ TUBE TP SCH (09:18)
[2021-04-27] MEDS: DAKINS HALF STRENGTH (0.25%) 480 ML BOTTLE TOP SCH ×2 (09:18→17:33)
[2021-04-27] MEDS: CLOTRIMAZOLE/BETAMETASONE DIPROPIONATE 15 GM TUBE TP SCH ×2 (09:18→21:56)
[2021-04-27] MEDS: INSULIN GLARGINE, 100 UNIT/ML CARTRIDGE SQ SCH ×2 (09:22→17:27)
[2021-04-27] MEDS: ZINC SULFATE 220 MG CAPSULE PO SCH (09:23)
[2021-04-27] MEDS: FAMOTIDINE (20 MG) 20 MG TABLET PO SCH ×2 (09:23→17:23)
[2021-04-27] MEDS: ALLOPURINOL 100 MG TABLET PO SCH (09:23)
[2021-04-27] MEDS: HYDROCORTISONE SOD SUCCINATE 100 MG/2 ML VIAL IV SCH (09:24)
[2021-04-27] MEDS: ASPIRIN 81 MG TAB.CHEW PO SCH (09:24)
[2021-04-27] MEDS: ASCORBIC ACID 500 MG TABLET PO SCH (09:24)
[2021-04-27] MEDS: VIT B CMPLX 3/FA/VIT C/BIOTIN 1 TAB TABLET PO SCH (09:24)
[2021-04-27] MEDS: RIVAROXABAN 15 MG TABLET PO SCH (09:26)
[2021-04-27 12:00] VITALS: BP 103/51
[2021-04-27] MEDS: ATOVAQUONE SUSP 750 MG/5 ML PACKET PO SCH (15:57)
[2021-04-27 16:00] VITALS: BP 119/40
[2021-04-27] MEDS: ACETAMINOPHEN 325 MG TABLET PO PRN (17:48)
--- NOTE | 2021-04-27 18:53 | NUR ---
NEWSPAPER VENDOR NOTES NO NOTABLE CHANGES DURING SHIFT. PT TURNED Q2H, JUNIOR MIDLINE DRESSING CHANGE, YUN PICC LINE DRESSING CHANGED. PT HAD MILD FEVER 99.2, GAVE TYLENOL AT 1700. PT REFUSED DINNER. SAFETY MEASURES IN PLACE WITH BED IN LOWEST LOCKED POSITION, CALL LIGHT WITHIN REACH, AND ALL NEEDS ATTENDED AT THIS TIME.
--- NOTE | 2021-04-27 19:52 | NUR ---
WATER TECHNICIAN NOTES PT RECEIVED IN BED. JUNIOR MIDLINE DRESSING CHANGE, YUN PICC LINE DRESSING CHANGED. SAFETY MEASURES IN PLACE WITH BED IN LOWEST LOCKED POSITION, CALL LIGHT WITHIN REACH, AND ALL NEEDS ATTENDED AT THIS TIME. WILL CONTINUE TO MONITOR.
[2021-04-27 20:53] VITALS: BP_SYST 119; BP_DIAS 40; BP_DIAS 48
[2021-04-27] MEDS: ATORVASTATIN 10 MG TABLET PO SCH (21:55)
[2021-04-27] MEDS: LATANOPROST EYE DROP 0.005% 2.5 ML BOTTLE EACHEYE SCH (21:57)
[2021-04-27] MEDS: ALBUTEROL FS 2.5 MG/3 ML VIAL.NEB IH PRN (23:16)
--- NOTE | 2021-04-27 23:32 | NUR ---
RT NOTE PT IS REFUSING BIPAP AT THIS TIME. PT RECIEVED ON 2LNC SAT 96%. PT TITRATED TO 1LNC SAT 92%. PT EDUCATED ON HAZARDS OF NOT WEARING BIPAP. NO S/S OF RESP DISTRESS AT THIS TIME. WILL CONTINUE TO MONITOR.
[2021-04-28 00:21] VITALS: BP 116/35
[2021-04-28] MEDS: MIDODRINE HCL (5MG) 5 MG TABLET PO SCH ×3 (05:11→22:44)
[2021-04-28 05:21] VITALS: BP 119/42
[2021-04-28] MEDS: BLOOD SUGAR DIAGNOSTIC 1 EACH STRIP IN SCH ×3 (06:12→17:55)
[2021-04-28 06:14] LABS: BASOPHILS % (AUTO) 0.3 % (0.0-2.0); EOSINOPHILS % (AUTO) 2.2 % (0.0-6.0); HEMATOCRIT 24 % (39-51); HEMOGLOBIN 7.8 g/dL (13.5-17.5); LYMPHOCYTES % (AUTO) 9.6 % (20.0-44.0); MEAN CORPUSCULAR HGB CONC 33 g/dl (31.0-36.0); MEAN CORPUSCULAR VOLUME 98 fL (80-96); MONOCYTES # (AUTO) 1.3 K/uL (0.1-1.30); MONOCYTES % (AUTO) 12.7 % (2.0-12.0); NEUTROPHILS # (AUTO) 7.5 K/uL (1.8-8.9); NEUTROPHILS % (AUTO) 75.2 % (43.0-81.0); PLATELET COUNT (AUTO) 197 K/uL (150-450); RED BLOOD CELL COUNT(AUTO) 2.41 MIL/uL (4.5-6.0)
[2021-04-28] MEDS: FLUDROCORTISONE 0.1 MG TABLET PO SCH ×3 (06:14→17:55)
--- NOTE | 2021-04-28 06:41 | NUR ---
RN NOTES PT RECEIVED IN BED. JUNIOR MIDLINE INTACT YUN PICC INTACT. SAFETY MEASURES IN PLACE WITH BED IN LOWEST LOCKED POSITION, ALL DUE MEDS GIVEN AND TOLERATED WELL. CALL LIGHT WITHIN REACH, AND ALL NEEDS ATTENDED AT THIS TIME. WILL ENDORSE CARE TO DAY SHIFT NURSE.
--- NOTE | 2021-04-28 07:34 | NUR ---
STAFF DEVELOPMENT NURSE NOTE RECEIVE PT AWAKE/ALERT IN BED, ON 1L NC WITH NO S/SX OF RESPIRATORY DISTRESS. REFUSED BIPAP FROM PREVIOUS SHIFT. SAFETY MEASURES IN PLACE WITH BED IN LOWEST LOCKED POSITION, CALL LIGHT WITHIN REACH.
[2021-04-28] MEDS: ACETYLCYSTEINE 10% SOLN 400 MG/4 ML VIAL NEB SCH ×3 (07:41→22:49)
[2021-04-28] MEDS: ALBUTEROL FS 2.5 MG/3 ML VIAL.NEB IH PRN ×2 (07:41→15:07)
[2021-04-28 08:00] VITALS: BP 107/52
[2021-04-28] MEDS: GLUCERNA SHAKE 237 ML CAN PO SCH ×3 (08:00→17:54)
[2021-04-28 08:17] LABS: ALANINE AMINOTRANSFERASE 54 U/L (12-78); ALBUMIN 2.2 g/dL (3.4-5.0); ALKALINE PHOSPHATASE 139 U/L (46-116); ASPARTATE AMINOTRANSFERASE 33 U/L (15-37); BILIRUBIN,TOTAL 0.7 mg/dL (0.2-1.0); CARBON DIOXIDE 23 mmol/L (21-32); CHLORIDE 100 mmol/L (98-107); CREATININE 6.2 mg/dL (0.6-1.3); GLUCOSE 79 mg/dL (74-106); POTASSIUM 5.3 mmol/L (3.5-5.1); SODIUM SERUM 135 mmol/L (136-145); TOTAL PROTEIN, SERUM 5.7 g/dL (6.4-8.2); UREA NITROGEN, BLOOD 70 mg/dL (7-18)
[2021-04-28] MEDS: INSULIN GLARGINE, 100 UNIT/ML CARTRIDGE SQ SCH ×2 (09:00→18:03)
[2021-04-28] MEDS: AMIODARONE HCL 200 MG TABLET PO SCH (09:00)
[2021-04-28] MEDS: ASPIRIN 81 MG TAB.CHEW PO SCH (09:33)
[2021-04-28] MEDS: ALLOPURINOL 100 MG TABLET PO SCH (09:33)
[2021-04-28] MEDS: VIT B CMPLX 3/FA/VIT C/BIOTIN 1 TAB TABLET PO SCH (09:33)
[2021-04-28] MEDS: HYDROCORTISONE SOD SUCCINATE 100 MG/2 ML VIAL IV SCH (09:33)
[2021-04-28] MEDS: ZINC SULFATE 220 MG CAPSULE PO SCH (09:33)
[2021-04-28] MEDS: ASCORBIC ACID 500 MG TABLET PO SCH (09:33)
[2021-04-28] MEDS: ATOVAQUONE SUSP 750 MG/5 ML PACKET PO SCH (09:34)
[2021-04-28] MEDS: FAMOTIDINE (20 MG) 20 MG TABLET PO SCH ×2 (09:35→17:55)
[2021-04-28] MEDS: RIVAROXABAN 15 MG TABLET PO SCH (09:37)
[2021-04-28] MEDS: DAKINS HALF STRENGTH (0.25%) 480 ML BOTTLE TOP SCH ×2 (09:40→17:54)
[2021-04-28] MEDS: THERAHONEY GEL 1.5 OZ TUBE TP SCH (09:41)
[2021-04-28] MEDS: CLOTRIMAZOLE/BETAMETASONE DIPROPIONATE 15 GM TUBE TP SCH ×2 (09:41→23:57)
[2021-04-28 12:00] VITALS: BP 118/29
[2021-04-28] MEDS: METOLAZONE 2.5 MG TABLET PO SCH (12:12)
[2021-04-28] MEDS: ERGOCALCIFEROL (VITAMIN D 2) 50,000 UNIT CAPSULE PO SCH (12:19)
--- NOTE | 2021-04-28 13:17 | NUR ---
COMPRESSOR MECHANIC NOTES COVID-RAPID ANTIGEN TEST ORDERED, SPECIMEN COLLECTED AND BROUGHT TO THE LAB.
[2021-04-28 16:00] VITALS: BP 115/58
[2021-04-28] MEDS: INSULIN REGULAR, HUMAN 100 UNIT/ML 3 ML VIAL SQ PRN (18:04)
[2021-04-28] MEDS: TRAMADOL HCL 50 MG TABLET PO PRN (18:35)
--- NOTE | 2021-04-28 19:00 | NUR ---
RN NOTES PATIENT IN BED NO S/SX OF ACUTE DISTRESS, ON OXYGEN INHALATION AT 2 LPM/NC. IV ACCESS AT R UA PICC LINE, JUNIOR MIDLINE, R CW PERMACATH INTACT NO S/SX OF INFILTRATION AT THIS TIME. ALL SAFETY MEASURE IN PLACE, HOB ELEVATED, CALL LIGHT WITHIN REACH,WILL CONTINUE TO MONITOR THE PATIENT
--- NOTE | 2021-04-28 19:00 | NUR ---
SURVEY WORKER NOTES NO NOTABLE CHANGES DURING SHIFT, PT TO RECEIVE HEMODIALYSIS TONIGHT @2100. ENDORSED TO NEXT SHIFT TO GIVE 1 UNIT BLOOD PER MD ORDER DURING TREATMENT. SAFETY MEASURES IN PLACE WITH BED IN LOWEST LOCKED POSITION, CALL LIGHT WITHIN REACH AND ALL NEEDS ATTENDED AT THIS TIME.
[2021-04-28 20:00] VITALS: BP 116/64
[2021-04-28] MEDS: ATORVASTATIN 10 MG TABLET PO SCH (22:44)
--- NOTE | 2021-04-28 22:50 | NUR ---
RT NOTE PT RECIEVED ALERT AND ON 2 LPM N/C SAT 95%. PT IS REFUSING BIPAP AT THIS TIME. PT REFUSED BREATHING TX. PT EDUCATED ON HAZARDS OF NOT WEARING NOC BIPAP. RN JOSHUA AT BEDSIDE WHEN PT REFUSED. NO S/S OF ACUTE RESP DISTRESS AT THIS TIME. WILL CONTINUE TO MONITOR T/O SHIFT.
[2021-04-28] MEDS: LATANOPROST EYE DROP 0.005% 2.5 ML BOTTLE EACHEYE SCH (23:57)
[2021-04-29] VITALS (10 sets, daily range): BP systolic 91–135; BP diastolic 48–75
--- NOTE | 2021-04-29 | NUR ---
RN NOTES BS 131 MG/DL
[2021-04-29] MEDS: BLOOD SUGAR DIAGNOSTIC 1 EACH STRIP IN SCH ×3 (00:45→12:15)
[2021-04-29] MEDS: FLUDROCORTISONE 0.1 MG TABLET PO SCH ×3 (00:46→12:16)
--- NOTE | 2021-04-29 04:30 | NUR ---
RN NOTES PATIENT STARTED HEMODIALYSIS. NO SOB, NO DISTRESS NOTED. 1 UNIT PRBC TYPE O NEGATIVE STARTED BY HEMODIALYSIS NURSE. VITAL SIGNS TAKEN FOLLOWS BP 107/48, RR 20, AZ 60, TEMP 98.1. WILL CONTINUE TO MONITOR
[2021-04-29] MEDS: MIDODRINE HCL (5MG) 5 MG TABLET PO SCH ×2 (05:10→12:16)
--- NOTE | 2021-04-29 06:57 | NUR ---
RN CLOSING NOTES PATIENT IN BED. STILL WITH ONGOING HEMODIALYSIS AND BLOOD TRANSFUSION. PATIENT REMAINS IN STABLE CONDITION NO SOB, NO DISTRESS. ALL DUE MEDS GIVEN ORDERED. HOB ELEVATED, ALL SAFETY MEASURES IN PLACE. CALL LIGHT WITHIN REACH. ENDORSED.
--- NOTE | 2021-04-29 07:15 | NUR ---
RN NOTES PT RECEIVING DIALYSIS
[2021-04-29] MEDS: ACETYLCYSTEINE 10% SOLN 400 MG/4 ML VIAL NEB SCH ×2 (07:35→13:52)
[2021-04-29] MEDS: GLUCERNA SHAKE 237 ML CAN PO SCH ×2 (08:46→12:17)
[2021-04-29] MEDS: VIT B CMPLX 3/FA/VIT C/BIOTIN 1 TAB TABLET PO SCH (08:47)
[2021-04-29] MEDS: FAMOTIDINE (20 MG) 20 MG TABLET PO SCH (08:47)
[2021-04-29] MEDS: ZINC SULFATE 220 MG CAPSULE PO SCH (08:47)
[2021-04-29] MEDS: HYDROCORTISONE SOD SUCCINATE 100 MG/2 ML VIAL IV SCH (08:47)
[2021-04-29] MEDS: ALLOPURINOL 100 MG TABLET PO SCH (08:47)
[2021-04-29] MEDS: ASCORBIC ACID 500 MG TABLET PO SCH (08:47)
[2021-04-29] MEDS: ASPIRIN 81 MG TAB.CHEW PO SCH (08:47)
[2021-04-29] MEDS: ATOVAQUONE SUSP 750 MG/5 ML PACKET PO SCH (08:48)
[2021-04-29] MEDS: DAKINS HALF STRENGTH (0.25%) 480 ML BOTTLE TOP SCH (08:50)
[2021-04-29] MEDS: THERAHONEY GEL 1.5 OZ TUBE TP SCH (08:51)
[2021-04-29] MEDS: CLOTRIMAZOLE/BETAMETASONE DIPROPIONATE 15 GM TUBE TP SCH (08:52)
[2021-04-29] MEDS: RIVAROXABAN 15 MG TABLET PO SCH (08:57)
[2021-04-29] MEDS: INSULIN GLARGINE, 100 UNIT/ML CARTRIDGE SQ SCH (09:00)
[2021-04-29] MEDS: AMIODARONE HCL 200 MG TABLET PO SCH (09:14)
[2021-04-29 10:18] LABS: BASOPHILS % (AUTO) 0.3 % (0.0-2.0); EOSINOPHILS % (AUTO) 3.7 % (0.0-6.0); HEMATOCRIT 26 % (39-51); HEMOGLOBIN 8.7 g/dL (13.5-17.5); LYMPHOCYTES # (AUTO) 0.5 K/uL (0.8-4.8); LYMPHOCYTES % (AUTO) 6.6 % (20.0-44.0); MEAN CORPUSCULAR HGB CONC 34 g/dl (31.0-36.0); MEAN CORPUSCULAR VOLUME 96 fL (80-96); MONOCYTES % (AUTO) 0.3 % (2.0-12.0); NEUTROPHILS # (AUTO) 6.8 K/uL (1.8-8.9); NEUTROPHILS % (AUTO) 89.1 % (43.0-81.0); PLATELET COUNT (AUTO) 183 K/uL (150-450); WHITE BLOOD COUNT (AUTO) 7.7 K/uL (4.3-11.0)
[2021-04-29 10:32] LABS: ALANINE AMINOTRANSFERASE 55 U/L (12-78); ALKALINE PHOSPHATASE 151 U/L (46-116); ASPARTATE AMINOTRANSFERASE 34 U/L (15-37); BILIRUBIN,TOTAL 1.5 mg/dL (0.2-1.0); CALCIUM, SERUM 7.5 mg/dL (8.5-10.1); CARBON DIOXIDE 30 mmol/L (21-32); CHLORIDE 98 mmol/L (98-107); CREATININE 3.4 mg/dL (0.6-1.3); GLUCOSE 106 mg/dL (74-106); POTASSIUM 3.9 mmol/L (3.5-5.1); SODIUM SERUM 135 mmol/L (136-145); TOTAL PROTEIN, SERUM 5.6 g/dL (6.4-8.2); UREA NITROGEN, BLOOD 30 mg/dL (7-18)
[2021-04-29] MEDS ORDERED: HYDR-3972 PO (13:41)
[2021-04-29] MEDS: TRAMADOL HCL 50 MG TABLET PO PRN (14:29)
--- NOTE | 2021-04-29 17:30 | NUR ---
SENIOR QUALITY CONTROL INSPECTOR NOTES AMBULANCE ARRIVED FOR WOOD PREPARATION SUPERVISOR. PT HAD LOW BP 89/38. REPEAT BP MANNUALLY BLOOD PRESSURE 95/50. PER MD OK FOR DISCHARGE, LOW BP TO BE EXPECTED POST DIALYSIS. FACILITY NOTIFIED, OKAY TO TRANSFER. JUNIOR MIDLINE REMOVED, TELE MONITOR REMOVED, BELONGINGS SHEET SIGNED.
--- NOTE | 2021-04-29 18:08 | NUR ---
CENTRAL LINE ON R ARM REMOVED INTACT,NO BLEEDING.
[2021-04-30] MEDS ORDERED: HYDROCORTISONE 20 MG TABLET PO SCH (09:00)
[2021-04-30] MEDS ORDERED: HYDROCORTISONE 5 MG TABLET PO SCH (09:00)
== END 2021-04-29 18:09 | DRG 205 ==
LOC: ER 08:30 → ICU 11:42 → TELE1 03-27 17:35 → TELE-TD 03-27 17:48 → TELE1 03-28 17:20 → MEDSG1 04-01 08:53 → TELE-TD 04-01 10:49 → TELE1 04-02 07:37 → TELE-TD 04-04 14:44 → TELE1 04-07 08:05 → TELE-TD 04-07 14:39 → ICUOV 04-09 09:23 → ICU 04-09 09:56 → TELE-TD 04-23 18:13 → TELE1 04-25 19:17
PROVIDERS: ADMIT Internal Medicine; ATTEND Nurse Practitioner Acute Care
PROC: 5A1D70Z Performance of Urinary Filtration, Intermittent, Less than 6 Hours Per Day (ICD-10-PCS; 2021-03-18)
PROC: 5A09557 Assistance with Respiratory Ventilation, Greater than 96 Consecutive Hours, Continuous Positive Airway Pressure (ICD-10-PCS; principal; 2021-03-20)
PROC: 05HA33Z Insertion of Infusion Device into Left Brachial Vein, Percutaneous Approach (ICD-10-PCS; 2021-03-25)
PROC: 30233N1 Transfusion of Nonautologous Red Blood Cells into Peripheral Vein, Percutaneous Approach (ICD-10-PCS; 2021-04-04)
PROC: 05HC33Z Insertion of Infusion Device into Left Basilic Vein, Percutaneous Approach (ICD-10-PCS; 2021-04-16)
PROC: 02HV33Z Insertion of Infusion Device into Superior Vena Cava, Percutaneous Approach (ICD-10-PCS; 2021-04-20)
PROC: B548ZZA Ultrasonography of Superior Vena Cava, Guidance (ICD-10-PCS; 2021-04-20)
DX: T17.998A Other foreign object in respiratory tract, part unspecified causing other injury, initial encounter (principal); A41.51 Sepsis due to Escherichia coli [E. coli]; L89.154 Pressure ulcer of sacral region, stage 4; J96.21 Acute and chronic respiratory failure with hypoxia; N18.6 End stage renal disease; J96.22 Acute and chronic respiratory failure with hypercapnia; G92.8 Other toxic encephalopathy; I50.43 Acute on chronic combined systolic (congestive) and diastolic (congestive) heart failure; R65.21 Severe sepsis with septic shock; L89.324 Pressure ulcer of left buttock, stage 4; L89.314 Pressure ulcer of right buttock, stage 4; R57.1 Hypovolemic shock; I13.2 Hypertensive heart and chronic kidney disease with heart failure and with stage 5 chronic kidney disease, or end stage renal disease; J44.0 Chronic obstructive pulmonary disease with (acute) lower respiratory infection; I87.313 Chronic venous hypertension (idiopathic) with ulcer of bilateral lower extremity; L97.819 Non-pressure chronic ulcer of other part of right lower leg with unspecified severity; E66.2 Morbid (severe) obesity with alveolar hypoventilation; I42.9 Cardiomyopathy, unspecified; D68.9 Coagulation defect, unspecified; L97.829 Non-pressure chronic ulcer of other part of left lower leg with unspecified severity; J90 Pleural effusion, not elsewhere classified; N17.9 Acute kidney failure, unspecified; J98.11 Atelectasis; L03.115 Cellulitis of right lower limb; L03.116 Cellulitis of left lower limb; M46.28 Osteomyelitis of vertebra, sacral and sacrococcygeal region; Z79.4 Long term (current) use of insulin; D63.1 Anemia in chronic kidney disease; I25.10 Atherosclerotic heart disease of native coronary artery without angina pectoris; M10.9 Gout, unspecified; Z88.2 Allergy status to sulfonamides; Z88.8 Allergy status to other drugs, medicaments and biological substances; Z79.51 Long term (current) use of inhaled steroids; Z79.82 Long term (current) use of aspirin; Z79.01 Long term (current) use of anticoagulants; Z79.899 Other long term (current) drug therapy; Z95.810 Presence of automatic (implantable) cardiac defibrillator; S81.802A Unspecified open wound, left lower leg, initial encounter; S81.801A Unspecified open wound, right lower leg, initial encounter; X58.XXXA Exposure to other specified factors, initial encounter; Y92.9 Unspecified place or not applicable; I87.8 Other specified disorders of veins; E11.51 Type 2 diabetes mellitus with diabetic peripheral angiopathy without gangrene; Y99.9 Unspecified external cause status; L98.499 Non-pressure chronic ulcer of skin of other sites with unspecified severity; Z68.33 Body mass index [BMI] 33.0-33.9, adult; E86.1 Hypovolemia; I48.91 Unspecified atrial fibrillation; L98.9 Disorder of the skin and subcutaneous tissue, unspecified; K57.30 Diverticulosis of large intestine without perforation or abscess without bleeding; K76.0 Fatty (change of) liver, not elsewhere classified; M89.9 Disorder of bone, unspecified; Y92.129 Unspecified place in nursing home as the place of occurrence of the external cause; Z99.2 Dependence on renal dialysis; Z91.19 Patient's noncompliance with other medical treatment and regimen; Z87.891 Personal history of nicotine dependence; Z86.14 Personal history of Methicillin resistant Staphylococcus aureus infection; Z20.822 Contact with and (suspected) exposure to COVID-19; N32.89 Other specified disorders of bladder; M50.30 Other cervical disc degeneration, unspecified cervical region; K82.8 Other specified diseases of gallbladder; M85.88 Other specified disorders of bone density and structure, other site; M51.36 Other intervertebral disc degeneration, lumbar region; S31.30XA Unspecified open wound of scrotum and testes, initial encounter; M84.4 Pathological fracture, not elsewhere classified; R31.9 Hematuria, unspecified; E11.69 Type 2 diabetes mellitus with other specified complication; N32.9 Bladder disorder, unspecified
CPT/HCPCS: 31720; 36410; 36415; 36569; 36600; 70450-TC; 71045-TC; 76700-TC; 78226; 80048-TC; 80053-TC; 80061-TC; 80076-TC; 81001; 82533; 82550-TC; 82803-TC; 82962-TC; 83605-TC; 83735-TC; 83880; 84100-TC; 84443-TC; 84484-TC; 84520-TC; 85025-TC; 85027-TC; 85610-TC; 85652-TC; 85730-TC; 86140-TC; 86706; 86850-TC; 87040-TC; 87081-TC; 87086-TC; 87186-TC; 87340; 90935-TC; 92526; 92611-TC; 94660; 94668-TC; 94760-TC; 94762-TC; 94799-TC; 97112-TC; 97530-TC; 99082-TC; A4216; A4217; A4624; A6253; A6403; A9537; A9563; G0378; J0878; J0885; J1720; J1815; J2185; J2270; J2405; J3490; J7030; J7040; J7050; J7060; J7120; P9016; P9047; U0003

== ENCOUNTER 2021-05-06 00:51 | Inpatient (IN) | payer MEDICARE ==
[~2021-05-06] VITALS: Ht 182.9 cm; Wt 98.2 kg
[~2021-05-06 00:51] MED LIST changes: -ACET-2605 PO; +ACET-868 PO; +ALBU2.5V38 IH; +AMMO226L TP; +ASPI-1169 PO; -ASPI-1420 PO; +CEFT400V IV; -CEFT600V IV; +CLOT15CR5 TP; +COLL30OI TP; -FURO40TA5 PO; +HYDR-3972 PO; +HYDR-4303 PO; -SODI473S8 TOP; -TRIA80OI TP; +ZINC220C6 PO; -ZINC56.713 TP
[2021-05-06] MEDS ORDERED: IV NS 0.9% 1,000 ML BAG IV ONE (01:30)
[2021-05-06 02:29] LABS: BASOPHILS % (AUTO) 0.5 % (0.0-2.0); EOSINOPHILS % (AUTO) 2.2 % (0.0-6.0); HEMATOCRIT 26 % (39-51); HEMOGLOBIN 8.4 g/dL (13.5-17.5); LYMPHOCYTES # (AUTO) 0.6 K/uL (0.8-4.8); LYMPHOCYTES % (AUTO) 9.4 % (20.0-44.0); MEAN CORPUSCULAR HGB CONC 33 g/dl (31.0-36.0); MEAN CORPUSCULAR VOLUME 98 fL (80-96); MONOCYTES % (AUTO) 16.6 % (2.0-12.0); NEUTROPHILS # (AUTO) 4.3 K/uL (1.8-8.9); NEUTROPHILS % (AUTO) 71.3 % (43.0-81.0); PLATELET COUNT (AUTO) 99 K/uL (150-450); RED BLOOD CELL COUNT(AUTO) 2.61 MIL/uL (4.5-6.0)
[2021-05-06 02:38] LABS: ALANINE AMINOTRANSFERASE 63 U/L (12-78); ALBUMIN 1.7 g/dL (3.4-5.0); ALKALINE PHOSPHATASE 173 U/L (46-116); ASPARTATE AMINOTRANSFERASE 49 U/L (15-37); BILIRUBIN,DIRECT 0.9 mg/dL (0.0-0.2); BILIRUBIN,TOTAL 1.1 mg/dL (0.2-1.0); CARBON DIOXIDE 32 mmol/L (21-32); CHLORIDE 99 mmol/L (98-107); CREATININE 4.4 mg/dL (0.6-1.3); GLUCOSE 94 mg/dL (74-106); LIPASE 36 U/L (73-393); SODIUM SERUM 135 mmol/L (136-145); TOTAL PROTEIN, SERUM 5.4 g/dL (6.4-8.2); UREA NITROGEN, BLOOD 32 mg/dL (7-18)
[2021-05-06] MEDS ORDERED: MIDODRINE HCL (5MG) 5 MG TABLET PO ONE (03:00)
[2021-05-06] MEDS ORDERED: ALBUTEROL FS 2.5 MG/3 ML VIAL.NEB IH PRN (03:00)
[2021-05-06 03:39] LABS: BILIRUBIN,URINE MODERATE (NEGATIVE); COLOR,URINE RED (YELLOW); LEUKOCYTE ESTERASE ,URINE LARGE (NEGATIVE); NITRITE, URINE POSITIVE (NEGATIVE); PH,URINE 6.5 (5.0-8.0); PROTEIN,URINE >=300 mg/dl (NEGATIVE); UGLUCOSE NEGATIVE (NEGATIVE)
[2021-05-06 03:44] LABS: BACTERIA,URINE Many /HPF (None Seen); RBC,URINE TOO NUMEROUS TO COUN /HPF (0-2); SQUAMOUS EPITHELIAL CELL,UR Few /HPF (None Seen); WBC,URINE TOO NUMEROUS TO COUN /HPF (0-3)
[2021-05-06] MEDS ORDERED: CEFTRIAXONE 1GM BAG (ER ONLY) 50 ML IV ONE (03:54)
[2021-05-06] MEDS ORDERED: CEFTRIAXONE 1 G in IV D5W 50 ML IV ONE (04:00)
[2021-05-06] MEDS ORDERED: IV NS 0.9% 250 ML BAG IV ONE (04:30)
[2021-05-06 05:58] LABS: EOSINOPHILS % (MANUAL) 3 % (0-4); LYMPHOCYTES % (MANUAL) 7 % (16-48); MONOCYTES % (MANUAL) 9 % (0-11.0); NEUTROPHILS % (MANUAL) 81 (42-76)
[2021-05-06] MEDS ORDERED: ONDANSETRON HCL/PF 4 MG/2 ML VIAL IVP PRN (06:00)
[2021-05-06] MEDS ORDERED: ACETAMINOPHEN 325 MG TABLET PO PRN (06:00)
[2021-05-06] MEDS ORDERED: Z GUARD REMEDY 2 OZ OINT TP PRN (06:00)
[2021-05-06 08:00] VITALS: BP 87/46
[2021-05-06] MEDS: AMIODARONE HCL 200 MG TABLET PO SCH (08:47)
[2021-05-06] MEDS: MIDODRINE HCL (5MG) 5 MG TABLET PO SCH ×3 (08:47→16:05)
[2021-05-06] MEDS: ALLOPURINOL 100 MG TABLET PO SCH (08:47)
[2021-05-06] MEDS: ASPIRIN 81 MG TAB.CHEW PO SCH (08:47)
[2021-05-06] MEDS ORDERED: RIVAROXABAN 15 MG TABLET PO SCH (09:00)
[2021-05-06] MEDS: DAKINS QUARTER STRENGTH (0.125%) 480 ML BOTTLE TOP SCH (12:45)
[2021-05-06 14:40] LABS: ABG BASE EXCESS -1.2 mmol/L; ABG OXYGEN SATURATION 94.5 % (92.0-98.5); ABG PCO2 41.8 mmHg (35.0-45.0); ABG PH 7.375 (7.350-7.450); ABG PO2 77.8 mmHg (75.0-100.0); AaDO2 72.5 mmHg; O2Hb 93.6 % (94.0-97.0); SITE, ABG Right Radial; VENT MODE, BG nasal cannula
[2021-05-06 20:00] VITALS: BP 95/43
[2021-05-06] MEDS: LATANOPROST EYE DROP 0.005% 2.5 ML BOTTLE EACHEYE SCH (21:32)
[2021-05-06] MEDS ORDERED: ATORVASTATIN 10 MG TABLET PO SCH (22:00)
[2021-05-07 04:00] VITALS: BP 88/32
[2021-05-07] MEDS ORDERED: METOLAZONE 2.5 MG TABLET PO SCH (05:00)
[2021-05-07 06:46] LABS: BASOPHILS % (AUTO) 0.2 % (0.0-2.0); EOSINOPHILS % (AUTO) 0.6 % (0.0-6.0); HEMATOCRIT 25 % (39-51); HEMOGLOBIN 8.3 g/dL (13.5-17.5); LYMPHOCYTES # (AUTO) 0.7 K/uL (0.8-4.8); LYMPHOCYTES % (AUTO) 7.1 % (20.0-44.0); MEAN CORPUSCULAR HGB CONC 33 g/dl (31.0-36.0); MEAN CORPUSCULAR VOLUME 100 fL (80-96); MONOCYTES # (AUTO) 1.2 K/uL (0.1-1.30); MONOCYTES % (AUTO) 12.7 % (2.0-12.0); NEUTROPHILS # (AUTO) 7.3 K/uL (1.8-8.9); NEUTROPHILS % (AUTO) 79.4 % (43.0-81.0); PLATELET COUNT (AUTO) 116 K/uL (150-450); RED BLOOD CELL COUNT(AUTO) 2.53 MIL/uL (4.5-6.0); WHITE BLOOD COUNT (AUTO) 9.1 K/uL (4.3-11.0)
[2021-05-07 07:20] LABS: CALCIUM, SERUM 8.3 mg/dL (8.5-10.1); CARBON DIOXIDE 31 mmol/L (21-32); CHLORIDE 100 mmol/L (98-107); CREATININE 5.4 mg/dL (0.6-1.3); GLUCOSE 139 mg/dL (74-106); MAGNESIUM 1.9 mg/dL (1.8-2.4); PHOSPHORUS 3.5 mg/dL (2.5-4.9); POTASSIUM 4.6 mmol/L (3.5-5.1); SODIUM SERUM 138 mmol/L (136-145); UREA NITROGEN, BLOOD 45 mg/dL (7-18)
[2021-05-07] MEDS: MIDODRINE HCL (5MG) 5 MG TABLET PO SCH ×3 (07:56→17:07)
[2021-05-07] MEDS: ASPIRIN 81 MG TAB.CHEW PO SCH (08:23)
[2021-05-07] MEDS: ALLOPURINOL 100 MG TABLET PO SCH (08:23)
[2021-05-07] MEDS: AMIODARONE HCL 200 MG TABLET PO SCH ×3 (08:29→09:00)
[2021-05-07] MEDS: DAKINS QUARTER STRENGTH (0.125%) 480 ML BOTTLE TOP SCH (08:40)
[2021-05-07] MEDS ORDERED: SULFAMETH/TRIMETH 800/160 MG 1 UDTAB TABLET PO SCH (09:00)
[2021-05-07 10:12] LABS: BAND % (MANUAL) 3 % (0.0-5.0); NEUTROPHILS % (MANUAL) 79 (42-76)
[2021-05-07 10:13] LABS: LYMPHOCYTES % (MANUAL) 9 % (16-48); MONOCYTES % (MANUAL) 7 % (0-11.0); MYELOCYTES % 2 % (0-0)
[2021-05-07] MEDS ORDERED: ALBUMIN 25% 12.5 GM/50 ML BOTTLE IV PRN (10:30)
[2021-05-07] MEDS ORDERED: ALBUMIN 25% 50 ML IV PRN (10:30)
[2021-05-07] MEDS: ALBUMIN 25% 25 GM in PREMIX 1 EA IV PRN (10:30)
[2021-05-07 12:00] VITALS: BP 101/64
[2021-05-07] MEDS: GLUCERNA SHAKE 237 ML CAN PO SCH ×2 (12:06→17:07)
[2021-05-07] MEDS ORDERED: DOSE PER PHARMACY (MD SPECIFY MEDICATION) 1 EA XX PRN (15:30)
[2021-05-07] MEDS: MEROPENEM 500 MG in IV NS 0.9% 50 ML IV SCH (16:31)
[2021-05-07] MEDS: DAPTOMYCIN 600 MG in IV NS 0.9% 50 ML IV SCH (17:08)
[2021-05-07] MEDS ORDERED: FENTANYL PF 100MCG/2ML AMPUL IV PRN (18:30)
[2021-05-07 20:00] VITALS: BP 96/46
[2021-05-07] MEDS: LATANOPROST EYE DROP 0.005% 2.5 ML BOTTLE EACHEYE SCH (22:18)
[2021-05-08] VITALS: BP 104/54
[2021-05-08] MEDS: MEROPENEM 500 MG in IV NS 0.9% 50 ML IV SCH ×2 (03:50→16:35)
[2021-05-08] MEDS ORDERED: MEROPENEM 500 MG VIAL IV ONE (03:57)
[2021-05-08 04:00] VITALS: BP 82/47
[2021-05-08 08:00] VITALS: BP 82/42
[2021-05-08 08:32] LABS: BASOPHILS % (AUTO) 0.4 % (0.0-2.0); EOSINOPHILS % (AUTO) 0.6 % (0.0-6.0); HEMATOCRIT 26 % (39-51); HEMOGLOBIN 8.1 g/dL (13.5-17.5); LYMPHOCYTES # (AUTO) 0.6 K/uL (0.8-4.8); LYMPHOCYTES % (AUTO) 6.8 % (20.0-44.0); MEAN CORPUSCULAR HGB CONC 32 g/dl (31.0-36.0); MEAN CORPUSCULAR VOLUME 102 fL (80-96); MONOCYTES # (AUTO) 1.2 K/uL (0.1-1.30); MONOCYTES % (AUTO) 12.8 % (2.0-12.0); NEUTROPHILS # (AUTO) 7.3 K/uL (1.8-8.9); NEUTROPHILS % (AUTO) 79.4 % (43.0-81.0); PLATELET COUNT (AUTO) 143 K/uL (150-450); RED BLOOD CELL COUNT(AUTO) 2.51 MIL/uL (4.5-6.0); WHITE BLOOD COUNT (AUTO) 9.2 K/uL (4.3-11.0)
[2021-05-08] MEDS: ALLOPURINOL 100 MG TABLET PO SCH (08:50)
[2021-05-08] MEDS: GLUCERNA SHAKE 237 ML CAN PO SCH ×3 (08:50→16:36)
[2021-05-08] MEDS: AMIODARONE HCL 200 MG TABLET PO SCH (08:51)
[2021-05-08] MEDS: MIDODRINE HCL (5MG) 5 MG TABLET PO SCH ×3 (08:52→16:36)
[2021-05-08 09:01] LABS: CALCIUM, SERUM 8.5 mg/dL (8.5-10.1); CARBON DIOXIDE 25 mmol/L (21-32); CHLORIDE 102 mmol/L (98-107); CREATININE 3.8 mg/dL (0.6-1.3); GLUCOSE 194 mg/dL (74-106); PHOSPHORUS 2.9 mg/dL (2.5-4.9); POTASSIUM 4.1 mmol/L (3.5-5.1); SODIUM SERUM 137 mmol/L (136-145); UREA NITROGEN, BLOOD 29 mg/dL (7-18)
[2021-05-08] MEDS: DAKINS QUARTER STRENGTH (0.125%) 480 ML BOTTLE TOP SCH (09:35)
[2021-05-08 12:00] VITALS: BP 91/45
[2021-05-08 16:00] VITALS: BP 104/40
[2021-05-08 20:00] VITALS: BP 106/30
[2021-05-08] MEDS: LATANOPROST EYE DROP 0.005% 2.5 ML BOTTLE EACHEYE SCH (22:33)
[2021-05-09] VITALS (7 sets, daily range): BP systolic 90–125; BP diastolic 25–55
[2021-05-09] MEDS: MEROPENEM 500 MG in IV NS 0.9% 50 ML IV SCH ×2 (03:17→15:00)
[2021-05-09 07:36] LABS: BASOPHILS # (AUTO) 0.1 K/uL (0.0-0.2); BASOPHILS % (AUTO) 0.7 % (0.0-2.0); EOSINOPHILS % (AUTO) 0.7 % (0.0-6.0); HEMATOCRIT 26 % (39-51); HEMOGLOBIN 8.2 g/dL (13.5-17.5); LYMPHOCYTES # (AUTO) 0.7 K/uL (0.8-4.8); LYMPHOCYTES % (AUTO) 7.1 % (20.0-44.0); MEAN CORPUSCULAR HGB CONC 31 g/dl (31.0-36.0); MEAN CORPUSCULAR VOLUME 102 fL (80-96); MONOCYTES # (AUTO) 0.9 K/uL (0.1-1.30); MONOCYTES % (AUTO) 10.1 % (2.0-12.0); NEUTROPHILS # (AUTO) 7.6 K/uL (1.8-8.9); NEUTROPHILS % (AUTO) 81.4 % (43.0-81.0); PLATELET COUNT (AUTO) 166 K/uL (150-450); RED BLOOD CELL COUNT(AUTO) 2.57 MIL/uL (4.5-6.0); WHITE BLOOD COUNT (AUTO) 9.4 K/uL (4.3-11.0)
[2021-05-09 08:04] LABS: CALCIUM, SERUM 8.8 mg/dL (8.5-10.1); CARBON DIOXIDE 28 mmol/L (21-32); CHLORIDE 102 mmol/L (98-107); CREATININE 4.7 mg/dL (0.6-1.3); GLUCOSE 133 mg/dL (74-106); MAGNESIUM 2.1 mg/dL (1.8-2.4); PHOSPHORUS 4.3 mg/dL (2.5-4.9); POTASSIUM 4.5 mmol/L (3.5-5.1); SODIUM SERUM 137 mmol/L (136-145); UREA NITROGEN, BLOOD 34 mg/dL (7-18)
[2021-05-09] MEDS: GLUCERNA SHAKE 237 ML CAN PO SCH ×3 (08:05→16:28)
[2021-05-09] MEDS: MIDODRINE HCL (5MG) 5 MG TABLET PO SCH ×3 (08:06→16:30)
[2021-05-09] MEDS: ALLOPURINOL 100 MG TABLET PO SCH (08:06)
[2021-05-09] MEDS: DAKINS QUARTER STRENGTH (0.125%) 480 ML BOTTLE TOP SCH (08:06)
[2021-05-09] MEDS: AMIODARONE HCL 200 MG TABLET PO SCH (08:06)
[2021-05-09 11:20] LABS: EOSINOPHILS % (MANUAL) 1 % (0-4); LYMPHOCYTES % (MANUAL) 8 % (16-48); MONOCYTES % (MANUAL) 8 % (0-11.0); MYELOCYTES % 1 % (0-0); NEUTROPHILS % (MANUAL) 82 (42-76)
[2021-05-09] MEDS: ALBUMIN 25% 25 GM in PREMIX 1 EA IV PRN (11:21)
[2021-05-09] MEDS: DAPTOMYCIN 600 MG in IV NS 0.9% 50 ML IV SCH (16:00)
[2021-05-09] MEDS: LATANOPROST EYE DROP 0.005% 2.5 ML BOTTLE EACHEYE SCH (21:27)
[2021-05-10] VITALS (7 sets, daily range): BP systolic 78–122; BP diastolic 39–74
[2021-05-10] MEDS: MEROPENEM 500 MG in IV NS 0.9% 50 ML IV SCH ×2 (04:20→15:01)
[2021-05-10 08:04] LABS: BASOPHILS % (AUTO) 0.4 % (0.0-2.0); EOSINOPHILS % (AUTO) 0.8 % (0.0-6.0); HEMATOCRIT 29 % (39-51); HEMOGLOBIN 8.6 g/dL (13.5-17.5); LYMPHOCYTES # (AUTO) 0.8 K/uL (0.8-4.8); LYMPHOCYTES % (AUTO) 7.8 % (20.0-44.0); MEAN CORPUSCULAR HGB CONC 30 g/dl (31.0-36.0); MEAN CORPUSCULAR VOLUME 106 fL (80-96); MONOCYTES # (AUTO) 0.8 K/uL (0.1-1.30); MONOCYTES % (AUTO) 8.3 % (2.0-12.0); NEUTROPHILS % (AUTO) 82.7 % (43.0-81.0); PLATELET COUNT (AUTO) 203 K/uL (150-450); RED BLOOD CELL COUNT(AUTO) 2.72 MIL/uL (4.5-6.0); WHITE BLOOD COUNT (AUTO) 9.7 K/uL (4.3-11.0)
[2021-05-10] MEDS: ALLOPURINOL 100 MG TABLET PO SCH (08:25)
[2021-05-10] MEDS: MIDODRINE HCL (5MG) 5 MG TABLET PO SCH ×3 (08:26→16:19)
[2021-05-10] MEDS: GLUCERNA SHAKE 237 ML CAN PO SCH ×3 (08:27→16:37)
[2021-05-10] MEDS: AMIODARONE HCL 200 MG TABLET PO SCH (08:27)
[2021-05-10] MEDS: DAKINS QUARTER STRENGTH (0.125%) 480 ML BOTTLE TOP SCH (08:29)
[2021-05-10 08:37] LABS: CARBON DIOXIDE 25 mmol/L (21-32); CHLORIDE 104 mmol/L (98-107); CREATININE 3.3 mg/dL (0.6-1.3); GLUCOSE 99 mg/dL (74-106); MAGNESIUM 2.4 mg/dL (1.8-2.4); PHOSPHORUS 3.1 mg/dL (2.5-4.9); POTASSIUM 4.3 mmol/L (3.5-5.1); SODIUM SERUM 138 mmol/L (136-145); UREA NITROGEN, BLOOD 21 mg/dL (7-18)
[2021-05-10] MEDS: LATANOPROST EYE DROP 0.005% 2.5 ML BOTTLE EACHEYE SCH (21:50)
[2021-05-11] VITALS: BP 105/49
[2021-05-11 00:09] VITALS: BP 105/49
[2021-05-11] MEDS: MEROPENEM 500 MG in IV NS 0.9% 50 ML IV SCH ×2 (03:39→15:00)
[2021-05-11 04:00] VITALS: BP 98/55
[2021-05-11 06:45] LABS: BASOPHILS % (AUTO) 0.3 % (0.0-2.0); EOSINOPHILS % (AUTO) 0.9 % (0.0-6.0); HEMATOCRIT 28 % (39-51); HEMOGLOBIN 8.3 g/dL (13.5-17.5); LYMPHOCYTES % (AUTO) 7.6 % (20.0-44.0); MEAN CORPUSCULAR HGB CONC 30 g/dl (31.0-36.0); MEAN CORPUSCULAR VOLUME 102 fL (80-96); MONOCYTES % (AUTO) 7.6 % (2.0-12.0); NEUTROPHILS # (AUTO) 10.6 K/uL (1.8-8.9); NEUTROPHILS % (AUTO) 83.6 % (43.0-81.0); PLATELET COUNT (AUTO) 248 K/uL (150-450); RED BLOOD CELL COUNT(AUTO) 2.72 MIL/uL (4.5-6.0); WHITE BLOOD COUNT (AUTO) 12.7 K/uL (4.3-11.0)
[2021-05-11 06:55] LABS: CALCIUM, SERUM 8.9 mg/dL (8.5-10.1); CARBON DIOXIDE 27 mmol/L (21-32); CHLORIDE 103 mmol/L (98-107); CREATININE 4.3 mg/dL (0.6-1.3); GLUCOSE 156 mg/dL (74-106); MAGNESIUM 2.2 mg/dL (1.8-2.4); PHOSPHORUS 4.2 mg/dL (2.5-4.9); POTASSIUM 4.3 mmol/L (3.5-5.1); SODIUM SERUM 139 mmol/L (136-145); UREA NITROGEN, BLOOD 29 mg/dL (7-18)
[2021-05-11] MEDS: GLUCERNA SHAKE 237 ML CAN PO SCH ×3 (08:00→16:00)
[2021-05-11] MEDS: DAKINS QUARTER STRENGTH (0.125%) 480 ML BOTTLE TOP SCH (08:06)
[2021-05-11] MEDS: AMIODARONE HCL 200 MG TABLET PO SCH ×2 (08:07→08:22)
[2021-05-11] MEDS: MIDODRINE HCL (5MG) 5 MG TABLET PO SCH ×4 (08:07→16:00)
[2021-05-11] MEDS: ALLOPURINOL 100 MG TABLET PO SCH ×2 (08:07→08:22)
[2021-05-11 10:58] VITALS: BP 99/59
[2021-05-11] MEDS: ALBUMIN 25% 25 GM in PREMIX 1 EA IV PRN (12:00)
[2021-05-11] MEDS: DAPTOMYCIN 600 MG in IV NS 0.9% 50 ML IV SCH (16:09)
[2021-05-11 17:51] LABS: BAND % (MANUAL) 1 % (0.0-5.0); EOSINOPHILS % (MANUAL) 2 % (0-4); LYMPHOCYTES % (MANUAL) 5 % (16-48); MONOCYTES % (MANUAL) 4 % (0-11.0); NEUTROPHILS % (MANUAL) 88 (42-76)
[2021-05-11 20:00] VITALS: BP 100/43
[2021-05-11] MEDS: LATANOPROST EYE DROP 0.005% 2.5 ML BOTTLE EACHEYE SCH (22:09)
[2021-05-12] MEDS: MEROPENEM 500 MG in IV NS 0.9% 50 ML IV SCH (03:14)
[2021-05-12 07:17] LABS: BASOPHILS % (AUTO) 0.4 % (0.0-2.0); EOSINOPHILS % (AUTO) 1.1 % (0.0-6.0); HEMATOCRIT 28 % (39-51); HEMOGLOBIN 8.5 g/dL (13.5-17.5); LYMPHOCYTES # (AUTO) 0.9 K/uL (0.8-4.8); MEAN CORPUSCULAR HGB CONC 31 g/dl (31.0-36.0); MEAN CORPUSCULAR VOLUME 102 fL (80-96); MONOCYTES # (AUTO) 0.9 K/uL (0.1-1.30); MONOCYTES % (AUTO) 6.5 % (2.0-12.0); NEUTROPHILS # (AUTO) 11.4 K/uL (1.8-8.9); PLATELET COUNT (AUTO) 247 K/uL (150-450); WHITE BLOOD COUNT (AUTO) 13.4 K/uL (4.3-11.0)
[2021-05-12 07:49] LABS: CALCIUM, SERUM 9.3 mg/dL (8.5-10.1); CARBON DIOXIDE 28 mmol/L (21-32); CHLORIDE 104 mmol/L (98-107); GLUCOSE 147 mg/dL (74-106); MAGNESIUM 2.2 mg/dL (1.8-2.4); PHOSPHORUS 4.6 mg/dL (2.5-4.9); POTASSIUM 4.3 mmol/L (3.5-5.1); SODIUM SERUM 140 mmol/L (136-145); UREA NITROGEN, BLOOD 28 mg/dL (7-18)
[2021-05-12 08:00] VITALS: BP 103/50
[2021-05-12] MEDS: GLUCERNA SHAKE 237 ML CAN PO SCH ×2 (08:00→11:02)
[2021-05-12] MEDS: AMIODARONE HCL 200 MG TABLET PO SCH (08:07)
[2021-05-12] MEDS: ALLOPURINOL 100 MG TABLET PO SCH (08:09)
[2021-05-12] MEDS: MIDODRINE HCL (5MG) 5 MG TABLET PO SCH ×2 (08:09→12:04)
[2021-05-12] MEDS: DAKINS QUARTER STRENGTH (0.125%) 480 ML BOTTLE TOP SCH (08:11)
[2021-05-12] MEDS ORDERED: ERGOCALCIFEROL (VITAMIN D 2) 50,000 UNIT CAPSULE PO SCH (09:00)
[2021-05-12 09:29] LABS: BAND % (MANUAL) 4 % (0.0-5.0); EOSINOPHILS % (MANUAL) 1 % (0-4); LYMPHOCYTES % (MANUAL) 6 % (16-48); METAMYELOCYTES % 1 % (0-0); MONOCYTES % (MANUAL) 6 % (0-11.0); MYELOCYTES % 1 % (0-0); NEUTROPHILS % (MANUAL) 81 (42-76)
[2021-05-12 10:53] LABS: ABG BASE EXCESS -5.1 mmol/L; ABG PCO2 42.4 mmHg (35.0-45.0); ABG PO2 62.8 mmHg (75.0-100.0); AaDO2 86.8 mmHg; COHb 0.7 % (0.5-1.5); MetHb 0.1 % (0.0-1.5); O2Hb 89.3 % (94.0-97.0); SITE, ABG Right Radial; VENT MODE, BG NASAL CANNULA
[2021-05-12] MEDS ORDERED: CALCIUM CHLORIDE 1,000 MG/10 ML DISP.SYRIN IV ONE (13:34)
[2021-05-12] MEDS ORDERED: SODIUM BICARBONATE SYR 50 MEQ/50 ML DISP.SYRIN IV ONE (13:34)
[2021-05-12] MEDS ORDERED: EPINEPHRINE (1:10,000) SYRINGE 1 MG/10 ML DISP.SYRIN IVP ONE (13:34)
== END 2021-05-12 13:27 | DRG 205 ==
LOC: ER 00:53 → TELE1 04:28 → MEDSG1 08:34 → TELE1 05-07 20:04 → TELE 05-10 00:58 → MED 05-11 07:56
PROVIDERS: ADMIT Nurse Practitioner Family; ATTEND Nurse Practitioner Family
PROC: 5A1D70Z Performance of Urinary Filtration, Intermittent, Less than 6 Hours Per Day (ICD-10-PCS; 2021-05-07)
PROC: 05H933Z Insertion of Infusion Device into Right Brachial Vein, Percutaneous Approach (ICD-10-PCS; principal; 2021-05-08)
PROC: 05H933Z Insertion of Infusion Device into Right Brachial Vein, Percutaneous Approach (ICD-10-PCS; 2021-05-08)
PROC: 0BH17EZ Insertion of Endotracheal Airway into Trachea, Via Natural or Artificial Opening (ICD-10-PCS; 2021-05-12)
PROC: 5A2204Z Restoration of Cardiac Rhythm, Single (ICD-10-PCS; 2021-05-12)
DX: T17.990A Other foreign object in respiratory tract, part unspecified in causing asphyxiation, initial encounter (principal); L89.154 Pressure ulcer of sacral region, stage 4; L89.324 Pressure ulcer of left buttock, stage 4; L89.314 Pressure ulcer of right buttock, stage 4; I50.33 Acute on chronic diastolic (congestive) heart failure; N18.6 End stage renal disease; E66.2 Morbid (severe) obesity with alveolar hypoventilation; N02.9 Recurrent and persistent hematuria with unspecified morphologic changes; I13.2 Hypertensive heart and chronic kidney disease with heart failure and with stage 5 chronic kidney disease, or end stage renal disease; M46.28 Osteomyelitis of vertebra, sacral and sacrococcygeal region; J96.11 Chronic respiratory failure with hypoxia; I87.313 Chronic venous hypertension (idiopathic) with ulcer of bilateral lower extremity; J96.12 Chronic respiratory failure with hypercapnia; L97.429 Non-pressure chronic ulcer of left heel and midfoot with unspecified severity; L97.419 Non-pressure chronic ulcer of right heel and midfoot with unspecified severity; I42.9 Cardiomyopathy, unspecified; J98.11 Atelectasis; E46 Unspecified protein-calorie malnutrition; J90 Pleural effusion, not elsewhere classified; N39.0 Urinary tract infection, site not specified; D68.9 Coagulation defect, unspecified; R78.81 Bacteremia; N17.9 Acute kidney failure, unspecified; I95.9 Hypotension, unspecified; E11.22 Type 2 diabetes mellitus with diabetic chronic kidney disease; Z99.2 Dependence on renal dialysis; Z20.822 Contact with and (suspected) exposure to COVID-19; D63.1 Anemia in chronic kidney disease; B96.20 Unspecified Escherichia coli [E. coli] as the cause of diseases classified elsewhere; E11.51 Type 2 diabetes mellitus with diabetic peripheral angiopathy without gangrene; M19.90 Unspecified osteoarthritis, unspecified site; I25.10 Atherosclerotic heart disease of native coronary artery without angina pectoris; E78.5 Hyperlipidemia, unspecified; I87.8 Other specified disorders of veins; E11.69 Type 2 diabetes mellitus with other specified complication; Z88.2 Allergy status to sulfonamides; Z88.8 Allergy status to other drugs, medicaments and biological substances; Z79.51 Long term (current) use of inhaled steroids; Z79.82 Long term (current) use of aspirin; Z79.4 Long term (current) use of insulin; Z79.01 Long term (current) use of anticoagulants; Z79.899 Other long term (current) drug therapy; D69.6 Thrombocytopenia, unspecified; L89.620 Pressure ulcer of left heel, unstageable; L89.610 Pressure ulcer of right heel, unstageable; I87.2 Venous insufficiency (chronic) (peripheral); K82.8 Other specified diseases of gallbladder; E27.8 Other specified disorders of adrenal gland; M51.36 Other intervertebral disc degeneration, lumbar region; L98.9 Disorder of the skin and subcutaneous tissue, unspecified; S31.30XA Unspecified open wound of scrotum and testes, initial encounter; X58.XXXA Exposure to other specified factors, initial encounter; Y92.9 Unspecified place or not applicable; M50.30 Other cervical disc degeneration, unspecified cervical region; M89.9 Disorder of bone, unspecified; M47.819 Spondylosis without myelopathy or radiculopathy, site unspecified; M48.10 Ankylosing hyperostosis [Forestier], site unspecified; Z87.891 Personal history of nicotine dependence; Z95.810 Presence of automatic (implantable) cardiac defibrillator; B96.89 Other specified bacterial agents as the cause of diseases classified elsewhere; B96.1 Klebsiella pneumoniae [K. pneumoniae] as the cause of diseases classified elsewhere; B95.62 Methicillin resistant Staphylococcus aureus infection as the cause of diseases classified elsewhere; Z86.14 Personal history of Methicillin resistant Staphylococcus aureus infection
CPT/HCPCS: 36410; 36415; 36600; 71045-TC; 80048-TC; 80076-TC; 81001; 82533; 82803-TC; 82962-TC; 83605-TC; 83690-TC; 83735-TC; 84100-TC; 84484-TC; 85025-TC; 85610-TC; 85652-TC; 85730-TC; 86140-TC; 86706; 87040-TC; 87081-TC; 87086-TC; 87186-TC; 87340; 90935-TC; 93307-TC; 94799-TC; A4216; A4217; A6253; A6403; G0378; J0171; J0696; J0878; J2185; J3490; J7030; J7040; J7050; J7060; P9047; U0003